=== PATIENT | female | born 1945 | race Caucasian/White ===

== ENCOUNTER 2020-03-15 11:10 | Day surgery (SDC) | payer MEDICARE, SELFPAY ==
--- NOTE | 2020-03-15 | US_ITS ---
EXAMINATION: ULTRASOUND-GUIDED PARACENTESIS CLINICAL INFORMATION: Ascites COMPARISON: Previous exam most recent 02/24/2020 TECHNIQUE: Procedure and risks and benefits including bleeding, infection and low blood pressure were discussed with the patient through an asl interpreter and informed consent was obtained. The right upper quadrant was prepped and draped in the usual sterile fashion. The skin and soft tissues were anesthetized percent lidocaine plain. Using ultrasound guidance and a 5 Congolese rapid 2 cysts catheter, access to the ascitic fluid was obtained. Approximately 4 L of clear yellow fluid was removed. The catheter fell out. Ultrasound demonstrated persistent ascites. The left lower quadrant was prepped and draped in the usual sterile fashion. The skin and soft tissues were anesthetized with 1% lidocaine plain. Using ultrasound guidance and a 5 Congolese rapid centesis catheter, access to the ascitic fluid was obtained. An additional 2.6 L of fluid was removed for a total of 6.6 L. Diagnostic specimen was sent. The patient received albumin 25 g of intravenous albumin during the procedure. FINDINGS: There is a large amount of ascites. IMPRESSION: Ultrasound-guided paracentesis.
[2020-03-15 12:52] VITALS: BP 134/81; PULSE 70; RESP 18; TEMP 36.5; O2SAT 98; BMI 23.8
[2020-03-15 13:17] LABS: Glucose, Whole Blood 65 mg/dL (60-115)
[2020-03-15 13:23] LABS: MANUAL DIFF FLAG NO
[2020-03-15] MEDS: Lidocaine HCl 1 % 20 ML VIAL 5 ML SUBCUT ×2 (13:29→14:53)
[2020-03-15 13:30] LABS: Basophils Percent Auto 0.4 % (0-2); Eosinophils Absolute Auto 0.3 X10*3/uL (0.0-0.4); Eosinophils Percent Auto 2.5 % (0-4); Hematocrit 35.3 % (37-47); Hemoglobin 12.1 g/dl (12.0-16.0); Imm Gran Abs Auto 0.03 X10*3/uL (0.00-0.03); Imm Gran Pct Auto 0.3 % (0.0-0.4); Lymphocytes Absolute Auto 0.8 X10*3/uL (1.2-4.9); Lymphocytes Percent Auto 7.9 % (20-40); Mean Corpuscular HGB Conc 34.3 g/dl (31.0-35.0); Mean Corpuscular Hemoglobin 29.7 pg (27.0-33.0); Mean Corpuscular Volume 86.7 fL (80-98); Mean Platelet Volume 9.5 fL (9.4-12.3); Monocytes Absolute Auto 0.5 X10*3/uL (0.1-1.2); Monocytes Percent Auto 4.5 % (2-11); Neutrophils Percent Auto 84.4 % (45-73); Platelet Count 287 X10*3/uL (160-400); Red Blood Count 4.07 X10*6/uL (4.20-5.50); Red Cell Distribution Width 13.9 % (11.0-16.0); White Blood Count 10.6 X10*3/uL (4.8-10.8)
[2020-03-15 13:34] LABS: INTERNATIONAL NORM RATIO 1.4 (0.9-1.1); Prothrombin Time 16.3 SEC (10.8-13.0)
[2020-03-15 13:36] LABS: Partial Thromboplastin Time 38.7 SEC (24.1-38.0)
[2020-03-15 13:54] LABS: Albumin Level 2.5 g/dL (3.5-5.0); Anion Gap 12 (12-20); Carbon Dioxide 23 mmol/L (22-29); Chloride 106 mmol/L (96-108); Potassium 3.8 mmol/l (3.3-5.1); Sodium 137 mmol/L (135-145)
[2020-03-15 15:20] VITALS: BP 138/74; PULSE 86; RESP 13; TEMP 37.4; O2SAT 100
[2020-03-15 16:27] VITALS: BP 133/76; PULSE 84; RESP 15; O2SAT 100
[2020-03-16 08:09] LABS: Total Protein Peritoneal Fluid 1.3
[2020-03-16 08:11] LABS: Albumin Peritoneal Fluid 0.5
== END 2020-03-15 23:59 ==
PROVIDERS: Internal Medicine Medical Oncology; Visit Provider Radiology Diagnostic Radiology
DX: R18.8 Other ascites (principal); C23 Malignant neoplasm of gallbladder; C55 Malignant neoplasm of uterus, part unspecified
CPT/HCPCS: 36415; 49083; 80051; 82040; 82042; 82947; 84157; 85025; 85610; 85730; 88112; 88305; P9047

== ENCOUNTER 2020-04-01 11:11 | Day surgery (SDC) | payer MEDICARE, SELFPAY ==
[2020-04-01] VITALS (7 sets, daily range): BP systolic 106–124; BP diastolic 56–72; PULSE 70–85; RESP 15–18; TEMP 36.1–37; O2SAT 96–100; BMI 25.2
--- NOTE | 2020-04-01 | US_ITS ---
EXAMINATION: ULTRASOUND-GUIDED PARACENTESIS. CLINICAL INFORMATION: Ovarian, uterine cancer. Ascites. COMPARISON: Abdomen ultrasound 06/21/2018 TECHNIQUE: All explaining ultrasound-guided thoracentesis procedure, benefits and risk, a written consent was obtained. Patient was placed supine on ultrasound table and preliminary ultrasound imaging was obtained through the abdomen. An optimal site was selected, marked, cleaned and draped in usual sterile manner. 1% lidocaine was injected at puncture site. Through a small skin incision the right lower quadrant a 5 American Yueh catheter was inserted into the peritoneal space. After observing fluid return, the stylet was withdrawn and catheter connected to vacuum bottle via connecting cannula. After obtaining all fluid and observing no more fluid remaining, complete hemostasis achieved at puncture site. Sterile band aid dressing was placed over the puncture site. Patient tolerated procedure extremely well. FINDINGS: Preliminary ultrasound imaging revealed large amount of ascites. There is echogenic debris within the ascites. Approximately 7.3 L of yellowish cloudy fluid was drained without immediate complications. US/US paracentesis abd w/image IMPRESSION: Successful ultrasound-guided paracentesis performed with approximately 7.3 L of cloudy yellowish color fluid drained.
[2020-04-01] MEDS: Lidocaine HCl 1 % 20 ML VIAL 5 ML SUBCUT (14:41)
--- NOTE | 2020-04-01 15:28 | HO.RADPN ---
RADIOLOGY Narrative Narrative: US guided therapeutic paracentesis performed with approx 7.3 liters of fluid drained.
== END 2020-04-01 15:00 | disposition home or self-care (01) ==
PROVIDERS: Radiology Diagnostic Radiology; PCP Internal Medicine; Visit Provider Internal Medicine Medical Oncology
DX: R18.8 Other ascites (principal); C23 Malignant neoplasm of gallbladder; C56.9 Malignant neoplasm of unspecified ovary; I10 Essential (primary) hypertension; Z90.49 Acquired absence of other specified parts of digestive tract; Z79.899 Other long term (current) drug therapy
CPT/HCPCS: 49083; C1729

== ENCOUNTER 2020-04-02 18:43 | Inpatient (IN) | payer MEDICARE, SELFPAY ==
[2020-04-02 20:22] VITALS: BP 80/40; PULSE 55; RESP 14; TEMP 36.5; O2SAT 96; BMI 23.8
--- NOTE | 2020-04-02 20:41 | ECG_ITS ---
Test Reason : ABD PAIN Blood Pressure : / mmHG Vent. Rate : 066 BPM Atrial Rate : 066 BPM P-R Int : 124 ms QRS Dur : 080 ms QT Int : 376 ms P-R-T Axes : 047 004 -05 degrees QTc Int : 394 ms Normal sinus rhythm Nonspecific T wave abnormality Low voltage QRS Abnormal ECG When compared with ECG of 21-JUN-2018 16:13, Nonspecific T wave abnormality has replaced inverted T waves in Anterior leads Referred By: Lillie Slade Electronically Signed By:DIONNA MCKEON MD
[2020-04-02 21:04] LABS: Basophils Percent Auto 0.2 % (0-2); Eosinophils Absolute Auto 0.1 X10*3/uL (0.0-0.4); Eosinophils Percent Auto 0.4 % (0-4); Hemoglobin 11.4 g/dl (12.0-16.0); Imm Gran Abs Auto 0.05 X10*3/uL (0.00-0.03); Imm Gran Pct Auto 0.4 % (0.0-0.4); Lymphocytes Absolute Auto 0.5 X10*3/uL (1.2-4.9); Lymphocytes Percent Auto 4.3 % (20-40); MANUAL DIFF FLAG SCAN; Mean Corpuscular HGB Conc 35.6 g/dl (31.0-35.0); Mean Corpuscular Hemoglobin 30.2 pg (27.0-33.0); Mean Corpuscular Volume 84.7 fL (80-98); Mean Platelet Volume 10.3 fL (9.4-12.3); Monocytes Absolute Auto 0.2 X10*3/uL (0.1-1.2); Monocytes Percent Auto 1.5 % (2-11); Neutrophils Absolute Auto 10.9 X10*3/uL (2.0-8.3); Neutrophils Percent Auto 93.2 % (45-73); Platelet Count 333 X10*3/uL (160-400); Red Blood Count 3.78 X10*6/uL (4.20-5.50); Red Cell Distribution Width 19.3 % (11.0-16.0); SCAN SMEAR FLAG 1; White Blood Count 11.7 X10*3/uL (4.8-10.8)
[2020-04-02 21:11] LABS: INTERNATIONAL NORM RATIO 1.8 (0.9-1.1); Prothrombin Time 21.7 SEC (10.8-13.0)
[2020-04-02 21:13] LABS: Partial Thromboplastin Time 37.1 SEC (24.1-38.0)
[2020-04-02 21:27] LABS: SLIDE REVIEW VERIFIED
[2020-04-02 21:31] LABS: Ammonia 58 umol/L (13-55)
--- NOTE | 2020-04-02 21:33 | ED_ITS ---
HPI - Abdominal Pain General Chief Complaint: Abdominal Pain Stated Complaint: pain Time Seen by Provider: 04/02/20 20:41 Source: patient Mode of arrival: wheelchair Limitations: language barrier History of Present Illness HPI narrative: 74-year-old English-speaking female presents with 1 day of jaundice after a paracentesis. 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 She presents with pain, jaundice, fatigue and weakness. Cholangiocarcinoma was diagnosed 2 years ago, she has had follow-up with Dr. Marcos and was scheduled for hysterectomy that had to be canceled 3 times secondary to COVID-19 complications. She is followed by Dr. Powell and by Dr.Ghaoui Ramon [facility]e gastroenterology to [facility]. she does have cirrhosis, esophageal varices, ascites with paracentesis once every 2 weeks. She has never had complications from her paracentesis prior to this. Grandharsha is at bedside and is a great historian. He takes care of her on daily basis. MD elicited complaint: abdominal pain Pertinent past history: other Onset (ago): day(s) (1) Pain Consistency: constant Location: diffuse Severity: severe Quality: cramping, aching and fullness Exacerbating factors: eating and movement Relieving factors: nothing Context: recent surgery/procedure Associated symptoms: nausea, chills and anorexia Related Data Home Medications Medication Instructions Recorded Confirmed amlodipine 5 mg PO DAILY 03/15/20 04/03/20 omeprazole 40 cap PO DAILY 03/15/20 04/03/20 acetaminophen [Tylenol] 650 mg PO Q6H PRN 04/03/20 04/03/20 hydroxyzine HCl 25 mg PO Q6H PRN 04/03/20 04/03/20 Allergies Allergy/AdvReac Type Severity Reaction Status Date / Time lisinopril [LISINOPRIL] Allergy Severe SWELLING/NAUSEA/ITCHING, Verified 04/02/20 22:17 cough, swellimg, redness sunflower seed Allergy Severe ANAPHYLAXIS Verified 04/02/20 22:17 [SUNFLOWER SEED] wheat [WHEAT] Allergy Severe ANAPHYLAXIS Verified 04/02/20 22:17 Review of Systems Review of Systems Constitutional: Positive fatigue, No Weight loss, No Fever, No Chills, No Night Sweats ENT/Mouth: No Hoarseness, No sore throat, No Swallowing Difficulty Eyes: No Eye Pain, No Swelling, No Redness, No Discharge, No Vision Changes Cardiovascular positive dyspnea on exertion, No Chest Pain, No SOB, No Orthopnea, No Edema, No Palpitations Respiratory: No Cough, No Sputum, No Wheezing, No Smoke Exposure, No Dyspnea Gastrointestinal: Positive Nausea, Positive Vomiting, positive Diarrhea, positive abdominal Pain, No Hematochezia, No Melena Genitourinary: no irregular bleeding, No Dysuria, No Urinary Frequency, No Hematuria, No Urinary Incontinence, No Urgency, No Flank Pain, No Urinary Flow Changes, No Hesitancy Musculoskeletal: positive myalgia and joint pain Skin: No Skin Lesions, No rash Neuro: positive Weakness, No Numbness, No Paresthesias, No Loss of Consciousness, No Dizziness, No Headache Psych: No Anxiety/Panic, No Depression, No SI/HI/AH/VH, No Social Issues Heme/Lymph: No Bruising, No Bleeding,No Lymphadenopathy Endocrine: No Polyuria, No Polydipsia, No Temperature Intolerance Physical Exam Vital Signs: Vital Signs: Vital Signs Temp Pulse Resp BP Pulse Ox 04/02/20 23:33 77 16 99/64 98 04/02/20 22:20 80 15 116/65 98 04/02/20 22:00 70 15 89/54 L 99 04/02/20 20:22 97.7 F 55 14 80/40 L 96 Body Mass Index 23.8 Appearance: Alert. Oriented X3. moderate distress. Head: Normal external exam. Normocephalic. Atraumatic. No Nunez signs noted. No raccoon eyes noted Eyes: scleral icterus, PERRLA. EOMI. Eyelids normal. ENT: TM's Normal. Pharynx normal. Uvula midline. dry mucous membranes, No trismus noted. No drooling noted. No muffled voice noted. Neck: Normal inspection. Neck supple. No adenopathy. No meningeal signs. CVS: Normal heart rate and rhythm. Heart sound normal. No murmurs noted. Pulses equal to all extremities. Respiratory: No respiratory distress. Painless inspiration. Breath sounds normal. No wheezes/rales/rhonchi noted. Chest nontender. No accessory muscle usage noted or decreased air movement noted. Abdomen: distended, soft, diffusely tender to palpation throughout all quadrants, Bowel sounds normal in all 4 quadrants. No visible injury noted. Back: positive CVA tenderness Full range of motion noted. Skin: Skin warm and dry. moderately jaundice. Extremities: No lower extremity edema. Extremities exhibit normal range of motion. Extremities nontender. Neuro: cranial nerves 2-12 intact, no focal neural deficits, No motor deficit. No sensory deficit. Course Course Course Narrative: plan is to rule out sepsis, acute liver failure, pancreatitis, GI bleed, acs. fluid boluses initiated, cultures and lactic pending, lactic 3.4, 2nd bolus infusing. Pressures remain soft but stable. labs received at time 11:32 p.m., white count 11.7, with a left shift of 93.2%, PT INR 21.7/1.8, appears to be in acute liver failure bilirubin is 11.4, alk-phos 389. creatinine clearance 39, CT scan without contrast ordered. CT scan shows biliary dilation, increased ascites, and Increased size of known adnexal mass Highly suspicious for metastatic neoplasm. Discussion with hospitalist regarding plan of care, will be admitted to intermediate care. Consultations Consultation #1: Deep Hicks Time: 01:39 MDM - Abdominal Pain Differential Diagnosis Differential diagnosis: Likely abdominal pain, acute appendicitis, pancreatitis and renal colic Differential diagnosis narrative:: Cirrhosis , liver cancer, metastatic cancer Medical Records Attestation: I reviewed the patient's medical records. Lab Data Attestation: I reviewed the patient's lab results. Result diagrams: 04/02/20 20:53 04/02/20 23:32 Labs: Lab Results 04/02/20 04/02/20 04/02/20 Range/Units 20:53 20:53 20:53 WBC 11.7 H (4.8-10.8) X10*3/uL RBC 3.78 L (4.20-5.50) X10*6/uL Hgb 11.4 L (12.0-16.0) g/dl Hct 32.0 L (37-47) % MCV 84.7 (80-98) fL MCH 30.2 (27.0-33.0) pg MCHC 35.6 H (31.0-35.0) g/dl RDW 19.3 H (11.0-16.0) % Plt Count 333 (160-400) X10*3/uL MPV 10.3 (9.4-12.3) fL Immature Gran % (Auto) 0.4 (0.0-0.4) % Neut % (Auto) 93.2 H (45-73) % Lymph % (Auto) 4.3 L (20-40) % [place] % (Auto) 1.5 L (2-11) % Eos % (Auto) 0.4 (0-4) % Baso % (Auto) 0.2 (0-2) % Lymph # (Auto) 0.5 L (1.2-4.9) X10*3/uL [place] # (Auto) 0.2 (0.1-1.2) X10*3/uL Eos # (Auto) 0.1 (0.0-0.4) X10*3/uL Baso # (Auto) 0.0 (0.0-0.2) X10*3/uL Abs Immat Gran (auto) 0.05 H (0.00-0.03) X10*3/uL Absolute Neuts (auto) 10.9 H (2.0-8.3) X10*3/uL Absolute Nucleated RBC 0.000 (0.0-0.012) X10*3/uL Nucleated RBC % (auto) 0.0 (0.0-0.2) /100WBC Smear Tech's Comments VERIFIED PT (10.8-13.0) SEC INR (0.9-1.1) APTT (24.1-38.0) SEC Sodium (135-145) mmol/L Potassium (3.3-5.1) mmol/l Chloride (96-108) mmol/L Carbon Dioxide (22-29) mmol/L Anion Gap (12-20) BUN (9-16) mg/dL Creatinine (0.5-1.4) mg/dL Estim Creat Clear Calc Estimated GFR Random Glucose (60-115) mg/dL Lactic Acid (0.5-2.0) mmol/L Lactic Acid Fup @ 2Hr (0.5-2.0) mmol/L Calcium (8.4-10.2) mg/dL Magnesium 2.0 (1.6-2.6) mg/dL Total Bilirubin 13.7 H (0.0-1.0) mg/dL Direct Bilirubin 8.2 H (0.0-0.5) mg/dL AST 170 H (5-31) U/L ALT 48 H (0-31) U/L Alkaline Phosphatase 479 H (39-117) U/L Ammonia (13-55) umol/L Troponin I High Sens (<3.5-17.0) ng/L Total Protein 7.5 (6.5-8.0) g/dL Albumin 2.3 L (3.5-5.0) g/dL Lipase Cancelled 19 Coronavirus (PCR) (Negative) 04/02/20 04/02/20 04/02/20 Range/Units 20:53 20:53 20:56 WBC (4.8-10.8) X10*3/uL RBC (4.20-5.50) X10*6/uL Hgb (12.0-16.0) g/dl Hct (37-47) % MCV (80-98) fL MCH (27.0-33.0) pg MCHC (31.0-35.0) g/dl RDW (11.0-16.0) % Plt Count (160-400) X10*3/uL MPV (9.4-12.3) fL Immature Gran % (Auto) (0.0-0.4) % Neut % (Auto) (45-73) % Lymph % (Auto) (20-40) % [place] % (Auto) (2-11) % Eos % (Auto) (0-4) % Baso % (Auto) (0-2) % Lymph # (Auto) (1.2-4.9) X10*3/uL [place] # (Auto) (0.1-1.2) X10*3/uL Eos # (Auto) (0.0-0.4) X10*3/uL Baso # (Auto) (0.0-0.2) X10*3/uL Abs Immat Gran (auto) (0.00-0.03) X10*3/uL Absolute Neuts (auto) (2.0-8.3) X10*3/uL Absolute Nucleated RBC (0.0-0.012) X10*3/uL Nucleated RBC % (auto) (0.0-0.2) /100WBC Smear Tech's Comments PT 21.7 H D (10.8-13.0) SEC INR 1.8 H (0.9-1.1) APTT 37.1 (24.1-38.0) SEC Sodium (135-145) mmol/L Potassium (3.3-5.1) mmol/l Chloride (96-108) mmol/L Carbon Dioxide (22-29) mmol/L Anion Gap (12-20) BUN (9-16) mg/dL Creatinine (0.5-1.4) mg/dL Estim Creat Clear Calc Estimated GFR Random Glucose (60-115) mg/dL Lactic Acid 3.4 H* (0.5-2.0) mmol/L Lactic Acid Fup @ 2Hr (0.5-2.0) mmol/L Calcium (8.4-10.2) mg/dL Magnesium (1.6-2.6) mg/dL Total Bilirubin (0.0-1.0) mg/dL Direct Bilirubin (0.0-0.5) mg/dL AST (5-31) U/L ALT (0-31) U/L Alkaline Phosphatase (39-117) U/L Ammonia (13-55) umol/L Troponin I High Sens 4.7 (<3.5-17.0) ng/L Total Protein (6.5-8.0) g/dL Albumin (3.5-5.0) g/dL Lipase Coronavirus (PCR) (Negative) 04/02/20 04/02/20 04/02/20 Range/Units 21:03 23:32 23:32 WBC (4.8-10.8) X10*3/uL RBC (4.20-5.50) X10*6/uL Hgb (12.0-16.0) g/dl Hct (37-47) % MCV (80-98) fL MCH (27.0-33.0) pg MCHC (31.0-35.0) g/dl RDW (11.0-16.0) % Plt Count (160-400) X10*3/uL MPV (9.4-12.3) fL Immature Gran % (Auto) (0.0-0.4) % Neut % (Auto) (45-73) % Lymph % (Auto) (20-40) % [place] % (Auto) (2-11) % Eos % (Auto) (0-4) % Baso % (Auto) (0-2) % Lymph # (Auto) (1.2-4.9) X10*3/uL [place] # (Auto) (0.1-1.2) X10*3/uL Eos # (Auto) (0.0-0.4) X10*3/uL Baso # (Auto) (0.0-0.2) X10*3/uL Abs Immat Gran (auto) (0.00-0.03) X10*3/uL Absolute Neuts (auto) (2.0-8.3) X10*3/uL Absolute Nucleated RBC (0.0-0.012) X10*3/uL Nucleated RBC % (auto) (0.0-0.2) /100WBC Smear Tech's Comments PT (10.8-13.0) SEC INR (0.9-1.1) APTT (24.1-38.0) SEC Sodium 135 (135-145) mmol/L Potassium 3.6 (3.3-5.1) mmol/l Chloride 111 H (96-108) mmol/L Carbon Dioxide 14 L (22-29) mmol/L Anion Gap 14 (12-20) BUN 22 H (9-16) mg/dL Creatinine 1.07 (0.5-1.4) mg/dL Estim Creat Clear Calc 39.8 Estimated GFR 50 Random Glucose 83 (60-115) mg/dL Lactic Acid (0.5-2.0) mmol/L Lactic Acid Fup @ 2Hr 1.6 (0.5-2.0) mmol/L Calcium 6.7 L (8.4-10.2) mg/dL Magnesium (1.6-2.6) mg/dL Total Bilirubin 11.4 H (0.0-1.0) mg/dL Direct Bilirubin (0.0-0.5) mg/dL AST 95 H (5-31) U/L ALT 36 H (0-31) U/L Alkaline Phosphatase 389 H (39-117) U/L Ammonia 58 H (13-55) umol/L Troponin I High Sens (<3.5-17.0) ng/L Total Protein 5.2 L D (6.5-8.0) g/dL Albumin 1.9 L (3.5-5.0) g/dL Lipase Coronavirus (PCR) (Negative) 04/02/20 Range/Units 23:46 WBC (4.8-10.8) X10*3/uL RBC (4.20-5.50) X10*6/uL Hgb (12.0-16.0) g/dl Hct (37-47) % MCV (80-98) fL MCH (27.0-33.0) pg MCHC (31.0-35.0) g/dl RDW (11.0-16.0) % Plt Count (160-400) X10*3/uL MPV (9.4-12.3) fL Immature Gran % (Auto) (0.0-0.4) % Neut % (Auto) (45-73) % Lymph % (Auto) (20-40) % [place] % (Auto) (2-11) % Eos % (Auto) (0-4) % Baso % (Auto) (0-2) % Lymph # (Auto) (1.2-4.9) X10*3/uL [place] # (Auto) (0.1-1.2) X10*3/uL Eos # (Auto) (0.0-0.4) X10*3/uL Baso # (Auto) (0.0-0.2) X10*3/uL Abs Immat Gran (auto) (0.00-0.03) X10*3/uL Absolute Neuts (auto) (2.0-8.3) X10*3/uL Absolute Nucleated RBC (0.0-0.012) X10*3/uL Nucleated RBC % (auto) (0.0-0.2) /100WBC Smear Tech's Comments PT (10.8-13.0) SEC INR (0.9-1.1) APTT (24.1-38.0) SEC Sodium (135-145) mmol/L Potassium (3.3-5.1) mmol/l Chloride (96-108) mmol/L Carbon Dioxide (22-29) mmol/L Anion Gap (12-20) BUN (9-16) mg/dL Creatinine (0.5-1.4) mg/dL Estim Creat Clear Calc Estimated GFR Random Glucose (60-115) mg/dL Lactic Acid (0.5-2.0) mmol/L Lactic Acid Fup @ 2Hr (0.5-2.0) mmol/L Calcium (8.4-10.2) mg/dL Magnesium (1.6-2.6) mg/dL Total Bilirubin (0.0-1.0) mg/dL Direct Bilirubin (0.0-0.5) mg/dL AST (5-31) U/L ALT (0-31) U/L Alkaline Phosphatase (39-117) U/L Ammonia (13-55) umol/L Troponin I High Sens (<3.5-17.0) ng/L Total Protein (6.5-8.0) g/dL Albumin (3.5-5.0) g/dL Lipase Coronavirus (PCR) NEGATIVE (Negative) Imaging Data CT scan - chest: Attestation: I personally reviewed and interpreted this imaging study as follows: Radiologist's impression: FINDINGS: Chest: Mild bibasilar atelectasis. Trace right pleural effusion. No pneumothorax. The visualized thyroid gland is unremarkable. No discrete mediastinal lymphadenopathy is seen, though assessment is suboptimal without intravenous contrast. Cardiac size is within normal limits; no pericardial effusion. Scattered calcification along the aorta, including at the aortic arch. No axillary lymphadenopathy is present. Abdomen/Pelvis: Limited assessment without intravenous contrast. Intrahepatic biliary ductal dilatation appears increased from prior. Patient is status post cholecystectomy. The unenhanced spleen, pancreas, and adrenal glands appear grossly unremarkable. The unenhanced kidneys are unremarkable without hydronephrosis. No renal or ureteral calculi are present. The urinary bladder is unremarkable. Redemonstrated right adnexal mass measuring 9.6 x 7.1 cm, previously 7.7 x 5.4 cm on 11/28/2019. The stomach has a thick-walled appearance. No evidence of bowel obstruction. There is also a thick-walled appearance of the ascending colon. Moderate volume of ascites is present, increased from 11/28/2019. No free air is seen. Atherosclerotic calcifications are present. Left-sided IVC is noted. No lymphadenopathy is seen, though assessment is limited in the absence of intravenous contrast. Periumbilical hernia contains a short segment of small bowel and trace fluid. Degenerative changes are noted in the spine. CT/CT abdomen pelvis wo con IMPRESSION: 1. Suboptimal assessment without intravenous contrast. Intrahepatic biliary ductal dilatation appears increased from 11/28/2019. 2. Interval increase in size of right adnexal mass since 11/28/2019. Subsequent MRI from 12/16/2019 reported findings highly suspicious for neoplasm. 3. Moderate volume ascites, increased from prior. Thick-walled appearance of the stomach and ascending colon could be reactive in this setting, or secondary to inflammation. 4. Trace right pleural effusion. CT scan - abdomen: Attestation: I personally reviewed and interpreted this imaging study as follows: Radiologist's impression: FINDINGS: Chest: Mild bibasilar atelectasis. Trace right pleural effusion. No pneumothorax. The visualized thyroid gland is unremarkable. No discrete mediastinal lymphadenopathy is seen, though assessment is suboptimal without intravenous contrast. Cardiac size is within normal limits; no pericardial effusion. Scattered calcification along the aorta, including at the aortic arch. No axillary lymphadenopathy is present. Abdomen/Pelvis: Limited assessment without intravenous contrast. Intrahepatic biliary ductal dilatation appears increased from prior. Patient is status post cholecystectomy. The unenhanced spleen, pancreas, and adrenal glands appear grossly unremarkable. The unenhanced kidneys are unremarkable without hydronephrosis. No renal or ureteral calculi are present. The urinary bladder is unremarkable. Redemonstrated right adnexal mass measuring 9.6 x 7.1 cm, previously 7.7 x 5.4 cm on 11/28/2019. The stomach has a thick-walled appearance. No evidence of bowel obstruction. There is also a thick-walled appearance of the ascending colon. Moderate volume of ascites is present, increased from 11/28/2019. No free air is seen. Atherosclerotic calcifications are present. Left-sided IVC is noted. No lymphadenopathy is seen, though assessment is limited in the absence of intravenous contrast. Periumbilical hernia contains a short segment of small bowel and trace fluid. Degenerative changes are noted in the spine. CT/CT abdomen pelvis wo con IMPRESSION: 1. Suboptimal assessment without intravenous contrast. Intrahepatic biliary ductal dilatation appears increased from 11/28/2019. 2. Interval increase in size of right adnexal mass since 11/28/2019. Subsequent MRI from 12/16/2019 reported findings highly suspicious for neoplasm. 3. Moderate volume ascites, increased from prior. Thick-walled appearance of the stomach and ascending colon could be reactive in this setting, or secondary to inflammation. 4. Trace right pleural effusion. ECG Data Attestation: I personally reviewed and interpreted this ECG as follows: ECG interpretation date: 04/02/20 ECG interpretation time: 20:56 Prior ECG tracings: available for review Interpretation: Vent. Rate : 066 BPM Atrial Rate : 066 BPM P-R Int : 124 ms QRS Dur : 080 ms QT Int : 376 ms P-R-T Axes : 047 004 -05 degrees QTc Int : 394 ms Normal sinus rhythm Cannot rule out Anterior infarct , age undetermined Abnormal ECG When compared with ECG of 21-JUN-2018 16:13, Nonspecific T wave abnormality has replaced inverted T waves in Anterior leads Critical Care Time Critical Care Time Critical Care Time: Yes Total Critical Care Time: 60 Attestation: I have personally provided critical care time exclusive of time spent on separately billable procedures. Time includes review of laboratory data, radiology results, discussion with consultants, and monitoring for potential decompensation. Interventions were performed as documented. Discharge Plan Discharge Clinical Impression: Acute liver failure Qualifiers: Hepatic coma status: without hepatic coma Qualified Code(s): K72.00 - Acute and subacute hepatic failure without coma Patient Disposition: Admitted As Inpatient [facility] Past Medical History Attestation statement: The following information was validated with the patient. Medical History Gallbladder cancer HTN (hypertension) Hyperlipidemia Osteoarthritis Ovarian cancer Surgical History History of laparoscopic cholecystectomy Social History Social History Smoking Status: Never smoker Second Hand Smoke Exposure: No Advance Directives: No Advance Directives Information Provided: Yes
[2020-04-02 21:35] LABS: Lactic Acid 3.4 mmol/L (0.5-2.0)
[2020-04-02 21:37] LABS: Alanine Aminotransferase 48 U/L (0-31); Albumin Level 2.3 g/dL (3.5-5.0); Alkaline Phosphatase 479 U/L (39-117); Aspartate Amino Transferase 170 U/L (5-31); Bilirubin Direct 8.2 mg/dL (0.0-0.5); Bilirubin Total 13.7 mg/dL (0.0-1.0); Total Protein 7.5 g/dL (6.5-8.0)
[2020-04-02 21:43] LABS: Troponin-I High Sensitivity 4.7 ng/L (<3.5-17.0)
[2020-04-02 22:00] VITALS: BP 89/54; PULSE 70; RESP 15; O2SAT 99
[2020-04-02] MEDS: 0.9 % Sodium Chloride 1,000 ML 999 ML IVCONT ×2 (22:00→22:22)
[2020-04-02] MEDS: ondansetron HCL 4 MG/2 ML VIAL IVPUSH (22:06)
[2020-04-02 22:20] VITALS: BP 116/65; PULSE 80; RESP 15; O2SAT 98
[2020-04-02] MEDS: fentaNYL citrate/PF 100 MCG/2 ML VIAL 25 MCG IVPUSH (22:22)
[2020-04-02 22:29] LABS: Lipase 19 U/L (8-78)
[2020-04-02] MEDS: cefEPime HCl 1 GM in 0.9 % Sodium Chloride 50 ML IV (22:46)
[2020-04-02 23:01] LABS: Reflex Lactate? Lactic Acid Added
[2020-04-02 23:33] VITALS: BP 99/64; PULSE 77; RESP 16; O2SAT 98
[2020-04-03] VITALS (8 sets, daily range): BP systolic 93–110; BP diastolic 50–67; PULSE 65–82; RESP 16–19; TEMP 36–36.4; O2SAT 66–99
--- NOTE | 2020-04-03 | CT_ITS ---
EXAMINATION: CT ABDOMEN AND PELVIS WITH OUT and WITH CONTRAST CLINICAL INFORMATION: Jaundice. Gallbladder/cholangiocarcinoma. COMPARISON: Portions of a CT performed earlier same day TECHNIQUE: Multidetector volumetric images were obtained from the superior aspect of the liver through the pubic symphysis before and following administration 85 mL of Omnipaque 350 intravenous contrast. Sagittal and coronal reformatted images were obtained on the technologist's workstation. Multiphase exam including precontrast, arterial and portal venous phases Oral contrast: Enteric contrast is present This CT examination was performed using dose optimization techniques as appropriate, variously including the following: *Automated exposure control *Adjustment of mA and/or kV according to patient size (this includes techniques or standardized protocols for targeted exams where dose is matched to indication/reason for exam; i.e. extremities or head) *Use of iterative reconstruction technique DLP: 1314 mGy-cm FINDINGS: LUNG BASES: The chest was recently examined. No dense area of consolidation. Minor nonspecific opacities posteromedial right medial base. Fluid extends through the esophageal hiatus. LIVER, GALLBLADDER, AND BILIARY TREE: The right lobe of the liver measures 15.8 cm which is close to the mean expected. There is moderate intrahepatic biliary dilation. There is an intermediate attenuating abnormality near the confluence of the right and left hepatic ducts. This appears to be a site of biliary obstruction. The distal common duct does not appear dilated Whether this represents primary cholangiocarcinoma or portal/hilar adenopathy is uncertain. The gallbladder is surgically absent. Bowel approximates the expected region of the gallbladder. Correlate with any history of hepaticojejunostomy. PANCREAS: No definite pancreatic mass. No pancreatic ductal dilation. SPLEEN: The spleen is not enlarged. No focal abnormality ADRENAL GLANDS: No mass demonstrated KIDNEYS AND URETERS: No dilation of the urinary collecting system. The nephrograms are symmetric. Probable cyst involving the lower pole right kidney laterally. BLADDER: The bladder is empty. GASTROINTESTINAL TRACT: The proximal colon is not well evaluated and is relatively collapsed. Wall thickening could be present. There is metallic suture in the right midabdomen. The ileocecal valve appears to be in the right upper quadrant. This area is not well evaluated. ABDOMINAL WALL: Fluid protrudes into the epigastric upper abdominal wall and there is postoperative change with nodularity. There is a midline ventral hernia which contains contrast containing bowel loops. LYMPH NODES: As described there could be some periportal lymph nodes. Large amount of intraperitoneal fluid. Calcified structure in the deep posterior cul-de-sac. VASCULAR: There is extensive atherosclerosis. There is no abdominal aortic aneurysm. There is opacification of the portal vein. There is a duplication of the IVC which is a normal variant. PELVIC VISCERA: There is a complex right pelvic mass which measures at least 10.2 cm. This has suspicious features. Whether this represents metastatic disease or primary ovarian mass is uncertain. There are some low attenuating areas along the cervical canal. These could represent nabothian cysts but are nonspecific. Mild fullness of the left ovary. Dilated canal vein on the right. OSSEOUS STRUCTURES: There is degenerative change in the spine CT/CT abdomen pelvis w con IMPRESSION: Marked intraperitoneal fluid. Concerning large complex right adnexal mass highly suspicious for malignancy. Intrahepatic biliary dilation to the level of the ron hepatis. There is some poorly defined soft tissue in this area. Correlate with exact surgical anatomy. The intrahepatic biliary dilation appears mildly increased when compared to 11/28/19. The amount of intraperitoneal fluid has increased.
[2020-04-03 00:10] LABS: ~Lactic Acid-LAB USE ONLY 1.6 mmol/L (0.5-2.0)
[2020-04-03 00:22] LABS: Alanine Aminotransferase 36 U/L (0-31); Albumin Level 1.9 g/dL (3.5-5.0); Alkaline Phosphatase 389 U/L (39-117); Anion Gap 14 (12-20); Aspartate Amino Transferase 95 U/L (5-31); Bilirubin Total 11.4 mg/dL (0.0-1.0); Blood Urea Nitrogen 22 mg/dL (9-16); Calcium 6.7 mg/dL (8.4-10.2); Carbon Dioxide 14 mmol/L (22-29); Chloride 111 mmol/L (96-108); Creatinine Clr Calc Pharmacy 39.8; Estimated Glomerular Filt Rate 50; Glucose Random 83 mg/dL (60-115); Potassium 3.6 mmol/l (3.3-5.1); Sodium 135 mmol/L (135-145); Total Protein 5.2 g/dL (6.5-8.0)
--- NOTE | 2020-04-03 00:30 | CT_ITS ---
EXAM: NONCONTRAST CT OF THE CHEST; NONCONTRAST CT OF THE ABDOMEN AND PELVIS INDICATION: Jaundice, history of cholangiocarcinoma COMPARISON: 11/28/2019 TECHNIQUE: No IV contrast was utilized. Multidetector helical imaging was performed through the chest, abdomen, and pelvis. Coronal and sagittal reformatted images were created at the technologist workstation. DOSE LOWERING TECHNIQUES: This CT examination was performed using dose optimization techniques as appropriate, variously including the following: - Automated exposure control - Adjustment of mA and/or kV according to patient size (this includes techniques or standardized protocols for targeted exams were dose is matched to indication/reason for exam; i.e. extremities or head) - Use of iterative reconstruction technique DLP: 754 mGy-cm FINDINGS: Chest: Mild bibasilar atelectasis. Trace right pleural effusion. No pneumothorax. The visualized thyroid gland is unremarkable. No discrete mediastinal lymphadenopathy is seen, though assessment is suboptimal without intravenous contrast. Cardiac size is within normal limits; no pericardial effusion. Scattered calcification along the aorta, including at the aortic arch. No axillary lymphadenopathy is present. Abdomen/Pelvis: Limited assessment without intravenous contrast. Intrahepatic biliary ductal dilatation appears increased from prior. Patient is status post cholecystectomy. The unenhanced spleen, pancreas, and adrenal glands appear grossly unremarkable. The unenhanced kidneys are unremarkable without hydronephrosis. No renal or ureteral calculi are present. The urinary bladder is unremarkable. Redemonstrated right adnexal mass measuring 9.6 x 7.1 cm, previously 7.7 x 5.4 cm on 11/28/2019. The stomach has a thick-walled appearance. No evidence of bowel obstruction. There is also a thick-walled appearance of the ascending colon. Moderate volume of ascites is present, increased from 11/28/2019. No free air is seen. Atherosclerotic calcifications are present. Left-sided IVC is noted. No lymphadenopathy is seen, though assessment is limited in the absence of intravenous contrast. Periumbilical hernia contains a short segment of small bowel and trace fluid. Degenerative changes are noted in the spine. CT/CT abdomen pelvis wo con IMPRESSION: 1. Suboptimal assessment without intravenous contrast. Intrahepatic biliary ductal dilatation appears increased from 11/28/2019. 2. Interval increase in size of right adnexal mass since 11/28/2019. Subsequent MRI from 12/16/2019 reported findings highly suspicious for neoplasm. 3. Moderate volume ascites, increased from prior. Thick-walled appearance of the stomach and ascending colon could be reactive in this setting, or secondary to inflammation. 4. Trace right pleural effusion.
[2020-04-03 01:07] LABS: SARS COV2 PCR INHOUSE NEGATIVE (Negative)
--- NOTE | 2020-04-03 01:56 | PC.NURSE ---
PT SLEEPING, GRANDSON AT BEDSIDE.
--- NOTE | 2020-04-03 02:23 | PC.NURSE ---
pt awake and alert, watching tv. when asked how she feels, she relies nauseous.
--- NOTE | 2020-04-03 03:42 | PM.IMHP ---
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 Hx provided by patient and son at the bedside. Son reports that patient started experiencing first loss of appetite which has been followed by jaundice and severe abdominal discomfort which is diffuse in nature. Patient has been following with Dr Marcos GI, Dr Knight Hematology and Dr Scott in [facility]. Has been having lately Paracentesis almost every 2 weeks. Last paracentesis is reported 2 days ago. On presentation to the ED patient is noted to be borderline hypotensive, WBC of 11.7, INR of 1.8, CO2 of 14, Lactate of 3.4, calcium of 6.7, total bili of 11.4 with direct of 8.2, elevated LFT's / alk phosp, ammonia 58 and albumin of 1.9. Patient was given per ED one dose of cefepime and fentanyl for pain. CT positive for worsening biliary dilation compared to 11/27, increase in size of right adnexal mass. Mod volume ascites which is increased from prior. Decision for admission given. Patient seen and examined at the bedside, laying down in bed in no acute distress after pain med was given. evidence of jaundice is seen. Mild abd discomfort on evaluation/palpation of the abdomen but no significant tenderness. Bx and Ucx was obtained per ED. Off note patient had EGD on 11/28 which showed efophageal varices extending from EG junction with no stigmate of recent bleeding. PMHX: HTN, HLP, OA, cholangiocarcinoma s/p partial hepatectomy, esophageal varices, erosive duodeniti PSX: partial hepatectomy, cholecystectomy, EGD Toxic habits: NO hx of alcohol abuse, smoking or IVDA Review of Systems Constitutional: Constitutional: Reports other (jaundice) Gastrointestinal: Gastrointestinal: Reports other (abdominal distention / pain) [facility] Medical History Gallbladder cancer HTN (hypertension) Hyperlipidemia Osteoarthritis Ovarian cancer Functional capacity: independent ambulation Family history: reviewed and not pertinent Surgical History History of laparoscopic cholecystectomy Social History Smoking Status: Never smoker Second Hand Smoke Exposure: No Advance Directives: No Advance Directives Information Provided: Yes Meds Allergies Allergy/AdvReac Type Severity Reaction Status Date / Time lisinopril [LISINOPRIL] Allergy Severe SWELLING/NAUSEA/ITCHING, Verified 04/02/20 22:17 cough, swellimg, redness sunflower seed Allergy Severe ANAPHYLAXIS Verified 04/02/20 22:17 [SUNFLOWER SEED] wheat [WHEAT] Allergy Severe ANAPHYLAXIS Verified 04/02/20 22:17 Home Medications Medication Instructions Recorded Confirmed Type amlodipine 5 mg PO DAILY 03/15/20 04/03/20 History omeprazole 40 cap PO DAILY 03/15/20 04/03/20 History acetaminophen [Tylenol] 650 mg PO Q6H PRN 04/03/20 04/03/20 History hydroxyzine HCl 25 mg PO Q6H PRN 04/03/20 04/03/20 History Physical Exam Vital Signs and Narrative: Vital Signs: Last Vital Signs Temp 97.7 F 04/02/20 20:22 Pulse 70 04/03/20 02:24 Resp 16 04/02/20 23:33 BP 93/50 L 04/03/20 02:24 Pulse Ox 97 04/03/20 02:24 Body Mass Index 23.8 Const: General: cooperative, comfortable and no acute distress Orientation/consciousness: oriented to person, oriented to place and oriented to time Limitations: other limitations (jaundice) HENMT: Head: Yes other (icteric eyes / skin) Eyes: Sclerae: scleral abnormal (icteric) Neck: Yes normal visual inspection Chest: Chest palpation & inspection: normal inspection of the chest Resp: Effort & Inspection: normal respiratory effort Cardio: Jugular venous distension: no JVD Rhythm: regular rhythm Heart sounds: S1 normal heart sound present and S2 normal heart sound present GI: Inspection: Yes other (abdominal distention, mild discomfort with no significant tenderness ) Skin: General skin exam: jaundice Neuro: General: oriented to person, oriented to place and oriented to time Extrem: General: Yes normal to inspection Psych: Appearance: grossly normal Results Labs Labs: Laboratory Tests 04/02/20 04/02/20 04/02/20 20:53 20:53 20:53 WBC 11.7 H RBC 3.78 L Hgb 11.4 L Hct 32.0 L MCV 84.7 MCH 30.2 MCHC 35.6 H RDW 19.3 H Plt Count 333 MPV 10.3 Immature Gran % (Auto) 0.4 Neut % (Auto) 93.2 H Lymph % (Auto) 4.3 L Nicholas % (Auto) 1.5 L Eos % (Auto) 0.4 Baso % (Auto) 0.2 Lymph # (Auto) 0.5 L Nicholas # (Auto) 0.2 Eos # (Auto) 0.1 Baso # (Auto) 0.0 Abs Immat Gran (auto) 0.05 H Absolute Neuts (auto) 10.9 H Absolute Nucleated RBC 0.000 Nucleated RBC % (auto) 0.0 Smear Tech's Comments VERIFIED PT INR APTT Sodium Potassium Chloride Carbon Dioxide Anion Gap BUN Creatinine Estim Creat Clear Calc Estimated GFR Random Glucose Lactic Acid Lactic Acid Fup @ 2Hr Calcium Magnesium 2.0 Total Bilirubin 13.7 H Direct Bilirubin 8.2 H AST 170 H ALT 48 H Alkaline Phosphatase 479 H Ammonia Troponin I High Sens Total Protein 7.5 Albumin 2.3 L Lipase Cancelled 19 Coronavirus (PCR) 04/02/20 04/02/20 04/02/20 20:53 20:53 20:56 WBC RBC Hgb Hct MCV MCH MCHC RDW Plt Count MPV Immature Gran % (Auto) Neut % (Auto) Lymph % (Auto) Nicholas % (Auto) Eos % (Auto) Baso % (Auto) Lymph # (Auto) Nicholas # (Auto) Eos # (Auto) Baso # (Auto) Abs Immat Gran (auto) Absolute Neuts (auto) Absolute Nucleated RBC Nucleated RBC % (auto) Smear Tech's Comments PT 21.7 H D INR 1.8 H APTT 37.1 Sodium Potassium Chloride Carbon Dioxide Anion Gap BUN Creatinine Estim Creat Clear Calc Estimated GFR Random Glucose Lactic Acid 3.4 H* Lactic Acid Fup @ 2Hr Calcium Magnesium Total Bilirubin Direct Bilirubin AST ALT Alkaline Phosphatase Ammonia Troponin I High Sens 4.7 Total Protein Albumin Lipase Coronavirus (PCR) 04/02/20 04/02/20 04/02/20 21:03 23:32 23:32 WBC RBC Hgb Hct MCV MCH MCHC RDW Plt Count MPV Immature Gran % (Auto) Neut % (Auto) Lymph % (Auto) Nicholas % (Auto) Eos % (Auto) Baso % (Auto) Lymph # (Auto) Nicholas # (Auto) Eos # (Auto) Baso # (Auto) Abs Immat Gran (auto) Absolute Neuts (auto) Absolute Nucleated RBC Nucleated RBC % (auto) Smear Tech's Comments PT INR APTT Sodium 135 Potassium 3.6 Chloride 111 H Carbon Dioxide 14 L Anion Gap 14 BUN 22 H Creatinine 1.07 Estim Creat Clear Calc 39.8 Estimated GFR 50 Random Glucose 83 Lactic Acid Lactic Acid Fup @ 2Hr 1.6 Calcium 6.7 L Magnesium Total Bilirubin 11.4 H Direct Bilirubin AST 95 H ALT 36 H Alkaline Phosphatase 389 H Ammonia 58 H Troponin I High Sens Total Protein 5.2 L D Albumin 1.9 L Lipase Coronavirus (PCR) 04/02/20 23:46 WBC RBC Hgb Hct MCV MCH MCHC RDW Plt Count MPV Immature Gran % (Auto) Neut % (Auto) Lymph % (Auto) Nicholas % (Auto) Eos % (Auto) Baso % (Auto) Lymph # (Auto) Nicholas # (Auto) Eos # (Auto) Baso # (Auto) Abs Immat Gran (auto) Absolute Neuts (auto) Absolute Nucleated RBC Nucleated RBC % (auto) Smear Tech's Comments PT INR APTT Sodium Potassium Chloride Carbon Dioxide Anion Gap BUN Creatinine Estim Creat Clear Calc Estimated GFR Random Glucose Lactic Acid Lactic Acid Fup @ 2Hr Calcium Magnesium Total Bilirubin Direct Bilirubin AST ALT Alkaline Phosphatase Ammonia Troponin I High Sens Total Protein Albumin Lipase Coronavirus (PCR) NEGATIVE Assessment and Plan (1) Cholangiocarcinoma: Status: Acute On imaging it is evidence of worsening biliary dilation compared to studies from 11/28 with labs correlates with possible billiary obstruction due to underlying malignancy Total bilirubin of 11.4 with direct of 8.2, elevated LFT's / alk phosp and INR of 1.87 Will get in touch with GI for possible need of ERCP at this point Hematology/Oncology Dr Knight for follow up Pain control Will give albumin as there is evidence of worsening ascitis with elevated lactate likely due to third spacing Paracentesis done recently showed no evidence of SBP, given finding willl not continue with IV antbx as of now Will obtain records from [facility] regarding recent visits and other studies done (2) Abdominal pain: Status: Acute Pain control for now. Oxycodone as ordered (3) GERD (gastroesophageal reflux disease): Status: Acute continue with PPI home dose (4) HTN (hypertension): Status: Acute continue with amlodipine home dose
--- NOTE | 2020-04-03 04:35 | PC.NURSE ---
pt able to ambulate with steady gait, only able to void once while in ER. urine dark, 200 ml in hat measured before sample.
[2020-04-03 04:53] LABS: Glucose Urine UA NEG (NEG); Leukocyte Esterase Urine NEG (NEG); Nitrite Urine NEG (NEG); PH 6.5 (5.0-8.0); Specific Gravity - Urine 1.015 (1.005-1.025); Urine Blood 1+ (NEG); Urine Ketones NEG (NEG); Urine Protein TRACE MG/DL (NEG-TRACE)
[2020-04-03] MEDS: Albumin Human 25 % 50 ML 100 ML IV (05:20)
[2020-04-03 05:52] LABS: Appearance Urine HAZY; Color Urine AMBER
[2020-04-03 05:53] LABS: Bacteria Urine 2+ /LPF; Squamous Epithelial Cell Urine 2+ /LPF
[2020-04-03] MEDS: Heparin Sodium,Porcine 5,000 UNIT/ML VIAL 5000 UNIT SUBCUT ×3 (06:26→21:26)
[2020-04-03] MEDS: 0.9 % Sodium Chloride Flush 3 ML SYRINGE IVFLUSH ×3 (07:53→23:55)
[2020-04-03] MEDS: Omeprazole 20 MG CAPSULE.DR PO (07:53)
--- NOTE | 2020-04-03 11:08 | MHC.CM.PN ---
NURSE INDUSTRIAL SPRAYPAINTER NOTES ELECTRONIC MEDICAL RECORD REVIEWED ALONG WITH CASE DISCUSSED WITH THE HOSPITLAISTBEE WITH PATIENT SHE IS HUNGARIAN SPEAKING AND DOES UNDERSTAND SOME ENGISH I OFFERED HER A [facility] [place] INTERPERTER AND SHE DECLINED HER GRANDSON /HCP AND A [facility] [place]URSE WAS P[place]RESENT , SHE EANTED HIM TO INTERPERT IF SHE DID NOT UNDERSTAND. I EXPLAINED MY ROLE EDUCATED ABOUT THE IMPORTANCE OF HAVING A HEALTH CARE PROXY , HER HER GRANDSON WILL BRING IN A COPY TO HAVE ON FILE. PER DOCUMENENTATION DIAGNOSIS OF CJHOLANGIOCARCINOMA,S/P HX PARTIAL HEPATECTMY AND CHOLECYSTECTOMY, ADMITTED FR ABDOMINAL PAIN AND JAUNDICE SHE HAD A recent paracentesis just 2 days prioooooot admission . she is folowed by dr juares and dr zapata. per patient /grandson she has no vna n dme services in the home and is aleays with famiy SHE IS INDEPENDNT INADLS AND MOBILITY N HER GOOD DAYS WHEN SHE IS FEELING WEAK JUST PRIOR TO ANOTHER PARENTESIS SHE IS A LITTLE SLOWER IN COMPLLLLETING TASKS , SHE COKS THE SHARI FOR THE FAMILY, PATIENT DOES NOT WANT ANY VNA INT HE HOME SHE HAS MANY FAMILY MEBERS WITH HER TRANSPORTATION FAMILY HCP -FAMILY TO BRING INN COPY PCP DR CRAFT PO CONTINUED F/U WITH DR PISANO AND DR ZAPATA MEDICARE IMM EXPLAINED AND GIVEN TO PATIENT
--- NOTE | 2020-04-03 13:21 | CONS_ITS ---
DATE OF SERVICE: 04/03/2020 REFERRING PHYSICIAN: Damon Case MD REASON FOR CONSULTATION: Elevated liver function tests. HISTORY OF PRESENT ILLNESS: The patient is a pleasant, 74-year-old woman, known to me from prior evaluation. She was admitted to the hospital after presenting to the emergency room with complaints of jaundice. She has a history of hepatic cirrhosis with previous hepaticojejunostomy for gallbladder cancer/cholangiocarcinoma in 2019, at [facility]. She has recently been evaluated for a right ovarian mass and surgery was considered, but she was felt high risk because of her underlying liver disease. She has a history of ascites and has been getting paracentesis approximately every 2 weeks for recurrent ascites. Previous analysis has shown no evidence of malignancy in the ascites fluid and the serum albumin gradient has been greater than 1.1 consistent with portal hypertension. She is not currently on diuretics. She reports about 1 week of jaundice with dark urine and yellow eyes as well as fatigue and weakness. There has been no fever or chills. PAST MEDICAL HISTORY: 1. Gallbladder cancer/cholangiocarcinoma as above with hepaticojejunostomy. 2. Hypertension. 3. Osteoarthritis. 4. Ovarian mass. 5. Gastroesophageal reflux disease. 6. Hyperlipidemia. 7. Endometrial carcinoma. CURRENT MEDICATIONS: Her current medication list is reviewed in the chart. ALLERGIES: HER MEDICATION ALLERGY LIST IS REVIEWED. FAMILY HISTORY: This is reviewed with the patient and is noncontributory. SOCIAL HISTORY: There is no current tobacco, alcohol or substance abuse. REVIEW OF SYSTEMS: SKIN: No pruritus. HEENT: Negative. CARDIOPULMONARY: No shortness of breath or chest pain. GASTROINTESTINAL: As above. GENITOURINARY: Negative. NEUROPSYCHIATRIC: Negative. PHYSICAL EXAMINATION: GENERAL: Shows a pleasant female. SKIN: Icteric. HEENT: Scleral icterus. NECK: Without lymphadenopathy or thyromegaly. LUNGS: Clear. HEART: Regular rate and rhythm. S1, S2. No murmur. ABDOMEN: Soft without focal masses or tenderness. Bowel sounds are present. There does appear to be ascites fluid. EXTREMITIES: Without edema. LABORATORY DATA: Reviewed as is her CT scan. IMPRESSION: Jaundice with history of gallbladder cancer and ovarian mass. My impression is that she needs further evaluation of her liver. I would recommend MRI with contrast and without to further evaluate the liver and rule out underlying metastatic disease or recurrent gallbladder/cholangiocarcinoma. I would recommend starting diuretic therapy for her recurrent ascites and monitoring her hematocrit. ERCP is not an option in this patient based on her previous surgery. MD GALE Benson/IMANI / [id number]
[2020-04-03] MEDS: Spironolactone 25 MG TABLET 50 MG PO (14:30)
[2020-04-03] MEDS: Diatrizoate Meglumine, Sodium 30 ML SOLUTION PO (17:43)
[2020-04-03] MEDS: iohexoL 350 MG/ML 100 ML INFUS..BTL IV (17:44)
[2020-04-03] MEDS: Furosemide 40 MG/4 ML SOLUTION PO (18:52)
[2020-04-04 04:00] VITALS: BP 95/67; PULSE 82; RESP 18; TEMP 36.8; O2SAT 97
[2020-04-04] MEDS: Heparin Sodium,Porcine 5,000 UNIT/ML VIAL 5000 UNIT SUBCUT ×2 (05:43→21:19)
[2020-04-04 07:34] LABS: MANUAL DIFF FLAG NO
[2020-04-04 07:46] VITALS: BP 95/55; PULSE 71; RESP 17; TEMP 36.6; O2SAT 97
[2020-04-04 07:58] LABS: Basophils Percent Auto 0.3 % (0-2); Eosinophils Absolute Auto 0.4 X10*3/uL (0.0-0.4); Eosinophils Percent Auto 4.6 % (0-4); Hematocrit 27.1 % (37-47); Hemoglobin 9.8 g/dl (12.0-16.0); Imm Gran Abs Auto 0.03 X10*3/uL (0.00-0.03); Imm Gran Pct Auto 0.4 % (0.0-0.4); Lymphocytes Absolute Auto 1.1 X10*3/uL (1.2-4.9); Lymphocytes Percent Auto 14.8 % (20-40); Mean Corpuscular HGB Conc 36.2 g/dl (31.0-35.0); Mean Corpuscular Volume 82.9 fL (80-98); Mean Platelet Volume 10.5 fL (9.4-12.3); Monocytes Absolute Auto 0.6 X10*3/uL (0.1-1.2); Monocytes Percent Auto 8.3 % (2-11); Neutrophils Absolute Auto 5.5 X10*3/uL (2.0-8.3); Neutrophils Percent Auto 71.6 % (45-73); Platelet Count 305 X10*3/uL (160-400); Red Blood Count 3.27 X10*6/uL (4.20-5.50); Red Cell Distribution Width 19.1 % (11.0-16.0); White Blood Count 7.6 X10*3/uL (4.8-10.8)
[2020-04-04 08:19] LABS: Alanine Aminotransferase 40 U/L (0-31); Alkaline Phosphatase 344 U/L (39-117); Anion Gap 12 (12-20); Aspartate Amino Transferase 102 U/L (5-31); Bilirubin Direct 7.3 mg/dL (0.0-0.5); Bilirubin Total 9.5 mg/dL (0.0-1.0); Blood Urea Nitrogen 21 mg/dL (9-16); Calcium 7.1 mg/dL (8.4-10.2); Carbon Dioxide 16 mmol/L (22-29); Chloride 108 mmol/L (96-108); Creatinine Clr Calc Pharmacy 50.7; Estimated Glomerular Filt Rate > 60; Glucose Random 75 mg/dL (60-115); Potassium 4.1 mmol/l (3.3-5.1); Sodium 132 mmol/L (135-145); Total Protein 5.1 g/dL (6.5-8.0)
[2020-04-04] MEDS: 0.9 % Sodium Chloride Flush 3 ML SYRINGE IVFLUSH ×3 (09:58→23:44)
[2020-04-04] MEDS: Furosemide 40 MG/4 ML SOLUTION PO (09:59)
[2020-04-04] MEDS: Spironolactone 25 MG TABLET 50 MG PO (09:59)
[2020-04-04] MEDS: Omeprazole 20 MG CAPSULE.DR PO (09:59)
--- NOTE | 2020-04-04 10:42 | PM.HEMONCCN ---
Subjective - Subjective Chief complaint: Jaundice and abdominal pain Consult date: 04/04/20 Primary Care Provider: Heather Diez MD HPI - Consult Narrative Reason for consult: History of cholangiocarcinoma and probable metastatic ovarian carcinoma. Narrative: Solange Perez is a 74 year old female who has been admitted to [facility] with complaints of jaundice and abdominal pain. 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 She has developed ascites from January of 2020 and has been receiving therapeutic paracentesis every 2 weeks. She has had a few biopsies but they have not been definitive and workup at [facility] and [facility] are still ongoing. Patient was brought to the hospital on Sunday because of complaints of abdominal pain, nausea and yellowing of the skin. No complaints of fever or chills. No diarrhea but has had mild constipation. She has been eating very poorly. No complaints of chest pain or cough. On presentation to the ED patient was noted to be borderline hypotensive, WBC of 11.7, INR of 1.8, CO2 of 14, Lactate of 3.4, calcium of 6.7, total bili of 11.4 with direct of 8.2, elevated LFT's / alk phosp, ammonia 58 and albumin of 1.9. Patient was given per ED one dose of cefepime and fentanyl for pain. CT positive for worsening biliary dilation compared to 11/27, increase in size of right adnexal mass. Patient has been admitted for further investigations and possible treatment. Review of Systems - Constitutional Reports anorexia - Cardiovascular Denies chest pain at rest - Respiratory Denies chest congestion, Denies cough - Gastrointestinal Reports abdominal pain, Reports bloating, Reports constipation, Reports nausea, Denies bright, red blood in stools, Denies vomiting PMFSH Medical History: Medical History (Last Updated 04/03/20 @ 03:57 by Sheba Hicks MD) Gallbladder cancer HTN (hypertension) Hyperlipidemia Osteoarthritis Ovarian cancer Functional capacity: independent ambulation Family history: reviewed and not pertinent Surgical History: Surgical History (Last Reviewed 04/03/20 @ 03:55 by Sheba Hicks MD) History of laparoscopic cholecystectomy Smoking status: Never smoker Home Medications and Allergies Current Medications: Current Medications Generic Name Dose Route Start Last Admin Trade Name Freq PRN Reason Stop Dose Admin Amlodipine Besylate 5 mg 04/03/20 09:00 04/04/20 09:58 Amlodipine Besylate 5 Mg Tablet PO Not Given DAILY [facility] Protocol Furosemide 40 mg 04/03/20 13:00 04/04/20 09:59 Furosemide 40 Mg/4 Ml Solution PO 40 mg DAILY [facility] Administration Protocol Heparin Sodium (Porcine) 5,000 unit 04/03/20 05:42 04/04/20 05:43 Heparin Sodium,Porcine 5,000 Unit/Ml Vial SUBCUT 5,000 unit Q8H [facility] Administration Omeprazole 20 mg 04/03/20 09:00 04/04/20 09:59 Omeprazole 20 Mg Capsule.Dr PO 20 mg DAILY [facility] Administration Oxycodone HCl 5 mg 04/03/20 05:42 Oxycodone Hcl Immed Release 5 Mg Tablet PO Q6H PRN Pain, Severe (Pain Scale 7-10) Pharmacy Consult 1 each 04/02/20 22:23 Consult Rx Perform Med Rec MISCELLANE ONCE PRN Consult order Sodium Chloride 3 ml 04/03/20 08:00 04/04/20 09:58 0.9 % Sodium Chloride Flush 3 Ml Syringe IVFLUSH 3 ml QSHIFT [facility] Administration Spironolactone 50 mg 04/03/20 13:00 04/04/20 09:59 Spironolactone 25 Mg Tablet PO 50 mg DAILY [facility] Administration Protocol Home Medications Medication Instructions Recorded Confirmed Type amlodipine 5 mg PO DAILY 03/15/20 04/03/20 History omeprazole 40 cap PO DAILY 03/15/20 04/03/20 History acetaminophen [Tylenol] 650 mg PO Q6H PRN 04/03/20 04/03/20 History hydroxyzine HCl 25 mg PO Q6H PRN 04/03/20 04/03/20 History Allergies Allergy/AdvReac Type Severity Reaction Status Date / Time lisinopril [LISINOPRIL] Allergy Severe SWELLING/NAUSEA/ITCHING, Verified 04/02/20 22:17 cough, swellimg, redness sunflower seed Allergy Severe ANAPHYLAXIS Verified 04/02/20 22:17 [SUNFLOWER SEED] wheat [WHEAT] Allergy Severe ANAPHYLAXIS Verified 04/02/20 22:17 Physical Exam Vital signs: Vital Signs Temp 97.8 F 04/04/20 07:46 Pulse 71 04/04/20 07:46 Resp 17 04/04/20 07:46 BP 95/55 L 04/04/20 07:46 Pulse Ox 97 04/04/20 07:46 Intake & Output 04/03/20 04/04/20 04/04/20 18:59 06:59 18:59 Intake Total 120 / 600 480 / 600 Balance 120 / 600 480 / 600 Intake: Intake, Oral Amount 120 / 600 480 / 600 Other: Meal Refused No NPO No Breakfast % Eaten 25% Lunch % Eaten 100% Dinner % Eaten 100% Number of Unmeasured Voids 1 2 Weight 63.049 kg - Constitutional Present: no acute distress - Routine HEENT Exam Head: Present: normal inspection Eye: Present: scleral icterus - Routine Neck Exam Present: supple - Routine Respiratory Exam Absent: rhonchi, wheezes - Routine Cardiovascular Exam Cardiovascular: Present: S1, S2 - Routine Abdominal Exam Present: distended, soft - Routine Skin Exam Present: intact, jaundice - Routine Neurological Exam Present: alert, oriented X3 Hem/Onc Consult Result - Labs CBC & Chem 7: 04/04/20 07:00 04/04/20 07:00 Labs: Short CBC 04/04/20 Range/Units 07:00 WBC 7.6 (4.8-10.8) X10*3/uL Hgb 9.8 L (12.0-16.0) g/dl Hct 27.1 L (37-47) % Plt Count 305 (160-400) X10*3/uL BMP 04/04/20 07:00 Sodium 132 L Potassium 4.1 Chloride 108 Carbon Dioxide 16 L BUN 21 H Creatinine 0.84 Calcium 7.1 L Liver Function 04/04/20 Range/Units 07:00 Total Bilirubin 9.5 H (0.0-1.0) mg/dL Direct Bilirubin 7.3 H (0.0-0.5) mg/dL AST 102 H (5-31) U/L ALT 40 H (0-31) U/L Alkaline Phosphatase 344 H (39-117) U/L Albumin 2.0 L (3.5-5.0) g/dL Assessment and Plan (1) Cholangiocarcinoma Status: Acute This is a 74-year-old woman with adenocarcinoma of the gallbladder which was noted incidentally on cholecystectomy 2 years ago, she underwent partial hepatectomy and extrahepatic biliary reconstruction. Pathology revealed adenocarcinoma, moderately differentiated, pT1b. She did not receive adjuvant therapy as she was lost to follow-up for some time. She reestablished with [facility] Oncology in 2019, imaging had revealed soft tissue density in right gallbladder fossa, recurrent disease could not be excluded. She has also been diagnosed with endometrial carcinoma. Staging PET-CT revealed extensive peritoneal metastasis. This was felt to be related to gallbladder cancer rather than metastatic endometrial cancer. Biopsy of one of the liver lesions, was done on 01/25. Pathology revealed: Liver, core needle biopsy: - Benign liver tissue with portal acute and chronic inflammation, fibrosis and marked bile duct proliferation. No metastatic carcinoma or neoplastic process identified. She has been receiving palliative paracentesis for recurrent ascites since January 2020. Biopsy of the right pelvic mass was done on February 05. Pathology revealed: Pelvic ovarian mass, right, biopsies: Fragments of necrotic tumor. Patient is now presenting with obstructive jaundice. She has been recommended MRI abdomen to further evaluate the liver by Dr. Marcos. Her bilirubin has decreased somewhat since admission and she is symptomatically doing better. I spoke to her grandson and patient at length today, they are interested in pursuing this course of action. 2. Normocytic anemia probably related to malignancy and 2 nutrition. Check iron studies, vitamin B12 and folic acid levels. Further recommendations to be made based on imaging study. Dr. Powell will be able to talk to the family tomorrow. I thank you very much for this consultation.
--- NOTE | 2020-04-04 10:47 | MHC.CM.PN ---
NURSE CYBER THREAT ANALYST NOTE ELECTRONIC MEDICAL RECORD REVIEWED ALONG WITH CASE DISCUSSED WITH STAFF NURSE ,PER DOCUMENTATION PATIENT WAS EVALUATED BY DR PISANO (HISTORY OF LIVER CIRRHOSIS WITH PREVIOUS HEPAICOJEJUNOSTOMY FOR GALLBADDER CANCER/CHOLANGIOCARCINOMA 2019 AT [facility] AND HAS BEEN EVALUATED FR RIGHT OVARIAN MASS ,NO SURGERY AT THIS TIMNE, LAST PARACENTESIS 2 WEEKS AGO FOR ASCITES HAS HAD I WWEEK OF INCREAsing jaundice and abdomina pain easily fatigued and weak) PLAN OF CARE MRI OF THE LIVER, STARTING AND MONITORING ALL LABS, DIUETIC MET WITH PATIENT SHE WAS AWAKE AND ALERT, TOLERATING LOW SODIUM DIET , LISA MONITOR FOR BLOOD CULTURE REPORTS PO OXYCODONE PRN FOR PAIN MANAGEMENT DISCHARGE PLAN CONTINUE TO MONITOR FOR ANY CHANGES IN DISCHARGE NEEDS, (OFFERED PATIENT AND GRANDSON PRESENT VNA POST DISCHARGE AND DECLINED THERE ARE FAMILY SUPPORT IN THE HOME ) PRIMARY CARE PHYSICIAN, DR MORGAN AND DR CUMMINS FOLOW UP INSICATED PPPER DISCHARGE INSTRUCTIOSN TRANSPORTATION FAMILY
--- NOTE | 2020-04-04 11:28 | HO.PM.IMPN ---
Subjective Subjective Date of Service: 04/04/20 Interval History: Patient seen and examined at bedside patient reported abdominal pain improving Constitutional Constitutional: Reports weakness Cardiovascular Cardiovascular: Denies chest pain and Denies dyspnea Respiratory Respiratory: Denies dyspnea Gastrointestinal Gastrointestinal: Reports nausea Neurologic Neurologic: Reports weakness Physical Exam Vital Signs: Vital Signs: Vital Signs Temp Pulse Resp BP Pulse Ox 04/04/20 07:46 97.8 F 71 17 95/55 L 97 04/04/20 04:00 98.3 F 82 18 95/67 97 04/03/20 23:30 97.2 F 82 98/58 L 96 04/03/20 19:42 97.2 F 76 105/64 97 04/03/20 15:42 97.4 F 70 18 101/62 98 04/03/20 11:42 97 F 80 19 110/52 L 66 L Body Mass Index 23.8 Const: Orientation/consciousness: oriented to person, oriented to place and oriented to time Limitations: other limitations (jaundice) HENMT: Head: Yes other (icteric eyes / skin) Eyes: Sclerae: scleral abnormal (icteric) Neck: Neck: Yes normal visual inspection Chest: Chest palpation & inspection: normal inspection of the chest Resp: Effort & Inspection: normal respiratory effort Cardio: Jugular venous distension: no JVD Rhythm: regular rhythm Heart sounds: S1 normal heart sound present and S2 normal heart sound present GI: Inspection: Yes other (abdominal distention, mild discomfort with no significant tenderness ) Skin: General skin exam: jaundice Neuro: General: oriented to person, oriented to place and oriented to time Extrem: General: Yes normal to inspection Psych: Appearance: grossly normal Objective Data Current Medications Generic Name Dose Route Start Last Admin Trade Name Torq PRN Reason Stop Dose Admin Amlodipine Besylate 5 mg 04/03/20 09:00 04/04/20 09:58 Amlodipine Besylate 5 Mg Tablet PO Not Given DAILY [facility] Protocol Furosemide 40 mg 04/03/20 13:00 04/04/20 09:59 Furosemide 40 Mg/4 Ml Solution PO 40 mg DAILY [facility] Administration Protocol Heparin Sodium (Porcine) 5,000 unit 04/03/20 05:42 04/04/20 05:43 Heparin Sodium,Porcine 5,000 Unit/Ml Vial SUBCUT 5,000 unit Q8H [facility] Administration Omeprazole 20 mg 04/03/20 09:00 04/04/20 09:59 Omeprazole 20 Mg Capsule. PO 20 mg DAILY [facility] Administration Oxycodone HCl 5 mg 04/03/20 05:42 Oxycodone Hcl Immed Release 5 Mg Tablet PO Q6H PRN Pain, Severe (Pain Scale 7-10) Pharmacy Consult 1 each 04/02/20 22:23 Consult Rx Perform Med Rec MISCELLANE ONCE PRN Consult order Sodium Chloride 3 ml 04/03/20 08:00 04/04/20 09:58 0.9 % Sodium Chloride Flush 3 Ml Syringe IVFLUSH 3 ml QSHIFT [facility] Administration Spironolactone 50 mg 04/03/20 13:00 04/04/20 09:59 Spironolactone 25 Mg Tablet PO 50 mg DAILY [facility] Administration Protocol Labs CBC & Chem 7: 04/04/20 07:00 04/04/20 07:00 Microbiology Microbiology Results: Microbiology 04/02/20 21:03 Blood - Venous Blood Culture - Preliminary No growth after 24 hours. 04/02/20 20:56 Blood - Venous Blood Culture - Preliminary No growth after 24 hours. Assessment and Plan (1) Cholangiocarcinoma: Status: Acute (2) Abdominal pain: Status: Acute (3) GERD (gastroesophageal reflux disease): Status: Acute (4) HTN (hypertension): Status: Acute Assessment and Plan: 74-year-old female with history of cholangiocarcinoma cirrhosis ascites requiring weekly tap presented with worsening LFTs , CT abdomen on admission shows worsening biliary duct dilatation worsening LFTs likely secondary to underlying cholangiocarcinoma with cirrhosis and ascites with adenexal mass LFT slightly trending down seen by gastroenterology recommended MRI with contrast monitor LFTs right adnexal mass increasing, likely metastatic from cholangiocarcinoma discussed with patient's grandson patient was supposed to get hysterectomy, but was canceled as per surgeon patient is not candidate for surgery due to underlying cirrhosis cirrhosis with ascites status post paracentesis 2 days before admission started on Lasix and Aldactone GERD continue omeprazole hypertension continue amlodipine DVT prophylaxis heparin subcu
[2020-04-04 11:52] VITALS: BP 101/60; PULSE 64; RESP 16; TEMP 36.1; O2SAT 97
--- NOTE | 2020-04-04 12:42 | P.PNGI_ITS ---
Subjective Subjective Date of Service: 04/04/20 Interval History: no n/v, pain improved Physical Exam Vital Signs: Vital Signs: Vital Signs Temp Pulse Resp BP Pulse Ox 04/04/20 11:52 97.0 F 64 16 101/60 97 04/04/20 07:46 97.8 F 71 17 95/55 L 97 04/04/20 04:00 98.3 F 82 18 95/67 97 04/03/20 23:30 97.2 F 82 98/58 L 96 04/03/20 19:42 97.2 F 76 105/64 97 04/03/20 15:42 97.4 F 70 18 101/62 98 Body Mass Index 23.8 Const: General: cooperative and comfortable Eyes: Sclerae: scleral abnormal (icteric) GI: Inspection: Yes normal to inspection, Yes abdominal wall ecchymosis and Yes other (ascites present) Objective Data Labs CBC & Chem 7: 04/04/20 07:00 04/04/20 07:00 Labs: Laboratory Results - last 24 hr 04/04/20 04/04/20 07:00 07:00 WBC 7.6 RBC 3.27 L Hgb 9.8 L Hct 27.1 L MCV 82.9 MCH 30.0 MCHC 36.2 H RDW 19.1 H Plt Count 305 MPV 10.5 Immature Gran % (Auto) 0.4 Neut % (Auto) 71.6 Lymph % (Auto) 14.8 L Winkler % (Auto) 8.3 Eos % (Auto) 4.6 H Baso % (Auto) 0.3 Lymph # (Auto) 1.1 L Winkler # (Auto) 0.6 Eos # (Auto) 0.4 Baso # (Auto) 0.0 Abs Immat Gran (auto) 0.03 Absolute Neuts (auto) 5.5 Absolute Nucleated RBC 0.000 Nucleated RBC % (auto) 0.0 Sodium 132 L Potassium 4.1 Chloride 108 Carbon Dioxide 16 L Anion Gap 12 BUN 21 H Creatinine 0.84 Estim Creat Clear Calc 50.7 Estimated GFR > 60 Random Glucose 75 Calcium 7.1 L Total Bilirubin 9.5 H Direct Bilirubin 7.3 H AST 102 H ALT 40 H Alkaline Phosphatase 344 H Total Protein 5.1 L Albumin 2.0 L Microbiology Microbiology Results: Microbiology 04/02/20 21:03 Blood - Venous Blood Culture - Preliminary No growth after 24 hours. 04/02/20 20:56 Blood - Venous Blood Culture - Preliminary No growth after 24 hours. Progress Note: A&P Assessment and plan (1) Biliary obstruction: Status: Acute Assessment and Plan: CT with contrast reviewed with Dr Farrell There appears to be a mass at the hepaticojejunostomy anastamosis. No hepatic parenchymal metastases. MR pending for further characterization, but recurrent cholangiocarcinoma is a concern. This is not amenable to ERCP due to surgical changes, but may be able to be externally drained by [facility]. Lasix/spironolactone started for better control of ascites. Can have repeat paracentesis prn for comfort. Discussed with patient and grandson Tenzin VAUGHN Fall Risk Details Current Medications: Current Medications Generic Name Dose Route Start Last Admin Trade Name Freq PRN Reason Stop Dose Admin Amlodipine Besylate 5 mg 04/03/20 09:00 04/04/20 09:58 Amlodipine Besylate 5 Mg Tablet PO Not Given DAILY [facility] Protocol Furosemide 40 mg 04/05/20 09:00 Furosemide 40 Mg Tablet PO DAILY [facility] Protocol Heparin Sodium (Porcine) 5,000 unit 04/03/20 05:42 04/04/20 05:43 Heparin Sodium,Porcine 5,000 Unit/Ml Vial SUBCUT 5,000 unit Q8H [facility] Administration Omeprazole 20 mg 04/03/20 09:00 04/04/20 09:59 Omeprazole 20 Mg Capsule. PO 20 mg DAILY [facility] Administration Oxycodone HCl 5 mg 04/03/20 05:42 Oxycodone Hcl Immed Release 5 Mg Tablet PO Q6H PRN Pain, Severe (Pain Scale 7-10) Pharmacy Consult 1 each 04/02/20 22:23 Consult Rx Perform Med Rec MISCELLANE ONCE PRN Consult order Sodium Chloride 3 ml 04/03/20 08:00 04/04/20 09:58 0.9 % Sodium Chloride Flush 3 Ml Syringe IVFLUSH 3 ml QSHIFT [facility] Administration Spironolactone 50 mg 04/03/20 13:00 04/04/20 09:59 Spironolactone 25 Mg Tablet PO 50 mg DAILY [facility] Administration Protocol Time Spent With Patient Time: Total time spent is greater than 50% in coordination of care (as documented) at patient's floor/unit and/or counseling patient: 30 min Time with patient: 25 - 35 minutes
[2020-04-04 15:44] VITALS: BP 100/62; PULSE 64; RESP 18; TEMP 36.5; O2SAT 98
[2020-04-04 19:15] VITALS: BP 102/60; PULSE 71; RESP 19; TEMP 36.3; O2SAT 99
[2020-04-04 23:51] VITALS: BP 106/68; PULSE 72; RESP 18; TEMP 36.4; O2SAT 94
[2020-04-05] VITALS (7 sets, daily range): BP systolic 98–142; BP diastolic 53–81; PULSE 59–74; RESP 18–20; TEMP 36.2–36.4; O2SAT 98–99
--- NOTE | 2020-04-05 | US_ITS ---
EXAMINATION: ULTRASOUND-GUIDED PARACENTESIS. CLINICAL INFORMATION: Ascites. COMPARISON: None TECHNIQUE: Following explaining ultrasound-guided paracentesis procedure, benefits and risk, a written consent was obtained. Patient was placed supine on ultrasound stretcher and preliminary ultrasound imaging was obtained through the abdomen. An optimal site was selected along the right lower quadrant and marked. The marked site was cleaned and draped in usual sterile manner. 1% local Xylocaine was injected at puncture site. Through a small skin incision a 5 [place] Yueh catheter was inserted into the peritoneal space. After observing fluid return, stylet was withdrawn and catheter connected to vacuum bottle via connecting cannula. After obtaining all fluid and observing no more fluid return, catheter was withdrawn and complete hemostasis achieved at puncture site. Simple band aid applied postprocedure. Patient tolerated procedure extremely well. FINDINGS: On plain the ultrasound imaging there is moderate free fluid scattered throughout the abdomen. Successful ultrasound-guided paracentesis with approximately 4.6 L of clear yellowish fluid drained. Part of this fluid was sent to lab as per physician request. US/US paracentesis abd w/image IMPRESSION: Successful ultrasound-guided paracentesis performed with approximately 4.6 L of clear yellowish fluid drained.
[2020-04-05] MEDS: Heparin Sodium,Porcine 5,000 UNIT/ML VIAL 5000 UNIT SUBCUT ×3 (06:08→21:02)
[2020-04-05] MEDS: Spironolactone 25 MG TABLET 50 MG PO (08:54)
[2020-04-05] MEDS: Omeprazole 20 MG CAPSULE.DR PO (08:54)
[2020-04-05] MEDS: 0.9 % Sodium Chloride Flush 3 ML SYRINGE IVFLUSH ×3 (08:55→21:06)
[2020-04-05 10:07] LABS: Anion Gap 13 (12-20); Blood Urea Nitrogen 19 mg/dL (9-16); Calcium 7.4 mg/dL (8.4-10.2); Carbon Dioxide 18 mmol/L (22-29); Chloride 107 mmol/L (96-108); Creatinine Clr Calc Pharmacy 49.6; Estimated Glomerular Filt Rate > 60; Glucose Random 108 mg/dL (60-115); Potassium 3.6 mmol/l (3.3-5.1); Sodium 134 mmol/L (135-145)
[2020-04-05 10:58] LABS: Alanine Aminotransferase 41 U/L (0-31); Albumin Level 2.2 g/dL (3.5-5.0); Alkaline Phosphatase 380 U/L (39-117); Aspartate Amino Transferase 93 U/L (5-31); Bilirubin Direct 5.7 mg/dL (0.0-0.5); Bilirubin Total 7.2 mg/dL (0.0-1.0); Lactate Dehydrogenase 164 U/L (122-220); Total Protein 5.8 g/dL (6.5-8.0)
[2020-04-05 11:06] LABS: INTERNATIONAL NORM RATIO 1.6 (0.9-1.1); Prothrombin Time 19.1 SEC (10.8-13.0)
[2020-04-05] MEDS: cefTRIAXone sodium 1 GM in 0.9 % Sodium Chloride 50 ML IV (11:38)
--- NOTE | 2020-04-05 12:18 | MHC.CM.PN ---
PER PHYSICIAN ROUNDS, PATIENT SCHEDULED FOR MRI AND NEEDS CULTURES FOR GRAM NEG RODS. NO PLAN FOR DISCHARGE TODAY. CASE MANAGEMENT CONTINUING TO FOLLOW.
--- NOTE | 2020-04-05 12:48 | HO.PM.IMPN ---
Subjective Subjective Date of Service: 04/05/20 Interval History: Patient seen and examined at bedside patient reported abdominal pain Constitutional Constitutional: Reports weakness Cardiovascular Cardiovascular: Denies dyspnea Respiratory Respiratory: Denies dyspnea Gastrointestinal Gastrointestinal: Denies nausea and Denies vomiting Neurologic Neurologic: Reports weakness Physical Exam Vital Signs: Vital Signs: Vital Signs Temp Pulse Resp BP Pulse Ox 04/05/20 10:01 18 04/05/20 07:34 97.6 F 59 18 98/61 99 04/05/20 03:37 97.2 F 74 19 102/53 L 98 04/04/20 23:51 97.6 F 72 18 106/68 94 04/04/20 19:15 97.4 F 71 19 102/60 99 04/04/20 15:44 97.7 F 64 18 100/62 98 Body Mass Index 23.8 Const: General: cooperative, comfortable and no acute distress Orientation/consciousness: oriented to person, oriented to place and oriented to time Limitations: other limitations (jaundice) HENMT: Head: Yes other (icteric eyes / skin) Eyes: Sclerae: scleral abnormal (icteric) Neck: Neck: Yes normal visual inspection Chest: Chest palpation & inspection: normal inspection of the chest Resp: Effort & Inspection: normal respiratory effort Cardio: Jugular venous distension: no JVD Rhythm: regular rhythm Heart sounds: S1 normal heart sound present and S2 normal heart sound present GI: Inspection: Yes normal to inspection, Yes abdominal wall ecchymosis and Yes other (ascites present) Skin: General skin exam: jaundice Neuro: General: oriented to person, oriented to place and oriented to time Extrem: General: Yes normal to inspection Psych: Appearance: grossly normal Objective Data Current Medications Generic Name Dose Route Start Last Admin Trade Name Freq PRN Reason Stop Dose Admin Amlodipine Besylate 5 mg 04/03/20 09:00 04/05/20 08:55 Amlodipine Besylate 5 Mg Tablet PO Not Given DAILY [facility] Protocol Furosemide 40 mg 04/05/20 09:00 Furosemide 40 Mg Tablet PO DAILY [facility] Protocol Heparin Sodium (Porcine) 5,000 unit 04/03/20 05:42 04/05/20 06:08 Heparin Sodium,Porcine 5,000 Unit/Ml Vial SUBCUT 5,000 unit Q8H [facility] Administration Ceftriaxone Sodium 1 gm/ 50 mls @ 100 mls/hr 04/05/20 10:15 04/05/20 12:47 Sodium Chloride IV Infused Q24H [facility] Infusion Omeprazole 20 mg 04/03/20 09:00 04/05/20 08:54 Omeprazole 20 Mg Capsule.Dr PO 20 mg DAILY [facility] Administration Oxycodone HCl 5 mg 04/03/20 05:42 Oxycodone Hcl Immed Release 5 Mg Tablet PO Q6H PRN Pain, Severe (Pain Scale 7-10) Pharmacy Consult 1 each 04/02/20 22:23 Consult Rx Perform Med Rec MISCELLANE ONCE PRN Consult order Sodium Chloride 3 ml 04/03/20 08:00 04/05/20 08:55 0.9 % Sodium Chloride Flush 3 Ml Syringe IVFLUSH 3 ml QSHIFT [facility] Administration Spironolactone 50 mg 04/03/20 13:00 04/05/20 08:54 Spironolactone 25 Mg Tablet PO 50 mg DAILY [facility] Administration Protocol Labs CBC & Chem 7: 04/04/20 07:00 04/05/20 09:14 Microbiology Microbiology Results: Microbiology 04/02/20 20:56 Blood - Venous Blood Culture - Preliminary 04/02/20 21:03 Blood - Venous Blood Culture - Preliminary No growth after 48 hours. Assessment and Plan (1) Biliary obstruction: Status: Acute Assessment and Plan: 74-year-old female with history of cholangiocarcinoma cirrhosis ascites requiring weekly tap presented with worsening LFTs , CT abdomen on admission shows worsening biliary duct dilatation Worsening LFTs likely secondary to underlying cholangiocarcinoma with cirrhosis and ascites with adenexal mass LFT slightly trending down seen by gastroenterology recommended MRI with contrast plan for MRI today monitor LFTs Gram-negative bacteremia 1 set of blood culture growing gram-negative rods contamination versus possible abdominal source will get paracentesis and and will send peritoneal cultures to rule out SBP will start on Rocephin follow-up blood culture Right adnexal mass increasing, likely metastatic from cholangiocarcinoma discussed with patient's grandson patient was supposed to get hysterectomy, but was canceled as per surgeon patient is not candidate for surgery due to underlying cirrhosis oncology consult dr zapata Cirrhosis with ascites status post paracentesis 2 days before admission started on Lasix and Aldactone GERD continue omeprazole hypertension continue amlodipine DVT prophylaxis heparin subcu
--- NOTE | 2020-04-05 12:59 | PM.GIPN ---
Subjective Subjective Date of Service: 04/05/20 Interval History: c/o bloating Physical Exam Vital Signs: Vital Signs: Vital Signs Temp Pulse Resp BP Pulse Ox 04/05/20 10:01 18 04/05/20 07:34 97.6 F 59 18 98/61 99 04/05/20 03:37 97.2 F 74 19 102/53 L 98 04/04/20 23:51 97.6 F 72 18 106/68 94 04/04/20 19:15 97.4 F 71 19 102/60 99 04/04/20 15:44 97.7 F 64 18 100/62 98 Body Mass Index 23.8 Const: General: cooperative HENMT: Other: sclera mildly icteric GI: Other: protuberant with ascites Objective Data Labs CBC & Chem 7: 04/04/20 07:00 04/05/20 09:14 Labs: Laboratory Results - last 24 hr 04/05/20 04/05/20 09:14 10:44 PT 19.1 H INR 1.6 H Sodium 134 L Potassium 3.6 Chloride 107 Carbon Dioxide 18 L Anion Gap 13 BUN 19 H Creatinine 0.86 Estim Creat Clear Calc 49.6 Estimated GFR > 60 Random Glucose 108 D Calcium 7.4 L Total Bilirubin 7.2 H Direct Bilirubin 5.7 H AST 93 H ALT 41 H Alkaline Phosphatase 380 H Lactate Dehydrogenase 164 Total Protein 5.8 L Albumin 2.2 L Microbiology Microbiology Results: Microbiology 04/02/20 20:56 Blood - Venous Blood Culture - Preliminary 04/02/20 21:03 Blood - Venous Blood Culture - Preliminary No growth after 48 hours. Progress Note: A&P Assessment and plan (1) Biliary obstruction: Problem details: MRI today repeat paracentesis planned LFT's improving Status: Acute Fall Risk Details Current Medications: Current Medications Generic Name Dose Route Start Last Admin Trade Name Freq PRN Reason Stop Dose Admin Amlodipine Besylate 5 mg 04/03/20 09:00 04/05/20 08:55 Amlodipine Besylate 5 Mg Tablet PO Not Given DAILY TALAT Protocol Furosemide 40 mg 04/05/20 09:00 Furosemide 40 Mg Tablet PO DAILY TALAT Protocol Heparin Sodium (Porcine) 5,000 unit 04/03/20 05:42 04/05/20 06:08 Heparin Sodium,Porcine 5,000 Unit/Ml Vial SUBCUT 5,000 unit Q8H TALAT Administration Ceftriaxone Sodium 1 gm/ 50 mls @ 100 mls/hr 04/05/20 10:15 04/05/20 12:47 Sodium Chloride IV Infused Q24H TALAT Infusion Omeprazole 20 mg 04/03/20 09:00 04/05/20 08:54 Omeprazole 20 Mg Capsule.Dr PO 20 mg DAILY TALAT Administration Oxycodone HCl 5 mg 04/03/20 05:42 Oxycodone Hcl Immed Release 5 Mg Tablet PO Q6H PRN Pain, Severe (Pain Scale 7-10) Pharmacy Consult 1 each 04/02/20 22:23 Consult Rx Perform Med Rec MISCELLANE ONCE PRN Consult order Sodium Chloride 3 ml 04/03/20 08:00 04/05/20 08:55 0.9 % Sodium Chloride Flush 3 Ml Syringe IVFLUSH 3 ml QSHIFT TALAT Administration Spironolactone 50 mg 04/03/20 13:00 04/05/20 08:54 Spironolactone 25 Mg Tablet PO 50 mg DAILY TALAT Administration Protocol Time Spent With Patient Time: Total time spent is greater than 50% in coordination of care (as documented) at patient's floor/unit and/or counseling patient: Time with patient: less than 15 minutes
--- NOTE | 2020-04-05 13:06 | P.PNIM_ITS ---
Subjective Subjective Interval History: c/o bloating Physical Exam Vital Signs: Vital Signs: Vital Signs Temp Pulse Resp BP Pulse Ox 04/05/20 10:01 18 04/05/20 07:34 97.6 F 59 18 98/61 99 04/05/20 03:37 97.2 F 74 19 102/53 L 98 04/04/20 23:51 97.6 F 72 18 106/68 94 04/04/20 19:15 97.4 F 71 19 102/60 99 04/04/20 15:44 97.7 F 64 18 100/62 98 Body Mass Index 23.8 Const: Orientation/consciousness: oriented to person, oriented to place and oriented to time Limitations: other limitations (jaundice) HENMT: Head: Yes other (icteric eyes / skin) Eyes: Sclerae: scleral abnormal (icteric) Neck: Neck: Yes normal visual inspection Chest: Chest palpation & inspection: normal inspection of the chest Resp: Effort & Inspection: normal respiratory effort Cardio: Jugular venous distension: no JVD Rhythm: regular rhythm Heart sounds: S1 normal heart sound present and S2 normal heart sound present GI: Inspection: Yes other (abdominal distention, mild discomfort with no significant tenderness ) Skin: General skin exam: jaundice Neuro: General: oriented to person, oriented to place and oriented to time Extrem: General: Yes normal to inspection Psych: Appearance: grossly normal Objective Data Current Medications Generic Name Dose Route Start Last Admin Trade Name Freq PRN Reason Stop Dose Admin Amlodipine Besylate 5 mg 04/03/20 09:00 04/05/20 08:55 Amlodipine Besylate 5 Mg Tablet PO Not Given DAILY TALAT Protocol Furosemide 40 mg 04/05/20 09:00 Furosemide 40 Mg Tablet PO DAILY TALAT Protocol Heparin Sodium (Porcine) 5,000 unit 04/03/20 05:42 04/05/20 06:08 Heparin Sodium,Porcine 5,000 Unit/Ml Vial SUBCUT 5,000 unit Q8H TALAT Administration Ceftriaxone Sodium 1 gm/ 50 mls @ 100 mls/hr 04/05/20 10:15 04/05/20 12:47 Sodium Chloride IV Infused Q24H TALAT Infusion Omeprazole 20 mg 04/03/20 09:00 04/05/20 08:54 Omeprazole 20 Mg Capsule.Dr PO 20 mg DAILY TALAT Administration Oxycodone HCl 5 mg 04/03/20 05:42 Oxycodone Hcl Immed Release 5 Mg Tablet PO Q6H PRN Pain, Severe (Pain Scale 7-10) Pharmacy Consult 1 each 04/02/20 22:23 Consult Rx Perform Med Rec MISCELLANE ONCE PRN Consult order Sodium Chloride 3 ml 04/03/20 08:00 04/05/20 08:55 0.9 % Sodium Chloride Flush 3 Ml Syringe IVFLUSH 3 ml QSHIFT TALAT Administration Spironolactone 50 mg 04/03/20 13:00 04/05/20 08:54 Spironolactone 25 Mg Tablet PO 50 mg DAILY TALAT Administration Protocol Labs CBC & Chem 7: 04/04/20 07:00 04/05/20 09:14 Microbiology Microbiology Results: Microbiology 04/02/20 20:56 Blood - Venous Blood Culture - Preliminary 04/02/20 21:03 Blood - Venous Blood Culture - Preliminary No growth after 48 hours. Assessment and Plan (1) Biliary obstruction: Status: Acute Assessment and Plan: CT with contrast reviewed with Dr Farrell There appears to be a mass at the hepaticojejunostomy anastamosis. No hepatic parenchymal metastases. MR pending for further characterization, but recurrent cholangiocarcinoma is a concern. This is not amenable to ERCP due to surgical changes, but may be able to be e xternally drained by [facility]. Lasix/spironolactone started for better control of ascites. Can have repeat paracentesis prn for comfort. Discussed with patient and grandson Tenzin VAUGHN
--- NOTE | 2020-04-05 13:30 | MR_ITS ---
EXAMINATION: MR ABDOMEN WITHOUT AND WITH CONTRAST CLINICAL INFORMATION: Mass at hepaticojejunostomy. 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 COMPARISON: CT abdomen without and with contrast 04/03/2020, ultrasound-guided paracentesis 04/01/2020, MR abdomen 02/28/2019, MR pelvis 01/17/2019. TECHNIQUE: MR abdomen was performed without and with use of 6 mL intravenous Gadavist gadolinium contrast. Postcontrast images are performed in multiphase dynamic sequences. Imaging was performed in 3 planes. Additional MRCP sequence obtained along with maximum intensity projections generated on the MR workstation and uploaded to PACS. FINDINGS: LUNG BASES: The visualized lung bases are unremarkable. LIVER, GALLBLADDER, AND BILIARY TREE: Evaluation of the liver and hepatobiliary ducts is limited by respiratory motion artifact. The liver is normal in size and smooth in contour and uniform in signal. There is mild decreased signal on out of phase imaging consistent with hepatic steatosis. There is no enhancing parenchymal lesion demonstrated. There has been prior cholecystectomy. There is moderate intrahepatic ductal dilatation similar to CT abdomen 04/03/2020. There is no visible ductal mass or mass ron hepatis. No abnormal enhancement. Resolution is limited by the respiratory motion artifact. There is a probable 1.1 cm node at the ron hepatis (axial sequence 5 image 19, coronal series 4, image 15). PANCREAS: Unremarkable. SPLEEN: Normal. ADRENAL GLANDS: Unremarkable. KIDNEYS AND URETERS: The kidneys are normal in size, shape, and enhance symmetrically. No hydronephrosis. No perinephric stranding. GASTROINTESTINAL TRACT: No bowel obstruction or inflammatory changes seen in the bowel. Ascites is decreased. ABDOMINAL WALL: Mild diastases rectus. LYMPH NODES: No retroperitoneal adenopathy. VASCULAR: Unremarkable. OSSEOUS STRUCTURES: Degenerative changes lower thoracic spine. Normal marrow signal. ADDITIONAL: Large [id number] images show anterior pelvic mass just right of midline measuring approximately 7.5 cm, consistent with recent CT, possibly right adnexal. MR/MR abdomen wo/w con IMPRESSION: 1. Prior cholecystectomy. Moderate intrahepatic ductal dilatation similar to recent CT 04/03/2020. 2. Small node ron hepatis 1.1 cm. No visible ron hepatis mass or biliary mass. Evaluation limited by respiratory motion artifact. 3. Right anterior pelvic mass consistent with recent CT.
[2020-04-05] MEDS: Lidocaine HCl 1 % 20 ML VIAL 5 ML SUBCUT (13:56)
[2020-04-05 14:35] LABS: WBC Peritoneal Fluid 0.359 X10*3/uL
[2020-04-05] MEDS: Furosemide 40 MG TABLET PO (14:42)
[2020-04-05 14:43] LABS: RBC Peritoneal Fluid < 0.002 X10*6/uL
[2020-04-05 15:46] LABS: Lymphocyte Peritoneal Fl 12 %; Monocytes Peritoneal Fl 27 %; Neutrophils Peritoneal Fluid 57 %
[2020-04-05 15:47] LABS: BF Shift QC OK YES; Basophils Peritoneal Fl 0 %; Eosinophils Peritoneal Fl 0 %; Man Diluent Bkgrd OK YES; Other Peritioneal Fl 4 %
--- NOTE | 2020-04-05 17:24 | P.PNHO_ITS ---
Medical Summary - Medical Summary Chief complaint: F/U for H/O gall baldder cancer. Recent Endometrial cancer. Medical Summary: DIAGNOSIS; 1. GALL BLADDER CANCER. 2. ENDOMETRIAL CANCER. 3. Ascites. 4. ES Liver disease. Interval History Interval history: This is an unfortunate 74-year-old lady admitted with abdominal pain and worsening ascites. She feels about the same. MRI OF THE ABDOMEN, TO LOOK AT THE LIVER REVEALED: 1. Prior cholecystectomy. Moderate intrahepatic ductal dilatation similar to recent CT 04/03/2020. 2. Small node ron hepatis 1.1 cm. No visible ron hepatis mass or biliary mass. Evaluation limited by respiratory motion artifact. 3. Right anterior pelvic mass consistent with recent CT. she did undergo a therapeutic paracentesis on presentation. Review of Systems - Neurologic Reports [facility] Medical History: Medical History (Last Updated 04/06/20 @ 13:06 by Radha Bai MD) Bacteremia Biliary obstruction Gallbladder cancer HTN (hypertension) Hyperlipidemia Osteoarthritis Ovarian cancer Functional capacity: independent ambulation Family history: reviewed and not pertinent Surgical History: Surgical History (Last Reviewed 04/06/20 @ 13:04 by Radha Bai MD) History of laparoscopic cholecystectomy Smoking status: Never smoker Home Medications and Allergies Current Medications: Current Medications Generic Name Dose Route Start Last Admin Trade Name Freq PRN Reason Stop Dose Admin Amlodipine Besylate 5 mg 04/03/20 09:00 04/05/20 08:55 Amlodipine Besylate 5 Mg Tablet PO Not Given DAILY TALAT Protocol Furosemide 40 mg 04/05/20 09:00 04/05/20 14:42 Furosemide 40 Mg Tablet PO 40 mg DAILY TALAT Administration Protocol Heparin Sodium (Porcine) 5,000 unit 04/03/20 05:42 04/05/20 14:42 Heparin Sodium,Porcine 5,000 Unit/Ml Vial SUBCUT 5,000 unit Q8H TALAT Administration Ceftriaxone Sodium 1 gm/ 50 mls @ 100 mls/hr 04/05/20 10:15 04/05/20 12:47 Sodium Chloride IV Infused Q24H TALAT Infusion Omeprazole 20 mg 04/03/20 09:00 04/05/20 08:54 Omeprazole 20 Mg Capsule.Dr PO 20 mg DAILY TALAT Administration Oxycodone HCl 5 mg 04/03/20 05:42 Oxycodone Hcl Immed Release 5 Mg Tablet PO Q6H PRN Pain, Severe (Pain Scale 7-10) Pharmacy Consult 1 each 04/02/20 22:23 Consult Rx Perform Med Rec MISCELLANE ONCE PRN Consult order Sodium Chloride 3 ml 04/03/20 08:00 04/05/20 16:45 0.9 % Sodium Chloride Flush 3 Ml Syringe IVFLUSH 3 ml QSHIFT TALAT Administration Spironolactone 50 mg 04/03/20 13:00 04/05/20 08:54 Spironolactone 25 Mg Tablet PO 50 mg DAILY TALAT Administration Protocol Home Medications Medication Instructions Recorded Confirmed Type omeprazole 40 cap PO DAILY 03/15/20 04/03/20 History Allergies Allergy/AdvReac Type Severity Reaction Status Date / Time lisinopril [LISINOPRIL] Allergy Severe SWELLING/NAUSEA/ITCHING, Verified 04/02/20 22:17 cough, swellimg, redness sunflower seed Allergy Severe ANAPHYLAXIS Verified 04/02/20 22:17 [SUNFLOWER SEED] wheat [WHEAT] Allergy Severe ANAPHYLAXIS Verified 04/02/20 22:17 Exam Vital signs: Vital Signs Temp 97.3 F 04/05/20 16:20 Pulse 63 04/05/20 16:20 Resp 19 04/05/20 16:20 BP 119/81 04/05/20 16:20 Pulse Ox 99 04/05/20 16:20 Intake & Output 04/04/20 04/05/20 04/05/20 18:59 06:59 18:59 Intake Total 480 / 660 180 / 660 290 / 290 Output Total 0 / 0 3 / 3 Balance 480 / 660 180 / 660 287 / 287 Urine Output (Average ml/kg/hr) 0.00 0.00 Intake: Intake, Oral Amount 480 / 660 180 / 660 240 / 240 Intake, IV Amount 50 / 50 cefTRIAXone sodium 1 gm In 0.9 50 / 50 % Sodium Chloride 50 ml @ 100 mls/hr IV Q24H [facility] Rx#: [id number] Output: Output, Urine Amount 0 / 0 3 / 3 Other: Meal Refused No NPO No Breakfast % Eaten 75% Lunch % Eaten 50% 50% Number of Unmeasured Voids 4 1 Urine Bathroom Bathroom Urine Color Yellow Yellow Weight 63.049 kg Body Mass Index 23.8 Data - Labs CBC & Chem 7: 04/04/20 07:00 04/05/20 09:14 Labs: Laboratory Results - last 24 hr 04/05/20 04/05/20 04/05/20 09:14 10:44 13:05 PT 19.1 H INR 1.6 H Sodium 134 L Potassium 3.6 Chloride 107 Carbon Dioxide 18 L Anion Gap 13 BUN 19 H Creatinine 0.86 Estim Creat Clear Calc 49.6 Estimated GFR > 60 Random Glucose 108 D Calcium 7.4 L Total Bilirubin 7.2 H Direct Bilirubin 5.7 H AST 93 H ALT 41 H Alkaline Phosphatase 380 H Lactate Dehydrogenase 164 Total Protein 5.8 L Albumin 2.2 L Peritoneal WBC 0.359 Peritoneal RBC < 0.002 Periton Neutrophils 57 Periton Lymphocytes 12 Peritoneal Monocytes 27 Peritoneal Eosinophils 0 Peritoneal Basophils 0 Peritoneal Other Cells 4 Progress Note: A/P (1) Cholangiocarcinoma Status: Acute Assessment and plan: 74-year-old unfortunate lady with gallbladder cancer and recent diagnosis of endometrial carcinoma. Unfortunately she was deemed not a candidate for the endometrial cancer, on account of end-stage liver disease. She has been seen at [facility] by Dr. Marquez. She was also evaluated by GI at [facility]. She was then referred to Dr. Marcos for further evaluation. He proceeded with MRI of the liver that was done today as detailed above. PLAN: For now is to focus on symptomatic measures optimize her condition. She has been started on diuretics. Will assess need for further paracenteses based upon her symptoms. I had a detailed discussion her grandson about goals of care and limited treatment options. All his questions were answered. thank you, (2) Gallbladder cancer Status: Acute - Time Spent With Patient Total time spent is greater than 50% in coordination of care (as documented) at patient's floor/unit and/or counseling patient: 15 - 24 minutes
[2020-04-06] VITALS (7 sets, daily range): BP systolic 96–138; BP diastolic 60–69; PULSE 52–78; RESP 16–19; TEMP 36.1–36.7; O2SAT 96–99
[2020-04-06] MEDS: Heparin Sodium,Porcine 5,000 UNIT/ML VIAL 5000 UNIT SUBCUT ×3 (05:44→22:02)
[2020-04-06 07:48] LABS: Albumin Peritoneal Fluid 0.5
[2020-04-06 07:49] LABS: LDH Peritoneal Fluid < 10; Total Protein Peritoneal Fluid 1.1
[2020-04-06] MEDS: 0.9 % Sodium Chloride Flush 3 ML SYRINGE IVFLUSH ×2 (09:20→17:00)
[2020-04-06] MEDS: cefTRIAXone sodium 1 GM in 0.9 % Sodium Chloride 50 ML IV (09:20)
[2020-04-06] MEDS: Furosemide 40 MG TABLET PO (09:22)
[2020-04-06] MEDS: Omeprazole 20 MG CAPSULE.DR PO (09:22)
[2020-04-06] MEDS: Spironolactone 25 MG TABLET 50 MG PO (09:22)
[2020-04-06] MEDS: amLODIPine Besylate 5 MG TABLET PO (09:22)
--- NOTE | 2020-04-06 13:00 | W.PM.IDCN ---
History of Present Illness Data of Consult Service Date: 04/06/20 Requesting physician: Nic Desir Primary Care Provider: MD JOSE ROBERTO Weller Reason for consult: abdominal pain She has had one day of abdominal discomfort 11/18 lower She has no fever or chills at this time No one else is ill at this time Review of Systems Constitutional: Constitutional: Reports weakness Neurologic: Reports weakness PMFSH Past Medical History Medical History (Updated 04/11/20 @ 14:36 by Radha Powell MD) Bacteremia Biliary obstruction Gallbladder cancer HTN (hypertension) Hyperlipidemia Osteoarthritis Ovarian cancer Functional capacity: independent ambulation Family History Family history: reviewed and not pertinent Surgical History Surgical History History of laparoscopic cholecystectomy Social History Social History Household Members: Family Housing: Apartment Smoking Status: Never smoker Second Hand Smoke Exposure: No service: No Current occupational status: unemployed Meds Allergies Allergy/AdvReac Type Severity Reaction Status Date / Time lisinopril [LISINOPRIL] Allergy Severe SWELLING/NAUSEA/ITCHING, Verified 04/02/20 22:17 cough, swellimg, redness sunflower seed Allergy Severe ANAPHYLAXIS Verified 04/02/20 22:17 [SUNFLOWER SEED] wheat [WHEAT] Allergy Severe ANAPHYLAXIS Verified 04/02/20 22:17 Home Medications Medication Instructions Recorded Confirmed Type omeprazole 40 cap PO DAILY 03/15/20 04/03/20 History Physical Exam Vital Signs: Vital Signs: Vital Signs Temp Pulse Resp BP Pulse Ox 04/06/20 11:18 96.9 F 64 17 106/67 99 04/06/20 09:22 67 105/67 04/06/20 07:34 97.7 F 52 19 97/63 99 04/06/20 03:57 98.1 F 78 19 138/68 96 04/05/20 23:38 97.2 F 67 18 107/73 98 04/05/20 19:34 97.6 F 71 20 142/79 H 99 04/05/20 16:20 97.3 F 63 19 119/81 99 04/05/20 14:37 97.1 F 64 18 115/67 98 Body Mass Index 23.8 Const: General: cooperative Orientation/consciousness: oriented to person, oriented to place and oriented to time HENMT: Head: Yes normal to inspection Eyes: General: appearance normal, both eyes and all related structures Resp: Effort & Inspection: normal respiratory effort Cardio: Rate: regular rate Rhythm: regular rhythm GI: Inspection: Yes normal to inspection Palpation (GI): Soft to palpation : General: Yes no CVA tenderness Back/Spine/Pelvis: Back: no CVA tenderness Skin: General skin exam: no rashes or lesions noted Neuro: General: oriented to person, oriented to place and oriented to time Assessment and Plan (1) Abdominal pain: Status: Acute (2) Cholangiocarcinoma: Status: Acute (3) Biliary obstruction: (4) Bacteremia: Problem details: This is probably related to obstruction from malignancy this can be microobstruction She has no complaints of UTI at this time Status: Acute Would continue antibiotics at this time pending sensitivities May use Zosyn,duration and time depends on type and sensitivities (5) Acute liver failure: Qualifiers: Hepatic coma status: without hepatic coma Qualified Code(s): K72.00 - Acute and subacute hepatic failure without coma Status: Acute Results Labs CBC & Chem 7: 04/04/20 07:00 04/05/20 09:14 Microbiology Microbiology Results: Microbiology 04/02/20 20:56 Blood - Venous Blood Culture - Preliminary Gram negative peter 04/05/20 13:55 Peritoneal Fluid Gram Stain - Final 04/05/20 13:55 Peritoneal Fluid Routine Culture - Preliminary No growth to date. 04/02/20 21:03 Blood - Venous Blood Culture - Preliminary No growth after 48 hours.
[2020-04-06] MEDS: Piperacillin Sodium/Tazobactam 3.375 GM in 0.9 % Sodium Chloride 50 ML IV ×2 (14:05→22:02)
--- NOTE | 2020-04-06 14:49 | PM.GIPN ---
Subjective Subjective Date of Service: 04/06/20 Interval History: feels well, tolerating diet Physical Exam Vital Signs: Vital Signs: Vital Signs Temp Pulse Resp BP Pulse Ox 04/06/20 11:18 96.9 F 64 17 106/67 99 04/06/20 09:22 67 105/67 04/06/20 07:34 97.7 F 52 19 97/63 99 04/06/20 03:57 98.1 F 78 19 138/68 96 04/05/20 23:38 97.2 F 67 18 107/73 98 04/05/20 19:34 97.6 F 71 20 142/79 H 99 04/05/20 16:20 97.3 F 63 19 119/81 99 Body Mass Index 23.8 Const: General: cooperative and comfortable GI: Other: abdomen is soft and nontender without masses Extrem: Other: no edema Objective Data Labs CBC & Chem 7: 04/04/20 07:00 04/05/20 09:14 Labs: Laboratory Results - last 24 hr 04/05/20 04/05/20 13:05 13:05 Peritoneal WBC 0.359 Peritoneal RBC < 0.002 Periton Neutrophils 57 Periton Lymphocytes 12 Peritoneal Monocytes 27 Peritoneal Eosinophils 0 Peritoneal Basophils 0 Peritoneal Other Cells 4 Peritoneal Tot Protein 1.1 Peritoneal Albumin 0.5 Peritoneal LDH < 10 Microbiology Microbiology Results: Microbiology 04/02/20 20:56 Blood - Venous Blood Culture - Preliminary Gram negative peter 04/05/20 13:55 Peritoneal Fluid Gram Stain - Final 04/05/20 13:55 Peritoneal Fluid Routine Culture - Preliminary No growth to date. 04/02/20 21:03 Blood - Venous Blood Culture - Preliminary No growth after 48 hours. Progress Note: A&P Assessment and plan (1) Biliary obstruction: Status: Acute Assessment and Plan: MRI reviewed, no definite obstruction identified, but the study is limited by motion artifact. Since liver tests are improving, recommendation monitoring for now, as biliary drainage would be difficult given her anatomy and ascites. Continue diuretics for ascites. She can f/u as outpatient with my office. No further inpatient recommendations from GI standpoint. Fall Risk Details Current Medications: Current Medications Generic Name Dose Route Start Last Admin Trade Name Freq PRN Reason Stop Dose Admin Furosemide 40 mg 04/05/20 09:00 04/06/20 09:22 Furosemide 40 Mg Tablet PO 40 mg DAILY TALAT Administration Protocol Heparin Sodium (Porcine) 5,000 unit 04/03/20 05:42 04/06/20 14:06 Heparin Sodium,Porcine 5,000 Unit/Ml Vial SUBCUT 5,000 unit Q8H TALAT Administration Piperacillin Sod/Tazobactam 50 mls @ 100 mls/hr 04/06/20 14:00 04/06/20 14:05 Sod 3.375 gm/ Sodium Chloride IV 100 mls/hr Q8H TALAT Administration Omeprazole 20 mg 04/03/20 09:00 04/06/20 09:22 Omeprazole 20 Mg Capsule.Dr PO 20 mg DAILY TALAT Administration Oxycodone HCl 5 mg 04/03/20 05:42 Oxycodone Hcl Immed Release 5 Mg Tablet PO Q6H PRN Pain, Severe (Pain Scale 7-10) Pharmacy Consult 1 each 04/02/20 22:23 Consult Rx Perform Med Rec MISCELLANE ONCE PRN Consult order Sodium Chloride 3 ml 04/03/20 08:00 04/06/20 09:20 0.9 % Sodium Chloride Flush 3 Ml Syringe IVFLUSH 3 ml QSHIFT TALAT Administration Spironolactone 50 mg 04/03/20 13:00 04/06/20 09:22 Spironolactone 25 Mg Tablet PO 50 mg DAILY TALAT Administration Protocol Time Spent With Patient Time: Total time spent is greater than 50% in coordination of care (as documented) at patient's floor/unit and/or counseling patient: Time with patient: 15 - 24 minutes (20 minutes)
--- NOTE | 2020-04-06 15:20 | HO.PM.IMPN ---
Subjective Subjective Date of Service: 04/06/20 Interval History: liver dis Physical Exam Vital Signs: Vital Signs: Vital Signs Temp Pulse Resp BP Pulse Ox 04/06/20 11:18 96.9 F 64 17 106/67 99 04/06/20 09:22 67 105/67 04/06/20 07:34 97.7 F 52 19 97/63 99 04/06/20 03:57 98.1 F 78 19 138/68 96 04/05/20 23:38 97.2 F 67 18 107/73 98 04/05/20 19:34 97.6 F 71 20 142/79 H 99 04/05/20 16:20 97.3 F 63 19 119/81 99 Body Mass Index 23.8 Physical exam: Heent: icteric Cvs: rrr, [id number] , no murmur res: clear to auscultation ,no rhonchii or wheezing abd: no rebound or guarding ,nt, bs present. ext pulses present , no cyanosis neuro: axo3 , nonfocal. Objective Data Current Medications Generic Name Dose Route Start Last Admin Trade Name Freq PRN Reason Stop Dose Admin Furosemide 40 mg 04/05/20 09:00 04/06/20 09:22 Furosemide 40 Mg Tablet PO 40 mg DAILY TALAT Administration Protocol Heparin Sodium (Porcine) 5,000 unit 04/03/20 05:42 04/06/20 14:06 Heparin Sodium,Porcine 5,000 Unit/Ml Vial SUBCUT 5,000 unit Q8H TALAT Administration Piperacillin Sod/Tazobactam 50 mls @ 100 mls/hr 04/06/20 14:00 04/06/20 14:05 Sod 3.375 gm/ Sodium Chloride IV 100 mls/hr Q8H TALAT Administration Omeprazole 20 mg 04/03/20 09:00 04/06/20 09:22 Omeprazole 20 Mg Capsule.Dr PO 20 mg DAILY TALAT Administration Oxycodone HCl 5 mg 04/03/20 05:42 Oxycodone Hcl Immed Release 5 Mg Tablet PO Q6H PRN Pain, Severe (Pain Scale 7-10) Pharmacy Consult 1 each 04/02/20 22:23 Consult Rx Perform Med Rec MISCELLANE ONCE PRN Consult order Sodium Chloride 3 ml 04/03/20 08:00 04/06/20 09:20 0.9 % Sodium Chloride Flush 3 Ml Syringe IVFLUSH 3 ml QSHIFT TALAT Administration Spironolactone 50 mg 04/03/20 13:00 04/06/20 09:22 Spironolactone 25 Mg Tablet PO 50 mg DAILY TALAT Administration Protocol Labs CBC & Chem 7: 04/04/20 07:00 04/05/20 09:14 Microbiology Microbiology Results: Microbiology 04/02/20 20:56 Blood - Venous Blood Culture - Preliminary Gram negative peter 04/05/20 13:55 Peritoneal Fluid Gram Stain - Final 04/05/20 13:55 Peritoneal Fluid Routine Culture - Preliminary No growth to date. 04/02/20 21:03 Blood - Venous Blood Culture - Preliminary No growth after 48 hours. Assessment and Plan (1) Biliary obstruction: Status: Acute Assessment and Plan: 74-year-old female with history of cholangiocarcinoma cirrhosis ascites requiring weekly tap presented with worsening LFTs , CT abdomen on admission shows worsening biliary duct dilatation 1. Worsening LFTs likely secondary to underlying cholangiocarcinoma with cirrhosis and ascites with adenexal mass LFT slightly trending slowly improvin monitor LFTs MRI grossly did not show much obstruction, GI follow-up appreciated. 2. question of Gram-negative bacteremia 1 set of blood culture growing gram-negative rods contamination versus possible abdominal source will get paracentesis and and will send peritoneal cultures to rule out SBP will start on Rocephin follow-up blood culture id eval pending -antibiotics changed to Zosyn. 3. Right adnexal mass increasing, likely metastatic from cholangiocarcinoma discussed with patient's grandson patient was supposed to get hysterectomy, but was canceled as per surgeon patient is not candidate for surgery due to underlying cirrhosis dr zapata 4. Cirrhosis with ascites status post paracentesis 2 days before admission started on Lasix and Aldactone 5.GERD: continue omeprazole hypertension continue amlodipine DVT prophylaxis heparin subcu
--- NOTE | 2020-04-06 16:56 | PC.NURSE ---
PT DAUGHTER HERE VISITING. REPORTS PT CONTINUES HAVING BLOOD IN UNDERPANTS, APPROXIMATELY 4 MONTHS NOW. STATES IT IS USUALLY STAINING. NO COMPLAINTS OF PAIN FROM PATIENT.
[2020-04-06] MEDS: hydrOXYzine HCL 25 MG TABLET PO (22:02)
[2020-04-07 04:00] VITALS: BP 90/52; PULSE 57; RESP 16; TEMP 36.1; O2SAT 92
[2020-04-07] MEDS: Heparin Sodium,Porcine 5,000 UNIT/ML VIAL 5000 UNIT SUBCUT ×3 (05:20→20:50)
[2020-04-07] MEDS: 0.9 % Sodium Chloride Flush 3 ML SYRINGE IVFLUSH ×4 (05:20→23:52)
[2020-04-07] MEDS: Piperacillin Sodium/Tazobactam 3.375 GM in 0.9 % Sodium Chloride 50 ML IV (05:21)
[2020-04-07 07:27] VITALS: BP 95/65; PULSE 65; RESP 16; TEMP 36.2; O2SAT 99
[2020-04-07 08:39] VITALS: BP 95/65; PULSE 65
[2020-04-07] MEDS: Spironolactone 25 MG TABLET 50 MG PO (08:39)
[2020-04-07] MEDS: Omeprazole 20 MG CAPSULE.DR PO (08:39)
[2020-04-07] MEDS: hydrOXYzine HCL 25 MG TABLET PO ×2 (08:39→20:51)
[2020-04-07] MEDS: Furosemide 40 MG TABLET PO (08:40)
[2020-04-07 12:07] VITALS: BP 103/62; PULSE 69; RESP 19; TEMP 36.1; O2SAT 98
--- NOTE | 2020-04-07 12:43 | MHC.CM.PN ---
PER PHYSICIAN ROUNDS, CURRENTLY AWAITING CULTURES. PATIENT STILL BACTEREMIC POSSIBLE PALLIATIVE CARE TALK FOLLOWING ONCOLOGY CONSULT. CASE MANAGEMENT FOLLOWING FOR GUIDANCE FROM HOSPITALIST.
--- NOTE | 2020-04-07 14:51 | MHC.CM.PN ---
THIS DIRECTOR OF AUDIOLOGY SPOKE TO LUX, JENNIE @ [phone]. JENNIE GIVES PERMISSION FOR A REFERRAL TO BE PLACED TO [facility] FOR PALLIATIVE CARE SERVICES. JENNIE HAS QUESTIONS THAT HE WILL ADDRESS WITH THE A AGENCY. HE ALSO WANTS TIME TO SPEAK WITH HIS FAMILY. CASE MANAGEMENT MADE HOSPITALIST AWARE.
[2020-04-07] MEDS: levoFLOXacin 500 MG TABLET PO (14:58)
--- NOTE | 2020-04-07 15:27 | P.PNIM_ITS ---
Subjective Subjective Date of Service: 04/07/20 Interval History: liver dis, malignancy , bacteremia Review of Systems Patient denies any abdominal pain or shortness of breath or chest pain. Physical Exam Vital Signs: Vital Signs: Vital Signs Temp Pulse Resp BP Pulse Ox 04/07/20 12:07 97.0 F 69 19 103/62 98 04/07/20 08:39 65 95/65 04/07/20 07:27 97.2 F 65 16 95/65 99 04/07/20 04:00 96.9 F 57 16 90/52 L 92 04/06/20 23:42 97.6 F 65 16 96/60 97 04/06/20 19:01 97.6 F 71 19 107/69 99 04/06/20 15:56 97.1 F 74 19 98/61 98 Body Mass Index 23.8 Physical exam: heent : has icterus Cvs: rrr, [id number] , no murmur res: clear to auscultation ,no rhonchii or wheezing abd: no rebound or guarding ,nt, bs present, . ext pulses present , no cyanosis neuro: axo3 , nonfocal. Objective Data Current Medications Generic Name Dose Route Start Last Admin Trade Name Freq PRN Reason Stop Dose Admin Furosemide 40 mg 04/05/20 09:00 04/07/20 08:40 Furosemide 40 Mg Tablet PO 40 mg DAILY TALAT Administration Protocol Heparin Sodium (Porcine) 5,000 unit 04/03/20 05:42 04/07/20 14:58 Heparin Sodium,Porcine 5,000 Unit/Ml Vial SUBCUT 5,000 unit Q8H TALAT Administration Hydroxyzine HCl 25 mg 04/06/20 21:00 04/07/20 08:39 Hydroxyzine Hcl 25 Mg Tablet PO 25 mg BID TALAT Administration Levofloxacin 500 mg 04/07/20 15:00 04/07/20 14:58 Levofloxacin 500 Mg Tablet PO 500 mg Q24H TALAT Administration Omeprazole 20 mg 04/03/20 09:00 04/07/20 08:39 Omeprazole 20 Mg Capsule.Dr PO 20 mg DAILY TALAT Administration Oxycodone HCl 5 mg 04/03/20 05:42 Oxycodone Hcl Immed Release 5 Mg Tablet PO Q6H PRN Pain, Severe (Pain Scale 7-10) Pharmacy Consult 1 each 04/02/20 22:23 Consult Rx Perform Med Rec MISCELLANE ONCE PRN Consult order Sodium Chloride 3 ml 04/03/20 08:00 04/07/20 07:16 0.9 % Sodium Chloride Flush 3 Ml Syringe IVFLUSH 3 ml QSHIFT TALAT Administration Spironolactone 50 mg 04/03/20 13:00 04/07/20 08:39 Spironolactone 25 Mg Tablet PO 50 mg DAILY TALAT Administration Protocol Labs CBC & Chem 7: 04/04/20 07:00 04/05/20 09:14 Microbiology Microbiology Results: Microbiology 04/05/20 13:55 Peritoneal Fluid Gram Stain - Final 04/05/20 13:55 Peritoneal Fluid Routine Culture - Final No growth after 2 days 04/02/20 20:56 Blood - Venous Blood Culture - Preliminary Raoultella planticola 04/02/20 21:03 Blood - Venous Blood Culture - Preliminary No growth after 48 hours. Assessment and Plan (1) Biliary obstruction: Status: Acute Assessment and Plan: 74-year-old female with history of cholangiocarcinoma cirrhosis ascites r equiring weekly tap presented with worsening LFTs , CT abdomen on admission shows worsening biliary duct dilatation 1. Worsening LFTs likely secondary to underlying cholangiocarcinoma with cirrhosis and ascites with adenexal mass LFT slightly trending slowly improvin monitor LFTs MRI grossly did not show much obstruction, GI follow-up appreciated. 2. question of Gram-negative bacteremia 1 set of blood culture growing gram-negative rods contamination versus possible abdominal source will get paracentesis and and will send peritoneal cultures to rule out SBP will start on Rocephin follow-up blood culture-Raoultella planticola switched to levaquin. 3. Right adnexal mass increasing, likely metastatic from cholangiocarcinoma discussed with patient's grandson patient was supposed to get hysterectomy, but was canceled as per surgeon patient is not candidate for surgery due to underlying cirrhosis dr zapata 4. Cirrhosis with ascites status post paracentesis 2 days before admission started on Lasix and Aldactone 5.GERD: continue omeprazole 6.Hypertension continue amlodipine DVT prophylaxis heparin subcu
[2020-04-07 16:00] VITALS: BP 102/65; PULSE 74; RESP 19; TEMP 36.3; O2SAT 98
[2020-04-07 23:39] VITALS: BP 101/68; PULSE 72; RESP 19; TEMP 36.4; O2SAT 98
[2020-04-08] MEDS: Heparin Sodium,Porcine 5,000 UNIT/ML VIAL 5000 UNIT SUBCUT ×2 (05:32→14:42)
[2020-04-08 08:00] VITALS: BP 119/72; PULSE 72; RESP 20; TEMP 36.4; O2SAT 98
[2020-04-08] MEDS: 0.9 % Sodium Chloride Flush 3 ML SYRINGE IVFLUSH ×2 (08:48→15:32)
[2020-04-08 08:49] VITALS: BP 119/72; PULSE 72
[2020-04-08] MEDS: Spironolactone 25 MG TABLET 50 MG PO (08:49)
[2020-04-08] MEDS: hydrOXYzine HCL 25 MG TABLET PO (08:49)
[2020-04-08] MEDS: Furosemide 40 MG TABLET PO (08:49)
[2020-04-08] MEDS: Omeprazole 20 MG CAPSULE.DR PO (08:49)
[2020-04-08 11:49] VITALS: BP 131/70; PULSE 77; RESP 20; TEMP 36.4; O2SAT 98
--- NOTE | 2020-04-08 13:35 | MHC.CM.PN ---
LUPIS met with pt and her grandson, Tenzin. Tenzin reports after speaking to the [facility] liaison, family, and patient, they have decided they do not want to sign on palliative at this time. He reports they will resume family care. Tenzin plans to go make a follow-up appointment with the pts PCP. He reports they will sign on with [facility] if the pt condition worsens. LUPIS provided phone number for [facility] liaison. 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 Tenzin reports he has no concerns regarding pt returning home. He states the pt told him she is not in any pain, she is eating now and he saw her ambulate and feels she did well. Current DC plan is home with resumption of family support family will provide transportation
--- NOTE | 2020-04-08 14:04 | MHC.CM.PN ---
CM SPOKE TO PTS DAUGHTER/HCP. YANNI LIND ([phone]) WHO REPORTS THE PT LIVES WITH HER AND HER AND THEY ARE PTS CARETAKERS. SHE REPORTS AT HOME THE PT REMAINS IN BED PRIMARILY. SHE CONFIRMS PTS LISTED PCP AND PT HAS A HCP ON FILE. YANNI DENIED HAVING ANY CONCERNS RELATED TO PT DISCHARGE. AT THIS TIE, PTS DISCHARGE PLAN IS HOME WITH RESUMPTION OF [facility] [employer] [facility] PROVIDED BY HER DAUGHTER. YANNI REPORTS THE PT WILL NEED BLS TRANSPORT AT DISCHARGE. IMM DELIVERED AND LEFT AT BEDSIDE PER DAUGHTER REQUEST
[2020-04-08] MEDS: levoFLOXacin 500 MG TABLET PO (14:42)
[2020-04-08 15:24] VITALS: BP 113/70; PULSE 67; RESP 17; TEMP 36.5; O2SAT 97
--- NOTE | 2020-04-08 15:33 | P.DS_ITS ---
DS: Providers Provider Date of admission: 04/03/20 03:41 Primary care physician: Heather Diez MD Consults: 04/03/20 05:42 Consult to Hematology / Oncology Routine Consulting Provider: [facility] [place] Oncology/Hematology Reason for consultation: cholangiocarcinoma Has provider been notified: No Consult to Physician Routine Consulting Provider: [facility] [place] Gastroenterology Services Reason for consultation: cholangiocarcinoma / possible obstructive biliary disease Has provider been notified: No 04/06/20 08:23 Consult to Infectious Diseases Routine Consulting Provider: Radha Bai Reason for consultation: GRAM-NEGATIVE BACTEREMIA Has provider been notified: No DS: Diagnosis Discharge Diagnosis (1) Biliary obstruction: Status: Acute DS: Summary Hospital Course Hospital Course: 74 y/o female with a PMHX of HTN, HLP, OA, cholangiocarcinoma s/p partial hepatectomy and cholecystectomy who presented from home due to abdominal pain and jaundice per 1 day. Hx provided by patient and son at the bedside. Son reports that patient started experiencing first loss of appetite which has been followed by jaundice and severe abdominal discomfort which is diffuse in nature. Patient has been following with Dr Marcos GI, Dr Knight Hematology and Dr Scott in [facility]. Has been having lately Paracentesis almost every 2 weeks. Last paracentesis is reported 2 days ago. On presentation to the ED patient is noted to be borderline hypotensive, WBC of 11.7, INR of 1.8, CO2 of 14, Lactate of 3.4, calcium of 6.7, total bili of 11.4 with direct of 8.2, elevated LFT's / alk phosp, ammonia 58 and albumin of 1.9. Patient was given per ED one dose of cefepime and fentanyl for pain. CT positive for worsening biliary dilation compared to 11/27, increase in size of right adnexal mass. Mod volume ascites which is increased from prior. Decision for admission given. Patient seen and examined at the bedside, laying down in bed in no acute distress after pain med was given. evidence of jaundice is seen. Mild abd discomfort on evaluation/palpation of the abdomen but no significant tenderness. Bx and Ucx was obtained per ED. Off note patient had EGD on 11/28 which showed esophageal varices extending from EG junction with no stigmate of recent bleeding. PMHX: HTN, HLP, OA, cholangiocarcinoma s/p partial hepatectomy, esophageal varices, erosive duodenitis PSX: partial hepatectomy, cholecystectomy, EGD. Hospital Course problem silverman section 74-year-old female with history of cholangiocarcinoma cirrhosis ascites requiring weekly tap presented with worsening LFTs , CT abdomen on admission shows worsening biliary duct dilatation 1. Worsening LFTs likely secondary to underlying cholangiocarcinoma with cirrhosis and ascites with adenexal mass LFT slightly trending slowly improvin MRI grossly did not show much obstruction Discussed with GI-due to advanced liver disease as well as malignancy issue: Patient condition was discussed with patient's son in detail by GI and Oncology and recommended palliative management: Son is leaning towards it but still not decided so they are planning to do it out patiently. Her LFTs are slightly better, continue to monitor with PCP and consider outpatient GI follow-up. 2. question of Gram-negative bacteremia 1 set of blood culture growing gram-negative rods -follow-up blood culture- Raoultella planticola Initially patient was on Zosyn on discharge patient was recommended to start on Levaquin as per Infectious Disease. Further management outpatient as per PCP. 3. Right adnexal mass increasing, likely metastatic from cholangiocarcinoma discussed with patient's grandson patient was supposed to get hysterectomy, but was canceled as per surgeon patient is not candidate for surgery due to underlying cirrhosis - dr zapata: As above discussion with the GI and and Hematology: Recommended palliative care out patiently patient's son is leaning toward it but not yet decided. 4. Cirrhosis with ascites status post paracentesis 2 days before admission started on Lasix and Aldactone 5.GERD: continue omeprazole Above management discussed with the patient in detail length she understand and in agreement with the above plan, time spent 50 minutes and 50% time spent on counseling. Significant findings: As above. Procedures performed: None. Treatment and response: As above. Complications: None. Time Spent with Patient Time attestation: Total time spent providing and/or coordinating discharge services: Physical Exam Vital Signs: Vital Signs: Vital Signs Temp Pulse Resp BP Pulse Ox 04/08/20 15:24 97.7 F 67 17 113/70 97 04/08/20 11:49 97.5 F 77 20 131/70 98 04/08/20 08:49 72 119/72 04/08/20 08:00 97.5 F 72 20 119/72 98 04/07/20 23:39 97.6 F 72 19 101/68 98 10/28/20 16:00 97.3 F 74 19 102/65 98 Body Mass Index 23.8 heent : has icterus Cvs: rrr, [id number] , no murmur res: clear to auscultation ,no rhonchii or wheezing abd: no rebound or guarding ,nt, bs present, . ext pulses present , no cyanosis neuro: axo3 , nonfocal. Discharge Plan Discharge Patient Disposition: Home, Self-Care Referrals: Po,Heather Luke MD [Primary Care Provider] - Discharge Medications: New spironolactone 25 mg Tablet 50 mg PO DAILY Qty: 30 RF: 0 furosemide 40 mg Tablet 40 mg PO DAILY Qty: 30 RF: 0 hydroxyzine HCl 25 mg Tablet 25 mg PO BID Qty: 60 RF: 0 levofloxacin 500 mg Tablet 500 mg PO Q24H Qty: 13 RF: 0 Continued omeprazole 20 mg capsule,delayed release(DR/EC) 40 cap PO DAILY RF: 0 Discontinued amlodipine 5 mg tablet 5 mg PO DAILY RF: 0 acetaminophen [Tylenol] 325 mg Tablet 650 mg PO Q6H PRN (Reason: Pain) RF: 0 hydroxyzine HCl 25 mg tablet 25 mg PO Q6H PRN (Reason: itch) RF: 0 Diet: advance to your usual diet Activity on Discharge: As tolerated Visit Report Forms: Patient Portal Discharge page Care Plan Goals: Patient's LFTs are slightly improving, still jaundiced: Has malignancy and advance liver disease: Patient managed management discussed with patient's son Mr. manriquez in detail. He wants to take the patient home and discuss palliative out patiently on until then will continue Lasix and spironolactone as well as Levaquin as recommended by ID. Patient is to follow up outpatient with PCP, Hematology Oncology, and GI out patiently. Health Concerns: As above. Plan of Treatment: As above.
[2020-04-08 19:14] VITALS: BP 114/77; PULSE 84; RESP 19; TEMP 36; O2SAT 99
== END 2020-04-08 19:30 | disposition home or self-care (01) | DRG 433 ==
LOC: HO.ED 04-03 01:45 → HO.S3 04-03 03:52
PROVIDERS: Internal Medicine; Nurse Practitioner Family; Admitting Provider Internal Medicine; Emergency Provider Emergency Medicine; PCP Internal Medicine; Visit Provider Internal Medicine
DX: K74.60 Unspecified cirrhosis of liver (principal); C22.1 Intrahepatic bile duct carcinoma; C79.61 Secondary malignant neoplasm of right ovary; R18.8 Other ascites; R78.81 Bacteremia; E78.5 Hyperlipidemia, unspecified; C54.1 Malignant neoplasm of endometrium; I10 Essential (primary) hypertension; K21.9 Gastro-esophageal reflux disease without esophagitis; D63.0 Anemia in neoplastic disease; Z20.828 Contact with and (suspected) exposure to other viral communicable diseases
CPT/HCPCS: 36415; 49083; 71250; 74176; 74177; 74183; 80048; 80053; 80076; 81001; 81003; 82042; 82140; 83605; 83615; 83690; 83735; 84157; 84484; 85025; 85610; 85730; 87040; 87071; 87077; 87186; 87205; 87635; 89051; 93005; 96361; 96374; 96375; 99231; 99232; 99285; 99291; C1729; J2405; J2543; J3010; P9047

== ENCOUNTER 2020-04-10 08:48 | Outpatient (REF) | payer MEDICARE, SELFPAY ==
[2020-04-10 09:40] LABS: Alanine Aminotransferase 50 U/L (0-31); Albumin Level 2.7 g/dL (3.5-5.0); Alkaline Phosphatase 434 U/L (39-117); Anion Gap 15 (12-20); Aspartate Amino Transferase 110 U/L (5-31); Bilirubin Direct 3.2 mg/dL (0.0-0.5); Bilirubin Total 4.2 mg/dL (0.0-1.0); Blood Urea Nitrogen 24 mg/dL (9-16); Calcium 7.9 mg/dL (8.4-10.2); Carbon Dioxide 22 mmol/L (22-29); Chloride 102 mmol/L (96-108); Estimated Glomerular Filt Rate 40; Glucose Fasting 91 mg/dL (60-99); Potassium 4.6 mmol/l (3.3-5.1); Sodium 134 mmol/L (135-145); Total Protein 6.9 g/dL (6.5-8.0)
== END 2020-04-10 08:49 | disposition home or self-care (01) ==
LOC: HO.LAB 08:48
PROVIDERS: PCP Internal Medicine; Visit Provider Internal Medicine
DX: C22.1 Intrahepatic bile duct carcinoma (principal); K72.00 Acute and subacute hepatic failure without coma
CPT/HCPCS: 80048; 80076

== ENCOUNTER 2020-04-22 11:03 | Outpatient (REF) | payer MEDICARE, SELFPAY ==
--- NOTE | 2020-04-22 | US_ITS ---
EXAMINATION: US-GUIDED PARACENTESIS CLINICAL INFORMATION: Ascites. COMPARISON: 04/05/2020 TECHNIQUE: Ultrasound-guided paracentesis. FINDINGS: Informed consent was obtained from the patient prior to the procedure. During this process, the procedure and potential alternatives were explained, along with the intended outcome and benefits. The risks of the procedure, as well as the risk of not doing the procedure, were discussed. The patient was given the opportunity to ask questions regarding the procedure and appeared competent to make medical decisions. A signed consent form which documents this discussion was placed in the medical record. Ultrasound was used to find a good point of access to ascites collection in the right lateral abdomen. Doppler study was performed to ensure that the epigastric vessels were not in the location of the procedure. Using sterile technique a 5 Macedonian Yueh catheter was directed into the abdominal cavity. A total of 1.7 L of cloudy yellow fluid was removed with no significant fluid remaining. Patient tolerated procedure without difficulty. US/US paracentesis abd w/image IMPRESSION: Paracentesis with removal of 1.7 L of cloudy yellow fluid.
[2020-04-22 11:35] VITALS: BP 110/62; PULSE 65; RESP 18; TEMP 36.1; O2SAT 110
[2020-04-22 14:11] VITALS: BP 110/65; PULSE 59; RESP 15; TEMP 36.5; O2SAT 98
[2020-04-22 14:41] VITALS: BP 106/69; PULSE 61; RESP 16; O2SAT 98
[2020-04-22 15:11] VITALS: BP 100/60; PULSE 62; RESP 16; TEMP 36.7; O2SAT 99
== END 2020-04-22 11:04 | disposition home or self-care (01) ==
LOC: HO.SSS 11:03
PROVIDERS: Radiology Diagnostic Radiology; PCP Internal Medicine; Visit Provider Internal Medicine Medical Oncology
DX: R18.8 Other ascites (principal); C23 Malignant neoplasm of gallbladder; R10.9 Unspecified abdominal pain; R17 Unspecified jaundice; K83.8 Other specified diseases of biliary tract; Z90.89 Acquired absence of other organs; I85.00 Esophageal varices without bleeding; K29.80 Duodenitis without bleeding; I10 Essential (primary) hypertension; E78.5 Hyperlipidemia, unspecified; K21.9 Gastro-esophageal reflux disease without esophagitis; M62.08 Separation of muscle (nontraumatic), other site; Z79.899 Other long term (current) drug therapy; Z85.43 Personal history of malignant neoplasm of ovary; Z90.49 Acquired absence of other specified parts of digestive tract; Z88.0 Allergy status to penicillin
CPT/HCPCS: 49083

== ENCOUNTER 2020-05-20 18:21 | Emergency (ER) | payer MEDICARE, SELFPAY ==
[2020-05-20 18:27] VITALS: BP 131/84; PULSE 71; RESP 16; TEMP 36.2; O2SAT 100; BMI 24.0
--- NOTE | 2020-05-20 19:20 | CT_ITS ---
EXAMINATION: CT ABDOMEN AND PELVIS WITHOUT CONTRAST CLINICAL INFORMATION: Right flank pain question stone COMPARISON: 04/03/2020 TECHNIQUE: Multidetector volumetric imaging was performed from the superior aspect of the liver through the pubic symphysis. Sagittal and coronal reformatted images were obtained on the technologist's workstation. This CT examination was performed using dose optimization techniques as appropriate, variously including the following: *Automated exposure control *Adjustment of mA and/or kV according to patient size (this includes techniques or standardized protocols for targeted exams where dose is matched to indication/reason for exam; i.e. extremities or head) *Use of iterative reconstruction technique DLP: 394 mGy-cm FINDINGS: LUNG BASES: Minimal dependent atelectasis. Small sliding-type hiatal hernia. LIVER, GALLBLADDER, AND BILIARY TREE: The liver has some lobularity to its contour with hypertrophy of the left lobe, potentially due to mild findings of underlying cirrhosis. A few foci of pneumobilia are identified. Multiple surgical clips are present within the right hepatic lobe near the ron hepatis at the confluence of the right and left hepatic ducts. There is mild biliary ductal dilatation. No acute abnormalities are identified in this region. Gallbladder is surgically absent. PANCREAS: Unremarkable. SPLEEN: Unremarkable. ADRENAL GLANDS: Unremarkable. KIDNEYS AND URETERS: The kidneys are normal in size, shape, and attenuation. No hydronephrosis, hydroureter, or calculi seen. No perinephric stranding. BLADDER: The bladder is decompressed with mass effect produced by the adjacent adnexal abnormality. GASTROINTESTINAL TRACT: Small sliding-type hiatal hernia. Stomach, small bowel, and colon are normal in caliber. There is mild to moderate amount of stool in the colon. Appendix is normal. No appreciable bowel wall thickening. There is a small volume of intraperitoneal ascites, most notable within the pelvis, right paracolic gutter, and perisplenic locations. ABDOMINAL WALL: Multiple ventral abdominal hernias are again noted. There is a small umbilical hernia containing a short segment of small bowel without evidence of obstruction or strangulation. Multiple fat-containing umbilical hernias are present in the upper gastric region along the midline, likely incisional. LYMPH NODES: No adenopathy. VASCULAR: Calcific atherosclerosis is present in the abdominal aorta and iliac arteries. No aneurysm or dilation. PELVIC VISCERA: Again seen is a large complex mass in the right hemipelvis measuring at least 8.6 x 8.2 x 8.8 cm and contains heterogeneously dense material in its right lateral aspect and is not significantly changed in size from prior. Uterus is heterogeneous. There is a prominent left ovary measuring 3.5 cm in diameter, similar to prior. OSSEOUS STRUCTURES: Multilevel degenerative spondylosis is noted in the thoracic and lower lumbar spine. No acute osseous abnormalities. There is osteoarthritis in the hips. CT/CT abdomen pelvis wo con IMPRESSION: No evidence of nephrolithiasis or obstructive uropathy. Small volume of peritoneal ascites, markedly improved as compared to prior. Subtle nodular contour to the liver suggests an element of cirrhosis. Large 8.8 cm complex mass in the right hemipelvis, highly suspicious for malignancy. Fullness of the left ovary is more pronounced as compared to prior and warrants continued attention on follow-up for possible metastatic disease. Small sliding-type hiatal hernia. Multiple ventral abdominal hernias, one of which is of bowel containing (umbilical). No evidence of obstruction.
--- NOTE | 2020-05-20 19:20 | ED_ITS ---
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 Patient denies any contact with COVID-19 no shortness of breath no cough no fever or chills Related Data Home Medications Medication Instructions Recorded Confirmed omeprazole 1 cap PO QAM 04/22/20 05/17/20 Previous Rx's Medication Instructions Recorded furosemide 40 mg tablet 40 mg PO DAILY #30 tab 04/19/20 hydroxyzine HCl 25 mg tablet 25 mg PO BID #60 tab 04/19/20 spironolactone 25 mg tablet 50 mg PO DAILY #30 tab 05/12/20 ondansetron HCl [Zofran] 4 mg PO Q6H PRN #50 tab 05/17/20 Allergies Allergy/AdvReac Type Severity Reaction Status Date / Time lisinopril [LISINOPRIL] Allergy Severe SWELLING/NAUSEA/ITCHING, Verified 05/17/20 13:44 cough, swellimg, redness sunflower seed Allergy Severe ANAPHYLAXIS Verified 05/17/20 13:44 [SUNFLOWER SEED] wheat [WHEAT] Allergy Severe ANAPHYLAXIS Verified 05/17/20 13:44 Review of Systems Review of Systems REVIEW OF SYSTEMS: Pertinent positives and negatives are stated above in the history. GEN: no fevers, chills, fatigue HEENT: no nasal congestion, sore throat, ear pain NEURO: no headache, dizziness, focal weakness PULM: no cough, shortness of breath CV: no chest pain, palpitations, LE edema ABD: no vomiting, diarrhea : no dysuria, urgency, frequency SKIN: no rash ROS otherwise negative x 10 Physical Exam Vital Signs: Vital Signs: Last Vital Signs Temp 97.1 F 05/20/20 18:27 Pulse 69 05/20/20 21:23 Resp 16 05/20/20 21:23 BP 125/63 05/20/20 21:23 Pulse Ox 98 05/20/20 21:23 Body Mass Index 24.0 VITAL SIGNS: Reviewed. GENERAL: Well developed, well nourished, in no acute distress. HEAD: Normocephalic/atraumatic, EYES: PERRLA No pallor/icterus noted OROPHARYNX: Oral mucosa moist no oral lesions NECK: Supple, no adenopathy LUNGS: Normal breath sounds. No adventitious sounds or accessory muscle use CARDIOVASCULAR: Regular rate and rhythm without noted murmurs, no JVD or lower extremity edema. ABDOMEN: Soft, non-tender, non-distended with normal bowel sounds. No rigidity. No guarding. No palpable masses or hernias noted right CVA tenderness+ MUSCULOSKELETAL: No tenderness, deformities, EXTREMITIES: No cyanosis or edema. SKIN: no rashes, ulcerations, jaundice, pallor, or petechiae NEUROLOGIC: Alert and oriented x 3. Strength and sensation to light touch were grossly intact normal speech Course Course Course Narrative: Patient with ovarian tumor with right-sided flank pain. Been here in March for same workup is showed pelvic mass on the right side without any hydronephrosis no kidney stone CT scan done today also showed the same thing urine is showing leuko esterase positive with WBC 15-29 otherwise no signs of sepsis patient received Rocephin in the ER will discharge her home on Ceftin at this time patient is pain free and feeling much better MDM - Abdominal Pain Differential Diagnosis Differential diagnosis: Likely calculus of kidney, diverticulitis and renal colic Medical Records Attestation: I reviewed the patient's medical records. Lab Data Attestation: I reviewed the patient's lab results. Result diagrams: 05/20/20 19:24 05/20/20 19:24 Labs: Lab Results 05/20/20 05/20/20 05/20/20 Range/Units 19:24 19:24 19:24 WBC 8.0 (4.8-10.8) X10*3/uL RBC 4.28 (4.20-5.50) X10*6/uL Hgb 12.8 (12.0-16.0) g/dl Hct 37.5 (37-47) % MCV 87.6 (80-98) fL MCH 29.9 (27.0-33.0) pg MCHC 34.1 (31.0-35.0) g/dl RDW 14.6 (11.0-16.0) % Plt Count 251 (160-400) X10*3/uL MPV 10.1 (9.4-12.3) fL Immature Gran % (Auto) 0.3 (0.0-0.4) % Neut % (Auto) 59.1 (45-73) % Lymph % (Auto) 26.6 (20-40) % [place] % (Auto) 7.4 (2-11) % Eos % (Auto) 6.0 H (0-4) % Baso % (Auto) 0.6 (0-2) % Lymph # (Auto) 2.1 (1.2-4.9) X10*3/uL [place] # (Auto) 0.6 (0.1-1.2) X10*3/uL Eos # (Auto) 0.5 H (0.0-0.4) X10*3/uL Baso # (Auto) 0.1 (0.0-0.2) X10*3/uL Abs Immat Gran (auto) 0.02 (0.00-0.03) X10*3/uL Absolute Neuts (auto) 4.7 (2.0-8.3) X10*3/uL Absolute Nucleated RBC 0.000 (0.0-0.012) X10*3/uL Nucleated RBC % (auto) 0.0 (0.0-0.2) /100WBC Sodium 137 (135-145) mmol/L Potassium 4.0 (3.3-5.1) mmol/l Chloride 103 (96-108) mmol/L Carbon Dioxide 21 L (22-29) mmol/L Anion Gap 17 (12-20) BUN 27 H (9-16) mg/dL Creatinine 1.59 H (0.5-1.4) mg/dL Estim Creat Clear Calc 25.3 Estimated GFR 32 Random Glucose 109 (60-115) mg/dL Calcium 9.0 (8.4-10.2) mg/dL Total Bilirubin 1.2 H (0.0-1.0) mg/dL Direct Bilirubin 0.8 H (0.0-0.5) mg/dL AST 44 H D (5-31) U/L ALT 31 (0-31) U/L Alkaline Phosphatase 210 H (39-117) U/L Total Protein 8.1 H (6.5-8.0) g/dL Albumin 3.6 (3.5-5.0) g/dL Lipase 90 H (8-78) U/L Urine Color Urine Appearance Urine pH (5.0-8.0) Ur Specific [place] (1.005-1.025) Urine Protein (NEG-TRACE) MG/DL Urine Glucose (UA) (NEG) MG/DL Urine Ketones (NEG) MG/DL Urine Blood (NEG) Urine Nitrite (NEG) Ur Leukocyte Esterase (NEG) Urine RBC (0) /HPF Urine WBC (0-4) /HPF Ur Squamous Epith Cells /LPF Urine Bacteria /LPF Coronavirus (PCR) Cancelled COVID-19 (JARED) (Negative) COVID-19 Clin Com Influenza Type A (PCR) Cancelled Influenza Type B (PCR) Cancelled RSV RNA Qual (PCR) Cancelled 05/20/20 05/20/20 Range/Units 19:24 19:24 WBC (4.8-10.8) X10*3/uL RBC (4.20-5.50) X10*6/uL Hgb (12.0-16.0) g/dl Hct (37-47) % MCV (80-98) fL MCH (27.0-33.0) pg MCHC (31.0-35.0) g/dl RDW (11.0-16.0) % Plt Count (160-400) X10*3/uL MPV (9.4-12.3) fL Immature Gran % (Auto) (0.0-0.4) % Neut % (Auto) (45-73) % Lymph % (Auto) (20-40) % [place] % (Auto) (2-11) % Eos % (Auto) (0-4) % Baso % (Auto) (0-2) % Lymph # (Auto) (1.2-4.9) X10*3/uL [place] # (Auto) (0.1-1.2) X10*3/uL Eos # (Auto) (0.0-0.4) X10*3/uL Baso # (Auto) (0.0-0.2) X10*3/uL Abs Immat Gran (auto) (0.00-0.03) X10*3/uL Absolute Neuts (auto) (2.0-8.3) X10*3/uL Absolute Nucleated RBC (0.0-0.012) X10*3/uL Nucleated RBC % (auto) (0.0-0.2) /100WBC Sodium (135-145) mmol/L Potassium (3.3-5.1) mmol/l Chloride (96-108) mmol/L Carbon Dioxide (22-29) mmol/L Anion Gap (12-20) BUN (9-16) mg/dL Creatinine (0.5-1.4) mg/dL Estim Creat Clear Calc Estimated GFR Random Glucose (60-115) mg/dL Calcium (8.4-10.2) mg/dL Total Bilirubin (0.0-1.0) mg/dL Direct Bilirubin (0.0-0.5) mg/dL AST (5-31) U/L ALT (0-31) U/L Alkaline Phosphatase (39-117) U/L Total Protein (6.5-8.0) g/dL Albumin (3.5-5.0) g/dL Lipase (8-78) U/L Urine Color YELLOW Urine Appearance HAZY Urine pH 5.5 (5.0-8.0) Ur Specific [place] 1.020 (1.005-1.025) Urine Protein NEG (NEG-TRACE) MG/DL Urine Glucose (UA) NEG (NEG) MG/DL Urine Ketones NEG (NEG) MG/DL Urine Blood 3+ H (NEG) Urine Nitrite NEG (NEG) Ur Leukocyte Esterase 3+ H (NEG) Urine RBC 15-29 H (0) /HPF Urine WBC 15-29 H (0-4) /HPF Ur Squamous Epith Cells 1+ /LPF Urine Bacteria 1+ /LPF Coronavirus (PCR) COVID-19 (JARED) Negative (Negative) COVID-19 Clin Com See Note Influenza Type A (PCR) Influenza Type B (PCR) RSV RNA Qual (PCR) Discharge Plan Discharge Prescriptions: No Action spironolactone 25 mg tablet 50 mg PO DAILY Qty: 30 RF: 5 omeprazole 40 mg capsule,delayed release(DR/EC) 1 cap PO QAM RF: 0 ondansetron HCl [Zofran] 4 mg Tablet 4 mg PO Q6H PRN (Reason: Nausea) Qty: 50 RF: 3 furosemide 40 mg tablet 40 mg PO DAILY Qty: 30 RF: 0 hydroxyzine HCl 25 mg tablet 25 mg PO BID Qty: 60 RF: 0 PMFSH Past Medical History Medical History Bacteremia Biliary obstruction Gallbladder cancer HTN (hypertension) Hyperlipidemia Osteoarthritis Ovarian cancer Surgical History History of laparoscopic cholecystectomy History of surgery Family History Family History Father Diabetes Mother Diabetes Cancer Social History Social History Household Members: Family Housing: Apartment Smoking Status: Never smoker Second Hand Smoke Exposure: No Advance Directives: No Advance Directives Information Provided: Yes service: No Current occupational status: unemployed
[2020-05-20 19:33] LABS: Glucose Urine UA NEG (NEG); Leukocyte Esterase Urine 3+ (NEG); MANUAL DIFF FLAG NO; Nitrite Urine NEG (NEG); PH 5.5 (5.0-8.0); Urine Blood 3+ (NEG); Urine Ketones NEG (NEG); Urine Protein NEG (NEG-TRACE)
[2020-05-20 19:34] LABS: Appearance Urine HAZY; Color Urine YELLOW
[2020-05-20 19:37] LABS: Basophils Absolute Auto 0.1 X10*3/uL (0.0-0.2); Basophils Percent Auto 0.6 % (0-2); Eosinophils Absolute Auto 0.5 X10*3/uL (0.0-0.4); Hematocrit 37.5 % (37-47); Hemoglobin 12.8 g/dl (12.0-16.0); Imm Gran Abs Auto 0.02 X10*3/uL (0.00-0.03); Imm Gran Pct Auto 0.3 % (0.0-0.4); Lymphocytes Absolute Auto 2.1 X10*3/uL (1.2-4.9); Lymphocytes Percent Auto 26.6 % (20-40); Mean Corpuscular HGB Conc 34.1 g/dl (31.0-35.0); Mean Corpuscular Hemoglobin 29.9 pg (27.0-33.0); Mean Corpuscular Volume 87.6 fL (80-98); Mean Platelet Volume 10.1 fL (9.4-12.3); Monocytes Absolute Auto 0.6 X10*3/uL (0.1-1.2); Monocytes Percent Auto 7.4 % (2-11); Neutrophils Absolute Auto 4.7 X10*3/uL (2.0-8.3); Neutrophils Percent Auto 59.1 % (45-73); Platelet Count 251 X10*3/uL (160-400); Red Blood Count 4.28 X10*6/uL (4.20-5.50); Red Cell Distribution Width 14.6 % (11.0-16.0)
[2020-05-20 19:41] LABS: Bacteria Urine 1+ /LPF; Squamous Epithelial Cell Urine 1+ /LPF
[2020-05-20 19:56] VITALS: PULSE 55; RESP 16; O2SAT 141
[2020-05-20] MEDS: 0.9 % Sodium Chloride 1,000 ML 999 ML IVCONT (19:59)
[2020-05-20] MEDS: Morphine Sulfate 4 MG/ML CARTRIDGE IVPUSH (19:59)
[2020-05-20] MEDS: ondansetron HCL 4 MG/2 ML VIAL IVPUSH (19:59)
[2020-05-20 20:12] LABS: COVID-19 Test Negative (Negative)
[2020-05-20 20:25] LABS: Alanine Aminotransferase 31 U/L (0-31); Albumin Level 3.6 g/dL (3.5-5.0); Alkaline Phosphatase 210 U/L (39-117); Anion Gap 17 (12-20); Aspartate Amino Transferase 44 U/L (5-31); Bilirubin Direct 0.8 mg/dL (0.0-0.5); Bilirubin Total 1.2 mg/dL (0.0-1.0); Blood Urea Nitrogen 27 mg/dL (9-16); Carbon Dioxide 21 mmol/L (22-29); Chloride 103 mmol/L (96-108); Creatinine Clr Calc Pharmacy 25.3; Estimated Glomerular Filt Rate 32; Glucose Random 109 mg/dL (60-115); Sodium 137 mmol/L (135-145); Total Protein 8.1 g/dL (6.5-8.0)
[2020-05-20 20:30] LABS: Lipase 90 U/L (8-78)
[2020-05-20 20:41] VITALS: BP 133/72; PULSE 69; RESP 16; O2SAT 100
--- NOTE | 2020-05-20 21:22 | PC.NURSE ---
PT REPORTS STILL FEELING NAUSEOUS, AND HER RIGHT SIDED ABDOMINAL PAIN STILL 9/10. GRANDSON WORKS RN ON FLOOR, CAME TO CHECK ON HER. HE WILL BE ABLE TO GIVE HER RIDE HOME AT 11PM.
[2020-05-20 21:23] VITALS: BP 125/63; PULSE 69; RESP 16; O2SAT 98
--- NOTE | 2020-05-20 21:53 | PC.NURSE ---
confirmed with md st that he does not want blood cultures or lactic. urine culture ordered.
[2020-05-20] MEDS: cefTRIAXone sodium 1 GM in 0.9 % Sodium Chloride 50 ML IV (22:00)
[2020-05-21 00:05] VITALS: BP 132/75; PULSE 68; RESP 16; O2SAT 98
== END 2020-05-21 00:42 | disposition home or self-care (01) ==
PROVIDERS: Emergency Provider Internal Medicine; PCP Internal Medicine
DX: N39.0 Urinary tract infection, site not specified (principal); R10.9 Unspecified abdominal pain; Z20.828 Contact with and (suspected) exposure to other viral communicable diseases; I10 Essential (primary) hypertension; Z85.43 Personal history of malignant neoplasm of ovary; Z90.49 Acquired absence of other specified parts of digestive tract
CPT/HCPCS: 0241U; 36415; 74176; 80048; 80076; 81001; 83690; 85025; 87086; 87635; 99284; J0696; J2270; J2405

== ENCOUNTER 2020-05-22 08:47 | Outpatient (REF) | payer MEDICARE, SELFPAY ==
--- NOTE | 2020-05-22 | MM_ITS ---
EXAMINATION: MM SCREENING DIGITAL BREAST TOMOSYNTHESIS, BILATERAL CLINICAL INFORMATION: Screening. Asymptomatic. The lifetime risk of breast cancer based on the Tyrer-Cuzick Model is 2%. COMPARISON: Mammography: 05/17/2019, 03/30/2018, 02/24/2017 TECHNIQUE: Digital breast tomosynthesis is performed in both the craniocaudal and mediolateral oblique views along with computer-aided detection (CAD). Synthesized 2D images are generated from the tomosynthesis. FINDINGS: There are scattered areas of fibroglandular density (ACR BI-RADS breast composition Category b). There are no significant masses, abnormal calcifications, or other abnormalities. There are scattered benign ductal secretory calcifications again noted in each breast. The axilla and skin contours are unremarkable. MM/MM tomosynthesis screening BI IMPRESSION: No mammographic evidence of malignancy. ASSESSMENT: BI-RADS 2: Benign RECOMMENDATION: Routine annual mammography screening. This patient's information was entered into a reminder system with a target due date for their next mammogram.
== END 2020-05-22 08:48 | disposition home or self-care (01) ==
LOC: HO.MAMMO 08:47
PROVIDERS: PCP Internal Medicine; Visit Provider Internal Medicine
DX: Z12.31 Encounter for screening mammogram for malignant neoplasm of breast (principal)
CPT/HCPCS: 77063; 77067

== ENCOUNTER 2020-07-14 | Outpatient (REF) | payer MEDICARE, SELFPAY | END 2020-07-14 00:01 | LOC: HO.VC | PROVIDERS: Visit Provider Internal Medicine | DX: Z23 Encounter for immunization (principal) | CPT/HCPCS: 0011A ==

== ENCOUNTER 2020-07-29 11:58 | Emergency (ER) | payer MEDICARE, SELFPAY ==
[2020-07-29 14:02] VITALS: BP 148/91; PULSE 69; RESP 16; TEMP 36.4; O2SAT 99; BMI 25.4
--- NOTE | 2020-07-29 14:13 | ED_ITS ---
HPI - Skin/Abscess/Foreign Bdy General Chief complaint: General Medical Stated complaint: ITCHNESS Time Seen by Provider: 07/29/20 12:36 Source: patient and family (Grandharsha Dave in Waiting room ) Mode of arrival: ambulatory Limitations: language barrier (Syriac-speaking) History of Present Illness HPI narrative: 74 year old female with a past medical history of endometrial/ovarian cancer and cholangiocarcinoma, liver failure, diabetes, hypertension and GERD presenting with her grandson who is a nurse on [employer] with complaints of pruritus x7 months worse within the past few days. She is currently prescribed Claritin and hydroxyzine and is taking that without any symptomatic relief. Reports she was just seen by her primary care provider here on 07/19/2020 and had lab work although no additional medications given. Patient denies any other symptoms complaints or concerns at this time. Reece is requesting blood work to evaluate the patient's liver function. MD complaint: other (Pruritis ) Onset (ago): month(s) (Seven months worse within the past few days) Tetanus up to date: yes Location: generalized Severity: moderate Quality: pruritic Pain Consistency: constant Relieving factors: none Exacerbating factors: none Context: none Associated symptoms: denies other symptoms Treatments prior to arrival: other (Claritin and hydroxyzine) Related Data Home Medications Medication Instructions Recorded Confirmed omeprazole 1 cap PO QAM 04/22/20 06/23/20 spironolactone 25 mg tablet 25 mg PO DAILY tab 06/23/20 07/19/20 Previous Rx's Medication Instructions Recorded lorazepam 0.5 mg PO BEDTIME PRN #30 tab 06/18/20 ondansetron HCl [Zofran] 8 mg PO Q8H #60 tab 06/18/20 loratadine 10 mg tablet 10 mg PO DAILY #30 tab 06/23/20 hydroxyzine HCl 25 mg tablet 25 mg PO BID #60 tab 07/13/20 furosemide 40 mg PO DAILY #30 tab 07/19/20 diphenhydramine HCl [Benadryl 50 mg PO TID PRN #20 tab 07/29/20 Allergy] famotidine [Pepcid] 20 mg PO BID #20 tab 07/29/20 Allergies Allergy/AdvReac Type Severity Reaction Status Date / Time lisinopril [LISINOPRIL] Allergy Severe SWELLING/NAUSEA/ITCHING, Verified 05/17/20 13:44 cough, swellimg, redness sunflower seed Allergy Severe ANAPHYLAXIS Verified 05/17/20 13:44 [SUNFLOWER SEED] wheat [WHEAT] Allergy Severe ANAPHYLAXIS Verified 05/17/20 13:44 Review of Systems Review of Systems: Constitutional : No Fever, No Chills , no body aches, no recent illness Head/Face: No facial swelling, No facial redness ENT/Mouth : No oral/throat swelling, No Hoarseness, No Swallowing Difficulty Eyes: No Eye Pain, No Swelling, No Redness Cardiovascular : No Chest Pain, No SOB, No palpitations Respiratory : No Cough, No Sputum, No Wheezing, No Smoke Exposure, No Dyspnea Gastrointestinal : No Nausea, No Vomiting, No Diarrhea, No abdominal Pain Genitourinary : No Dysuria, No Urinary Frequency, No Hematuria Musculoskeletal : No joint pain, No Myalgias, No Joint Swelling Skin : + Pruritis, No Skin Lesions, No rash Neuro : No Weakness, No Numbness, No Headache, No dizziness, No tingling Psych : No Anxiety/Panic, No Depression Heme/Lymph: No Bruising, No Lymphadenopathy Endocrine : No Polyuria, No Polydipsia Denies changes in lotions or detergents. Denies new medications or any changes in medications. Denies drainage from rash. Denies any recent sick contacts or recent travel. [facility] Past Medical History Attestation statement: The following information was validated with the patient. Medical History Abdominal pain Biliary obstruction Cholangiocarcinoma HTN (hypertension) Hyperlipidemia Osteoarthritis Ovarian cancer Type 2 diabetes mellitus with hyperglycemia Vitamin D deficiency Surgical History History of laparoscopic cholecystectomy History of surgery Family History Family History Father Diabetes Mother Diabetes Cancer Social History Social History Household Members: Family Housing: Apartment Smoking Status: Never smoker Smoked in Last 30 Days: No Second Hand Smoke Exposure: No Use of substances other than those prescribed or required for medical reasons: No Advance Directives: No Advance Directives Information Provided: Yes service: No Current occupational status: unemployed Physical Exam Vital Signs: Vital Signs: Last Vital Signs Temp 97.5 F 07/29/20 14:02 Pulse 69 07/29/20 14:02 Resp 16 07/29/20 14:02 BP 148/91 H 07/29/20 14:02 Pulse Ox 99 07/29/20 14:02 Body Mass Index 25.4 vital signs have been reviewed as normal and appeared to be correct. Blood pressure hypertensive. Heart rate normal. Respiration rate normal. Temperature normal. Oxygen saturation normal. Appearance: Alert. Oriented X3. No acute distress. Head: Normal external exam. Normocephalic. Atraumatic. Eyes: PERRLA. EOMI. Conjunctiva and sclera normal. Eyelids normal. ENT: Pharynx normal. Uvula midline. Moist mucous membranes. No trismus noted. No drooling noted. No muffled voice noted. Neck: Normal inspection. Neck supple. FROM. No adenopathy. Thyroid Normal. No meningeal signs. No neck mass noted. CVS: Normal heart rate and rhythm. Heart sound normal. No murmurs noted. Pulses normal throughout. Respiratory: No respiratory distress. Painless inspiration. Breath sounds normal. No wheezes/rales/rhonchi noted. Chest nontender. No accessory muscle usage noted or decreased air movement noted. Abdomen: Soft and nontender. Bowel sounds normal in all 4 quadrants. No distention noted. No organomegaly noted. No visible injury noted. Back: Full range of motion noted. Skin: Skin warm and dry. Normal skin color. Normal skin turgor. No rashes/lesions/lacerations noted. Extremities: Extremities exhibit normal range of motion. Extremities nontender. Neuro: Oriented X 3. No motor deficit. No sensory deficit. Reflexes normal. Course Course Course Narrative: 14:10pm - 74 year old female with a past medical history of endometrial/ovarian cancer and cholangiocarcinoma, liver failure, diabetes, hypertension and GERD presenting with her grandson who is a nurse on [employer] with complaints of pruritus x7 months worse within the past few days. She is currently prescribed Claritin and hydroxyzine and is taking that without any symptomatic relief. - on reviewing the patient's labs appears that she had blood work on 07/19/2020 by her primary care provider and she has chronic elevated LFTs her total bilirubin was increased to 4.2 when compared to 05/20/2020 where it was 1.1 she also had a elevation and AST/ALT and alkaline phosphate. She has had high elevations in the past. - On exam patient is alert and oriented x3. Not in any acute distress. Vital signs are stable within normal limits. Nontoxic appearing. No signs of dehydration. No rash noted. - Plan: Labs including LFTs and magnesium, provide 25 mg of Benadryl and 20 mg of Pepcid then re-evaluate. Reevaluation(s) Reevaluation #1: - patient's repeat total bilirubin mildly elevated when compared to 07/19/2020 which was 4.2 today it is 5.6. Otherwise all other LFTs have improved when compared to 07/19/2020. Patient reports mild symptomatic relief with the Benadryl and Pepcid therefore will DC home with Benadryl and Pepcid and instructions to follow up with primary care provider. Patient understands agrees the plan. Time: 15:40 MDM - Skin/Abscess/Foreign Bdy Medical Records Attestation: I reviewed the patient's medical records. Lab Data Attestation: I reviewed the patient's lab results. Result diagrams: 07/29/20 14:19 07/29/20 14:19 Labs: Lab Results 07/29/20 07/29/20 07/29/20 Range/Units 14:19 14:19 14:19 WBC 7.4 (4.8-10.8) X10*3/uL RBC 3.65 L (4.20-5.50) X10*6/uL Hgb 10.8 L (12.0-16.0) g/dl Hct 30.8 L (37-47) % MCV 84.4 (80-98) fL MCH 29.6 (27.0-33.0) pg MCHC 35.1 H (31.0-35.0) g/dl RDW 18.0 H (11.0-16.0) % Plt Count 207 (160-400) X10*3/uL MPV 11.1 (9.4-12.3) fL Immature Gran % (Auto) 0.3 (0.0-0.4) % Neut % (Auto) 68.6 (45-73) % Lymph % (Auto) 16.8 L (20-40) % Talbot % (Auto) 9.6 (2-11) % Eos % (Auto) 3.9 (0-4) % Baso % (Auto) 0.8 (0-2) % Lymph # (Auto) 1.2 (1.2-4.9) X10*3/uL Talbot # (Auto) 0.7 (0.1-1.2) X10*3/uL Eos # (Auto) 0.3 (0.0-0.4) X10*3/uL Baso # (Auto) 0.1 (0.0-0.2) X10*3/uL Abs Immat Gran (auto) 0.02 (0.00-0.03) X10*3/uL Absolute Neuts (auto) 5.0 (2.0-8.3) X10*3/uL Absolute Nucleated RBC 0.000 (0.0-0.012) X10*3/uL Nucleated RBC % (auto) 0.0 (0.0-0.2) /100WBC PT 17.1 H (10.8-13.0) SEC INR 1.4 H (0.9-1.1) Sodium 135 (135-145) mmol/L Potassium 4.2 (3.3-5.1) mmol/L Chloride 107 (96-108) mmol/L Carbon Dioxide 20 L (22-29) mmol/L Anion Gap 12 (12-20) BUN 22 H (9-16) mg/dL Creatinine 1.12 (0.5-1.4) mg/dL Estim Creat Clear Calc 38.4 Estimated GFR 48 Random Glucose 102 (60-115) mg/dL Calcium 8.1 L (8.4-10.2) mg/dL Magnesium 2.1 (1.6-2.6) mg/dL Total Bilirubin 5.6 H (0.0-1.0) mg/dL Direct Bilirubin 4.3 H (0.0-0.5) mg/dL AST 88 H (5-31) U/L ALT 68 H (0-31) U/L Alkaline Phosphatase 438 H D (39-117) U/L Total Protein 6.2 L (6.5-8.0) g/dL Albumin 3.1 L (3.5-5.0) g/dL Discharge Plan Discharge Clinical Impression: Pruritus Patient Disposition: Home, Self-Care Instructions: Itchy Skin (ED) Prescriptions: New diphenhydramine HCl [Benadryl Allergy] 25 mg tablet 50 mg PO TID PRN (Reason: itching) Qty: 20 RF: 0 famotidine [Pepcid] 20 mg tablet 20 mg PO BID Qty: 20 RF: 0 No Action hydroxyzine HCl 25 mg tablet 25 mg PO BID Qty: 60 RF: 3 omeprazole 40 mg capsule,delayed release(DR/EC) 1 cap PO QAM RF: 0 ondansetron HCl [Zofran] 4 mg Tablet 8 mg PO Q8H Qty: 60 RF: 3 lorazepam 0.5 mg Tablet 0.5 mg PO BEDTIME PRN (Reason: Anxiety) Qty: 30 RF: 0 furosemide 40 mg tablet 40 mg PO DAILY Qty: 30 RF: 0 spironolactone 25 mg tablet 25 mg PO DAILY RF: 0 loratadine [Claritin] 10 mg tablet 10 mg PO DAILY Qty: 30 RF: 5 Referrals: Roland Marcos [Physician] - 2 days Po,Heather Luke MD [Primary Care Provider] - 2 days Print Language: Syriac
[2020-07-29 14:25] LABS: MANUAL DIFF FLAG NO
[2020-07-29 14:26] LABS: Basophils Absolute Auto 0.1 X10*3/uL (0.0-0.2); Basophils Percent Auto 0.8 % (0-2); Eosinophils Absolute Auto 0.3 X10*3/uL (0.0-0.4); Eosinophils Percent Auto 3.9 % (0-4); Hematocrit 30.8 % (37-47); Hemoglobin 10.8 g/dl (12.0-16.0); Imm Gran Abs Auto 0.02 X10*3/uL (0.00-0.03); Imm Gran Pct Auto 0.3 % (0.0-0.4); Lymphocytes Absolute Auto 1.2 X10*3/uL (1.2-4.9); Lymphocytes Percent Auto 16.8 % (20-40); Mean Corpuscular HGB Conc 35.1 g/dl (31.0-35.0); Mean Corpuscular Hemoglobin 29.6 pg (27.0-33.0); Mean Corpuscular Volume 84.4 fL (80-98); Mean Platelet Volume 11.1 fL (9.4-12.3); Monocytes Absolute Auto 0.7 X10*3/uL (0.1-1.2); Monocytes Percent Auto 9.6 % (2-11); Neutrophils Percent Auto 68.6 % (45-73); Platelet Count 207 X10*3/uL (160-400); Red Blood Count 3.65 X10*6/uL (4.20-5.50); White Blood Count 7.4 X10*3/uL (4.8-10.8)
[2020-07-29 14:36] LABS: INTERNATIONAL NORM RATIO 1.4 (0.9-1.1); Prothrombin Time 17.1 SEC (10.8-13.0)
[2020-07-29 14:47] LABS: Alanine Aminotransferase 68 U/L (0-31); Albumin Level 3.1 g/dL (3.5-5.0); Alkaline Phosphatase 438 U/L (39-117); Anion Gap 12 (12-20); Aspartate Amino Transferase 88 U/L (5-31); Bilirubin Direct 4.3 mg/dL (0.0-0.5); Bilirubin Total 5.6 mg/dL (0.0-1.0); Blood Urea Nitrogen 22 mg/dL (9-16); Calcium 8.1 mg/dL (8.4-10.2); Carbon Dioxide 20 mmol/L (22-29); Chloride 107 mmol/L (96-108); Creatinine Clr Calc Pharmacy 38.4; Estimated Glomerular Filt Rate 48; Glucose Random 102 mg/dL (60-115); Magnesium 2.1 mg/dL (1.6-2.6); Potassium 4.2 mmol/L (3.3-5.1); Sodium 135 mmol/L (135-145); Total Protein 6.2 g/dL (6.5-8.0)
[2020-07-29] MEDS: Famotidine 20 MG TABLET PO (14:51)
[2020-07-29] MEDS: diphenhydrAMINE HCL 25 MG TABLET PO (14:51)
== END 2020-07-29 16:10 | disposition home or self-care (01) ==
PROVIDERS: Physician Assistant Medical; Emergency Provider Emergency Medicine; PCP Internal Medicine
DX: L29.9 Pruritus, unspecified (principal); Z85.43 Personal history of malignant neoplasm of ovary; C22.1 Intrahepatic bile duct carcinoma; K72.90 Hepatic failure, unspecified without coma; E11.9 Type 2 diabetes mellitus without complications; I10 Essential (primary) hypertension; K21.9 Gastro-esophageal reflux disease without esophagitis
CPT/HCPCS: 36415; 80048; 80076; 83735; 85025; 85610; 99283; Q0163

== ENCOUNTER 2020-08-10 | Outpatient (REF) | payer MEDICARE, SELFPAY | END 2020-08-10 00:01 | disposition home or self-care (01) | LOC: HO.VC | PROVIDERS: Visit Provider Internal Medicine | DX: Z23 Encounter for immunization (principal) | CPT/HCPCS: 0012A ==

== ENCOUNTER 2020-09-27 16:07 | Inpatient (IN) | payer MEDICARE, SELFPAY ==
--- NOTE | ~2020-09-27 | CT_ITS ---
EXAMINATION: CT CHEST, ABDOMEN AND PELVIS WITHOUT CONTRAST CLINICAL INFORMATION: Abdominal distention. History of cholangiocarcinoma. COMPARISON: CT chest, abdomen pelvis 04/03/2020. CT abdomen and pelvis 05/20/2020. MR abdomen 04/05/2020. TECHNIQUE: Multidetector volumetric CT imaging of the chest, abdomen and pelvis was obtained without oral or intravenous contrast. Coronal and sagittal reformatted images are performed at the CT scanner. [This CT examination was performed using dose optimization techniques as appropriate, variously including the following: *Automated exposure control. *Adjustment of mA and/or kV according to patient size (this includes techniques or standardized protocols for targeted exams where dose is matched to indication/reason for exam; i.e. extremities or head). *Use of iterative reconstruction technique]. DLP: 788 mGy-cm FINDINGS: CT CHEST: Lungs: The lungs are clear with no evidence of inflammation or nodules. Mediastinum: No mediastinal mass or significant lymphadenopathy. The heart size is normal. There are vascular wall calcifications of the aortic arch. There is no aneurysm of the aorta. There is a moderate-sized hiatal hernia. Thyroid is unremarkable. Pleura: There is no pleural effusion. No pleural mass or thickening. Axilla: No lymphadenopathy. CT ABDOMEN AND PELVIS: Liver, Gallbladder and Biliary Tree: The liver is normal in size, shape, and attenuation. No focal hepatic lesion or biliary ductal dilatation is present. Status post cholecystectomy. Pancreas: Pancreas is atrophic. Spleen: Spleen normal in size and contour. No focal lesion. Adrenal Glands: Adrenal glands are normal in size. No focal mass. Kidneys and Ureters: The kidneys are normal in size, shape, and attenuation. No hydronephrosis, hydroureter, or calculi seen. No perinephric stranding. Bladder: Bladder is empty. Gastrointestinal Tract: Moderate-sized hiatal hernia. The wall of the stomach appears to be mildly thickened. No distention of the stomach. Small bowel loops are normal. There is an anastomosis of bowel in the right side of the abdomen. Small volume of scattered stool in the colon. Mesentery: There is a large volume of abdominal ascites. This has substantially increased in volume since CAT scan of May 2020. The ascites has a density measurement of 4 Hounsfield units, simple fluid. Pelvis: Uterus is anteverted. There are at least 2 rounded masses which have heterogeneous density in the lower pelvis. One is related to the right adnexa and the other to the left adnexa. 1. One to the right of midline measures 10.5 x 15 x 10 cm. This has density measurements from 3 Hounsfield units through 45 Hounsfield units with the hyperdense fluid layering dependently. This appears to be a cystic lesion possibly with hemorrhagic components layering dependently. On the CAT scan of 05/20/2020, this lesion measured 9 x 10 x 7.5 cm. 2. There is a second lesion in the left lower pelvis lying posterior to the uterus. This also has heterogeneous density. This measures 8.8 x 7 x 6 cm. This lesion appeared to be a left adnexal lesion measuring 3.5 x 2.6 x 3 cm on the prior CAT scan. Abdominal Wall: Multiple ventral wall hernias again redemonstrated. Some now contains abdominal ascites. Largest at the umbilicus measures 6.8 x 3.7 x 7.8 cm. There is another at the upper central abdomen just inferior to the xiphoid measuring 4 cm. Lymph Nodes: Normal. Vascular: Scattered vascular calcifications of the aorta and iliac arteries. There is no aneurysm. Osseous Structures: Multilevel degenerative spondylosis of the spine. CT/CT abdomen pelvis wo con IMPRESSION: CT CHEST: No acute change of chest. No significant lung nodule or chest mass. No evidence of metastatic disease. CT SCAN ABDOMEN AND PELVIS: 1. Interval development of a large volume of abdominal ascites now present since prior CAT scan of 05/20/2020. 2. There are 2 large complex cystic masses in the pelvis which may be related to the adnexa which have both increased in size since prior CAT scan of 05/20/2020. These can be further assessed with pelvic precontrast and postcontrast MRI imaging.
--- NOTE | ~2020-09-27 | US_ITS ---
PROCEDURE: ULTRASOUND-GUIDED PARACENTESIS CLINICAL INFORMATION: Ascites. COMPARISON: Ultrasound abdomen 04/22/2020. TECHNIQUE: Following explaining ultrasound-guided paracentesis procedure, benefits and risk via a bone process operator, a written consent was obtained. Patient was placed supine on ultrasound stretcher and preliminary ultrasound imaging was obtained. An optimal site was selected along the left midabdomen laterally and marked. The marked site was cleaned and draped in usual sterile manner. 1% lidocaine was injected at puncture site. Through a small skin incision a 5 Bulgarian Sokolin catheter was advanced into the peritoneal space. After observing fluid return, stylet was withdrawn and 20 mL of fluid was collected in syringe and sent to lab as per physician request. The catheter was then connected to vacuum bottle via connecting cannula. After obtaining all fluid and obtaining no more fluid return, catheter was withdrawn and complete hemostasis achieved at the puncture site. Sterile dressing was applied postprocedure. Patient tolerated procedure extremely well. FINDINGS: On preliminary ultrasound imaging there is moderate free fluid in the peritoneum. Approximately 4500 mL of dark yellowish fluid was drained from the abdomen. There were no immediate complications. US/US paracentesis abd w/image IMPRESSION: Successful diagnostic and therapeutic paracentesis performed with approximately 4500 mL of yellowish fluid drained.
[2020-09-27 16:13] VITALS: BP 127/76; PULSE 94; RESP 17; TEMP 36.6; O2SAT 99; BMI 26.4
--- NOTE | 2020-09-27 16:13 | ECG_ITS ---
Test Reason : ABDOMINAL PAIN Blood Pressure : / mmHG Vent. Rate : 096 BPM Atrial Rate : 096 BPM P-R Int : 126 ms QRS Dur : 076 ms QT Int : 362 ms P-R-T Axes : 019 016 067 degrees QTc Int : 457 ms Normal sinus rhythm with sinus arrhythmia Low voltage QRS Septal infarct (cited on or before 27-SEP-2020) Abnormal ECG When compared with ECG of 02-APR-2020 20:56, Questionable change in initial forces of Septal leads Nonspecific T wave abnormality no longer evident in Inferior leads Nonspecific T wave abnormality no longer evident in Anterior leads QT has lengthened Referred By: Kylie Kendrick Electronically Signed By:Connor Perdomo
--- NOTE | 2020-09-27 16:17 | ED.ABDPAIN ---
HPI - Abdominal Pain General Chief Complaint: Abdominal Pain Stated Complaint: abdominal pain Time Seen by Provider: 09/27/20 16:13 Related Data Home Medications Medication Instructions Recorded Confirmed omeprazole 1 cap PO QAM 04/22/20 06/23/20 Previous Rx's Medication Instructions Recorded lorazepam 0.5 mg PO BEDTIME PRN #30 tab 06/18/20 ondansetron HCl [Zofran] 8 mg PO Q8H #60 tab 06/18/20 loratadine 10 mg tablet 10 mg PO DAILY #30 tab 06/23/20 hydroxyzine HCl 25 mg tablet 25 mg PO BID #60 tab 07/13/20 diphenhydramine HCl [Benadryl 50 mg PO TID PRN #20 tab 07/29/20 Allergy] famotidine [Pepcid] 20 mg PO BID #20 tab 07/29/20 furosemide 40 mg PO DAILY #30 tab 08/12/20 spironolactone 25 mg tablet 50 mg PO DAILY #180 tab 08/12/20 Allergies Allergy/AdvReac Type Severity Reaction Status Date / Time lisinopril [LISINOPRIL] Allergy Severe SWELLING/NAUSEA/ITCHING, Verified 05/17/20 13:44 cough, swellimg, redness sunflower seed Allergy Severe ANAPHYLAXIS Verified 05/17/20 13:44 [SUNFLOWER SEED] wheat [WHEAT] Allergy Severe ANAPHYLAXIS Verified 05/17/20 13:44 Physical Exam Vital Signs: Vital Signs: Last Vital Signs Temp 98 F 09/27/20 16:13 Pulse 94 09/27/20 16:13 Resp 17 09/27/20 16:13 BP 127/76 09/27/20 16:13 Pulse Ox 99 09/27/20 16:13 Body Mass Index 26.4 Course Course Course Narrative: 75 y/o female with a PMHX of HTN, HLP, OA, cholangiocarcinoma s/p partial hepatectomy and cholecystectomy presenting to ED c/o diffuse abd pain and distention x1 week with N/V. Labs, UA ordered This is a rapid medical assessment in triage. Full H&P will be performed by ED provider Discharge Plan Discharge Prescriptions: No Action hydroxyzine HCl 25 mg tablet 25 mg PO BID Qty: 60 RF: 3 spironolactone 25 mg tablet 50 mg PO DAILY Qty: 180 RF: 1 omeprazole 40 mg capsule,delayed release(DR/EC) 1 cap PO QAM RF: 0 diphenhydramine HCl [Benadryl Allergy] 25 mg tablet 50 mg PO TID PRN (Reason: itching) Qty: 20 RF: 0 famotidine [Pepcid] 20 mg tablet 20 mg PO BID Qty: 20 RF: 0 ondansetron HCl [Zofran] 4 mg Tablet 8 mg PO Q8H Qty: 60 RF: 3 lorazepam 0.5 mg Tablet 0.5 mg PO BEDTIME PRN (Reason: Anxiety) Qty: 30 RF: 0 furosemide 40 mg tablet 40 mg PO DAILY Qty: 30 RF: 4 loratadine [Claritin] 10 mg tablet 10 mg PO DAILY Qty: 30 RF: 5 PMFSH Past Medical History Medical History Abdominal pain Biliary obstruction Cholangiocarcinoma HTN (hypertension) Hyperlipidemia Osteoarthritis Ovarian cancer Type 2 diabetes mellitus with hyperglycemia Vitamin D deficiency Surgical History History of laparoscopic cholecystectomy History of surgery Family History Family History Father Diabetes Mother Diabetes Cancer Social History Social History Household Members: Family Housing: Apartment Smoking Status: Never smoker Second Hand Smoke Exposure: No service: No Current occupational status: unemployed
[2020-09-27 19:39] LABS: Ammonia 25 umol/L (13-55)
[2020-09-27 19:40] LABS: Basophils Percent Auto 0.2 % (0-2); Eosinophils Absolute Auto 0.1 X10*3/uL (0.0-0.4); Eosinophils Percent Auto 0.3 % (0-4); Hemoglobin 12.1 g/dl (12.0-16.0); Imm Gran Abs Auto 0.29 X10*3/uL (0.00-0.03); Imm Gran Pct Auto 1.4 % (0.0-0.4); Lymphocytes Percent Auto 4.7 % (20-40); MANUAL DIFF FLAG SCAN; Mean Corpuscular HGB Conc 35.6 g/dl (31.0-35.0); Mean Corpuscular Hemoglobin 30.9 pg (27.0-33.0); Mean Corpuscular Volume 86.7 fL (80-98); Mean Platelet Volume 9.4 fL (9.4-12.3); Monocytes Absolute Auto 1.5 X10*3/uL (0.1-1.2); Monocytes Percent Auto 7.2 % (2-11); Neutrophils Absolute Auto 18.3 X10*3/uL (2.0-8.3); Neutrophils Percent Auto 86.2 % (45-73); Platelet Count 358 X10*3/uL (160-400); Red Blood Count 3.92 X10*6/uL (4.20-5.50); Red Cell Distribution Width 14.6 % (11.0-16.0); SCAN SMEAR FLAG 1; White Blood Count 21.2 X10*3/uL (4.8-10.8)
[2020-09-27 19:50] LABS: Lipase 80 U/L (8-78)
[2020-09-27 19:55] LABS: Alanine Aminotransferase 17 U/L (0-31); Albumin Level 2.3 g/dL (3.5-5.0); Alkaline Phosphatase 127 U/L (39-117); Anion Gap 15 (12-20); Aspartate Amino Transferase 21 U/L (5-31); Bilirubin Total 1.5 mg/dL (0.0-1.0); Blood Urea Nitrogen 28 mg/dL (9-16); Calcium 7.4 mg/dL (8.4-10.2); Carbon Dioxide 17 mmol/L (22-29); Chloride 104 mmol/L (96-108); Estimated Glomerular Filt Rate 30; Glucose Random 107 mg/dL (60-115); Potassium 4.5 mmol/L (3.3-5.1); Sodium 131 mmol/L (135-145); Total Protein 5.1 g/dL (6.5-8.0)
[2020-09-27 19:56] LABS: Prothrombin Time 23.4 SEC (10.8-13.0)
[2020-09-27 20:18] LABS: Partial Thromboplastin Time 38.9 SEC (24.1-38.0); SLIDE REVIEW VERIFIED
--- NOTE | 2020-09-27 20:27 | PC.NURSE ---
PT TO ROOM WITH C/O ABD PAIN. FAMILY AT BEDSIDE WITH PT. PT CHG INTO GOWN AND AWAITING FOR MD'S EVAL.
--- NOTE | 2020-09-27 20:47 | ED_ITS ---
HPI - Abdominal Pain General Chief Complaint: Abdominal Pain Stated Complaint: abdominal pain Time Seen by Provider: 09/27/20 16:13 Source: patient and family Mode of arrival: wheelchair History of Present Illness HPI narrative: 74 y/o female with a PMHX of HTN, HLP, OA, cholangiocarcinoma s/p partial hepatectomy and cholecystectomy who presented from home due to abdominal pain and distention for about a week. History was provided by patient, daughter and son at the bedside. Patient is an established patient with Dr Hemant DIXON, Dr [facility], and has had multiple paracentesis in the past. She states that her abdomen is more distended, and describes increased shortness of breath because of this abdominal distention. She does have bilateral lower extremity edema, which is something new over the past few months. She does not describe fevers or chills, chest pain or pressure, palpitations, or falls. MD elicited complaint: abdominal pain and flank pain Onset (ago): week(s) Pain Consistency: constant Location: diffuse Severity: moderate Quality: aching and fullness Relieving factors: nothing Associated symptoms: nausea and vomiting Related Data Home Medications Medication Instructions Recorded Confirmed omeprazole 1 cap PO QAM 04/22/20 06/23/20 Previous Rx's Medication Instructions Recorded lorazepam 0.5 mg PO BEDTIME PRN #30 tab 06/18/20 ondansetron HCl [Zofran] 8 mg PO Q8H #60 tab 06/18/20 loratadine 10 mg tablet 10 mg PO DAILY #30 tab 06/23/20 hydroxyzine HCl 25 mg tablet 25 mg PO BID #60 tab 07/13/20 diphenhydramine HCl [Benadryl 50 mg PO TID PRN #20 tab 07/29/20 Allergy] famotidine [Pepcid] 20 mg PO BID #20 tab 07/29/20 furosemide 40 mg PO DAILY #30 tab 08/12/20 spironolactone 25 mg tablet 50 mg PO DAILY #180 tab 08/12/20 Allergies Allergy/AdvReac Type Severity Reaction Status Date / Time lisinopril [LISINOPRIL] Allergy Severe SWELLING/NAUSEA/ITCHING, Verified 05/17/20 13:44 cough, swellimg, redness sunflower seed Allergy Severe ANAPHYLAXIS Verified 05/17/20 13:44 [SUNFLOWER SEED] wheat [WHEAT] Allergy Severe ANAPHYLAXIS Verified 05/17/20 13:44 Review of Systems Review of Systems Constitutional: No Weight loss, No Fever, No Chills, No Night Sweats, No Fatigue, No Malaise ENT/Mouth: No Hearing loss, No Ear Pain, No Nasal Congestion, No Sinus Pain, No Hoarseness, No sore throat, No Rhinorrhea, No Swallowing Difficulty Eyes: No Eye Pain, No Swelling, No Redness, No Foreign Body, No Discharge, No Vision Changes Cardiovascular: No Chest Pain, positive SOB, No Dyspnea on Exertion, No Orthopnea, positive Edema, No Palpitations Respiratory: No Cough, No Sputum, No Wheezing, No Smoke Exposure, No Dyspnea Gastrointestinal: Positive Nausea, Positive Vomiting, positive abdominal distention, positive abdominal Pain, No Hematochezia, No Melena Genitourinary: no irregular bleeding, No Dysuria, No Urinary Frequency, No Hematuria, No Urinary Incontinence, No Urgency, No Flank Pain, No Urinary Flow Changes, No Hesitancy Musculoskeletal: No joint pain, No Myalgias, No Joint Swelling Skin: No Skin Lesions, No rash Neuro: No Weakness, No Numbness, No Paresthesias, No Loss of Consciousness, No Dizziness, No Headache Psych: No Anxiety/Panic, No Depression, No SI/HI/AH/VH, No Social Issues Heme/Lymph: No Bruising, No Bleeding,No Lymphadenopathy Endocrine: No Polyuria, No Polydipsia, No Temperature Intolerance Yes all other systems are reviewed and are negative Physical Exam Vital Signs: Vital Signs: Last Vital Signs Temp 98 F 09/27/20 16:13 Pulse 100 09/28/20 01:16 Resp 19 09/28/20 01:16 BP 104/71 09/28/20 01:16 Pulse Ox 95 09/28/20 01:16 Body Mass Index 26.4 Appearance: Alert. Oriented X3. Moderate distress. Weak, frail, fatigued. Head: Normal external exam. Normocephalic. Atraumatic. No Nunez signs noted. No raccoon eyes noted Eyes: PERRLA. EOMI. Conjunctiva and sclera jaundiced. Eyelids normal. ENT: TM's Normal. Pharynx normal. Uvula midline. Dry mucous membranes. No trismus noted. No drooling noted. No muffled voice noted. Neck: Normal inspection. Neck supple. CVS: Normal heart rate and rhythm. S1-S2 no murmurs gallops rubs. Pulses equal to all extremities. Respiratory: No respiratory distress . Painless inspiration. Breath sounds normal. No wheezes/rales/rhonchi noted. Chest nontender. No accessory muscle usage noted or decreased air movement noted. Abdomen: Soft and diffusely tender and distended. Hyperactive sounds normal in all 4 quadrants. No visible injury noted. Back: No CVA tenderness. Full range of motion noted. Skin: Skin jaundiced, warm and dry. Normal skin turgor. No rashes/lesions/lacerations noted. Extremities: Positive +2 pitting bilateral lower extremity edema. Extremities exhibit normal range of motion. Neuro: cranial nerves 2-12 intact, no focal neural deficits, strength 5/4 to all extremities per baseline, No motor deficit. No sensory deficit. Procedures Paracentesis Time Out Performed: Yes Local Anesthetic: lidocaine 2% Amount of anesthesia used (mL): 5 Fluid: clear Post Procedure Exam: awake, alert, normal BP, normal HR and normal SpO2 Patient Tolerated Procedure: well and no complications Course Course Course Narrative: 8:38 p.m. patient presents to room 18. Labs were drawn per protocol while she was in the waiting room. Patient meets severe sepsis criteria, however she does have new onset of bilateral lower extremity edema, is having some shortness of breath, severe abdominal distension. We will start antibiotics at this time, fluid resuscitation will not begin until we receive COVID 19 and BNP as to not fluid overload for suspected heart failure and known ascites. Bilirubin is 1.5, which is an improvement from prior lab values which have been as high as 5.6 on 07/29/2020, alk-phos is 127 which is an improvement from her prior value which was over 400 with prior value at 500. Albumin is 2.3 which is an improvement from a prior value of greater than 3. BUN 28 which is consistent with prior values, creatinine 1.66 has worsened. 1:00 a.m. paracentesis to the left abdomen completed, right abdomen avoided secondary to enlarged ovarian mass, greater in size than prior CT scans. Please refer to procedure note for full details. Patient tolerated procedure well, prepped and draped in sterile fashion. 400 mL of clear yellow abdominal aspirate. Sterile dressing applied. 1:00 a.m. urinalysis pending. 1:30 a.m. urinalysis is negative. 3:18 a.m., discussion hospitalist regarding admission, there is no source of infection at this point. We will resuscitate with 1 L of fluid, while patient does meet sepsis criteria based on lab values alone, fluid resuscitation will be done with extreme caution, she is afebrile, and has significant history of carcinoma. 400 mL a peritoneal fluid aspirated, clear yellow does not appear to be infected, peritoneal aspirate is Pending cultures. Consultations Consultation #1: amina Time: 03:28 MDM - Abdominal Pain Lab Data Result diagrams: 09/27/20 19:07 09/27/20 19:07 Labs: Lab Results 09/27/20 09/27/20 09/27/20 Range/Units 19:07 19:07 19:07 WBC 21.2 H (4.8-10.8) X10*3/uL RBC 3.92 L (4.20-5.50) X10*6/uL Hgb 12.1 (12.0-16.0) g/dl Hct 34.0 L (37-47) % MCV 86.7 (80-98) fL MCH 30.9 (27.0-33.0) pg MCHC 35.6 H (31.0-35.0) g/dl RDW 14.6 (11.0-16.0) % Plt Count 358 D (160-400) X10*3/uL MPV 9.4 (9.4-12.3) fL Immature Gran % (Auto) 1.4 H (0.0-0.4) % Neut % (Auto) 86.2 H (45-73) % Lymph % (Auto) 4.7 L (20-40) % [place] % (Auto) 7.2 (2-11) % Eos % (Auto) 0.3 (0-4) % Baso % (Auto) 0.2 (0-2) % Lymph # (Auto) 1.0 L (1.2-4.9) X10*3/uL [place] # (Auto) 1.5 H (0.1-1.2) X10*3/uL Eos # (Auto) 0.1 (0.0-0.4) X10*3/uL Baso # (Auto) 0.0 (0.0-0.2) X10*3/uL Abs Immat Gran (auto) 0.29 H (0.00-0.03) X10*3/uL Absolute Neuts (auto) 18.3 H (2.0-8.3) X10*3/uL Absolute Nucleated RBC 0.000 (0.0-0.012) X10*3/uL Nucleated RBC % (auto) 0.0 (0.0-0.2) /100WBC Smear Tech's Comments VERIFIED PT (10.8-13.0) SEC INR (0.9-1.1) APTT (24.1-38.0) SEC Sodium 131 L (135-145) mmol/L Potassium 4.5 (3.3-5.1) mmol/L Chloride 104 (96-108) mmol/L Carbon Dioxide 17 L (22-29) mmol/L Anion Gap 15 (12-20) BUN 28 H (9-16) mg/dL Creatinine 1.66 H (0.5-1.4) mg/dL Estim Creat Clear Calc 25.0 Estimated GFR 30 Random Glucose 107 (60-115) mg/dL Lactic Acid (0.5-2.0) mmol/L Lactic Acid Fup @ 2Hr (0.5-2.0) mmol/L Calcium 7.4 L D (8.4-10.2) mg/dL Magnesium 2.0 (1.6-2.6) mg/dL Total Bilirubin 1.5 H (0.0-1.0) mg/dL Direct Bilirubin 1.0 H (0.0-0.5) mg/dL AST 21 D (5-31) U/L ALT 17 (0-31) U/L Alkaline Phosphatase 127 H D (39-117) U/L Ammonia 25 (13-55) umol/L Troponin I High Sens (<3.5-17.0) ng/L B-Natriuretic Peptide (<100) pg/mL Total Protein 5.1 L (6.5-8.0) g/dL Albumin 2.3 L D (3.5-5.0) g/dL Lipase (8-78) U/L Urine Color Urine Appearance Urine pH (5.0-8.0) Ur Specific [place] (1.005-1.025) Urine Protein (NEG-TRACE) MG/DL Urine Glucose (UA) (NEG) MG/DL Urine Ketones (NEG) MG/DL Urine Blood (NEG) Urine Nitrite (NEG) Ur Leukocyte Esterase (NEG) Peritoneal WBC X10*3/uL Peritoneal RBC X10*6/uL Coronavirus (PCR) (Negative) Influenza Type A (PCR) (Negative) Influenza Type B (PCR) (Negative) RSV RNA Qual (PCR) (Negative) 09/27/20 09/27/20 09/27/20 Range/Units 19:07 19:07 21:25 WBC (4.8-10.8) X10*3/uL RBC (4.20-5.50) X10*6/uL Hgb (12.0-16.0) g/dl Hct (37-47) % MCV (80-98) fL MCH (27.0-33.0) pg MCHC (31.0-35.0) g/dl RDW (11.0-16.0) % Plt Count (160-400) X10*3/uL MPV (9.4-12.3) fL Immature Gran % (Auto) (0.0-0.4) % Neut % (Auto) (45-73) % Lymph % (Auto) (20-40) % [place] % (Auto) (2-11) % Eos % (Auto) (0-4) % Baso % (Auto) (0-2) % Lymph # (Auto) (1.2-4.9) X10*3/uL [place] # (Auto) (0.1-1.2) X10*3/uL Eos # (Auto) (0.0-0.4) X10*3/uL Baso # (Auto) (0.0-0.2) X10*3/uL Abs Immat Gran (auto) (0.00-0.03) X10*3/uL Absolute Neuts (auto) (2.0-8.3) X10*3/uL Absolute Nucleated RBC (0.0-0.012) X10*3/uL Nucleated RBC % (auto) (0.0-0.2) /100WBC Smear Tech's Comments PT 23.4 H D (10.8-13.0) SEC INR 2.0 H (0.9-1.1) APTT 38.9 H (24.1-38.0) SEC Sodium (135-145) mmol/L Potassium (3.3-5.1) mmol/L Chloride (96-108) mmol/L Carbon Dioxide (22-29) mmol/L Anion Gap (12-20) BUN (9-16) mg/dL Creatinine (0.5-1.4) mg/dL Estim Creat Clear Calc Estimated GFR Random Glucose (60-115) mg/dL Lactic Acid (0.5-2.0) mmol/L Lactic Acid Fup @ 2Hr (0.5-2.0) mmol/L Calcium (8.4-10.2) mg/dL Magnesium (1.6-2.6) mg/dL Total Bilirubin (0.0-1.0) mg/dL Direct Bilirubin (0.0-0.5) mg/dL AST (5-31) U/L ALT (0-31) U/L Alkaline Phosphatase (39-117) U/L Ammonia (13-55) umol/L Troponin I High Sens (<3.5-17.0) ng/L B-Natriuretic Peptide (<100) pg/mL Total Protein (6.5-8.0) g/dL Albumin (3.5-5.0) g/dL Lipase 80 H (8-78) U/L Urine Color Urine Appearance Urine pH (5.0-8.0) Ur Specific [place] (1.005-1.025) Urine Protein (NEG-TRACE) MG/DL Urine Glucose (UA) (NEG) MG/DL Urine Ketones (NEG) MG/DL Urine Blood (NEG) Urine Nitrite (NEG) Ur Leukocyte Esterase (NEG) Peritoneal WBC X10*3/uL Peritoneal RBC X10*6/uL Coronavirus (PCR) NEGATIVE (Negative) Influenza Type A (PCR) NEGATIVE (Negative) Influenza Type B (PCR) NEGATIVE (Negative) RSV RNA Qual (PCR) NEGATIVE (Negative) 09/27/20 09/27/20 09/27/20 Range/Units 21:30 21:30 21:30 WBC (4.8-10.8) X10*3/uL RBC (4.20-5.50) X10*6/uL Hgb (12.0-16.0) g/dl Hct (37-47) % MCV (80-98) fL MCH (27.0-33.0) pg MCHC (31.0-35.0) g/dl RDW (11.0-16.0) % Plt Count (160-400) X10*3/uL MPV (9.4-12.3) fL Immature Gran % (Auto) (0.0-0.4) % Neut % (Auto) (45-73) % Lymph % (Auto) (20-40) % [place] % (Auto) (2-11) % Eos % (Auto) (0-4) % Baso % (Auto) (0-2) % Lymph # (Auto) (1.2-4.9) X10*3/uL [place] # (Auto) (0.1-1.2) X10*3/uL Eos # (Auto) (0.0-0.4) X10*3/uL Baso # (Auto) (0.0-0.2) X10*3/uL Abs Immat Gran (auto) (0.00-0.03) X10*3/uL Absolute Neuts (auto) (2.0-8.3) X10*3/uL Absolute Nucleated RBC (0.0-0.012) X10*3/uL Nucleated RBC % (auto) (0.0-0.2) /100WBC Smear Tech's Comments PT (10.8-13.0) SEC INR (0.9-1.1) APTT (24.1-38.0) SEC Sodium (135-145) mmol/L Potassium (3.3-5.1) mmol/L Chloride (96-108) mmol/L Carbon Dioxide (22-29) mmol/L Anion Gap (12-20) BUN (9-16) mg/dL Creatinine (0.5-1.4) mg/dL Estim Creat Clear Calc Estimated GFR Random Glucose (60-115) mg/dL Lactic Acid 2.6 H* (0.5-2.0) mmol/L Lactic Acid Fup @ 2Hr (0.5-2.0) mmol/L Calcium (8.4-10.2) mg/dL Magnesium (1.6-2.6) mg/dL Total Bilirubin (0.0-1.0) mg/dL Direct Bilirubin (0.0-0.5) mg/dL AST (5-31) U/L ALT (0-31) U/L Alkaline Phosphatase (39-117) U/L Ammonia (13-55) umol/L Troponin I High Sens 4.4 (<3.5-17.0) ng/L B-Natriuretic Peptide 81 (<100) pg/mL Total Protein (6.5-8.0) g/dL Albumin (3.5-5.0) g/dL Lipase (8-78) U/L Urine Color Urine Appearance Urine pH (5.0-8.0) Ur Specific [place] (1.005-1.025) Urine Protein (NEG-TRACE) MG/DL Urine Glucose (UA) (NEG) MG/DL Urine Ketones (NEG) MG/DL Urine Blood (NEG) Urine Nitrite (NEG) Ur Leukocyte Esterase (NEG) Peritoneal WBC X10*3/uL Peritoneal RBC X10*6/uL Coronavirus (PCR) (Negative) Influenza Type A (PCR) (Negative) Influenza Type B (PCR) (Negative) RSV RNA Qual (PCR) (Negative) 09/28/20 09/28/20 09/28/20 Range/Units 01:21 01:31 01:31 WBC (4.8-10.8) X10*3/uL RBC (4.20-5.50) X10*6/uL Hgb (12.0-16.0) g/dl Hct (37-47) % MCV (80-98) fL MCH (27.0-33.0) pg MCHC (31.0-35.0) g/dl RDW (11.0-16.0) % Plt Count (160-400) X10*3/uL MPV (9.4-12.3) fL Immature Gran % (Auto) (0.0-0.4) % Neut % (Auto) (45-73) % Lymph % (Auto) (20-40) % [place] % (Auto) (2-11) % Eos % (Auto) (0-4) % Baso % (Auto) (0-2) % Lymph # (Auto) (1.2-4.9) X10*3/uL [place] # (Auto) (0.1-1.2) X10*3/uL Eos # (Auto) (0.0-0.4) X10*3/uL Baso # (Auto) (0.0-0.2) X10*3/uL Abs Immat Gran (auto) (0.00-0.03) X10*3/uL Absolute Neuts (auto) (2.0-8.3) X10*3/uL Absolute Nucleated RBC (0.0-0.012) X10*3/uL Nucleated RBC % (auto) (0.0-0.2) /100WBC Smear Tech's Comments PT (10.8-13.0) SEC INR (0.9-1.1) APTT (24.1-38.0) SEC Sodium (135-145) mmol/L Potassium (3.3-5.1) mmol/L Chloride (96-108) mmol/L Carbon Dioxide (22-29) mmol/L Anion Gap (12-20) BUN (9-16) mg/dL Creatinine (0.5-1.4) mg/dL Estim Creat Clear Calc Estimated GFR Random Glucose (60-115) mg/dL Lactic Acid (0.5-2.0) mmol/L Lactic Acid Fup @ 2Hr 2.6 H* (0.5-2.0) mmol/L Calcium (8.4-10.2) mg/dL Magnesium (1.6-2.6) mg/dL Total Bilirubin (0.0-1.0) mg/dL Direct Bilirubin (0.0-0.5) mg/dL AST (5-31) U/L ALT (0-31) U/L Alkaline Phosphatase (39-117) U/L Ammonia (13-55) umol/L Troponin I High Sens (<3.5-17.0) ng/L B-Natriuretic Peptide (<100) pg/mL Total Protein (6.5-8.0) g/dL Albumin (3.5-5.0) g/dL Lipase (8-78) U/L Urine Color DARK YELLOW Urine Appearance CLEAR Urine pH 5.0 (5.0-8.0) Ur Specific [place] 1.020 (1.005-1.025) Urine Protein NEG (NEG-TRACE) MG/DL Urine Glucose (UA) NEG (NEG) MG/DL Urine Ketones NEG (NEG) MG/DL Urine Blood NEG (NEG) Urine Nitrite NEG (NEG) Ur Leukocyte Esterase NEG (NEG) Peritoneal WBC 3.510 X10*3/uL Peritoneal RBC < 0.002 X10*6/uL Coronavirus (PCR) (Negative) Influenza Type A (PCR) (Negative) Influenza Type B (PCR) (Negative) RSV RNA Qual (PCR) (Negative) Critical Care Time Critical Care Time Critical Care Time: Yes Total Critical Care Time: 65 Attestation: I have personally provided critical care time exclusive of time spent on separately billable procedures. Time includes review of laboratory data, radiology results, discussion with consultants, and monitoring for potential decompensation. Interventions were performed as documented. Discharge Plan Discharge Prescriptions: No Action hydroxyzine HCl 25 mg tablet 25 mg PO BID Qty: 60 RF: 3 spironolactone 25 mg tablet 50 mg PO DAILY Qty: 180 RF: 1 omeprazole 40 mg capsule,delayed release(DR/EC) 1 cap PO QAM RF: 0 diphenhydramine HCl [Benadryl Allergy] 25 mg tablet 50 mg PO TID PRN (Reason: itching) Qty: 20 RF: 0 famotidine [Pepcid] 20 mg tablet 20 mg PO BID Qty: 20 RF: 0 ondansetron HCl [Zofran] 4 mg Tablet 8 mg PO Q8H Qty: 60 RF: 3 lorazepam 0.5 mg Tablet 0.5 mg PO BEDTIME PRN (Reason: Anxiety) Qty: 30 RF: 0 furosemide 40 mg tablet 40 mg PO DAILY Qty: 30 RF: 4 loratadine [Claritin] 10 mg tablet 10 mg PO DAILY Qty: 30 RF: 5 PMFSH Past Medical History Attestation statement: The following information was validated with the patient. Source: old records reviewed Medical History Abdominal pain Biliary obstruction Cholangiocarcinoma HTN (hypertension) Hyperlipidemia Osteoarthritis Ovarian cancer Type 2 diabetes mellitus with hyperglycemia Vitamin D deficiency Surgical History History of laparoscopic cholecystectomy History of surgery Family History Family History Father Diabetes Mother Diabetes Cancer Social History Social History Household Members: Family Housing: Apartment Smoking Status: Never smoker Second Hand Smoke Exposure: No Advance Directives: No Advance Directives Information Provided: Yes service: No Current occupational status: unemployed
[2020-09-27] MEDS: cefTRIAXone sodium 1 GM in 0.9 % Sodium Chloride 50 ML IV (21:54)
[2020-09-27 22:01] LABS: Lactic Acid 2.6 mmol/L (0.5-2.0)
[2020-09-27 22:19] LABS: B Type Natriuretic Peptide 81 pg/mL (<100); Troponin-I High Sensitivity 4.4 ng/L (<3.5-17.0)
[2020-09-27 22:21] LABS: Influenza A PCR NEGATIVE (Negative); Influenza B PCR NEGATIVE (Negative); Resp Syncy Virus RNA Qual PCR NEGATIVE (Negative); SARS COV2 PCR INHOUSE NEGATIVE (Negative)
[2020-09-27] MEDS: Morphine Sulfate 4 MG/ML CARTRIDGE IVPUSH (22:23)
[2020-09-27 23:11] VITALS: BP 119/74; PULSE 97; RESP 16; O2SAT 96
[2020-09-27] MEDS: metroNIDAZOLE/NS 500 MG/100 ML PIGGYBACK 100 MG IV (23:26)
[2020-09-27 23:33] LABS: Reflex Lactate? Lactic Acid Added
[2020-09-28] VITALS (11 sets, daily range): BP systolic 92–126; BP diastolic 44–71; PULSE 64–102; RESP 15–19; TEMP 36.2–37.1; O2SAT 95–99
[2020-09-28] MEDS: Lidocaine HCl 2 % MPF 5 ML VIAL SUBCUT (01:21)
--- NOTE | 2020-09-28 01:22 | PC.NURSE ---
PA IN ROOM FOR PERICENTESIS AND OBTAINED 400ML OF FLUID FROM ABD AREA. PT TOLERATED PROCEDURE WELL. PT RESTING QUIETLY AT THIS TIME. WILL CONTINUE TO MONITOR PT.
[2020-09-28 02:01] LABS: MN% 9.9 %; PMN% 90.1 %
[2020-09-28 02:05] LABS: Glucose Urine UA NEG (NEG); Leukocyte Esterase Urine NEG (NEG); Nitrite Urine NEG (NEG); Urine Blood NEG (NEG); Urine Ketones NEG (NEG); Urine Protein NEG (NEG-TRACE)
[2020-09-28 02:10] LABS: ~Lactic Acid-LAB USE ONLY 2.6 mmol/L (0.5-2.0)
[2020-09-28 02:11] LABS: RBC Peritoneal Fluid < 0.002 X10*6/uL
[2020-09-28 02:12] LABS: Appearance Urine CLEAR; Color Urine DARK YELLOW
[2020-09-28] MEDS: 0.9 % Sodium Chloride 1,000 ML 999 ML IVCONT (03:30)
--- NOTE | 2020-09-28 03:37 | PC.NURSE ---
PT DOES NOT NEED A NG TUBE AT THIS TIME PER MD'S ORDERS. FAMILY REMAINS AT BEDSIDE WITH PT. PT SLEEPING, WAKES TO VERBAL STIMULI, RESPIRATIONS EASY, N/L SKIN W/D. WILL CONTINUE TO MONITOR PT.
[2020-09-28 03:38] LABS: Reflex Lactate? 2 Y
--- NOTE | 2020-09-28 04:40 | PM.IMHP ---
History of Present Illness Date of Service: 09/28/20 Chief Complaint: abd pain and distension Spine speaking only Female with past medical history of cholangiocarcinoma, recently diagnosed endometrial carcinoma who presents to the hospital with abdominal pain, distention for 1 week. Diffuse pain, 10/10, nonradiating, no relieving exacerbating factors. She waited a week with his stubborn according to her daughter, she also experiencing nausea no vomiting, no diarrhea constipation. She reports that her bloating started around a week ago as well. She has had low appetite and low oral intake. No fever but chills, no chest pain, no shortness of breath, no cough. She has no urinary symptoms and no lower extremity edema. No weakness numbness or tingling in her limbs. All other review of system negative except as mentioned On arrival to the ED vitals are significant for temp of 98?, heart rate of 94, respiratory rate of 17, blood pressure 127/76, satting 99% on room air Hematocrit of 34, PT of 23, INR 2.0, sodium of 131, potassium 4.5, BUN of 28, creatinine of 1.66 with a baseline around 1.1 from July, lactic acid of 2.6, total bili of 1.5, alk-phos of 127, BNP of 81, and albumin of 2.3. UA negative. Underwent plastic paracentesis in the ED with peritoneal WBC showing 3.5 with the rest of the results pending. Is now present when compared chief from May of 2020, 2 large complex cystic masses in the pelvis which may be related to the the neck is a which have both now increase in size since prior CT scan. Past medical history as long confirmed with patient and her daughter at bedside Review of Systems Review of Systems: Yes all other systems are reviewed and are negative [facility] Medical History (Updated 09/28/20 @ 05:00 by Bernardo Mendez MD) Abdominal pain Acute liver failure Biliary obstruction Cholangiocarcinoma HTN (hypertension) Hyperlipidemia Osteoarthritis Ovarian cancer Type 2 diabetes mellitus with hyperglycemia Vitamin D deficiency Family History Father Diabetes Mother Diabetes Cancer Surgical History History of laparoscopic cholecystectomy History of surgery Social History Household Members: Family Housing: Apartment Smoking Status: Never smoker Second Hand Smoke Exposure: No Advance Directives: No Advance Directives Information Provided: Yes service: No Current occupational status: unemployed Meds Allergies Allergy/AdvReac Type Severity Reaction Status Date / Time lisinopril [LISINOPRIL] Allergy Severe SWELLING/NAUSEA/ITCHING, Verified 05/17/20 13:44 cough, swellimg, redness sunflower seed Allergy Severe ANAPHYLAXIS Verified 05/17/20 13:44 [SUNFLOWER SEED] wheat [WHEAT] Allergy Severe ANAPHYLAXIS Verified 05/17/20 13:44 Home Medications Medication Instructions Recorded Confirmed Last Taken Type omeprazole 1 cap PO QAM 04/22/20 06/23/20 04/22/20 History Physical Exam Vital Signs and Narrative: Vital Signs: Last Vital Signs Temp 98 F 09/27/20 16:13 Pulse 100 09/28/20 01:16 Resp 19 09/28/20 01:16 BP 104/71 09/28/20 01:16 Pulse Ox 95 09/28/20 01:16 Body Mass Index 26.4 Const: General: cooperative, no acute distress and ill appearing Orientation/consciousness: patient oriented x3 Eyes: General: appearance normal, both eyes and all related structures Resp: Effort & Inspection: normal respiratory effort and able to speak in complete sentences Cardio: Rate: regular rate Rhythm: regular rhythm GI: Other: significantly distended, no rebound, no guarding Skin: General skin exam: no rashes or lesions noted Neuro: General: patient oriented x3 Cognition (Neuro): normal cognition Extrem: General: Yes normal to inspection and Yes no pedal edema Results Labs CBC and Chem 7: 09/27/20 19:07 09/27/20 19:07 Labs: Laboratory Results - last 24 hr 09/27/20 09/27/20 09/27/20 19:07 19:07 19:07 MCV 86.7 MCH 30.9 MCHC 35.6 H RDW 14.6 Plt Count 358 D MPV 9.4 Immature Gran % (Auto) 1.4 H Neut % (Auto) 86.2 H Lymph % (Auto) 4.7 L [place] % (Auto) 7.2 Eos % (Auto) 0.3 Baso % (Auto) 0.2 Lymph # (Auto) 1.0 L [place] # (Auto) 1.5 H Eos # (Auto) 0.1 Baso # (Auto) 0.0 Abs Immat Gran (auto) 0.29 H Absolute Neuts (auto) 18.3 H Absolute Nucleated RBC 0.000 Nucleated RBC % (auto) 0.0 Smear Tech's Comments VERIFIED PT INR APTT Anion Gap 15 Estim Creat Clear Calc 25.0 Estimated GFR 30 Random Glucose 107 Lactic Acid Lactic Acid Fup @ 2Hr Calcium 7.4 L D Magnesium 2.0 Total Bilirubin 1.5 H Direct Bilirubin 1.0 H AST 21 D ALT 17 Alkaline Phosphatase 127 H D Ammonia 25 Troponin I High Sens B-Natriuretic Peptide Total Protein 5.1 L Albumin 2.3 L D Lipase Urine Color Urine Appearance Urine pH Ur Specific [place] Urine Protein Urine Glucose (UA) Urine Ketones Urine Blood Urine Nitrite Ur Leukocyte Esterase Peritoneal WBC Peritoneal RBC Coronavirus (PCR) Influenza Type A (PCR) Influenza Type B (PCR) RSV RNA Qual (PCR) 09/27/20 09/27/20 09/27/20 19:07 19:07 21:25 MCV MCH MCHC RDW Plt Count MPV Immature Gran % (Auto) Neut % (Auto) Lymph % (Auto) [place] % (Auto) Eos % (Auto) Baso % (Auto) Lymph # (Auto) [place] # (Auto) Eos # (Auto) Baso # (Auto) Abs Immat Gran (auto) Absolute Neuts (auto) Absolute Nucleated RBC Nucleated RBC % (auto) Smear Tech's Comments PT 23.4 H D INR 2.0 H APTT 38.9 H Anion Gap Estim Creat Clear Calc Estimated GFR Random Glucose Lactic Acid Lactic Acid Fup @ 2Hr Calcium Magnesium Total Bilirubin Direct Bilirubin AST ALT Alkaline Phosphatase Ammonia Troponin I High Sens B-Natriuretic Peptide Total Protein Albumin Lipase 80 H Urine Color Urine Appearance Urine pH Ur Specific [place] Urine Protein Urine Glucose (UA) Urine Ketones Urine Blood Urine Nitrite Ur Leukocyte Esterase Peritoneal WBC Peritoneal RBC Coronavirus (PCR) NEGATIVE Influenza Type A (PCR) NEGATIVE Influenza Type B (PCR) NEGATIVE RSV RNA Qual (PCR) NEGATIVE 09/27/20 09/27/20 09/27/20 21:30 21:30 21:30 MCV MCH MCHC RDW Plt Count MPV Immature Gran % (Auto) Neut % (Auto) Lymph % (Auto) [place] % (Auto) Eos % (Auto) Baso % (Auto) Lymph # (Auto) [place] # (Auto) Eos # (Auto) Baso # (Auto) Abs Immat Gran (auto) Absolute Neuts (auto) Absolute Nucleated RBC Nucleated RBC % (auto) Smear Tech's Comments PT INR APTT Anion Gap Estim Creat Clear Calc Estimated GFR Random Glucose Lactic Acid 2.6 H* Lactic Acid Fup @ 2Hr Calcium Magnesium Total Bilirubin Direct Bilirubin AST ALT Alkaline Phosphatase Ammonia Troponin I High Sens 4.4 B-Natriuretic Peptide 81 Total Protein Albumin Lipase Urine Color Urine Appearance Urine pH Ur Specific [place] Urine Protein Urine Glucose (UA) Urine Ketones Urine Blood Urine Nitrite Ur Leukocyte Esterase Peritoneal WBC Peritoneal RBC Coronavirus (PCR) Influenza Type A (PCR) Influenza Type B (PCR) RSV RNA Qual (PCR) 09/28/20 09/28/20 09/28/20 01:21 01:31 01:31 MCV MCH MCHC RDW Plt Count MPV Immature Gran % (Auto) Neut % (Auto) Lymph % (Auto) [place] % (Auto) Eos % (Auto) Baso % (Auto) Lymph # (Auto) [place] # (Auto) Eos # (Auto) Baso # (Auto) Abs Immat Gran (auto) Absolute Neuts (auto) Absolute Nucleated RBC Nucleated RBC % (auto) Smear Tech's Comments PT INR APTT Anion Gap Estim Creat Clear Calc Estimated GFR Random Glucose Lactic Acid Lactic Acid Fup @ 2Hr 2.6 H* Calcium Magnesium Total Bilirubin Direct Bilirubin AST ALT Alkaline Phosphatase Ammonia Troponin I High Sens B-Natriuretic Peptide Total Protein Albumin Lipase Urine Color DARK YELLOW Urine Appearance CLEAR Urine pH 5.0 Ur Specific [place] 1.020 Urine Protein NEG Urine Glucose (UA) NEG Urine Ketones NEG Urine Blood NEG Urine Nitrite NEG Ur Leukocyte Esterase NEG Peritoneal WBC 3.510 Peritoneal RBC < 0.002 Coronavirus (PCR) Influenza Type A (PCR) Influenza Type B (PCR) RSV RNA Qual (PCR) Imaging Radiologist's Impressions: Impressions Abdomen/Pelvis CT 09/27/20 20:40 IMPRESSION: CT CHEST: No acute change of chest. No significant lung nodule or chest mass. No evidence of metastatic disease. CT SCAN ABDOMEN AND PELVIS: 1. Interval development of a large volume of abdominal ascites now present since prior CAT scan of 05/20/2020. 2. There are 2 large complex cystic masses in the pelvis which may be related to the adnexa which have both increased in size since prior CAT scan of 05/20/2020. These can be further assessed with pelvic precontrast and postcontrast MRI imaging. Chest CT 09/27/20 20:40 IMPRESSION: CT CHEST: No acute change of chest. No significant lung nodule or chest mass. No evidence of metastatic disease. CT SCAN ABDOMEN AND PELVIS: 1. Interval development of a large volume of abdominal ascites now present since prior CAT scan of 05/20/2020. 2. There are 2 large complex cystic masses in the pelvis which may be related to the adnexa which have both increased in size since prior CAT scan of 05/20/2020. These can be further assessed with pelvic precontrast and postcontrast MRI imaging. Assessment and Plan (1) Endometrial carcinoma: Status: Acute (2) Abdominal distension: Status: Acute (3) Malignant ascites: Status: Acute (4) Hypoalbuminemia: Status: Acute (5) Liver failure: Status: Acute (6) Coagulopathy: Status: Acute 75-year-old female with past medical history of cholangiocarcinoma status post liver failure, endometrial cancer, ovarian cancer? Presents to the hospital complaining of abdominal distension and pain. Found to have increased size of pelvic masses possibly related to her endometrial cancer. # abdominal distension - most likely multifactorial secondary to ascites in the setting of history of liver failure as well as malignant ascites - diagnostic paracentesis cell count not suggestive of SBP - albumin significantly low at 2.3 - patient on baseline Lasix of 40 mg Plan: - IR for possible therapeutic paracentesis - Hematology-Oncology consult - pain control - albumin infusion IV # coagulopathy - most likely secondary to her history of liver failure - INR of 2.0 - no active bleed - PT INR daily # hypoalbuminemia - most secondary to history of liver failure which is most likely also contributing to her ascites - will infuse with albumin IV as well as supplement with Ensure # liver failure - reported history of liver failure, follows up with Dr. Dennis - no acute liver failure at this time - will consult GI # diabetes - low-dose sliding scale insulin - diabetic diet # hypertension - stable - will continue home medications DVT prophylaxis: SCDs
[2020-09-28 05:48] LABS: BF Shift QC OK YES
[2020-09-28 06:03] LABS: INTERNATIONAL NORM RATIO 1.9 (0.9-1.1); Prothrombin Time 22.8 SEC (10.8-13.0)
[2020-09-28 06:29] LABS: ~Lactic Acid-LAB USE ONLY 2.1 mmol/L (0.5-2.0)
[2020-09-28] MEDS: Morphine Sulfate 4 MG/ML CARTRIDGE IVPUSH (06:39)
[2020-09-28] MEDS: Heparin Sodium,Porcine 5,000 UNIT/ML VIAL 5000 UNIT SUBCUT ×2 (06:43→17:08)
[2020-09-28 08:00] LABS: Glucose, Whole Blood 71 mg/dL (60-115)
[2020-09-28] MEDS: 0.9 % Sodium Chloride Flush 3 ML SYRINGE IVFLUSH ×3 (08:07→21:00)
[2020-09-28 08:15] LABS: Prothrombin Time 23.7 SEC (10.8-13.0)
[2020-09-28] MEDS: Albumin Human 25 % 100 ML IV ×2 (08:18→11:00)
--- NOTE | 2020-09-28 08:44 | P.CNHO_ITS ---
Subjective - Subjective Chief complaint: Follow-up for: Metastatic gallbladder Carcinoma. Patient: known to practice within the last 3 years Consult date: 09/28/20 Requesting Physician: Vanessa. Primary Care Provider: Heather Diez MD Medical Summary: DIAGNOSIS: WORSENING MALIGNANT ASCITES. METASTATIC GALLBLADDER CANCER. HPI - Consult Narrative Reason for consult: Consult for: Worsening malignant ascites. 2.Metastatic gallbladder cancer. Narrative: Solange Perez is a pleasant 75 year old lady with a past medical history of cholangiocarcinoma, and diagnosed endometrial carcinoma, presents to the hospital with abdominal pain, and distention for 1 week. She has had diffuse pain in the belly, 10/, nonradiating, no relieving exacerbating factors. She waited a week at home before presenting. She has also had nausea no vomiting, no diarrhea nor constipation. She reports that her bloating started around a week ago as well. She has had low appetite and low oral intake. She denies fever but has had some chills. Denies chest pain, shortness of breath, nor cough. She has no urinary symptoms and no lower extremity edema. No weakness numbness or tingling in her limbs. All other review of system negative. Here her vitals are significant for temp of 98?, heart rate of 94, respiratory rate of 17, blood pressure 127/76, satting 99% on room air Database: Hematocrit of 34, PT of 23, INR 2.0, sodium of 131, potassium 4.5, BUN of 28, creatinine of 1.66 with a baseline around 1.1 from July, lactic acid of 2.6, total bili of 1.5, alk-phos of 127, BNP of 81, and albumin of 2.3. UA negative. She underwent a paracentesis, with peritoneal WBC showing 3.5 with the rest of the results pending. CT scan of the chest abdomen pelvis: 1. Interval development of a large volume of abdominal ascites now present since prior CAT scan of 05/20/2020. 2. There are 2 large complex cystic masses in the pelvis which may be related to the adnexa which have both increased in size since prior CAT scan of 05/20/2020. These can be further assessed with pelvic precontrast and postcontrast MRI imaging. Review of Systems - Constitutional Reports system reviewed and no additional complaints, except as documented, Reports lack of energy, Reports malaise, Reports poor appetite - Eyes Reports system reviewed and no additional complaints, except as documented - ENT Reports system reviewed and no additional complaints, except as documented - Cardiovascular Reports system reviewed and no additional complaints, except as documented - Respiratory Reports no additional respiratory complaints - Gastrointestinal Reports system reviewed and no additional complaints, except as documented, Reports abdominal pain, Reports belching, Reports bloating, Reports nausea, Reports vomiting - Genitourinary Reports no additional female genitourinary complaints - Musculoskeletal Reports system reviewed and no additional complaints, except as documented - Integumentary/Breasts Skin/Breast: Reports no additional skin complaints - Neurologic Reports system reviewed and no additional complaints, except as documented - Psychiatric Reports system reviewed and no additional complaints, except as documented - Endocrine Reports no additional endocrine complaints - Hematologic/Lymphatic Reports system reviewed and no additional complaints, except as documented - Allergic/Immunologic Reports system reviewed and no additional complaints, except as documented Oncology Screenings - ECOG Performance Status ECOG Performance Status: 1 [facility] Medical History: Medical History (Last Updated 09/28/20 @ 04:48 by Bernardo Mendez MD) Abdominal pain Acute liver failure Biliary obstruction Cholangiocarcinoma HTN (hypertension) Hyperlipidemia Osteoarthritis Ovarian cancer Type 2 diabetes mellitus with hyperglycemia Vitamin D deficiency Functional capacity: uses cane/walker Patient : No Family History: Family History (Last Reviewed 09/28/20 @ 04:47 by Bernardo Mendez MD) Father Diabetes Mother Diabetes Cancer Surgical History: Surgical History (Last Reviewed 09/28/20 @ 04:47 by Bernardo Mendez MD) History of laparoscopic cholecystectomy History of surgery Social History: Social History (Last Reviewed 09/28/20 @ 04:47 by Bernardo Mendez MD) Living Situation History: Household Members: Family Housing: Apartment Alcohol History Details: Alcohol intake frequency: does not drink Tobacco History: Second Hand Smoke Exposure: No Occupation Assessmet: service: No Current occupational status: unemployed Home Medications and Allergies Current Medications: Current Medications Generic Name Dose Route Start Last Admin Trade Name Freq PRN Reason Stop Dose Admin Docusate Sodium 100 mg 09/28/20 05:57 Docusate Sodium 100 Mg Capsule PO DAILY PRN Constipation Furosemide 40 mg 09/28/20 09:00 Furosemide 40 Mg/4 Ml Vial IVPUSH DAILY TALAT Protocol Heparin Sodium (Porcine) 5,000 unit 09/28/20 05:57 09/28/20 06:43 Heparin Sodium,Porcine 5,000 Unit/Ml Vial SUBCUT 5,000 unit Q12H TALAT Administration Insulin Human Lispro 0 unit 09/28/20 07:30 09/28/20 07:58 Insulin Lispro 100 Unit/Ml 3 Ml Vial SUBCUT Not Given QIDACHS [facility] Protocol Morphine Sulfate 4 mg 09/28/20 05:57 09/28/20 06:39 Morphine Sulfate 4 Mg/Ml Cartridge IVPUSH 4 mg Q4H PRN Administration Pain, Severe (Pain Scale 7-10) Ondansetron HCl 4 mg 09/28/20 05:57 Ondansetron Hcl 4 Mg/2 Ml Vial IVPUSH Q8H PRN Nausea and Vomiting Sodium Chloride 3 ml 09/28/20 08:00 09/28/20 08:07 0.9 % Sodium Chloride Flush 3 Ml Syringe IVFLUSH 3 ml QSHIFT [facility] Administration Home Medications Medication Instructions Recorded Confirmed Type omeprazole 1 cap PO QAM 04/22/20 09/28/20 History ursodiol 2 tab PO BID 09/28/20 09/28/20 History Allergies Allergy/AdvReac Type Severity Reaction Status Date / Time lisinopril [LISINOPRIL] Allergy Severe SWELLING/NAUSEA/ITCHING, Verified 13:44 cough, swellimg, redness sunflower seed Allergy Severe ANAPHYLAXIS Verified 05/17/20 13:44 [SUNFLOWER SEED] wheat [WHEAT] Allergy Severe ANAPHYLAXIS Verified 05/17/20 13:44 Physical Exam Vital signs: Vital Signs Temp 98.0 F 09/28/20 08:16 Pulse 90 09/28/20 08:16 Resp 16 09/28/20 08:16 BP 112/65 09/28/20 08:16 Pulse Ox 96 09/28/20 08:16 Intake & Output 09/27/20 09/28/20 09/28/20 18:59 06:59 18:59 Intake Total 150 / 150 Balance 150 / 150 Intake: Intake, IV Amount 150 / 150 cefTRIAXone sodium 1 gm In 0.9 50 / 50 % Sodium Chloride 50 ml @ 100 mls/hr IV ONCE ONE Rx#: [id number] metroNIDAZOLE/NS 500 mg In 100 100 / 100 ml @ 100 mls/hr IV ONCE ONE Rx# :[id number] Other: Weight 63.503 kg Weight 63.503 kg - Constitutional Present: moderate distress - Routine HEENT Exam Head: Present: normal inspection ENT: Present: mucous membranes moist - Routine Neck Exam Present: supple - Routine Respiratory Exam Present: CTAB - Routine Cardiovascular Exam Cardiovascular: Present: RRR, S1, S2 - Routine Abdominal Exam Present: distended, firm, hypoactive bowel sounds, tenderness - Routine Rectal Exam Patient deferred: digital exam - Routine Extremities Exam Present: nontender - Routine Back/Spine/Pelvis Exam Back/Spine: Absent: CVA tenderness - Routine Skin Exam Present: intact - Routine Neurological Exam Present: alert, oriented X3 - Detailed Neurological Exam: Coma Scale Eye Opening: Spontaneous (4) Verbal Response: Oriented (5) Motor Response: Obeys commands (6) [place] Coma Scale Total: 15 - Routine Psychiatric Exam Present: depressed Hem/Onc Consult Result - Labs CBC & Chem 7: 09/29/20 06:03 09/29/20 06:03 Labs: Short CBC 09/27/20 Range/Units 19:07 WBC 21.2 H (4.8-10.8) X10*3/uL Hgb 12.1 (12.0-16.0) g/dl Hct 34.0 L (37-47) % Plt Count 358 D (160-400) X10*3/uL BMP 09/27/20 19:07 Sodium 131 L Potassium 4.5 Chloride 104 Carbon Dioxide 17 L BUN 28 H Creatinine 1.66 H Calcium 7.4 L D Liver Function 09/27/20 Range/Units 19:07 Total Bilirubin 1.5 H (0.0-1.0) mg/dL Direct Bilirubin 1.0 H (0.0-0.5) mg/dL AST 21 D (5-31) U/L ALT 17 (0-31) U/L Alkaline Phosphatase 127 H D (39-117) U/L Albumin 2.3 L D (3.5-5.0) g/dL Urine 09/28/20 Range/Units 01:21 Urine Color DARK YELLOW Urine Appearance CLEAR Urine pH 5.0 (5.0-8.0) Ur Specific [place] 1.020 (1.005-1.025) Urine Protein NEG (NEG-TRACE) MG/DL Urine Glucose (UA) NEG (NEG) MG/DL Assessment and Plan (1) 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 Unfortunately she was deemed not a candidate for the chemotherapy, on account of end-stage liver disease. She has been seen at [facility] by Dr. Marquez. She was also evaluated by GI at [facility]. She was then referred to Dr. Marcos for further evaluation. He proceeded with MRI of the liver that was done. She has been under the care of Dr. Marquez. She proceeded with a biopsy of the pelvic mass. this was done on 05/07 and revealed: Adenocarcinoma. Tumor appeared morphologically distinct from the patient's endometrioid adenocarcinoma of the endometrium. [place] 8 and ER negativity also do not support metastatic endometrial carcinoma. Rare malignant cells present compatible with metastatic gallbladder adenocarcinoma, but other primary sites cannot be absolutely excluded especially given the paucity of malignant cells in the specimen. I went over the results of the pathology with her and her grandson. Explained that only option for treatment would be with chemotherapy, however that would be palliative at best. I would be concerned more about, toxicity especially with her underlying liver disease, gemcitabine being hepatotoxic. However according to the NCCN guidelines there are options of targeted therapy, if she has an NNTR mutation or in case of MSI high tumor, Pembrolizumab would be an option. At this point she has had symptoms of ascites and nausea. She had a paracentesis done. Nausea does appear to be under control with antiemetic, Zofran. Her appetite is not good, she has lost weight. Treatment would have more of a potential for toxicity and affect her quality of life, in a negative manner. I am also very concerned about her limited hepatic reserve, and enhanced treatment related toxicity. I had a detailed discussion with her and her grandson about goals of care and limited treatment options. They do agree to focus on symptom control and palliative care. PLAN: For now is to focus on symptomatic measures optimize her condition. She has been maintained on diuretics, under the care of Dr. Marcos. She had a paracentesis done. Results are pending. Will assess need for further paracenteses based upon her symptoms. All there questions were answered. Thank you for the consult, I will follow along with you, Dr. Diez. Dr. Marcos. Dr. Renae Robledo.
[2020-09-28] MEDS: Furosemide 40 MG/4 ML VIAL IVPUSH (09:03)
[2020-09-28 11:29] LABS: pH Peritoneal Fluid 7.29
[2020-09-28 11:31] LABS: Albumin Peritoneal Fluid 0.5; Creatinine Peritoneal Fluid 1.7; LDH Peritoneal Fluid 184; Total Protein Peritoneal Fluid 1.3
[2020-09-28 11:32] LABS: Amylase Peritoneal Fluid 7
[2020-09-28 11:38] LABS: Glucose, Whole Blood 118 mg/dL (60-115)
--- NOTE | 2020-09-28 12:21 | PM.EVENT ---
Event Note Date of Service: 09/28/20 Event Note: Seen/examined recored revewed. Here with abdominal pain with massive ascietes. Diagnotic paracentesis negative for SBP, need therapeutic paracentesis. High WBC of unclear etiology--follow. Awaiting GI, d/c Abx if no culture negative.
--- NOTE | 2020-09-28 13:41 | PC.NURSE ---
pt downstairs in IR having her second Paracentesis. Has a small band aid on the left outer aspect of her abdomen.
--- NOTE | 2020-09-28 15:33 | CONS_ITS ---
DATE OF SERVICE: 09/28/2020 REFERRING PHYSICIAN: Romulo Zapata MD REASON FOR CONSULTATION: Ascites. HISTORY OF PRESENT ILLNESS: The patient is a pleasant 75-year-old woman, seen today in consultation because of ascites. 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 She had no fevers, chills, nausea, or vomiting, but she did have decreased appetite. She was evaluated in the emergency department with CT scanning, which is reviewed. This is interpreted as showing development of a large volume of abdominal ascites since her previous CAT scan of May 20. She also had 2 large cystic complex masses in the pelvis that were increased in size. She does have a known history of endometrial cancer, which has been evaluated at [facility] and through Oncology with Dr. Powell. PAST MEDICAL HISTORY: 1. Metastatic gallbladder cancer. 2. Hypertension. 3. Hyperlipidemia. 4. Osteoarthritis. 5. Endometrial cancer. 6. Diabetes mellitus. 7. Vitamin D deficiency. 8. Hepatic cirrhosis CURRENT MEDICATIONS: Her current medication list is reviewed in the chart. ALLERGIES: MULTIPLE ALLERGIES ARE REVIEWED. FAMILY HISTORY: This is reviewed with the patient and is noncontributory. SOCIAL HISTORY: There is no current tobacco, alcohol, or substance abuse. REVIEW OF SYSTEMS: SKIN: No pruritus. HEENT: Negative. CARDIOPULMONARY: No shortness of breath or chest pain currently. GASTROINTESTINAL: As above. GENITOURINARY: Negative. NEUROPSYCHIATRIC: Negative. PHYSICAL EXAMINATION: GENERAL: Shows a pleasant female, sitting in bed. VITAL SIGNS: Reviewed and are stable. SKIN: Anicteric. HEENT: Shows no scleral icterus. NECK: Without lymphadenopathy or thyromegaly. LUNGS: Clear. HEART: Regular rate and rhythm. S1, S2. No murmur. ABDOMEN: Distended with obvious ascites. Bowel sounds are present. No organomegaly is noted. EXTREMITIES: Compression boots in place. LABORATORY DATA: Remarkable for white blood cell count of 21.2, hematocrit 34, platelet count 358. INR is 2. Chemistries show liver function tests improved from her previous blood work in July with a total bilirubin of 1.5 and normal AST and ALT. IMPRESSION: Ascites. This is likely related to her underlying malignancy. She did have a paracentesis of about 400 mL in the emergency department and is scheduled for repeat paracentesis with Interventional Radiology later today. This can be done as needed for comfort. I would recommend monitoring her intake and output and trying to avoid intravenous fluids. I would recommend adjusting her diuretics to try and the aim for diuresis of 500 mL per 24-hour period. She may have problems with recurrent ascites despite diuretics due to the malignant nature of her ascites. Thanks for asking me to see her. I will follow her in the hospital with you. MD GALE Benson/IMANI / [id number] MTDD
[2020-09-28 16:23] LABS: Glucose, Whole Blood 111 mg/dL (60-115)
[2020-09-28] MEDS: Morphine Sulfate 4 MG/ML CARTRIDGE 2 MG IVPUSH (17:08)
[2020-09-28 19:01] LABS: Hematocrit 30.7 % (37-47); Hemoglobin 10.6 g/dl (12.0-16.0); Mean Corpuscular HGB Conc 34.5 g/dl (31.0-35.0); Mean Corpuscular Hemoglobin 30.5 pg (27.0-33.0); Mean Corpuscular Volume 88.2 fL (80-98); Mean Platelet Volume 9.2 fL (9.4-12.3); Platelet Count 297 X10*3/uL (160-400); Red Blood Count 3.48 X10*6/uL (4.20-5.50); Red Cell Distribution Width 14.7 % (11.0-16.0); White Blood Count 21.3 X10*3/uL (4.8-10.8)
--- NOTE | 2020-09-28 19:34 | PC.NURSE ---
Pt BP at 1600 94/54, Dr. Zapata made aware
[2020-09-28 20:33] LABS: Glucose, Whole Blood 123 mg/dL (60-115)
[2020-09-28] MEDS: Insulin Lispro 100 UNIT/ML 3 ML VIAL SUBCUT (20:58)
[2020-09-29 03:40] VITALS: BP 106/56; PULSE 92; RESP 16; TEMP 37.2; O2SAT 95
[2020-09-29 06:00] VITALS: BMI 28.4
[2020-09-29] MEDS: Morphine Sulfate 4 MG/ML CARTRIDGE 2 MG IVPUSH (06:08)
[2020-09-29] MEDS: Heparin Sodium,Porcine 5,000 UNIT/ML VIAL 5000 UNIT SUBCUT (06:08)
[2020-09-29 06:12] LABS: MANUAL DIFF FLAG NO
[2020-09-29 06:38] LABS: INTERNATIONAL NORM RATIO 1.9 (0.9-1.1); Prothrombin Time 22.8 SEC (10.8-13.0)
[2020-09-29 06:46] LABS: Basophils Percent Auto 0.2 % (0-2); Eosinophils Absolute Auto 0.1 X10*3/uL (0.0-0.4); Eosinophils Percent Auto 0.7 % (0-4); Hematocrit 29.6 % (37-47); Hemoglobin 10.6 g/dl (12.0-16.0); Imm Gran Abs Auto 0.27 X10*3/uL (0.00-0.03); Imm Gran Pct Auto 1.4 % (0.0-0.4); Lymphocytes Absolute Auto 1.3 X10*3/uL (1.2-4.9); Lymphocytes Percent Auto 6.5 % (20-40); Mean Corpuscular HGB Conc 35.8 g/dl (31.0-35.0); Mean Corpuscular Hemoglobin 30.6 pg (27.0-33.0); Mean Corpuscular Volume 85.5 fL (80-98); Mean Platelet Volume 9.3 fL (9.4-12.3); Monocytes Absolute Auto 1.5 X10*3/uL (0.1-1.2); Monocytes Percent Auto 7.4 % (2-11); Neutrophils Absolute Auto 16.6 X10*3/uL (2.0-8.3); Neutrophils Percent Auto 83.8 % (45-73); Platelet Count 282 X10*3/uL (160-400); Red Blood Count 3.46 X10*6/uL (4.20-5.50); Red Cell Distribution Width 14.5 % (11.0-16.0); White Blood Count 19.8 X10*3/uL (4.8-10.8)
[2020-09-29 06:55] LABS: Anion Gap 14 (12-20); Blood Urea Nitrogen 37 mg/dL (9-16); Calcium 7.6 mg/dL (8.4-10.2); Carbon Dioxide 16 mmol/L (22-29); Chloride 105 mmol/L (96-108); Creatinine Clr Calc Pharmacy 25.5; Estimated Glomerular Filt Rate 30; Glucose Random 77 mg/dL (60-115); Potassium 4.8 mmol/L (3.3-5.1); Sodium 130 mmol/L (135-145)
[2020-09-29 07:18] VITALS: BP 90/58; PULSE 92; RESP 17; TEMP 36.4; O2SAT 97
[2020-09-29 07:42] LABS: Glucose, Whole Blood 81 mg/dL (60-115)
[2020-09-29 09:06] VITALS: BP 92/58
[2020-09-29] MEDS: 0.9 % Sodium Chloride Flush 3 ML SYRINGE IVFLUSH (09:06)
[2020-09-29] MEDS: Furosemide 40 MG/4 ML VIAL IVPUSH (09:06)
--- NOTE | 2020-09-29 09:31 | MHC.CM.PN ---
ASSESSMENT PERFORMED WITH ASSIST OF RESERVATIONS CLERK SERVICES. PATIENT LIVES WITH HER DAUGHTER AND GRANDSON. GRANDSON IS HCP AND A COPY IS ON FILE (JENNIE). NO DME OR VNA SERVICES IN THE HOME. SHE IS HOPING TO RETURN HOME WITH NO SERVICES, BUT IS OPEN TO A VNA IF RECOMMENDED. PATIENT [facility] [facility] [place]. SOMETIMES SHE VISITS OFTEN TWICE/WEEK. IMM 09/28/20 IN CHART
[2020-09-29 11:03] VITALS: BP 91/52; PULSE 82; RESP 17; TEMP 36.3; O2SAT 97
--- NOTE | 2020-09-29 11:21 | P.PNIM_ITS ---
Subjective Subjective Date of Service: 09/29/20 Interval History: seen in f/u for malignant ascietes with abdominal pain Review of Systems Gen: no fever Resp: no sob, no cough CV: no chest, no [place], no leg edema GI: No n/v,+ abd pain Neuro: No confusion Physical Exam Vital Signs: Vital Signs: Last Vital Signs Temp 97.4 F 09/29/20 11:03 Pulse 82 09/29/20 11:03 Resp 17 09/29/20 11:03 BP 91/52 L 09/29/20 11:03 Pulse Ox 97 09/29/20 11:03 Body Mass Index 28.4 Const: Other: General: AO X 3, no acute distress Resp: CTA bilateral CVS: S1,S2,RRR GI: distended, mild tenderness, positive ascites Skin: No rash Neuro: motor grossly intact Psych: appropriate affect Objective Data Current Medications Generic Name Dose Route Start Last Admin Trade Name Freq PRN Reason Stop Dose Admin Docusate Sodium 100 mg 09/28/20 05:57 Docusate Sodium 100 Mg Capsule PO DAILY PRN Constipation Furosemide 40 mg 09/28/20 09:00 09/29/20 09:06 Furosemide 40 Mg/4 Ml Vial IVPUSH 40 mg DAILY [facility] Administration Protocol Heparin Sodium (Porcine) 5,000 unit 09/28/20 05:57 09/29/20 06:08 Heparin Sodium,Porcine 5,000 Unit/Ml Vial SUBCUT 5,000 unit Q12H TALAT Administration Insulin Human Lispro 0 unit 09/28/20 07:30 09/29/20 07:50 Insulin Lispro 100 Unit/Ml 3 Ml Vial SUBCUT Not Given QIDACHS [facility] Protocol Morphine Sulfate 2 mg 09/28/20 16:52 09/29/20 06:08 Morphine Sulfate 4 Mg/Ml Cartridge IVPUSH 2 mg Q4H PRN Administration Pain, Severe (Pain Scale 7-10) Ondansetron HCl 4 mg 09/28/20 05:57 Ondansetron Hcl 4 Mg/2 Ml Vial IVPUSH Q8H PRN Nausea and Vomiting Sodium Chloride 3 ml 09/28/20 08:00 09/29/20 09:06 0.9 % Sodium Chloride Flush 3 Ml Syringe IVFLUSH 3 ml QSHIFT [facility] Administration Labs CBC & Chem 7: 09/29/20 06:03 09/29/20 06:03 Microbiology Microbiology Results: Microbiology 09/28/20 13:21 Paracentesis Fluid Gram Stain - Final 09/28/20 13:21 Paracentesis Fluid Routine Culture - Preliminary No growth to date. 09/28/20 13:21 Paracentesis Fluid Anaerobic Culture - Preliminary No growth to date. 09/27/20 21:30 Blood - Venous Blood Culture - Preliminary No growth after 24 hours. 09/27/20 21:30 Blood - Venous Blood Culture - Preliminary No growth after 24 hours. Assessment and Plan (1) Primary cancer of gallbladder with metastasis to other site: Status: Acute Assessment and Plan: 75-year-old female with past medical history of cholangiocarcinoma status post liver failure, endometrial cancer, ovarian cancer? Presents to the hospital complaining of abdominal distension and pain. Found to have increased size of pelvic masses possibly related to her endometrial cancer. # abdominal distension #Malignant ascites #coagulopathy # hypoalbuminemia #hyponatremia --All due to liver failure from cancer -oncology says, she is not candidate for treatment and recommend paliative care -Will discuss hospice with patient with director diversity # diabetes - low-dose sliding scale insulin - diabetic diet # hypOtension - stable - hold BP meds DVT prophylaxis: SCDs
[2020-09-29 11:44] LABS: Glucose, Whole Blood 83 mg/dL (60-115)
--- NOTE | 2020-09-29 15:07 | MHC.CM.PN ---
[facility] REFERRAL PLACED PER HOSPITALIST CONVERSATION WITH HCP, JENNIE PLAN IS FOR PATIENT TO RETURN HOME WITH A CONSULT PENDING. RN AWARE OF PLAN. GRANDSON/HCP [place] [facility] [place]
--- NOTE | 2020-09-29 18:13 | PM.DS ---
DS: Providers Provider Date of Service: 09/29/20 Date of admission: 09/28/20 04:39 Primary care physician: Heather Diez MD Consults: 09/28/20 05:57 Consult to Gastroenterology Routine Consulting Provider: Juliette Cuello Reason for consultation: ascites, hx of liver failure Has provider been notified: No Consult to Hematology / Oncology Routine Consulting Provider: Radha Powell Reason for consultation: maliganat ascites, interval increase in tumor size Has provider been notified: No 09/28/20 11:23 Consult to Gastroenterology Routine Consulting Provider: Roland Marcos Reason for consultation: ascietdara DS: Diagnosis Discharge Diagnosis (1) Primary cancer of gallbladder with metastasis to other site: Status: Acute DS: Medications Discharge Medications Home Medications: Home Medications Medication Instructions Recorded Confirmed omeprazole 1 cap PO QAM 04/22/20 09/28/20 ursodiol 2 tab PO BID 09/28/20 09/28/20 Previous Rx's Medication Instructions Recorded lorazepam 0.5 mg PO BEDTIME PRN #30 tab 06/18/20 ondansetron HCl [Zofran] 8 mg PO Q8H #60 tab 06/18/20 loratadine 10 mg tablet 10 mg PO DAILY #30 tab 06/23/20 hydroxyzine HCl 25 mg tablet 25 mg PO BID #60 tab 07/13/20 diphenhydramine HCl [Benadryl 50 mg PO TID PRN #20 tab 07/29/20 Allergy] famotidine [Pepcid] 20 mg PO BID #20 tab 07/29/20 furosemide 40 mg PO DAILY #30 tab 08/12/20 spironolactone 25 mg tablet 50 mg PO DAILY #180 tab 08/12/20 oxycodone 5 - 10 mg PO Q6H PRN #30 tab 09/29/20 DS: Summary Hospital Course Hospital Course: 75-year-old female with cholangiocarcinoma with for metastases including to liver. Complicated by ER recurring ascites. She has been evaluated by Oncology and no longer deemed to be a a treatment candidate. Patient presented to the hospital with a recurring ascites and indeed has been requiring therapeutic tap from time to time.. She presented on this occasion with abdominal pain she had a paracenteses showing no evidence of SBP she underwent therapeutic tap and felt better she was evaluated by Dr. Powell from Oncology and again and stated that the patient is not a candidate for further treatment and recommended hospice. This was discussed with the patient and the grandson (proxy) and they agreed that titrate hospice is the next best option and patient will have hospice intake at home but for the time being will be discharged home with her pain medication with oxycodone and case management will arrange for the hospice intake at home. Time Spent with Patient Time attestation: Total time spent providing and/or coordinating discharge services: Discharge coordination time: Greater than 30 minutes Physical Exam Vital Signs: Vital Signs: Last Vital Signs Temp 97.4 F 09/29/20 11:03 Pulse 82 09/29/20 11:03 Resp 17 09/29/20 11:03 BP 91/52 L 09/29/20 11:03 Pulse Ox 97 09/29/20 11:03 Body Mass Index 28.4 General: AO X 3, no acute distress Resp: CTA bilateral CVS: S1,S2,RRR GI: distended, mild tenderness, positive ascites Skin: No rash Neuro: motor grossly intact Psych: appropriate affect DS: Data Data Completed and Pending Completed studies during hospitalization [Text1]: Procedures Drainage of Peritoneal Cavity, Percutaneous Approach (04/03/20) Labs on day of discharge: Laboratory Results - last 24 hr 09/28/20 09/28/20 09/29/20 18:47 20:14 06:03 WBC 21.3 H 19.8 H RBC 3.48 L 3.46 L Hgb 10.6 L 10.6 L Hct 30.7 L 29.6 L MCV 88.2 85.5 MCH 30.5 30.6 MCHC 34.5 35.8 H RDW 14.7 14.5 Plt Count 297 282 MPV 9.2 L 9.3 L Immature Gran % (Auto) 1.4 H Neut % (Auto) 83.8 H Lymph % (Auto) 6.5 L [place] % (Auto) 7.4 Eos % (Auto) 0.7 Baso % (Auto) 0.2 Lymph # (Auto) 1.3 [place] # (Auto) 1.5 H Eos # (Auto) 0.1 Baso # (Auto) 0.0 Abs Immat Gran (auto) 0.27 H Absolute Neuts (auto) 16.6 H Absolute Nucleated RBC 0.000 0.000 Nucleated RBC % (auto) 0.0 0.0 PT INR Sodium Potassium Chloride Carbon Dioxide Anion Gap BUN Creatinine Estim Creat Clear Calc Estimated GFR POC Glucose 123 H Random Glucose Calcium 09/29/20 09/29/20 09/29/20 06:03 06:03 07:15 WBC RBC Hgb Hct MCV MCH MCHC RDW Plt Count MPV Immature Gran % (Auto) Neut % (Auto) Lymph % (Auto) [place] % (Auto) Eos % (Auto) Baso % (Auto) Lymph # (Auto) [place] # (Auto) Eos # (Auto) Baso # (Auto) Abs Immat Gran (auto) Absolute Neuts (auto) Absolute Nucleated RBC Nucleated RBC % (auto) PT 22.8 H INR 1.9 H Sodium 130 L Potassium 4.8 Chloride 105 Carbon Dioxide 16 L Anion Gap 14 BUN 37 H Creatinine 1.68 H Estim Creat Clear Calc 25.5 Estimated GFR 30 POC Glucose 81 Random Glucose 77 Calcium 7.6 L 09/29/20 11:31 WBC RBC Hgb Hct MCV MCH MCHC RDW Plt Count MPV Immature Gran % (Auto) Neut % (Auto) Lymph % (Auto) [place] % (Auto) Eos % (Auto) Baso % (Auto) Lymph # (Auto) [place] # (Auto) Eos # (Auto) Baso # (Auto) Abs Immat Gran (auto) Absolute Neuts (auto) Absolute Nucleated RBC Nucleated RBC % (auto) PT INR Sodium Potassium Chloride Carbon Dioxide Anion Gap BUN Creatinine Estim Creat Clear Calc Estimated GFR POC Glucose 83 Random Glucose Calcium Preliminary micro results at discharge 09/28/20 13:21 Routine Culture - Preliminary Paracentesis Fluid No growth to date. Anaerobic Culture - Preliminary No growth to date. 09/27/20 21:30 Blood Culture - Preliminary Blood - Venous No growth after 24 hours. 09/27/20 21:30 Blood Culture - Preliminary Blood - Venous No growth after 24 hours. Discharge Plan Discharge Anticipated Discharge Date/Time: 09/29/20 15:30 Patient Disposition: Home Health Service Discharge Diagnosis: Malignant ascietes Referrals: [facility] [Outside] - 1 Week ([facility] TO OFFER A CONSULT FOR SERVICES IN THE HOME. ) Po,Heather Luke MD [Primary Care Provider] - 1 Week Discharge Medications: New oxycodone 5 mg tablet 5 - 10 mg PO Q6H PRN (Reason: pain (scale score 7-10)) Qty: 30 RF: 0 Continued hydroxyzine HCl 25 mg tablet 25 mg PO BID Qty: 60 RF: 3 spironolactone 25 mg tablet 50 mg PO DAILY Qty: 180 RF: 1 omeprazole 40 mg capsule,delayed release(DR/EC) 1 cap PO QAM RF: 0 diphenhydramine HCl [Benadryl Allergy] 25 mg tablet 50 mg PO TID PRN (Reason: itching) Qty: 20 RF: 0 famotidine [Pepcid] 20 mg tablet 20 mg PO BID Qty: 20 RF: 0 ondansetron HCl [Zofran] 4 mg Tablet 8 mg PO Q8H Qty: 60 RF: 3 lorazepam 0.5 mg Tablet 0.5 mg PO BEDTIME PRN (Reason: Anxiety) Qty: 30 RF: 0 furosemide 40 mg tablet 40 mg PO DAILY Qty: 30 RF: 4 ursodiol 250 mg tablet 2 tab PO BID RF: 0 loratadine [Claritin] 10 mg tablet 10 mg PO DAILY Qty: 30 RF: 5 Discharge Orders: Discharge Order (Routine); Ordered 09/29/20 Ordered By: Romulo Zapata Diet: advance to usual diet Activity on Discharge: As tolerated Stand Alone Forms: Patient Portal Discharge page Care Plan Goals: Comfort Health Concerns: maliganant ascietes, cholangiocarcinoma with multiple sites metastatic spread Plan of Treatment: Home with hospice Assessment: Cholangiocarcinoma with meatassis and malignant ascietes Discharge Date/Time: 09/29/20 16:00
== END 2020-09-29 16:00 | disposition home health service (06) | DRG 436 ==
LOC: HO.ED 20:50 → HO.EDOVER 09-28 05:01 → HO.S3 09-28 08:51
PROVIDERS: Nurse Practitioner Family; Physician Assistant; Radiology Diagnostic Radiology; Admitting Provider Internal Medicine; Emergency Provider Emergency Medicine; PCP Internal Medicine; Visit Provider Internal Medicine
PROC: 0W9G3ZZ Drainage of Peritoneal Cavity, Percutaneous Approach (ICD-10-PCS; principal; 2020-09-28 12:30)
DX: C23 Malignant neoplasm of gallbladder (principal); C78.7 Secondary malignant neoplasm of liver and intrahepatic bile duct; R18.0 Malignant ascites; D68.9 Coagulation defect, unspecified; K72.90 Hepatic failure, unspecified without coma; C54.1 Malignant neoplasm of endometrium; E88.09 Other disorders of plasma-protein metabolism, not elsewhere classified; E11.9 Type 2 diabetes mellitus without complications; I10 Essential (primary) hypertension; E78.5 Hyperlipidemia, unspecified; I95.9 Hypotension, unspecified; M19.90 Unspecified osteoarthritis, unspecified site; Z20.822 Contact with and (suspected) exposure to COVID-19; Z79.891 Long term (current) use of opiate analgesic; Z79.899 Other long term (current) drug therapy
CPT/HCPCS: 0241U; 36415; 49083; 71250; 74176; 80048; 80076; 81003; 82042; 82140; 82150; 82945; 82947; 83605; 83615; 83690; 83735; 83880; 83986; 84157; 84484; 85025; 85027; 85610; 85730; 87040; 87071; 87073; 87077; 87186; 87205; 89051; 93005; 96365; 96368; 96372; 96375; 99285; 99291; J0696; J1940; J2270; P9047

== ENCOUNTER 2020-11-28 22:14 | Emergency (ER) | payer MEDICARE, SELFPAY ==
--- NOTE | ~2020-11-28 | CT_ITS ---
EXAMINATION: CT ABDOMEN AND PELVIS WITHOUT CONTRAST CLINICAL INFORMATION: Worsening abdominal pain. History of cancer COMPARISON: 09/27/2020 c and 05/20/2010 TECHNIQUE: Multidetector volumetric imaging was performed from the superior aspect of the liver through the pubic symphysis. Sagittal and coronal reformatted images were obtained on the technologist's workstation. This CT examination was performed using dose optimization techniques as appropriate, variously including the following: *Automated exposure control *Adjustment of mA and/or kV according to patient size (this includes techniques or standardized protocols for targeted exams where dose is matched to indication/reason for exam; i.e. extremities or head) *Use of iterative reconstruction technique DLP: 373 mGy-cm FINDINGS: LUNG BASES: Clear LIVER, GALLBLADDER, AND BILIARY TREE: Cirrhosis suspected. No focal liver lesions. Small pneumobilia present. No significant intrahepatic biliary duct dilatation. Cholecystectomy. PANCREAS: Unremarkable. SPLEEN: Unremarkable. ADRENAL GLANDS: Unremarkable. KIDNEYS AND URETERS: The kidneys are normal in size, shape, and attenuation. No hydronephrosis, hydroureter, or calculi seen. No perinephric stranding. BLADDER: Unremarkable. GASTROINTESTINAL TRACT: Small to moderate hiatal hernia. No intestinal obstruction. An enteroenteric anastomosis is present within the right midabdomen. Old omental infarct or epiploic appendicitis with calcification present anterior to the descending colon. ABDOMINAL WALL: Complex umbilical/periumbilical hernia redemonstrated containing a nonobstructed loop of small bowel as well as ascitic fluid. There are 2 smaller midline ventral abdominal hernias the epigastrium containing omental fat. LYMPH NODES: Normal. VASCULAR: Unremarkable. PELVIC VISCERA: Interval increase in size of the large solid and cystic masses within the pelvis. The mass within the right hemipelvis now measures up to 18 cm in single longest dimension, previously 13 cm. The mass within the pelvis, previously left of midline measures 11 cm, previously 9 cm. Uterus appears to be sandwiched between the masses. Small volume ascites is present, decreased in quantity from the prior exam. OSSEOUS STRUCTURES: No acute or suspicious osseous abnormalities. CT/CT abdomen pelvis wo con IMPRESSION: * Interval increase in size of the large pelvic mass is now measuring 18 cm and 11 cm, previously 13 cm and 9 cm, respectively. * Interval decrease in the quantity of ascites, now small. * Cirrhosis suspected. * No bowel obstruction.
[2020-11-28 22:27] VITALS: BP 134/69; PULSE 73; RESP 18; TEMP 36.7; O2SAT 100; BMI 21.7
--- NOTE | 2020-11-28 22:47 | ED.GENADULT ---
HPI - General Adult General Chief complaint: General Medical Stated complaint: ABD PAIN Time Seen by Provider: 11/28/20 22:19 Source: patient and family Mode of arrival: EMS Limitations: no limitations History of Present Illness HPI narrative: Patient comes emergency room complaining of diffuse abdominal pain. 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 Patient states that for last 2 days she has been having diffuse abdominal pain, vomiting and diarrhea. Patient is now under hospice care/palliative care. Patient still gets therapeutic paracentesis to relieve the pain and pressure in the abdomen. Patient denies fever chills. Related Data Home Medications Medication Instructions Recorded Confirmed omeprazole 1 cap PO QAM 04/22/20 09/28/20 ursodiol 2 tab PO BID 09/28/20 09/28/20 Previous Rx's Medication Instructions Recorded loratadine 10 mg tablet 10 mg PO DAILY #30 tab 06/23/20 diphenhydramine HCl [Benadryl 50 mg PO TID PRN #20 tab 07/29/20 Allergy] famotidine [Pepcid] 20 mg PO BID #20 tab 07/29/20 furosemide 40 mg PO DAILY #30 tab 08/12/20 spironolactone 25 mg tablet 50 mg PO DAILY #180 tab 08/12/20 oxycodone 5 - 10 mg PO Q6H PRN #30 tab 09/29/20 ondansetron HCl [Zofran] 8 mg PO Q8H #60 tab 09/30/20 hydroxyzine HCl 25 mg tablet 25 mg PO BID 90 Days #180 tab 10/12/20 lorazepam 0.5 mg PO BEDTIME PRN #30 tab 11/11/20 fentanyl 1 patch TRANSDERMAL Q72H #5 ea 11/29/20 morphine 15 mg PO Q12H #14 tab 11/29/20 oxycodone 5 mg PO Q6H PRN #20 tab 11/29/20 prochlorperazine maleate 10 mg PO TID PRN #20 tab 11/29/20 [Compazine] Allergies Allergy/AdvReac Type Severity Reaction Status Date / Time lisinopril [LISINOPRIL] Allergy Severe SWELLING/NAUSEA/ITCHING, Verified 05/17/20 13:44 cough, swellimg, redness sunflower seed Allergy Severe ANAPHYLAXIS Verified 05/17/20 13:44 [SUNFLOWER SEED] wheat [WHEAT] Allergy Severe ANAPHYLAXIS Verified 05/17/20 13:44 Review of Systems Review of Systems: Constitutional : Denies fever or chills ENT/Mouth : No Hearing loss, No Ear Pain, No Nasal Congestion, No Sinus Pain, No Hoarseness, No sore throat, No Rhinorrhea, No Swallowing Difficulty Eyes: No Eye Pain, No Swelling, No Redness, No Foreign Body, No Discharge, No Vision Changes Cardiovascular : No Chest Pain, No SOB, No Dyspnea on Exertion, No Orthopnea, No Edema, No Palpitations Respiratory : No Cough, No Sputum, No Wheezing, No Smoke Exposure, No Dyspnea Gastrointestinal : Complaining of nausea, vomiting and diarrhea., complaining of diffuse abdominal pain Genitourinary : No Dysuria, No Urinary Frequency, No Hematuria, No Urinary Incontinence, No Urgency, No Flank Pain, No Urinary Flow Changes, No Hesitancy Musculoskeletal No Joint Swelling Skin : No Skin Lesions, No rash Neuro : Chronic weakness Psych : No SI or HI Heme/Lymph: No Bruising, No Bleeding Endocrine : No Polyuria, No Polydipsia, No Temperature Intolerance PMFSH Past Medical History Medical History Abdominal pain Acute liver failure Biliary obstruction Cholangiocarcinoma HTN (hypertension) Hyperlipidemia Osteoarthritis Ovarian cancer Type 2 diabetes mellitus with hyperglycemia Vitamin D deficiency Surgical History History of laparoscopic cholecystectomy History of surgery Family History Family History Father Diabetes Mother Diabetes Cancer Social History Social History Household Members: Family Housing: Apartment Do you presently have visiting nurse or other home services: No Second Hand Smoke Exposure: No Advance Directives: No Advance Directives Information Provided: No service: No Current occupational status: unemployed Physical Exam Vital Signs: Vital Signs: Last Vital Signs Temp 98.1 F 11/28/20 22:27 Pulse 70 11/28/20 23:47 Resp 18 11/28/20 23:47 BP 115/63 11/28/20 23:47 Pulse Ox 100 11/28/20 22:27 Body Mass Index 21.7 Appearance: Alert. Oriented X3. No acute distress. Eyes: Pupils equal, round and reactive to light. ENT: Pharynx normal. Neck: Normal inspection. Neck supple. No lymph nodes noted. No crepitus CVS: Normal heart rate and rhythm. Pulses normal. Normal S1 and S2 Respiratory: No respiratory distress. Breath sounds normal. No Wheezing. No rales Abdomen: Soft, mildly distended, negative fluid wave, diffusely tender to palpation, no guarding, no rebound. Abdominal ultrasound at bedside: There are no pockets of fluid that can be drained Skin: Skin warm and dry. Extremities: No lower extremity edema. Neuro: Oriented X 3. No motor deficit. No sensory deficit. Moving all extermities. No slurred speech. Course Course Course Narrative: Patient's labs are at baseline, unfortunately, the pelvic masses grew in size. I discussed the results with the patient and her grandson. I discussed with the patient's grandson if the patient is unable to eat, the option of a G-tube. Patient's grandson states that at this time they are not considering it. Patient was given IV pain medication, states that she feels better. Patient requesting medication for the diarrhea. Patient was given 1 dose of Lomotil. Patient is continuously in pain. I discussed with the patient's grandson that to help her with the pain, we can start her on a fentanyl patch. Patient's grandson agrees diarrhea since the patient was brought to the emergency room for treatment, the hospice services will likely be cancelling the morning. The grandson states that in the morning, a hospice services will take it away most of her medication. Therefore, I discussed with the grandson that I will caregiver assisted living prescription of her morphine, oxycodone, and fentanyl patches. I discussed with the patient's grandson the risk overdose. He understands, patient's grandson is a nurse here in our hospital. Medical Decision Making Lab Data Result diagrams: 11/28/20 23:19 11/28/20 23:19 Labs: Lab Results 11/28/20 11/28/20 Range/Units 23:19 23:19 WBC 14.1 H (4.8-10.8) X10*3/uL RBC 3.25 L (4.20-5.50) X10*6/uL Hgb 8.6 L (12.0-16.0) g/dl Hct 26.0 L (37-47) % MCV 80.0 (80-98) fL MCH 26.5 L (27.0-33.0) pg MCHC 33.1 (31.0-35.0) g/dl RDW 16.4 H (11.0-16.0) % Plt Count 298 (160-400) X10*3/uL MPV 8.8 L (9.4-12.3) fL Immature Gran % (Auto) 0.4 (0.0-0.4) % Neut % (Auto) 86.3 H (45-73) % Lymph % (Auto) 7.4 L (20-40) % Braxton % (Auto) 4.7 (2-11) % Eos % (Auto) 1.1 (0-4) % Baso % (Auto) 0.1 (0-2) % Lymph # (Auto) 1.1 L (1.2-4.9) X10*3/uL Braxton # (Auto) 0.7 (0.1-1.2) X10*3/uL Eos # (Auto) 0.2 (0.0-0.4) X10*3/uL Baso # (Auto) 0.0 (0.0-0.2) X10*3/uL Abs Immat Gran (auto) 0.05 H (0.00-0.03) X10*3/uL Absolute Neuts (auto) 12.2 H (2.0-8.3) X10*3/uL Absolute Nucleated RBC 0.000 (0.0-0.012) X10*3/uL Nucleated RBC % (auto) 0.0 (0.0-0.2) /100WBC Sodium 132 L (135-145) mmol/L Potassium 3.9 (3.3-5.1) mmol/L Chloride 105 (96-108) mmol/L Carbon Dioxide 17 L (22-29) mmol/L Anion Gap 14 (12-20) BUN 12 D (9-16) mg/dL Creatinine 0.79 (0.5-1.4) mg/dL Estim Creat Clear Calc 46.4 Estimated GFR > 60 Random Glucose 107 D (60-115) mg/dL Calcium 7.9 L (8.4-10.2) mg/dL Total Bilirubin 0.6 (0.0-1.0) mg/dL Direct Bilirubin 0.4 (0.0-0.5) mg/dL AST 20 (5-31) U/L ALT 10 (0-31) U/L Alkaline Phosphatase 127 H (39-117) U/L Total Protein 6.7 D (6.5-8.0) g/dL Albumin 2.4 L (3.5-5.0) g/dL Lipase 96 H (8-78) U/L Imaging Data CT scan - abdomen: Radiologist's impression: FINDINGS: LUNG BASES: Clear LIVER, GALLBLADDER, AND BILIARY TREE: Cirrhosis suspected. No focal liver lesions. Small pneumobilia present. No significant intrahepatic biliary duct dilatation. Cholecystectomy. PANCREAS: Unremarkable. SPLEEN: Unremarkable. ADRENAL GLANDS: Unremarkable. KIDNEYS AND URETERS: The kidneys are normal in size, shape, and attenuation. No hydronephrosis, hydroureter, or calculi seen. No perinephric stranding. BLADDER: Unremarkable. GASTROINTESTINAL TRACT: Small to moderate hiatal hernia. No intestinal obstruction. An enteroenteric anastomosis is present within the right midabdomen. Old omental infarct or epiploic appendicitis with calcification present anterior to the descending colon. ABDOMINAL WALL: Complex umbilical/periumbilical hernia redemonstrated containing a nonobstructed loop of small bowel as well as ascitic fluid. There are 2 smaller midline ventral abdominal hernias the epigastrium containing omental fat. LYMPH NODES: Normal. VASCULAR: Unremarkable. PELVIC VISCERA: Interval increase in size of the large solid and cystic masses within the pelvis. The mass within the right hemipelvis now measures up to 18 cm in single longest dimension, previously 13 cm. The mass within the pelvis, previously left of midline measures 11 cm, previously 9 cm. Uterus appears to be sandwiched between the masses. Small volume ascites is present, decreased in quantity from the prior exam. OSSEOUS STRUCTURES: No acute or suspicious osseous abnormalities. CT/CT abdomen pelvis wo con IMPRESSION: * Interval increase in size of the large pelvic mass is now measuring 18 cm and 11 cm, previously 13 cm and 9 cm, respectively. * Interval decrease in the quantity of ascites, now small. * Cirrhosis suspected. * No bowel obstruction. Discharge Plan Discharge Clinical Impression: Abdominal distension, Nausea vomiting and diarrhea Patient Disposition: Home, Self-Care Instructions: Acute Nausea and Vomiting (ED), Acute Diarrhea (ED), Abdominal Pain (ED) Additional Instructions: Please follow-up with your primary care physician tomorrow. If you have any worsening or new symptoms, please return to the emergency room or call 911 Prescriptions: New morphine 15 mg tablet extended release 15 mg PO Q12H Qty: 14 RF: 0 oxycodone 5 mg tablet 5 mg PO Q6H PRN (Reason: pain) Qty: 20 RF: 0 fentanyl 25 mcg/hr patch 72 hour 1 patch transdermal Q72H Qty: 5 RF: 0 prochlorperazine maleate [Compazine] 10 mg tablet 10 mg PO TID PRN (Reason: nausea and vomiting) Qty: 20 RF: 0 No Action spironolactone 25 mg tablet 50 mg PO DAILY Qty: 180 RF: 1 hydroxyzine HCl 25 mg tablet 25 mg PO BID 90 Days Qty: 180 RF: 0 omeprazole 40 mg capsule,delayed release(DR/EC) 1 cap PO QAM RF: 0 diphenhydramine HCl [Benadryl Allergy] 25 mg tablet 50 mg PO TID PRN (Reason: itching) Qty: 20 RF: 0 famotidine [Pepcid] 20 mg tablet 20 mg PO BID Qty: 20 RF: 0 furosemide 40 mg tablet 40 mg PO DAILY Qty: 30 RF: 4 lorazepam 0.5 mg Tablet 0.5 mg PO BEDTIME PRN (Reason: Anxiety) Qty: 30 RF: 0 ursodiol 250 mg tablet 2 tab PO BID RF: 0 oxycodone 5 mg tablet 5 - 10 mg PO Q6H PRN (Reason: pain (scale score 7-10)) Qty: 30 RF: 0 ondansetron HCl [Zofran] 4 mg Tablet 8 mg PO Q8H Qty: 60 RF: 3 loratadine [Claritin] 10 mg tablet 10 mg PO DAILY Qty: 30 RF: 5
[2020-11-28 23:27] LABS: Basophils Percent Auto 0.1 % (0-2); Eosinophils Absolute Auto 0.2 X10*3/uL (0.0-0.4); Eosinophils Percent Auto 1.1 % (0-4); Hemoglobin 8.6 g/dl (12.0-16.0); Imm Gran Abs Auto 0.05 X10*3/uL (0.00-0.03); Imm Gran Pct Auto 0.4 % (0.0-0.4); Lymphocytes Absolute Auto 1.1 X10*3/uL (1.2-4.9); Lymphocytes Percent Auto 7.4 % (20-40); MANUAL DIFF FLAG NO; Mean Corpuscular HGB Conc 33.1 g/dl (31.0-35.0); Mean Corpuscular Hemoglobin 26.5 pg (27.0-33.0); Mean Platelet Volume 8.8 fL (9.4-12.3); Monocytes Absolute Auto 0.7 X10*3/uL (0.1-1.2); Monocytes Percent Auto 4.7 % (2-11); Neutrophils Absolute Auto 12.2 X10*3/uL (2.0-8.3); Neutrophils Percent Auto 86.3 % (45-73); Platelet Count 298 X10*3/uL (160-400); Red Blood Count 3.25 X10*6/uL (4.20-5.50); Red Cell Distribution Width 16.4 % (11.0-16.0); White Blood Count 14.1 X10*3/uL (4.8-10.8)
[2020-11-28 23:47] VITALS: BP 115/63; PULSE 70; RESP 18
[2020-11-28] MEDS: Morphine Sulfate 4 MG/ML CARTRIDGE IVPUSH (23:48)
[2020-11-28] MEDS: Prochlorperazine Edisylate 10 MG/2 ML VIAL IVPUSH (23:49)
[2020-11-28 23:52] LABS: Alanine Aminotransferase 10 U/L (0-31); Albumin Level 2.4 g/dL (3.5-5.0); Alkaline Phosphatase 127 U/L (39-117); Anion Gap 14 (12-20); Aspartate Amino Transferase 20 U/L (5-31); Bilirubin Direct 0.4 mg/dL (0.0-0.5); Bilirubin Total 0.6 mg/dL (0.0-1.0); Blood Urea Nitrogen 12 mg/dL (9-16); Calcium 7.9 mg/dL (8.4-10.2); Carbon Dioxide 17 mmol/L (22-29); Chloride 105 mmol/L (96-108); Creatinine Clr Calc Pharmacy 46.4; Estimated Glomerular Filt Rate > 60; Glucose Random 107 mg/dL (60-115); Lipase 96 U/L (8-78); Potassium 3.9 mmol/L (3.3-5.1); Sodium 132 mmol/L (135-145); Total Protein 6.7 g/dL (6.5-8.0)
[2020-11-29] MEDS: fentaNYL 25 MCG PATCH.TD72 TRANSDERMA (00:41)
[2020-11-29] MEDS: Diphenoxylate/Atrop 2.5/0.025 TABLET 2 TAB PO (00:41)
--- NOTE | 2020-11-29 00:47 | PC.NURSE ---
FENTANYL PATCH PLACED ON UPPER LEFT ARM.
[2020-11-29 00:49] VITALS: BP 114/61; PULSE 77; RESP 18
== END 2020-11-29 01:11 | disposition home or self-care (01) ==
PROVIDERS: Emergency Provider Emergency Medicine
DX: R14.0 Abdominal distension (gaseous) (principal); R11.2 Nausea with vomiting, unspecified; R19.7 Diarrhea, unspecified; K72.90 Hepatic failure, unspecified without coma; K74.60 Unspecified cirrhosis of liver; I10 Essential (primary) hypertension; E11.9 Type 2 diabetes mellitus without complications; C23 Malignant neoplasm of gallbladder; C78.7 Secondary malignant neoplasm of liver and intrahepatic bile duct; C79.82 Secondary malignant neoplasm of genital organs; C79.60 Secondary malignant neoplasm of unspecified ovary; Z51.5 Encounter for palliative care
CPT/HCPCS: 36415; 74176; 80048; 80076; 83690; 85025; 96374; 96375; 99283; 99284; J2270

== ENCOUNTER 2020-12-03 14:35 | Outpatient (RCR) | payer MEDICARE, SELFPAY ==
[2020-05-17 13:37] VITALS: BMI 23.6
[2020-05-17 13:38] VITALS: BP 143/72; PULSE 69; TEMP 35.8
--- NOTE | 2020-05-17 13:47 | P.PNHO_ITS ---
Medical Summary - Medical Summary Date of Service: 05/17/20 Chief complaint: Recurrent Gall Bladder Cancer. Medical Summary: DIAGNOSIS: 1. GALL BLADDER CANCER. 2. METASTATIC OVARIAN CANCER. CURRENT THERAPY: 1. OBSERVATION. 2. CURRENTLY UNDERGOING WORKUP. Interval History Interval history: This is a pleasant 74-year-old lady, here for a follow-up visit. She had the paracentesis about 3 weeks ago. she still feels comfortable. She is currently on diuretics from Dr. Marcos. . She is eating better, is moving around more. Energy level has improved. She denies any fever chills no night sweats. She denies chest pain or trouble breathing. No abdominal pain, however lately she has had nausea but no vomiting. The omeprazole is helping the heartburn and indigestion. Bowels are working without any gross blood in it. She has lost weight. She is in good spirits. Rest of the review of systems is unremarkable. Review of Systems - Constitutional Reports system reviewed and no additional complaints, except as documented, Reports anorexia, Reports fatigue, Denies fever(s) - Eyes Reports system reviewed and no additional complaints, except as documented - ENT Reports system reviewed and no additional complaints, except as documented - Cardiovascular Reports system reviewed and no additional complaints, except as documented, Denies chest pain at rest - Respiratory Reports no additional respiratory complaints, Denies change in phlegm color - Gastrointestinal Reports system reviewed and no additional complaints, except as documented, Reports nausea, Denies abdominal pain, Denies change in bowel habits - Genitourinary Reports no additional female genitourinary complaints, Denies abnormal periods - Musculoskeletal Denies abnormal walking - Integumentary/Breasts Skin/Breast: Reports bleeding lesions, Denies change in breast shape - Neurologic Reports system reviewed and no additional complaints, except as documented - Psychiatric Reports system reviewed and no additional complaints, except as documented, Denies abnormal sleep pattern - Endocrine Reports no additional endocrine complaints, Denies cold intolerance - Hematologic/Lymphatic Reports system reviewed and no additional complaints, except as documented, Denies easy bleeding - Allergic/Immunologic Denies GI upset with certain foods PMFSH Medical History: Medical History (Last Updated 04/06/20 @ 13:06 by Radha Bai MD) Bacteremia Biliary obstruction Gallbladder cancer HTN (hypertension) Hyperlipidemia Osteoarthritis Ovarian cancer Functional capacity: independent ambulation Patient : No Family History: Family History (Last Updated 04/15/20 @ 11:51 by ANEESH Adrian) Father Diabetes Mother Diabetes Cancer Surgical History: Surgical History (Last Updated 04/15/20 @ 11:50 by ANEESH Adrian) History of laparoscopic cholecystectomy History of surgery Home Medications and Allergies Home Medications Medication Instructions Recorded Confirmed Type omeprazole 1 cap PO QAM 04/22/20 05/17/20 History Allergies Allergy/AdvReac Type Severity Reaction Status Date / Time lisinopril [LISINOPRIL] Allergy Severe SWELLING/NAUSEA/ITCHING, Verified 05/17/20 13:44 cough, swellimg, redness sunflower seed Allergy Severe ANAPHYLAXIS Verified 05/17/20 13:44 [SUNFLOWER SEED] wheat [WHEAT] Allergy Severe ANAPHYLAXIS Verified 05/17/20 13:44 Exam Vital signs: Vital Signs Temp 96.5 F L 05/17/20 13:38 Pulse 69 05/17/20 13:38 BP 143/72 H 05/17/20 13:38 Intake & Output 05/16/20 05/17/20 05/17/20 18:59 06:59 18:59 Other: Weight 55 kg Weight 55 kg Body Mass Index 23.6 - Constitutional Present: no acute distress - Routine HEENT Exam Head: Present: normal inspection ENT: Present: mucous membranes moist - Routine Neck Exam Present: full ROM - Routine Respiratory Exam Present: CTAB - Routine Cardiovascular Exam Cardiovascular: Present: RRR, S1, S2 - Routine Abdominal Exam Present: distended - Routine Rectal Exam Patient deferred: digital exam - Routine Extremities Exam Present: nontender - Routine Back/Spine/Pelvis Exam Back/Spine: Present: full ROM - Routine Skin Exam Present: intact - Routine Neurological Exam Present: alert, oriented X3 - Detailed Neurological Exam: Coma Scale Eye Opening: Spontaneous (4) Verbal Response: Oriented (5) Motor Response: Obeys commands (6) Glascow Coma Scale Total: 15 - Routine Psychiatric Exam Present: normal affect Data - Labs CBC & Chem 7: 05/17/20 14:09 05/17/20 14:09 Progress Note: A/P (1) H/O cancer of gall bladder Status: Acute Assessment and plan: 74-year-old unfortunate lady with a H/O Gall bladder Cancer and recent diagnosis of Endometrial Carcinoma. Unfortunately she was deemed not a candidate for the endometrial cancer, on account of end-stage liver disease. She has been seen at [facility] by Dr. Marquez. She was also evaluated by GI at [facility]. She was then referred to Dr. Marcos for further evaluation. He proceeded with MRI of the liver that was done. She has been under the care of Dr. Marquez. She proceeded with a biopsy of the pelvic mass. this was done on 05/07 and revealed: Adenocarcinoma. Tumor appeared morphologically distinct from the patient's endometrioid adenocarcinoma of the endometrium. Packs 8 and ER negativity also do not support metastatic endometrial carcinoma. Rare malignant cells present compatible with metastatic gallbladder adenocarcinoma, but other primary sites cannot be absolutely excluded especially given the paucity of malignant cells in the specimen. I went over the results of the pathology with her and her grandson. Explained that only option for treatment would be with chemotherapy, however that would be palliative at best. I would be concerned more about, toxicity especially with her underlying liver disease, gemcitabine being hepatotoxic. However according to the NCCN guidelines there are options of targeted therapy, if she has an NNTR mutation or in case of MSI high tumor, Pembrolizumab would be an option. At this point the patient has had symptoms of nausea. I would like to get that under control with antiemetic, Zofran. Would like her to have an improved appetite and gain some weight. She, otherwise has good quality of life. Treatment would have more of a potential for toxicity and affect that in a negative manner. PLAN: I have requested testing for these markers at [facility] pathology. For now is to focus on symptomatic measures optimize her condition. She has been started on diuretics. Will assess need for further paracenteses based upon her symptoms. I had a detailed discussion her grandson about goals of care and limited treatment options. He will check with Dr. Marcos about the feasibility of giving systemic therapy with her limited hepatic reserve. All his questions were answered. She will return in a month for a follow-up visit. Thank you, Dr. Diez. Dr. Marcos. Dr. Renae Robledo. - Time Spent With Patient Total time spent is greater than 50% in coordination of care (as documented) at patient's floor/unit and/or counseling patient: 25 - 35 minutes
[2020-05-17 14:11] LABS: MANUAL DIFF FLAG NO
[2020-05-17 14:25] LABS: Basophils Absolute Auto 0.1 X10*3/uL (0.0-0.2); Basophils Percent Auto 0.6 % (0-2); Eosinophils Absolute Auto 0.9 X10*3/uL (0.0-0.4); Eosinophils Percent Auto 10.3 % (0-4); Hematocrit 36.9 % (37-47); Hemoglobin 12.3 g/dl (12.0-16.0); Imm Gran Abs Auto 0.03 X10*3/uL (0.00-0.03); Imm Gran Pct Auto 0.4 % (0.0-0.4); Lymphocytes Absolute Auto 1.5 X10*3/uL (1.2-4.9); Lymphocytes Percent Auto 18.3 % (20-40); Mean Corpuscular HGB Conc 33.3 g/dl (31.0-35.0); Mean Corpuscular Hemoglobin 29.7 pg (27.0-33.0); Mean Corpuscular Volume 89.1 fL (80-98); Mean Platelet Volume 10.2 fL (9.4-12.3); Monocytes Absolute Auto 0.4 X10*3/uL (0.1-1.2); Monocytes Percent Auto 5.1 % (2-11); Neutrophils Absolute Auto 5.4 X10*3/uL (2.0-8.3); Neutrophils Percent Auto 65.3 % (45-73); Platelet Count 232 X10*3/uL (160-400); Red Blood Count 4.14 X10*6/uL (4.20-5.50); Red Cell Distribution Width 14.6 % (11.0-16.0); White Blood Count 8.2 X10*3/uL (4.8-10.8)
[2020-05-17 14:53] LABS: Alanine Aminotransferase 53 U/L (0-31); Albumin Level 3.6 g/dL (3.5-5.0); Alkaline Phosphatase 245 U/L (39-117); Anion Gap 13 (12-20); Aspartate Amino Transferase 99 U/L (5-31); Bilirubin Total 1.3 mg/dL (0.0-1.0); Blood Urea Nitrogen 18 mg/dL (9-16); Calcium 8.7 mg/dL (8.4-10.2); Carbon Dioxide 19 mmol/L (22-29); Chloride 108 mmol/L (96-108); Creatinine Clr Calc Pharmacy 37.2; Estimated Glomerular Filt Rate 52; Glucose Random 88 mg/dL (60-115); Potassium 4.3 mmol/l (3.3-5.1); Sodium 136 mmol/L (135-145); Total Protein 7.8 g/dL (6.5-8.0)
[2020-05-19 11:07] LABS: Carbohydrate Antigen 19-9 44 U/mL (<34)
--- NOTE | 2020-06-09 16:07 | MHC.HEMONC ---
[facility] RECORDS - Pt's grandson and HCProxy,Tenzin, stopped into the office today. He is an RN here at [facility] [place] on [place].. He states that Solange has an upcoming appt at [facility] w a new doctor (The one she was seeing, Dr. Weathers?, is no longer available). I received a verbal telephone consent from Solange to fax her records to [facility], [facility], [place] [address] - ATTN: GI Oncology at fax # [phone] and to also provide a copy to Tenzin. This fax included multiple pages of notes from Dr. Powell, including all pertinent imaging, and any bx/path reports, which also included notes/consults from recent hospitalization. A copy of these same records were provided to her grandson Tenzin, as he will be attending her upcoming appt at [facility].
[2020-06-18 09:37] LABS: MANUAL DIFF FLAG NO
[2020-06-18 09:42] LABS: Basophils Absolute Auto 0.1 X10*3/uL (0.0-0.2); Basophils Percent Auto 0.9 % (0-2); Eosinophils Absolute Auto 0.5 X10*3/uL (0.0-0.4); Eosinophils Percent Auto 6.2 % (0-4); Hematocrit 35.6 % (37-47); Hemoglobin 12.1 g/dl (12.0-16.0); Imm Gran Abs Auto 0.02 X10*3/uL (0.00-0.03); Imm Gran Pct Auto 0.3 % (0.0-0.4); Lymphocytes Absolute Auto 1.6 X10*3/uL (1.2-4.9); Mean Corpuscular Hemoglobin 29.4 pg (27.0-33.0); Mean Corpuscular Volume 86.4 fL (80-98); Mean Platelet Volume 9.9 fL (9.4-12.3); Monocytes Absolute Auto 0.4 X10*3/uL (0.1-1.2); Monocytes Percent Auto 5.1 % (2-11); Neutrophils Absolute Auto 5.2 X10*3/uL (2.0-8.3); Neutrophils Percent Auto 66.5 % (45-73); Platelet Count 209 X10*3/uL (160-400); Red Blood Count 4.12 X10*6/uL (4.20-5.50); Red Cell Distribution Width 13.2 % (11.0-16.0); White Blood Count 7.8 X10*3/uL (4.8-10.8)
[2020-06-18 09:54] VITALS: BP 134/73; PULSE 64; RESP 12; TEMP 36.2; O2SAT 95; BMI 25.0
[2020-06-18 10:19] LABS: Alanine Aminotransferase 59 U/L (0-31); Albumin Level 3.6 g/dL (3.5-5.0); Alkaline Phosphatase 223 U/L (39-117); Anion Gap 15 (12-20); Aspartate Amino Transferase 90 U/L (5-31); Bilirubin Total 0.9 mg/dL (0.0-1.0); Blood Urea Nitrogen 25 mg/dL (9-16); Calcium 8.4 mg/dL (8.4-10.2); Carbon Dioxide 19 mmol/L (22-29); Chloride 109 mmol/L (96-108); Estimated Glomerular Filt Rate 43; Glucose Random 120 mg/dL (60-115); Potassium 4.2 mmol/l (3.3-5.1); Sodium 139 mmol/L (135-145)
--- NOTE | 2020-06-18 10:43 | PM.HEMONCPN ---
Medical Summary - Medical Summary Date of Service: 07/03/20 Chief complaint: F/U for Gall bladder cancer. Medical Summary: DIAGNOSIS: 1. GALL BLADDER CANCER. 2. METASTATIC OVARIAN CANCER. CURRENT THERAPY: 1. OBSERVATION. 2. CURRENTLY UNDERGOING WORKUP. Interval History Interval history: This is a pleasant 74-year-old lady, here for a follow-up visit. Overall, she tells me she has been feeling well. Better than before. She tells me she is eating, however sometimes she feels nauseaous, especially in the morning. She denies abdominal pain. She is on the diuretic. She has not rquired paracentesis for about more than a month. She still feels comfortable. She is eating better, is moving around more. Energy level has improved. She denies any fever chills no night sweats. She denies chest pain or trouble breathing. No abdominal pain, however lately she has had nausea but no vomiting. The omeprazole is helping the heartburn and indigestion. Bowels are working without any gross blood in it. She has lost weight. She is in good spirits. Rest of the review of systems is unremarkable. Review of Systems - Constitutional Reports system reviewed and no additional complaints, except as documented - Eyes Reports system reviewed and no additional complaints, except as documented - ENT Reports system reviewed and no additional complaints, except as documented - Cardiovascular Reports system reviewed and no additional complaints, except as documented - Respiratory Reports no additional respiratory complaints - Gastrointestinal Reports system reviewed and no additional complaints, except as documented - Genitourinary Reports no additional female genitourinary complaints - Musculoskeletal Reports system reviewed and no additional complaints, except as documented - Integumentary/Breasts Skin/Breast: Reports no additional skin complaints - Neurologic Reports system reviewed and no additional complaints, except as documented, Denies abnormal gait - Psychiatric Reports system reviewed and no additional complaints, except as documented - Endocrine Reports no additional endocrine complaints - Hematologic/Lymphatic Reports system reviewed and no additional complaints, except as documented - Allergic/Immunologic Reports system reviewed and no additional complaints, except as documented PMFSH Medical History: Medical History (Last Updated 06/23/20 @ 12:30 by Heather Diez MD) Abdominal pain Biliary obstruction Cholangiocarcinoma HTN (hypertension) Hyperlipidemia Osteoarthritis Ovarian cancer Type 2 diabetes mellitus with hyperglycemia Vitamin D deficiency Functional capacity: independent ambulation Family History: Family History (Last Reviewed 05/20/20 @ 19:33 by Vlad Littlejohn MD) Father Diabetes Mother Diabetes Cancer Surgical History: Surgical History (Last Reviewed 05/20/20 @ 19:33 by Vlad Littlejohn MD) History of laparoscopic cholecystectomy History of surgery Home Medications and Allergies Home Medications Medication Instructions Recorded Confirmed Type omeprazole 1 cap PO QAM 04/22/20 06/23/20 History spironolactone 25 mg tablet 25 mg PO DAILY tab 06/23/20 06/23/20 History Allergies Allergy/AdvReac Type Severity Reaction Status Date / Time lisinopril [LISINOPRIL] Allergy Severe SWELLING/NAUSEA/ITCHING, Verified 05/17/20 13:44 cough, swellimg, redness sunflower seed Allergy Severe ANAPHYLAXIS Verified 05/17/20 13:44 [SUNFLOWER SEED] wheat [WHEAT] Allergy Severe ANAPHYLAXIS Verified 05/17/20 13:44 Exam Vital signs: Vital Signs Temp 97.2 F 06/18/20 09:54 Pulse 64 06/18/20 09:54 Resp 12 06/18/20 09:54 BP 134/73 06/18/20 09:54 Pulse Ox 95 06/18/20 09:54 Intake & Output 06/17/20 06/18/20 06/18/20 18:59 06:59 18:59 Other: Weight 58.1 kg Weight 58.1 kg Body Mass Index 25.0 - Constitutional Present: no acute distress - Routine HEENT Exam Head: Present: normal inspection Eye: Present: normal appearance ENT: Present: mucous membranes moist - Routine Neck Exam Present: full ROM - Routine Respiratory Exam Present: CTAB - Routine Cardiovascular Exam Cardiovascular: Present: RRR, S1, S2 - Routine Abdominal Exam Present: distended - Routine Rectal Exam Patient deferred: digital exam - Routine Extremities Exam Present: nontender - Routine Back/Spine/Pelvis Exam Back/Spine: Present: full ROM - Routine Skin Exam Present: intact - Routine Neurological Exam Present: alert, oriented X3 - Detailed Neurological Exam: Coma Scale Eye Opening: Spontaneous (4) - Routine Psychiatric Exam Present: normal affect Data - Labs CBC & Chem 7: 06/18/20 09:35 06/18/20 09:35 Labs: 05/17/20 14:09 CA 19-9 [Carbohydrate Antigen 19-9] Routine Carcinoembryonic Antigen Routine Complete Blood Count Auto Diff Routine Comprehensive Met. Panel Routine 06/18/20 09:35 Complete Blood Count Auto Diff Routine Comprehensive Met. Panel Routine Laboratory Last Values WBC 7.8 X10*3/uL (4.8-10.8) 06/18/20 09:35 RBC 4.12 X10*6/uL (4.20-5.50) L 06/18/20 09:35 Hgb 12.1 g/dl (12.0-16.0) 06/18/20 09:35 Hct 35.6 % (37-47) L 06/18/20 09:35 MCV 86.4 fL (80-98) 06/18/20 09:35 MCH 29.4 pg (27.0-33.0) 06/18/20 09:35 MCHC 34.0 g/dl (31.0-35.0) 06/18/20 09:35 RDW 13.2 % (11.0-16.0) 06/18/20 09:35 Plt Count 209 X10*3/uL (160-400) 06/18/20 09:35 MPV 9.9 fL (9.4-12.3) 06/18/20 09:35 Immature Gran % (Auto) 0.3 % (0.0-0.4) 06/18/20 09:35 Neut % (Auto) 66.5 % (45-73) 06/18/20 09:35 Lymph % (Auto) 21.0 % (20-40) 06/18/20 09:35 [place] % (Auto) 5.1 % (2-11) 06/18/20 09:35 Eos % (Auto) 6.2 % (0-4) H 06/18/20 09:35 Baso % (Auto) 0.9 % (0-2) 06/18/20 09:35 Lymph # (Auto) 1.6 X10*3/uL (1.2-4.9) 06/18/20 09:35 [place] # (Auto) 0.4 X10*3/uL (0.1-1.2) 06/18/20 09:35 Eos # (Auto) 0.5 X10*3/uL (0.0-0.4) H 06/18/20 09:35 Baso # (Auto) 0.1 X10*3/uL (0.0-0.2) 06/18/20 09:35 Abs Immat Gran (auto) 0.02 X10*3/uL (0.00-0.03) 06/18/20 09:35 Absolute Neuts (auto) 5.2 X10*3/uL (2.0-8.3) 06/18/20 09:35 Absolute Nucleated RBC 0.000 X10*3/uL (0.0-0.012) 06/18/20 09:35 Nucleated RBC % (auto) 0.0 /100WBC (0.0-0.2) 06/18/20 09:35 Sodium 139 mmol/L (135-145) 06/18/20 09:35 Potassium 4.2 mmol/l (3.3-5.1) 06/18/20 09:35 Chloride 109 mmol/L (96-108) H 06/18/20 09:35 Carbon Dioxide 19 mmol/L (22-29) L 06/18/20 09:35 Anion Gap 15 (12-20) 06/18/20 09:35 BUN 25 mg/dL (9-16) H 06/18/20 09:35 Creatinine 1.23 mg/dL (0.5-1.4) 06/18/20 09:35 Estim Creat Clear Calc 32.0 06/18/20 09:35 Estimated GFR 43 06/18/20 09:35 Random Glucose 120 mg/dL (60-115) H 06/18/20 09:35 Calcium 8.4 mg/dL (8.4-10.2) D 06/18/20 09:35 Total Bilirubin 0.9 mg/dL (0.0-1.0) 06/18/20 09:35 AST 90 U/L (5-31) H 06/18/20 09:35 ALT 59 U/L (0-31) H 06/18/20 09:35 Alkaline Phosphatase 223 U/L (39-117) H 06/18/20 09:35 Total Protein 7.0 g/dL (6.5-8.0) 06/18/20 09:35 Albumin 3.6 g/dL (3.5-5.0) 06/18/20 09:35 Carcinoembryonic Ag 5.40 mg/mL 05/17/20 14:09 CA 19-9 Antigen 44 U/mL (<34) H 05/17/20 14:09 Progress Note: A/P (1) H/O cancer of gall bladder Status: Inactive Assessment and plan: 74-year-old unfortunate lady with a H/O Gall bladder Cancer and recent diagnosis of Endometrial Carcinoma. Unfortunately she was deemed not a candidate for the endometrial cancer, on account of end-stage liver disease. She has been seen at [facility] by Dr. Marquez. She was also evaluated by GI at [facility]. She was then referred to Dr. Marcos for further evaluation. He proceeded with MRI of the liver that was done. She has been under the care of Dr. Marquez. She proceeded with a biopsy of the pelvic mass. this was done on 05/07 and revealed: Adenocarcinoma. Tumor appeared morphologically distinct from the patient's endometrioid adenocarcinoma of the endometrium. Packs 8 and ER negativity also do not support metastatic endometrial carcinoma. Rare malignant cells present compatible with metastatic gallbladder adenocarcinoma, but other primary sites cannot be absolutely excluded especially given the paucity of malignant cells in the specimen. I went over the results of the pathology with her and her grandson. Explained that only option for treatment would be with chemotherapy, however that would be palliative at best. I would be concerned more about, toxicity especially with her underlying liver disease, gemcitabine being hepatotoxic. However according to the NCCN guidelines there are options of targeted therapy, if she has an NNTR mutation or in case of MSI high tumor, Pembrolizumab would be an option. At this point the patient has had symptoms of nausea. I would like to get that under control with antiemetic, Zofran. Would like her to have an improved appetite and gain some weight. She, otherwise has good quality of life. Treatment would have more of a potential for toxicity and affect that in a negative manner. I have requested testing for these markers at [facility] pathology. PLAN: For now is to focus on symptomatic measures optimize her condition. She has been started on diuretics. Will assess need for further paracenteses based upon her symptoms. I had a detailed discussion her grandson about goals of care and limited treatment options. He will check with Dr. Marcos about the feasibility of giving systemic therapy with her limited hepatic reserve. All his questions were answered. She will return in a month for a follow-up visit. Thank you, Dr. Diez. Dr. Marcos. Dr. Renae Robledo. - Time Spent With Patient Total time spent is greater than 50% in coordination of care (as documented) at patient's floor/unit and/or counseling patient: 25 - 35 minutes
--- NOTE | 2020-06-18 12:00 | MHC.HEMONCMA ---
Patient came in for a follow up for her gallbladder cancer. She states that she is still in pain and would like an increase of zofran and something to help her sleep. Patient's medications and allergies were reviewed.
[2020-06-21 17:56] LABS: CA-125 161 U/mL (<35)
[2020-07-19 09:20] VITALS: BP 119/63; PULSE 76; RESP 12; TEMP 36.8; O2SAT 100; BMI 25.0
[2020-07-19 09:33] LABS: MANUAL DIFF FLAG NO
--- NOTE | 2020-07-19 09:34 | P.PNHO_ITS ---
Medical Summary - Medical Summary Date of Service: 07/19/20 Medical Summary: DIAGNOSIS: 1. GALL BLADDER CANCER. 2. METASTATIC OVARIAN CANCER. CURRENT THERAPY: 1. OBSERVATION. 2. CURRENTLY UNDERGOING WORKUP. Interval History Interval history: This is a pleasant 74-year-old lady, here for a follow-up visit. Overall, she tells me she has been feeling well. Better than before. She did receive the 1st dose of the vaccine. Her belly is not too distended. She is on the diuretic. She has not rquired paracentesis for a couple of months. She still feels comfortable. She tells me she is eating, however sometimes she feels nauseaous, sometimes, especially in the morning.The omeprazole is helping the heartburn and indigestion. Bowels are working without any gross blood in it. Her weight is stable. She denies abdominal pain. The omeprazole is helping the heartburn and indigestion. Bowels are working without any gross blood in it. She has lost weight. She is eating better, is moving around more. Energy level has improved. She denies any fever chills no night sweats. She denies chest pain or trouble breathing. She is in good spirits. Rest of the review of systems is unremarkable. Review of Systems - Constitutional Reports system reviewed and no additional complaints, except as documented, Denies lack of energy - Eyes Reports system reviewed and no additional complaints, except as documented, Denies blurry vision - ENT Reports system reviewed and no additional complaints, except as documented - Cardiovascular Reports system reviewed and no additional complaints, except as documented, Denies chest pain at rest - Respiratory Reports no additional respiratory complaints, Denies chest congestion - Gastrointestinal Reports system reviewed and no additional complaints, except as documented, Denies abdominal pain, Denies change in bowel habits - Genitourinary Reports no additional female genitourinary complaints - Musculoskeletal Reports system reviewed and no additional complaints, except as documented - Integumentary/Breasts Skin/Breast: Reports no additional skin complaints - Neurologic Reports system reviewed and no additional complaints, except as documented, Denies abnormal gait - Psychiatric Reports system reviewed and no additional complaints, except as documented, Denies anxiety - Endocrine Reports no additional endocrine complaints, Denies excessive sweating - Hematologic/Lymphatic Reports system reviewed and no additional complaints, except as documented, Denies easy bleeding, Denies easy bruising - Allergic/Immunologic Reports system reviewed and no additional complaints, except as documented, Reports GI upset with certain foods PMFSH Medical History: Medical History (Last Updated 06/23/20 @ 12:30 by Heather Diez MD) Abdominal pain Biliary obstruction Cholangiocarcinoma HTN (hypertension) Hyperlipidemia Osteoarthritis Ovarian cancer Type 2 diabetes mellitus with hyperglycemia Vitamin D deficiency Functional capacity: independent ambulation Patient : No Family History: Family History (Last Reviewed 05/20/20 @ 19:33 by Vlad Littlejohn MD) Father Diabetes Mother Diabetes Cancer Surgical History: Surgical History (Last Reviewed 05/20/20 @ 19:33 by Vlad Littlejohn MD) History of laparoscopic cholecystectomy History of surgery Social History: Social History (Last Reviewed 05/20/20 @ 19:33 by Vlad Littlejohn MD) Living Situation History: Household Members: Family Housing: Apartment Tobacco History: Second Hand Smoke Exposure: No Nutrition Assessment: Patient : No Occupation Assessmet: service: No Current occupational status: unemployed Home Medications and Allergies Home Medications Medication Instructions Recorded Confirmed Type omeprazole 1 cap PO QAM 04/22/20 06/23/20 History spironolactone 25 mg tablet 25 mg PO DAILY tab 06/23/20 07/19/20 History Allergies Allergy/AdvReac Type Severity Reaction Status Date / Time lisinopril [LISINOPRIL] Allergy Severe SWELLING/NAUSEA/ITCHING, Verified 05/17/20 13:44 cough, swellimg, redness sunflower seed Allergy Severe ANAPHYLAXIS Verified 05/17/20 13:44 [SUNFLOWER SEED] wheat [WHEAT] Allergy Severe ANAPHYLAXIS Verified 05/17/20 13:44 Exam Vital signs: Vital Signs Temp 98.2 F 07/19/20 09:20 Pulse 76 07/19/20 09:20 Resp 12 07/19/20 09:20 BP 119/63 07/19/20 09:20 Pulse Ox 100 07/19/20 09:20 Intake & Output 07/18/20 07/19/20 07/19/20 18:59 06:59 18:59 Other: Weight 58.1 kg Weight in Grams 22455 Weight 58.1 kg Body Mass Index 25.0 - Constitutional Present: no acute distress - Routine HEENT Exam Head: Present: normal inspection Eye: Present: normal appearance ENT: Present: mucous membranes moist - Routine Neck Exam Present: full ROM - Routine Respiratory Exam Present: CTAB - Routine Cardiovascular Exam Cardiovascular: Present: RRR, S1, S2 - Routine Abdominal Exam Present: distended - Routine Rectal Exam Patient deferred: digital exam - Routine Extremities Exam Present: nontender - Routine Back/Spine/Pelvis Exam Back/Spine: Present: full ROM - Routine Skin Exam Present: intact - Routine Neurological Exam Present: alert, oriented X3 - Detailed Neurological Exam: Coma Scale Eye Opening: Spontaneous (4) - Routine Psychiatric Exam Present: normal affect Data - Labs CBC & Chem 7: 07/19/20 09:17 07/19/20 09:17 Labs: 05/17/20 14:09 CA 19-9 [Carbohydrate Antigen 19-9] Routine Carcinoembryonic Antigen Routine Complete Blood Count Auto Diff Routine Comprehensive Met. Panel Routine 06/18/20 09:35 Complete Blood Count Auto Diff Routine Comprehensive Met. Panel Routine Laboratory Last Values WBC 7.8 X10*3/uL (4.8-10.8) 06/18/20 09:35 RBC 4.12 X10*6/uL (4.20-5.50) L 06/18/20 09:35 Hgb 12.1 g/dl (12.0-16.0) 06/18/20 09:35 Hct 35.6 % (37-47) L 06/18/20 09:35 MCV 86.4 fL (80-98) 06/18/20 09:35 MCH 29.4 pg (27.0-33.0) 06/18/20 09:35 MCHC 34.0 g/dl (31.0-35.0) 06/18/20 09:35 RDW 13.2 % (11.0-16.0) 06/18/20 09:35 Plt Count 209 X10*3/uL (160-400) 06/18/20 09:35 MPV 9.9 fL (9.4-12.3) 06/18/20 09:35 Immature Gran % (Auto) 0.3 % (0.0-0.4) 06/18/20 09:35 Neut % (Auto) 66.5 % (45-73) 06/18/20 09:35 Lymph % (Auto) 21.0 % (20-40) 06/18/20 09:35 [place] % (Auto) 5.1 % (2-11) 06/18/20 09:35 Eos % (Auto) 6.2 % (0-4) H 06/18/20 09:35 Baso % (Auto) 0.9 % (0-2) 06/18/20 09:35 Lymph # (Auto) 1.6 X10*3/uL (1.2-4.9) 06/18/20 09:35 [place] # (Auto) 0.4 X10*3/uL (0.1-1.2) 06/18/20 09:35 Eos # (Auto) 0.5 X10*3/uL (0.0-0.4) H 06/18/20 09:35 Baso # (Auto) 0.1 X10*3/uL (0.0-0.2) 06/18/20 09:35 Abs Immat Gran (auto) 0.02 X10*3/uL (0.00-0.03) 06/18/20 09:35 Absolute Neuts (auto) 5.2 X10*3/uL (2.0-8.3) 06/18/20 09:35 Absolute Nucleated RBC 0.000 X10*3/uL (0.0-0.012) 06/18/20 09:35 Nucleated RBC % (auto) 0.0 /100WBC (0.0-0.2) 06/18/20 09:35 Sodium 139 mmol/L (135-145) 06/18/20 09:35 Potassium 4.2 mmol/l (3.3-5.1) 06/18/20 09:35 Chloride 109 mmol/L (96-108) H 06/18/20 09:35 Carbon Dioxide 19 mmol/L (22-29) L 06/18/20 09:35 Anion Gap 15 (12-20) 06/18/20 09:35 BUN 25 mg/dL (9-16) H 06/18/20 09:35 Creatinine 1.23 mg/dL (0.5-1.4) 06/18/20 09:35 Estim Creat Clear Calc 32.0 06/18/20 09:35 Estimated GFR 43 06/18/20 09:35 Random Glucose 120 mg/dL (60-115) H 06/18/20 09:35 Calcium 8.4 mg/dL (8.4-10.2) D 06/18/20 09:35 Total Bilirubin 0.9 mg/dL (0.0-1.0) 06/18/20 09:35 AST 90 U/L (5-31) H 06/18/20 09:35 ALT 59 U/L (0-31) H 06/18/20 09:35 Alkaline Phosphatase 223 U/L (39-117) H 06/18/20 09:35 Total Protein 7.0 g/dL (6.5-8.0) 06/18/20 09:35 Albumin 3.6 g/dL (3.5-5.0) 06/18/20 09:35 Carcinoembryonic Ag 5.40 mg/mL 05/17/20 14:09 CA 19-9 Antigen 44 U/mL (<34) H 05/17/20 14:09 Progress Note: A/P (1) H/O cancer of gall bladder Status: Inactive Assessment and plan: 74-year-old unfortunate lady with a H/O Gall bladder Cancer and recent diagnosis of Endometrial Carcinoma. Unfortunately she was deemed not a candidate for the endometrial cancer, on account of end-stage liver disease. She has been seen at [facility] by Dr. Marquez. She was also evaluated by GI at [facility]. She was then referred to Dr. Marcos for further evaluation. He proceeded with MRI of the liver that was done. She has been under the care of Dr. Marquez. She proceeded with a biopsy of the pelvic mass. this was done on 05/07 and revealed: Adenocarcinoma. Tumor appeared morphologically distinct from the patient's endometrioid adenocarcinoma of the endometrium. Packs 8 and ER negativity also do not support metastatic endometrial carcinoma. Rare malignant cells present compatible with metastatic gallbladder adenocarcinoma, but other primary sites cannot be absolutely excluded especially given the paucity of malignant cells in the specimen. I went over the results of the pathology with her and her grandson. Explained that only option for treatment would be with chemotherapy, however that would be palliative at best. I would be concerned more about, toxicity especially with her underlying liver disease, gemcitabine being hepatotoxic. However according to the NCCN guidelines there are options of targeted therapy, if she has an NNTR mutation or in case of MSI high tumor, Pembrolizumab would be an option. At this point she has had symptoms of nausea. That does appear to be under control with antiemetic, Zofran. She has had an improved appetite and gained some weight. She, otherwise has good quality of life. Treatment would have more of a potential for toxicity and affect that in a negative manner. I am also concern ed about her limited hepatic reserve. I have requested testing for these markers at [facility]. PLAN: For now is to focus on symptomatic measures optimize her condition. She has been maintained on diuretics. Will send a refill on furosemide. Will assess need for further paracenteses based upon her symptoms. I had a detailed discussion with her and her grandson about goals of care and limited treatment options. We set up an appointment with Dr. Marcos. All there questions were answered. She will return in a month for a follow-up visit. Thank you, Dr. Diez. Dr. Marcos. Dr. Renae Robledo. - Time Spent With Patient Total time spent is greater than 50% in coordination of care (as documented) at patient's floor/unit and/or counseling patient: 25 - 35 minutes
[2020-07-19 09:37] LABS: Basophils Absolute Auto 0.1 X10*3/uL (0.0-0.2); Basophils Percent Auto 0.7 % (0-2); Eosinophils Absolute Auto 0.6 X10*3/uL (0.0-0.4); Eosinophils Percent Auto 8.5 % (0-4); Hematocrit 34.5 % (37-47); Hemoglobin 11.8 g/dl (12.0-16.0); Imm Gran Abs Auto 0.01 X10*3/uL (0.00-0.03); Imm Gran Pct Auto 0.1 % (0.0-0.4); Lymphocytes Absolute Auto 1.7 X10*3/uL (1.2-4.9); Mean Corpuscular HGB Conc 34.2 g/dl (31.0-35.0); Mean Corpuscular Hemoglobin 29.1 pg (27.0-33.0); Mean Corpuscular Volume 85.2 fL (80-98); Mean Platelet Volume 10.9 fL (9.4-12.3); Monocytes Absolute Auto 0.4 X10*3/uL (0.1-1.2); Monocytes Percent Auto 6.2 % (2-11); Neutrophils Absolute Auto 4.2 X10*3/uL (2.0-8.3); Neutrophils Percent Auto 60.5 % (45-73); Platelet Count 229 X10*3/uL (160-400); Red Blood Count 4.05 X10*6/uL (4.20-5.50); Red Cell Distribution Width 16.3 % (11.0-16.0)
--- NOTE | 2020-07-19 09:53 | MHC.HEMONCMA ---
Patient was here for a follow up today with her grandson, states that she is doing ok other than the increase in her itchy and her side pain. Grandson states that she had her first covid dose here on 07/14/2020 and is due for her second one. Patient's allergies and medications were reviewed and updated. She had lab work and will return in 6 months for a follow up. Dr Gallegos would like for her to have a follow up with Dr Marcos, so i called and got her an appt for 09/02/2020 at 3:15pm.
[2020-07-19 10:07] LABS: Alanine Aminotransferase 78 U/L (0-31); Albumin Level 3.3 g/dL (3.5-5.0); Alkaline Phosphatase 564 U/L (39-117); Anion Gap 13 (12-20); Aspartate Amino Transferase 97 U/L (5-31); Bilirubin Total 4.2 mg/dL (0.0-1.0); Blood Urea Nitrogen 21 mg/dL (9-16); Calcium 8.5 mg/dL (8.4-10.2); Carbon Dioxide 18 mmol/L (22-29); Chloride 110 mmol/L (96-108); Creatinine Clr Calc Pharmacy 37.5; Estimated Glomerular Filt Rate 51; Glucose Random 133 mg/dL (60-115); Potassium 4.4 mmol/L (3.3-5.1); Sodium 137 mmol/L (135-145); Total Protein 6.5 g/dL (6.5-8.0)
[2020-07-19 10:21] LABS: Vitamin D 25-OH Total 14.2 ng/mL (>30)
[2020-07-20 09:32] LABS: CA-125 176 U/mL (<35)
[2020-07-20 11:27] LABS: CA 27.29 19 U/mL (<38)
--- NOTE | 2020-12-01 11:53 | HO.HEMONCPA ---
Addendum entered by Edel Dickson 12/01/20 12:52: PA FOR FENTANYL 25mcg/hr WAS DENIED. Reference # [id number]. Document scanned in chart. Dipak (pt's grandson) was notifed of PA decision. Original Note: PA FOR FENTANYL 25mcg/hr WAS DENIED. Reference # [id number]. Document scanned in chart
[2020-12-03 14:41] VITALS: BP 124/62; PULSE 79; RESP 18; TEMP 36.3; O2SAT 99; BMI 22.4
--- NOTE | 2020-12-03 14:58 | MHC.HEMONC ---
Addendum entered by Adela Mcneal RN 12/03/20 15:31: Labs not drawn today-grandson states his grandmother doesn't need lab work today. Original Note: Pt here for ONC follow up with Dr Powell. Grandson with pt providing translation. Clinical summary updated by nurse. Family requesting fentanyl patch for pain. Dr Powell notified and in room to see pt. Labs drawn by run lead-specimen sent to lab. Discharged home.
--- NOTE | 2020-12-03 15:05 | PM.HEMONCPN ---
Medical Summary - Medical Summary Date of Service: 12/03/20 Chief complaint: Follow-up for: Metastatic gallbladder cancer. Medical Summary: DIAGNOSIS: 1. GALL BLADDER CANCER. 2. METASTATIC OVARIAN CANCER. CURRENT THERAPY: 1. OBSERVATION. 2. Has been under hospice care. 3. Would like to switch to palliative care. Interval History Interval history: This is a pleasant 75 year-old lady, here for a follow-up visit. She was seen in the emergency room on 11/28: HPI narrative: Patient comes emergency room complaining of diffuse abdominal pain. 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 Patient states that for last 2 days she has been having diffuse abdominal pain, vomiting and diarrhea. Patient is now under hospice care/palliative care. Patient still gets therapeutic paracentesis to relieve the pain and pressure in the abdomen. Patient denies fever chills. Patient's labs were at baseline. Unfortunately, the pelvic masses grew in size. I discussed with the patient's grandson if the patient is unable to eat, the option of a G-tube. Patient's grandson states that at this time they are not considering it. Patient was given IV pain medication,she stated that she feels better. Patient requested medication for the diarrhea. Patient was given 1 dose of Lomotil. Patient was in quite a bit of pain. She was started on a fentanyl patch. The hospice services will likely be cancelled, since patient was seen in the ER. They have now come to the decision that she would like to be on palliative care services so she can have paracentesis for comfort if and when required. She is here for follow-up visit. She tells me she is feeling better today. Her belly is not too distended. She is on the diuretic. She has not rquired paracentesis for a couple of months. She still feels comfortable. She tells me she is eating, however sometimes she feels nauseaous, sometimes, especially in the morning.The omeprazole is helping the heartburn and indigestion. Bowels are working without any gross blood in it. Her weight is stable. She gets abdominal pain, and dyspepsia. The omeprazole is helping the heartburn and indigestion. Bowels are working without any gross blood in it. She has lost weight. She was eating better, while she was on fentanyl. Energy level is still low She denies any fever chills no night sweats. She denies chest pain or trouble breathing. She is in good spirits. Rest of the review of systems is unremarkable. She did receive the two doses of the vaccine. Review of Systems - Constitutional Reports no additional constitutional complaints, Denies body aches, Denies chills, Reports fatigue, Denies fever(s), Denies frequent falls, Reports lack of energy, Reports weight loss - Eyes Reports no additional eye complaints, Denies blurry vision - ENT Reports no additional ear, nose, mouth, and throat complaints, Reports hearing normal - Cardiovascular Reports no additional cardiovascular complaints - Respiratory Reports no additional respiratory complaints - Gastrointestinal Reports no additional gastrointestinal complaints, Reports abdominal pain, Denies black, tarry stools, Reports bloating, Reports constipation, Reports feeling full early, Denies pain with swallowing - Genitourinary Reports no additional female genitourinary complaints - Musculoskeletal Reports no additional musculoskeletal complaints - Integumentary/Breasts Skin/Breast: Reports no additional skin complaints - Neurologic Reports no additional neurologic complaints, Denies abnormal gait - Psychiatric Reports no additional psychiatric complaints - Endocrine Reports no additional endocrine complaints - Hematologic/Lymphatic Reports no additional hematologic/lymphatic complaints - Allergic/Immunologic Reports no additional allergic/immunologic complaints [facility] Medical History: Medical History (Last Reviewed 11/28/20 @ 22:52 by Padmini Escobedo MD) Abdominal pain Acute liver failure Biliary obstruction Cholangiocarcinoma HTN (hypertension) Hyperlipidemia Osteoarthritis Ovarian cancer Type 2 diabetes mellitus with hyperglycemia Vitamin D deficiency Functional capacity: independent ambulation Patient : No Family History: Family History (Last Reviewed 09/28/20 @ 04:47 by Bernardo Mendez MD) Father Diabetes Mother Diabetes Cancer Surgical History: Surgical History (Last Reviewed 11/28/20 @ 22:52 by Padmini Escobedo MD) History of laparoscopic cholecystectomy History of surgery Social History: Social History (Last Reviewed 09/28/20 @ 04:47 by Bernardo Mendez MD) Living Situation History: Household Members: Family Housing: Apartment Do you presently have visiting nurse or other home services: No Alcohol History Details: Alcohol intake frequency: does not drink Tobacco History: Second Hand Smoke Exposure: No Nutrition Assessment: Patient : No Occupation Assessmet: service: No Current occupational status: unemployed Oncology Screenings - ECOG Performance Status ECOG Performance Status: 1 Home Medications and Allergies Home Medications Medication Instructions Recorded Confirmed Type omeprazole 1 cap PO QAM 04/22/20 12/03/20 History ursodiol 2 tab PO BID 09/28/20 12/03/20 History Allergies Allergy/AdvReac Type Severity Reaction Status Date / Time lisinopril [LISINOPRIL] Allergy Severe SWELLING/NAUSEA/ITCHING, Verified 05/17/20 13:44 cough, swellimg, redness sunflower seed Allergy Severe ANAPHYLAXIS Verified 05/17/20 13:44 [SUNFLOWER SEED] wheat [WHEAT] Allergy Severe ANAPHYLAXIS Verified 05/17/20 13:44 Exam Vital signs: Vital Signs Temp 97.4 F 12/03/20 14:41 Pulse 79 12/03/20 14:41 Resp 18 12/03/20 14:41 BP 124/62 12/03/20 14:41 Pulse Ox 99 12/03/20 14:41 Intake & Output 12/02/20 12/03/20 12/03/20 18:59 06:59 18:59 Other: Weight 52 kg [place] Weight in Grams [id number] Weight 52 kg Body Mass Index 22.4 - Constitutional Present: no acute distress, thin, chronically ill appearing - Routine HEENT Exam Head: Present: normal inspection Eye: Present: normal appearance ENT: Present: mucous membranes moist, normal exam - Routine Neck Exam Present: full ROM - Routine Respiratory Exam Present: CTAB - Routine Cardiovascular Exam Cardiovascular: Present: RRR, S1, S2 - Routine Abdominal Exam Present: distended, firm, hypoactive bowel sounds, organomegaly, tenderness Comments: Peritoneal implants. - Routine Rectal Exam Patient deferred: digital exam - Routine Extremities Exam Present: nontender - Routine Back/Spine/Pelvis Exam Back/Spine: Present: full ROM - Routine Skin Exam Present: intact - Routine Neurological Exam Present: alert, oriented X3 - Detailed Neurological Exam: Coma Scale Eye Opening: Spontaneous (4) - Routine Psychiatric Exam Present: normal affect Data - Labs CBC & Chem 7: 07/19/20 09:17 07/19/20 09:17 Labs: 05/17/20 14:09 CA 19-9 [Carbohydrate Antigen 19-9] Routine Carcinoembryonic Antigen Routine Complete Blood Count Auto Diff Routine Comprehensive Met. Panel Routine 06/18/20 09:35 Complete Blood Count Auto Diff Routine Comprehensive Met. Panel Routine Laboratory Last Values WBC 7.8 X10*3/uL (4.8-10.8) 06/18/20 09:35 RBC 4.12 X10*6/uL (4.20-5.50) L 06/18/20 09:35 Hgb 12.1 g/dl (12.0-16.0) 06/18/20 09:35 Hct 35.6 % (37-47) L 06/18/20 09:35 MCV 86.4 fL (80-98) 06/18/20 09:35 MCH 29.4 pg (27.0-33.0) 06/18/20 09:35 MCHC 34.0 g/dl (31.0-35.0) 06/18/20 09:35 RDW 13.2 % (11.0-16.0) 06/18/20 09:35 Plt Count 209 X10*3/uL (160-400) 06/18/20 09:35 MPV 9.9 fL (9.4-12.3) 06/18/20 09:35 Immature Gran % (Auto) 0.3 % (0.0-0.4) 06/18/20 09:35 Neut % (Auto) 66.5 % (45-73) 06/18/20 09:35 Lymph % (Auto) 21.0 % (20-40) 06/18/20 09:35 [place] % (Auto) 5.1 % (2-11) 06/18/20 09:35 Eos % (Auto) 6.2 % (0-4) H 06/18/20 09:35 Baso % (Auto) 0.9 % (0-2) 06/18/20 09:35 Lymph # (Auto) 1.6 X10*3/uL (1.2-4.9) 06/18/20 09:35 [place] # (Auto) 0.4 X10*3/uL (0.1-1.2) 06/18/20 09:35 Eos # (Auto) 0.5 X10*3/uL (0.0-0.4) H 06/18/20 09:35 Baso # (Auto) 0.1 X10*3/uL (0.0-0.2) 06/18/20 09:35 Abs Immat Gran (auto) 0.02 X10*3/uL (0.00-0.03) 06/18/20 09:35 Absolute Neuts (auto) 5.2 X10*3/uL (2.0-8.3) 06/18/20 09:35 Absolute Nucleated RBC 0.000 X10*3/uL (0.0-0.012) 06/18/20 09:35 Nucleated RBC % (auto) 0.0 /100WBC (0.0-0.2) 06/18/20 09:35 Sodium 139 mmol/L (135-145) 06/18/20 09:35 Potassium 4.2 mmol/l (3.3-5.1) 06/18/20 09:35 Chloride 109 mmol/L (96-108) H 06/18/20 09:35 Carbon Dioxide 19 mmol/L (22-29) L 06/18/20 09:35 Anion Gap 15 (12-20) 06/18/20 09:35 BUN 25 mg/dL (9-16) H 06/18/20 09:35 Creatinine 1.23 mg/dL (0.5-1.4) 06/18/20 09:35 Estim Creat Clear Calc 32.0 06/18/20 09:35 Estimated GFR 43 06/18/20 09:35 Random Glucose 120 mg/dL (60-115) H 06/18/20 09:35 Calcium 8.4 mg/dL (8.4-10.2) D 06/18/20 09:35 Total Bilirubin 0.9 mg/dL (0.0-1.0) 06/18/20 09:35 AST 90 U/L (5-31) H 06/18/20 09:35 ALT 59 U/L (0-31) H 06/18/20 09:35 Alkaline Phosphatase 223 U/L (39-117) H 06/18/20 09:35 Total Protein 7.0 g/dL (6.5-8.0) 06/18/20 09:35 Albumin 3.6 g/dL (3.5-5.0) 06/18/20 09:35 Carcinoembryonic Ag 5.40 mg/mL 05/17/20 14:09 CA 19-9 Antigen 44 U/mL (<34) H 05/17/20 14:09 Progress Note: A/P (1) H/O cancer of gall bladder Status: Inactive Assessment and plan: 75 year-old unfortunate lady with a H/O Gall bladder Cancer and recent diagnosis of Endometrial Carcinoma. Unfortunately she was deemed not a candidate for the endometrial cancer, on account of end-stage liver disease. She has been seen at [facility] by Dr. Marquez. She was also evaluated by GI at [facility]. She was then referred to Dr. Marcos for further evaluation. He proceeded with MRI of the liver that was done. She has been under the care of Dr. Marquez. She proceeded with a biopsy of the pelvic mass. this was done on 05/07 and revealed: Adenocarcinoma. Tumor appeared morphologically distinct from the patient's endometrioid adenocarcinoma of the endometrium. Packs 8 and ER negativity also do not support metastatic endometrial carcinoma. Rare malignant cells present compatible with metastatic gallbladder adenocarcinoma, but other primary sites cannot be absolutely excluded especially given the paucity of malignant cells in the specimen. I went over the results of the pathology with her and her grandson. Explained that only option for treatment would be with chemotherapy, however that would be palliative at best. I would be concerned more about, toxicity especially with her underlying liver disease, gemcitabine being hepatotoxic. However according to the NCCN guidelines there are options of targeted therapy, if she has an NNTR mutation or in case of MSI high tumor, Pembrolizumab would be an option. At this point she has had symptoms of nausea. That does appear to be under control with antiemetic, Zofran. She has had an improved appetite and gained some weight. She, otherwise has good quality of life. Treatment would have more of a potential for toxicity and affect that in a negative manner. I am also concerned about her limited hepatic reserve. I requested testing for these markers at [facility] pathology. Back in July the patient had signed on with hospice. However they have not elected to switch to palliative care. She is here for a follow-up visit. She still has pain issues. She had tried fentanyl patch which was given from the ER. That helped the pain. She did not need breakthrough pain medication. With that she was having the side effects. Was eating better and moving well. PLAN: I will send a prescription of the fentanyl to her pharmacy. 25 mcg Q 72 hours. The grandson will need to notify her insurance, that he they are switching to palliative care, for them to cover it For now she is comfortable so does not need a paracentesis. She has been maintained on diuretics. Will assess need for further paracenteses based upon her symptoms. I had a detailed discussion with her and her grandson about goals of care and limited treatment options. All there questions were answered. She will return on a p.r.n. basis. Thank you, Dr. Diez. Dr. Marcos. Dr. Renae Robledo. - Time Spent With Patient 25 - 35 minutes
--- NOTE | 2021-01-28 16:20 | MHC.HEMONC ---
Pt is booked for paracentesis on Sunday the (SILKE RN, Saleem notified us of increase in pt abdominal girth) but when I called pt grandson, Tenzin to notify him of appt he was unsure if she needs it. She was in ER earlier in week and CT just showed stool. He will let us know on Sunday if it is needed.
== END 2021-04-17 | disposition home or self-care (01) ==
LOC: HO.ONC 14:35
PROVIDERS: PCP Internal Medicine; Visit Provider Internal Medicine Medical Oncology
DX: C23 Malignant neoplasm of gallbladder (principal); C79.82 Secondary malignant neoplasm of genital organs; C78.7 Secondary malignant neoplasm of liver and intrahepatic bile duct; C79.60 Secondary malignant neoplasm of unspecified ovary; K72.90 Hepatic failure, unspecified without coma; K74.60 Unspecified cirrhosis of liver; R18.8 Other ascites; Z51.5 Encounter for palliative care
CPT/HCPCS: 36415; 80053; 82306; 82378; 85025; 86300; 86301; 86304; 99214

== ENCOUNTER 2021-01-24 11:20 | Emergency (ER) | payer MEDICARE, SELFPAY ==
--- NOTE | ~2021-01-24 | XR_ITS ---
EXAMINATION: XR ABDOMEN KUB CLINICAL INDICATION: Constipation. Evaluate for obstruction. COMPARISON: Most recent CT abdomen/pelvis dated 12/28/2020. TECHNIQUE: AP views of the abdomen. FINDINGS: Moderate to severe stool throughout the colon. Nonobstructive bowel gas pattern. Right upper quadrant surgical clips. Redemonstration of multiple phleboliths. No acute osseous abnormality. XR/XR KUB IMPRESSION: Moderate to severe stool burden.
[2021-01-24 12:18] VITALS: BP 122/68; PULSE 79; RESP 18; TEMP 36.8; O2SAT 100; BMI 21.5
--- NOTE | 2021-01-24 12:47 | PC.NURSE ---
patient has multiple complaints that vary in consistency- per pt she has been having diarrhea for 2 weeks and yesterday her son gave her an immodium to help with the diarrhea. patient c/o rectal pain and all over belly pain but denies bloody stool or use of blood thinners. when inquired when the patients last BM was, she states 3 days ago. This RN tried to clarify as the patient stated she was having diarrhea for three weeks and took medication for it yesterday and was confused if she had not had a bowel movement for three days, why she took the immodium. Patient unable to answer the question appropriately, per the son she was having diarrhea yesterday.
[2021-01-24] MEDS: Mineral OiL enema 133 ML ENEMA PR (14:26)
--- NOTE | 2021-01-24 14:41 | ED_ITS ---
HPI - General Adult General Chief complaint: Abdominal Pain Stated complaint: rectal pain Time Seen by Provider: 01/24/21 12:55 Source: patient Mode of arrival: ambulatory Limitations: no limitations History of Present Illness HPI narrative: Patient presents to the ED for rectal pain and constipation. Son states patient was given Imodium and had some diarrhea. Son states patient is on narcotics. Patient herself states she feels bloated. Related Data Home Medications Medication Instructions Recorded Confirmed omeprazole 40 mg capsule,delayed 1 cap PO QAM 04/22/20 12/03/20 release ursodiol 250 mg tablet 2 tab PO BID 09/28/20 12/03/20 Previous Rx's Medication Instructions Recorded diphenhydramine HCl 25 mg tablet 50 mg PO TID PRN #20 tab 07/29/20 (Benadryl Allergy) famotidine 20 mg tablet (Pepcid) 20 mg PO BID #20 tab 07/29/20 spironolactone 25 mg tablet 50 mg PO DAILY #180 tab 08/12/20 oxycodone 5 mg tablet 5 - 10 mg PO Q6H PRN #30 tab 09/29/20 ondansetron HCl 4 mg tablet 8 mg PO Q8H #60 tab 09/30/20 (Zofran) lorazepam 0.5 mg tablet 0.5 mg PO BEDTIME PRN #30 tab 11/11/20 morphine 15 mg tablet,extended 15 mg PO Q12H #14 tab 11/29/20 release oxycodone 5 mg tablet 5 mg PO Q6H PRN #20 tab 11/29/20 fentanyl 25 mcg/hr transdermal 1 patch TRANSDERMAL Q72H #5 ea 12/03/20 patch loratadine 10 mg tablet (Claritin) 10 mg PO DAILY 90 Days #90 tab 12/28/20 furosemide 40 mg tablet 40 mg PO DAILY #30 tab 01/05/21 fentanyl 25 mcg/hr transdermal 1 patch TRANSDERMAL Q72H #10 ea 01/14/21 patch oxycodone 5 mg tablet 5 mg PO Q4H PRN #60 tab 01/14/21 Allergies Allergy/AdvReac Type Severity Reaction Status Date / Time lisinopril [LISINOPRIL] Allergy Severe SWELLING/NAUSEA/ITCHING, Verified 05/17/20 13:44 cough, swellimg, redness sunflower seed Allergy Severe ANAPHYLAXIS Verified 05/17/20 13:44 [SUNFLOWER SEED] wheat [WHEAT] Allergy Severe ANAPHYLAXIS Verified 05/17/20 13:44 Review of Systems Review of Systems: Yes all other systems are reviewed and are negative Constitutional: Constitutional: Reports as per HPI and Reports no additional constitutional complaints Eyes: Eyes: Reports as per HPI and Reports no additional eye complaints ENT: Reports system reviewed and no additional complaints, except as documented and Reports as per HPI Cardiovascular: Cardiovascular: Reports as per HPI and Reports no additional cardiovascular complaints Respiratory: Respiratory: Reports as per HPI and Reports no additional respiratory complaints Gastrointestinal: Gastrointestinal: Reports as per HPI, Reports no additional gastrointestinal complaints and Reports abdominal pain Comments: Constipation Musculoskeletal: Musculoskeletal: Reports no additional musculoskeletal complaints Neurologic: Reports system reviewed and no additional complaints, except as documented and Reports as per HPI Psychiatric: Psychiatric: Reports no additional psychiatric complaints and Reports as per HPI PMF Past Medical History Medical History Abdominal pain Acute liver failure Biliary obstruction Cholangiocarcinoma HTN (hypertension) Hyperlipidemia Osteoarthritis Ovarian cancer Type 2 diabetes mellitus with hyperglycemia Vitamin D deficiency Surgical History History of laparoscopic cholecystectomy History of surgery Family History Family History Father Diabetes Mother Diabetes Cancer Social History Social History Household Members: Family Housing: Apartment Do you presently have visiting nurse or other home services: No Alcohol intake: never Smoked in Last 30 Days: No Second Hand Smoke Exposure: No Use of substances other than those prescribed or required for medical reasons: No Advance Directives: No Advance Directives Information Provided: Yes service: No Current occupational status: unemployed Physical Exam Vital Signs: Vital Signs: Last Vital Signs Temp 98.2 F 01/24/21 12:18 Pulse 79 01/24/21 12:18 Resp 18 01/24/21 12:18 BP 122/68 01/24/21 12:18 Pulse Ox 100 01/24/21 12:18 Body Mass Index 21.5 Const: General: cooperative, healthy appearing, comfortable, no acute distress, well developed, alert and awake Orientation/consciousness: patient oriented x3 HENMT: Head: Yes normal to inspection, Yes No palpable skull fracture present, Yes normocephalic and Yes atraumatic Eyes: General: appearance normal, both eyes and all related structures Neck: Neck: Yes normal visual inspection, Yes full ROM, Yes no lymphadenopathy, Yes no meningeal signs, Yes trachea midline, Yes supple and No tender Chest: Chest palpation & inspection: normal inspection of the chest and normal palpation of entire chest wall Resp: Effort & Inspection: normal respiratory effort and able to speak in complete sentences Auscultation: clear to auscultation bilaterally Cardio: Jugular venous distension: no JVD Heart sounds: S1 normal heart sound present and S2 normal heart sound present GI: Other: Rectal exam negative for any hemorrhoids. Rectal exam positive for stool near the rectal opening. Inspection: Yes normal to inspection and No abdominal wall ecchymosis Palpation (GI): Soft to palpation, not firm, nontender, no guarding and not rigid : General: No CVA tenderness and Yes no CVA tenderness Back/Spine/Pelvis: Back: no CVA tenderness, No CVA tenderness and No back tenderness Skin: General skin exam: no rashes or lesions noted and elasticity normal Neuro: General: patient oriented x3, gait normal, no meningeal signs and CN's II-XI intact bilaterally Cranial nerves: Yes CN's II-XII intact bilaterally Extrem: General: Yes normal to inspection and Yes full ROM Psych: Appearance: grossly normal, well kempt and not disheveled Course Course Course Narrative: Will do x-ray to evaluate for possible fecal impaction versus obstruction. Reevaluation(s) Reevaluation #1: X-ray shows fecal impaction moderate stool. Bedside fecal disimpaction was done and mineral oil Fleet enema was use to remove her stool. Large amount of stool was removed. Patient feels better. Patient given bottle of magnesium citrate and told to take at home. Time: 14:56 Medical Decision Making [facility] Narrative Medical decision making narrative: Fecal impaction Discharge Plan Discharge Clinical Impression: Constipation, Fecal impaction Patient Disposition: Home, Self-Care Instructions: Constipation (ED) Additional Instructions: Hip x-ray showed constipation/fecal impaction. You had successful fecal disimpaction. Return to ED for abdominal pain, nausea, vomiting, fever, chills, rectal bleeding, decreased appetite, or any other concerning symptoms. Take the magnesium citrate at home. FOllow up with PCP Prescriptions: No Action spironolactone 25 mg tablet 50 mg PO DAILY Qty: 180 RF: 1 loratadine [Claritin] 10 mg tablet 10 mg PO DAILY 90 Days Qty: 90 RF: 3 omeprazole 40 mg capsule,delayed release(DR/EC) 1 cap PO QAM RF: 0 diphenhydramine HCl [Benadryl Allergy] 25 mg tablet 50 mg PO TID PRN (Reason: itching) Qty: 20 RF: 0 famotidine [Pepcid] 20 mg tablet 20 mg PO BID Qty: 20 RF: 0 morphine 15 mg tablet extended release 15 mg PO Q12H Qty: 14 RF: 0 oxycodone 5 mg tablet 5 mg PO Q6H PRN (Reason: pain) Qty: 20 RF: 0 lorazepam 0.5 mg Tablet 0.5 mg PO BEDTIME PRN (Reason: Anxiety) Qty: 30 RF: 0 fentanyl 25 mcg/hr Patch 72 Hour 1 patch TRANSDERMAL Q72H Qty: 5 RF: 0 furosemide 40 mg tablet 40 mg PO DAILY Qty: 30 RF: 1 fentanyl 25 mcg/hr Patch 72 Hour 1 patch TRANSDERMAL Q72H Qty: 10 RF: 0 oxycodone 5 mg Tablet 5 mg PO Q4H PRN (Reason: Breakthrough Pain, Moderate) Qty: 60 RF: 0 ursodiol 250 mg tablet 2 tab PO BID RF: 0 oxycodone 5 mg tablet 5 - 10 mg PO Q6H PRN (Reason: pain (scale score 7-10)) Qty: 30 RF: 0 ondansetron HCl [Zofran] 4 mg Tablet 8 mg PO Q8H Qty: 60 RF: 3 Interventions: ED Discharge Assessment Last Done: 01/24/21 15:28 Discharge Date/Time: 01/24/21 15:28 Print Language: Bengali
[2021-01-24] MEDS: Magnesium Citrate 300 ML SOLUTION PO (14:46)
== END 2021-01-24 15:28 | disposition home or self-care (01) ==
PROVIDERS: Emergency Provider Internal Medicine; PCP Internal Medicine
DX: K56.41 Fecal impaction (principal)
CPT/HCPCS: 74018; 99284

== ENCOUNTER 2021-02-01 11:03 | Day surgery (SDC) | payer MEDICARE, SELFPAY ==
--- NOTE | ~2021-02-01 | US_ITS ---
EXAMINATION: US ABDOMEN LIMITED CLINICAL INFORMATION: Ascites check. COMPARISON: None TECHNIQUE: Real-time limited imaging of the abdominal quadrants. US/US abdomen limited FINDINGS/IMPRESSION: No significant peritoneal ascites was visualized.
[2021-02-01 11:30] VITALS: BP 118/73; PULSE 74; RESP 18; TEMP 36.1; O2SAT 98
[2021-02-01 11:46] VITALS: BMI 21.5
[2021-02-01 12:04] LABS: Basophils Absolute Auto 0.1 X10*3/uL (0.0-0.2); Basophils Percent Auto 0.2 % (0-2); Hematocrit 23.7 % (37-47); Hemoglobin 8.3 g/dl (12.0-16.0); Imm Gran Abs Auto 0.31 X10*3/uL (0.00-0.03); Imm Gran Pct Auto 1.1 % (0.0-0.4); Lymphocytes Absolute Auto 0.7 X10*3/uL (1.2-4.9); Lymphocytes Percent Auto 2.6 % (20-40); MANUAL DIFF FLAG SCAN; Mean Corpuscular Hemoglobin 28.2 pg (27.0-33.0); Mean Corpuscular Volume 80.6 fL (80-98); Mean Platelet Volume 9.5 fL (9.4-12.3); Monocytes Absolute Auto 1.4 X10*3/uL (0.1-1.2); Monocytes Percent Auto 4.7 % (2-11); Neutrophils Absolute Auto 26.1 X10*3/uL (2.0-8.3); Neutrophils Percent Auto 91.4 % (45-73); Platelet Count 225 X10*3/uL (160-400); Red Blood Count 2.94 X10*6/uL (4.20-5.50); Red Cell Distribution Width 17.8 % (11.0-16.0); SCAN SMEAR FLAG 1; White Blood Count 28.5 X10*3/uL (4.8-10.8)
[2021-02-01 12:09] LABS: INTERNATIONAL NORM RATIO 1.7 (0.9-1.1); Prothrombin Time 19.9 SEC (9.9-13.0)
[2021-02-01 12:12] LABS: Partial Thromboplastin Time 33.5 SEC (24.1-38.0)
[2021-02-01 12:21] LABS: SLIDE REVIEW VERIFIED
[2021-02-01 12:22] LABS: Glucose, Whole Blood 114 mg/dL (60-115)
[2021-02-01 13:42] VITALS: BP 122/67; PULSE 74; RESP 18; TEMP 37.2; O2SAT 99
== END 2021-02-01 14:18 | disposition home or self-care (01) ==
PROVIDERS: Radiology Diagnostic Radiology; PCP Internal Medicine; Visit Provider Internal Medicine
DX: R18.8 Other ascites (principal); Z53.8 Procedure and treatment not carried out for other reasons
CPT/HCPCS: 36415; 76705; 82947; 85025; 85610; 85730

== ENCOUNTER 2021-02-13 08:53 | Inpatient (IN) | payer MEDICARE, SELFPAY ==
[2021-02-13] VITALS (18 sets, daily range): BP systolic 82–101; BP diastolic 44–60; PULSE 61–100; RESP 11–22; TEMP 35.9–37.9; O2SAT 98–100; BMI 24.0; BMI 23.8
--- NOTE | ~2021-02-13 | US_ITS ---
EXAMINATION: US VENOUS ULTRASOUND WITH DOPPLER LOWER EXTREMITY, LEFT CLINICAL INFORMATION: Left leg swelling COMPARISON: None TECHNIQUE: Ultrasound of the deep veins is performed from the hip to the calf with compression sonography and color and pulse Doppler assessment. Spectral analysis with color-flow imaging is performed. FINDINGS: There is nonocclusive thrombus seen in the left common femoral vein. The superficial femoral, popliteal and posterior tibial and peroneal veins in the calf are patent. There is edema of the left leg. US/US venous duplex LE LT IMPRESSION: Left common femoral vein DVT.
--- NOTE | ~2021-02-13 | CT_ITS ---
EXAMINATION: CT ABDOMEN AND PELVIS WITHOUT CONTRAST CLINICAL INFORMATION: Abdominal pain. History of metastatic gallbladder cancer. COMPARISON: Previous CT scans of the abdomen and pelvis most recent November 2020 TECHNIQUE: Multidetector volumetric imaging was performed from the superior aspect of the liver through the pubic symphysis. Sagittal and coronal reformatted images were obtained on the technologist's workstation. This CT examination was performed using dose optimization techniques as appropriate, variously including the following: *Automated exposure control *Adjustment of mA and/or kV according to patient size (this includes techniques or standardized protocols for targeted exams where dose is matched to indication/reason for exam; i.e. extremities or head) *Use of iterative reconstruction technique DLP: 382 mGy-cm FINDINGS: LUNG BASES: There is a small left pleural effusion. LIVER, GALLBLADDER, AND BILIARY TREE: The gallbladder has been removed. No focal liver lesion or biliary duct dilatation. PANCREAS: Unremarkable. SPLEEN: Unremarkable. ADRENAL GLANDS: Unremarkable. KIDNEYS AND URETERS: There is new bilateral hydronephrosis, left greater than right. BLADDER: Displaced anteriorly by the enlarged fibroid uterus GASTROINTESTINAL TRACT: There is diverticulosis of the colon. Small and large bowel is otherwise unremarkable. The appendix is unremarkable. There is question of wall thickening of the stomach. There is a small amount of ascites. There the peritoneum appears hazy and nodular questionable for peritoneal carcinomatosis. There is a upper midline ventral hernia containing ascitic fluid. ABDOMINAL WALL: There is enlargement of the right rectus muscle compared to the left. Appears high in attenuation. Appearance is questionable for possible hematoma or metastasis. There is an upper midline line are subxiphoid ventral hernia containing ascitic fluid. There are there are small hernias or diffuse abdominal wall bulge containing fluid and small bowel. There is no evidence of obstruction. There is a small left inguinal hernia containing fat. LYMPH NODES: Normal. VASCULAR: Unremarkable. PELVIC VISCERA: There is an enlarged fibroid uterus. Uterus extends out of the pelvis and above the umbilicus and measures 12 x 12 x 22 cm in dimension. This appears unchanged. OSSEOUS STRUCTURES: There are degenerative changes of the spine. There are degenerative changes at the hip joints. CT/CT abdomen pelvis wo con IMPRESSION: New small amount of ascites. There is haziness and nodularity of the peritoneum questionable for peritoneal disease/carcinomatosis. High attenuation right rectus muscle questionable for metastatic implant versus hematoma. New bilateral hydronephrosis, left greater than right. Diverticulosis of the colon. Very enlarged fibroid uterus.
--- NOTE | ~2021-02-13 | XR_ITS ---
EXAMINATION: XR CHEST CLINICAL INFORMATION: Fever. Rule out pneumonia. COMPARISON: Previous chest x-ray February 2019 TECHNIQUE: Frontal view of the chest was obtained. FINDINGS: The cardiac and mediastinal contours are stable. The lungs are clear. There is no pleural effusion. There are degenerative changes of the spine. XR/XR chest 1V IMPRESSION: Unremarkable examination.
--- NOTE | 2021-02-13 09:25 | ECG_ITS ---
Test Reason : WEAKNESS Blood Pressure : / mmHG Vent. Rate : 093 BPM Atrial Rate : 093 BPM P-R Int : 120 ms QRS Dur : 066 ms QT Int : 266 ms P-R-T Axes : 041 011 -57 degrees QTc Int : 330 ms Normal sinus rhythm Nonspecific ST and T wave abnormality Abnormal ECG When compared with ECG of 27-SEP-2020 23:07, Criteria for Septal infarct are no longer Present Nonspecific T wave abnormality now evident in Inferior leads Nonspecific T wave abnormality now evident in Anterior leads QT has shortened Referred By: Mode Casas Electronically Signed By:ORVILLE KEITH
[2021-02-13 09:55] LABS: Hemoglobin 7.4 g/dl (12.0-16.0); Mean Corpuscular HGB Conc 35.9 g/dl (31.0-35.0); Mean Corpuscular Hemoglobin 28.9 pg (27.0-33.0); Mean Corpuscular Volume 80.5 fL (80-98); Mean Platelet Volume 9.3 fL (9.4-12.3); Platelet Count 132 X10*3/uL (160-400); Red Blood Count 2.56 X10*6/uL (4.20-5.50); Red Cell Distribution Width 20.3 % (11.0-16.0)
[2021-02-13] MEDS: 0.9 % Sodium Chloride 1,000 ML 999 ML IV ×2 (09:56→11:09)
[2021-02-13 09:58] LABS: Hematocrit 20.6 % (37-47); White Blood Count 43.7 X10*3/uL (4.8-10.8)
[2021-02-13 10:03] LABS: INTERNATIONAL NORM RATIO 1.8 (0.9-1.1); Prothrombin Time 21.1 SEC (9.9-13.0)
[2021-02-13 10:06] LABS: Partial Thromboplastin Time 33.5 SEC (24.1-38.0)
[2021-02-13 10:10] LABS: Lactic Acid 6.4 mmol/L (0.5-2.0); Lipase 30 U/L (8-78)
[2021-02-13 10:14] LABS: Alanine Aminotransferase 24 U/L (0-31); Alkaline Phosphatase 305 U/L (39-117); Anion Gap 17 (12-20); Aspartate Amino Transferase 28 U/L (5-31); Bilirubin Total 1.5 mg/dL (0.0-1.0); Blood Urea Nitrogen 26 mg/dL (9-16); Carbon Dioxide 12 mmol/L (22-29); Chloride 104 mmol/L (96-108); Creatinine Clr Calc Pharmacy 26.4; Estimated Glomerular Filt Rate 35; Glucose Random 58 mg/dL (60-115); Potassium 4.3 mmol/L (3.3-5.1); Sodium 129 mmol/L (135-145); Total Protein 5.3 g/dL (6.5-8.0)
[2021-02-13 10:18] LABS: Albumin Level 1.6 g/dL (3.5-5.0); Calcium 7.1 mg/dL (8.4-10.2)
--- NOTE | 2021-02-13 10:19 | ED.GENADULT ---
HPI - General Adult General Chief complaint: Nausea/Vomiting/Diarrhea Stated complaint: weakness, diarrhea Time Seen by Provider: 02/13/21 09:11 Source: patient and family (Daughter, Maddy) Mode of arrival: EMS Limitations: no limitations History of Present Illness HPI narrative: 75-year-old female who was brought to the emergency department for evaluation weakness diarrhea and possible fever at home. According to the daughter, the patient felt warm today, she was complaining of weakness x1 week and increased abdominal pain. The daughter felt that the patient had a fever at home but did not take the patient's temperature. The daughter did give the patient her morning medications which she states included oxycodone for the patient's pain. 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 The daughter states the patient has pain daily and does receive oxycodone for this pain. At the time of evaluation, the patient had no abdominal pain. The daughter states the patient does eat small amounts of food, drinks and sugar and does drink liquids. The patient does have chronic diarrhea, she has had 2 loose bowel movements per day, there is no blood in the bowel movement. The patient denied chest pain, shortness of breath, cough, vomiting. She denied frequency, urgency or dysuria. On presentation, the patient had a rectal temperature of 100.3? F and a blood pressure of 85/54. Related Data Home Medications Medication Instructions Recorded Confirmed omeprazole 40 mg capsule,delayed 1 cap PO QAM 04/22/20 12/03/20 release ursodiol 250 mg tablet 2 tab PO BID 09/28/20 12/03/20 Previous Rx's Medication Instructions Recorded diphenhydramine HCl 25 mg tablet 50 mg PO TID PRN #20 tab 07/29/20 (Benadryl Allergy) famotidine 20 mg tablet (Pepcid) 20 mg PO BID #20 tab 07/29/20 spironolactone 25 mg tablet 50 mg PO DAILY #180 tab 08/12/20 oxycodone 5 mg tablet 5 - 10 mg PO Q6H PRN #30 tab 09/29/20 ondansetron HCl 4 mg tablet 8 mg PO Q8H #60 tab 09/30/20 (Zofran) lorazepam 0.5 mg tablet 0.5 mg PO BEDTIME PRN #30 tab 06/03/21 morphine 15 mg tablet,extended 15 mg PO Q12H #14 tab 11/29/20 release oxycodone 5 mg tablet 5 mg PO Q6H PRN #20 tab 11/29/20 fentanyl 25 mcg/hr transdermal 1 patch TRANSDERMAL Q72H #5 ea 12/03/20 patch loratadine 10 mg tablet (Claritin) 10 mg PO DAILY 90 Days #90 tab 12/28/20 furosemide 40 mg tablet 40 mg PO DAILY #30 tab 01/05/21 fentanyl 25 mcg/hr transdermal 1 patch TRANSDERMAL Q72H #10 ea 01/14/21 patch oxycodone 5 mg tablet 5 mg PO Q4H PRN #60 tab 01/14/21 Allergies Allergy/AdvReac Type Severity Reaction Status Date / Time lisinopril [LISINOPRIL] Allergy Severe SWELLING/NAUSEA/ITCHING, Verified 02/01/21 11:46 cough, swellimg, redness sunflower seed Allergy Severe ANAPHYLAXIS Verified 02/01/21 11:46 [SUNFLOWER SEED] wheat [WHEAT] Allergy Severe ANAPHYLAXIS Verified 02/01/21 11:46 Review of Systems Review of Systems: Yes all other systems are reviewed and are negative [facility] Past Medical History Medical History Abdominal pain Acute liver failure Biliary obstruction Cholangiocarcinoma HTN (hypertension) Hyperlipidemia Osteoarthritis Ovarian cancer Type 2 diabetes mellitus with hyperglycemia Vitamin D deficiency Surgical History History of laparoscopic cholecystectomy History of surgery Family History Family History Father Diabetes Mother Diabetes Cancer Social History Social History Household Members: Family Housing: Apartment Do you presently have visiting nurse or other home services: No Alcohol intake: never Patient Tobacco Use Status: Never used Tobacco Second Hand Smoke Exposure: No Use of substances other than those prescribed or required for medical reasons: No Advance Directives: No Advance Directives Information Provided: No service: No Current occupational status: unemployed Physical Exam Vital Signs: Vital Signs: Last Vital Signs Temp 96.6 F L 02/13/21 11:37 Pulse 88 02/13/21 11:37 Resp 15 02/13/21 11:37 BP 83/44 L 02/13/21 11:37 Pulse Ox 100 02/13/21 09:09 Body Mass Index 24.0 Const: Other: Chronically ill-appearing, elderly female, pleasant and cooperative, answers questions appropriately. Does not appear to be in distress. HENMT: Head: Yes normal to inspection, Yes normocephalic and Yes atraumatic Ears: external ears normal General nose exam: Normal external nose present Face and sinus: Yes normal facial exam Mouth: Normal oral and palatal mucosa present Throat: Yes posterior oropharynx normal Eyes: Alignment and Position: alignment normal Periorbital: periorbital findings normal Eyelids: Yes eyelids normal Conjunctivae: conjunctivae normal Sclerae: scleral abnormal bilateral (Icteric) Pupils: Equal, round and reactive pupils present Neck: Neck: Yes normal visual inspection, Yes no lymphadenopathy, Yes trachea midline and Yes supple Chest: Chest palpation & inspection: normal inspection of the chest and normal palpation of entire chest wall Resp: Effort & Inspection: normal respiratory effort and able to speak in complete sentences Auscultation: clear to auscultation bilaterally Cardio: Rate: regular rate Rhythm: regular rhythm Heart sounds: S1 normal heart sound present, S2 normal heart sound present and no murmurs GI: Inspection: Yes distended Palpation (GI): Soft to palpation, Tenderness to palpation present (GI) (Diffuse, moderate) and no guarding Auscultation: normal bowel sounds : General: Yes no CVA tenderness Back/Spine/Pelvis: Back: no CVA tenderness Skin: General skin exam: no rashes or lesions noted Neuro: Cranial nerves: Yes CN's II-XII intact bilaterally and Yes Equal, round and reactive pupils present Cognition (Neuro): normal cognition Motor exam (neuro): 5/5 motor strength present throughout Extrem: General: Yes normal to inspection Psych: Appearance: grossly normal Speech and movement: Normal speech and movement present Affect: normal affect Attitude: cooperative Thought process: Normal thought process present Thought content: Normal thought content present Course Course Course Narrative: 75-year-old female with metastatic gallbladder cancer with ascites and liver failure who presents to the emergency department for evaluation of weakness x1 week, abdominal pain, diarrhea and subjective fever at home. Patient did have a low-grade fever of 100.3? F rectally and was hypotensive with a blood pressure of 85/54. Laboratory evaluation was ordered. She was ordered to get 2 L of IV fluid wide open. The daughter states the patient is a full code despite having metastatic cancer. 1042: Patient's white blood count elevated above her baseline at 43,700. [place] [address] on 02/01/2021. Patient is anemic with an H&H of 7.4 and 20.6, this is lower than her baseline of 8.3 and 27.7. I will order a type and screen and will discuss transfusion of 1 or 2 units with the admitting physician. INR was elevated at 1.8. BUN creatinine were elevated at 26 and 1.44. Glucose was low at 58. Lactic acid was elevated at 6.4. Alk-phos was elevated at 305. I did discuss code status with the patient's daughter and grandson who is a psychiatric nurse here at this facility. The patient is a full code. I will discuss the patient's presentation with the covering sheep herder. 1110: I did discuss the patient's presentation with Dr. Lester and he accepts the patient into the intensive care unit. He did agree with transfusing 1 unit of packed red blood cells to support the patient's volume and hypotension. Therefore I ordered 1 unit of packed red blood cells to be transfused as soon as that is available. Patient will also get a CT scan of the abdomen pelvis with IV contrast. That patient was transferred to the intensive care unit for further evaluation. Prior to transfer, the patient's blood pressure did improve and the systolic blood pressure was above 90. Repeat lactic acid is pending completion of fluid bolus. Sepsis focused exam was completed. Procedures Paracentesis Local Anesthetic: lidocaine 1% Amount of anesthesia used (mL): 10 Fluid: other (No fluid obtained) Post Procedure Exam: awake, alert Patient Tolerated Procedure: well Complications: none and other Medical Decision Making Lab Data Result diagrams: 02/13/21 09:45 02/13/21 09:45 Labs: Lab Results 02/13/21 02/13/21 02/13/21 Range/Units 09:45 09:45 09:45 WBC 43.7 H* (4.8-10.8) X10*3/uL RBC 2.56 L (4.20-5.50) X10*6/uL Hgb 7.4 L (12.0-16.0) g/dl Hct 20.6 L* (37-47) % MCV 80.5 (80-98) fL MCH 28.9 (27.0-33.0) pg MCHC 35.9 H (31.0-35.0) g/dl RDW 20.3 H (11.0-16.0) % Plt Count 132 L D (160-400) X10*3/uL MPV 9.3 L (9.4-12.3) fL Immature Gran % (Auto) Cancelled Neut % (Auto) Cancelled Lymph % (Auto) Cancelled [place] % (Auto) Cancelled Eos % (Auto) Cancelled Baso % (Auto) Cancelled Lymph # (Auto) Cancelled [place] # (Auto) Cancelled Eos # (Auto) Cancelled Baso # (Auto) Cancelled Abs Immat Gran (auto) Cancelled Absolute Neuts (auto) Cancelled Absolute Nucleated RBC 0.000 (0.0-0.012) X10*3/uL Nucleated RBC % (auto) 0.0 (0.0-0.2) /100WBC Neutrophils % (Manual) 77 H (45-73) % Band Neutrophils % 17 H (3-5) % Lymphocytes % (Manual) 1 L (20-40) % Monocytes % (Manual) 5 (2-11) % Abs Neuts (Manual) 41.1 H (2.2-7.9) X10*3/uL Lymphocytes # (Manual) 0.4 L (0.6-4.8) X10*3/uL Monocytes # (Manual) 2.2 H (0.0-1.2) X10*3/uL Toxic Vacuolation PRESENT Platelet Estimate DECREASED (NORMAL) Plt Morphology Comment NORMAL RBC Morphology NOTED Hypochromasia 2+ (15-30) /OIF [place] Cells 1+ (0-2) /OIF [place] Cells 2+ (3-5) /OIF Acanthocytes ([place]) 1+ (0-2) /OIF PT 21.1 H (9.9-13.0) SEC INR 1.8 H (0.9-1.1) APTT 33.5 (24.1-38.0) SEC Sodium 129 L (135-145) mmol/L Potassium 4.3 (3.3-5.1) mmol/L Chloride 104 (96-108) mmol/L Carbon Dioxide 12 L (22-29) mmol/L Anion Gap 17 (12-20) BUN 26 H D (9-16) mg/dL Creatinine 1.44 H (0.5-1.4) mg/dL Estim Creat Clear Calc 26.4 Estimated GFR 35 Random Glucose 58 L* (60-115) mg/dL Lactic Acid (0.5-2.0) mmol/L Calcium 7.1 L D (8.4-10.2) mg/dL Total Bilirubin 1.5 H (0.0-1.0) mg/dL AST 28 (5-31) U/L ALT 24 (0-31) U/L Alkaline Phosphatase 305 H D (39-117) U/L Total Protein 5.3 L D (6.5-8.0) g/dL Albumin 1.6 L D (3.5-5.0) g/dL Lipase (8-78) U/L Urine Color Urine Appearance Urine pH (5.0-8.0) Ur Specific [place] (1.005-1.025) Urine Protein (NEG-TRACE) MG/DL Urine Glucose (UA) (NEG) MG/DL Urine Ketones (NEG) MG/DL Urine Blood (NEG) Urine Nitrite (NEG) Ur Leukocyte Esterase (NEG) COVID-19 (JARED) (Negative) COVID-19 Clin Com Blood Type Antibody Screen Crossmatch 02/13/21 02/13/21 02/13/21 Range/Units 09:45 09:45 10:46 WBC (4.8-10.8) X10*3/uL RBC (4.20-5.50) X10*6/uL Hgb (12.0-16.0) g/dl Hct (37-47) % MCV (80-98) fL MCH (27.0-33.0) pg MCHC (31.0-35.0) g/dl RDW (11.0-16.0) % Plt Count (160-400) X10*3/uL MPV (9.4-12.3) fL Immature Gran % (Auto) Neut % (Auto) Lymph % (Auto) [place] % (Auto) Eos % (Auto) Baso % (Auto) Lymph # (Auto) [place] # (Auto) Eos # (Auto) Baso # (Auto) Abs Immat Gran (auto) Absolute Neuts (auto) Absolute Nucleated RBC (0.0-0.012) X10*3/uL Nucleated RBC % (auto) (0.0-0.2) /100WBC Neutrophils % (Manual) (45-73) % Band Neutrophils % (3-5) % Lymphocytes % (Manual) (20-40) % Monocytes % (Manual) (2-11) % Abs Neuts (Manual) (2.2-7.9) X10*3/uL Lymphocytes # (Manual) (0.6-4.8) X10*3/uL Monocytes # (Manual) (0.0-1.2) X10*3/uL Toxic Vacuolation Platelet Estimate (NORMAL) Plt Morphology Comment RBC Morphology Hypochromasia /OIF Tear Drop Cells /OIF [place] Cells /OIF Acanthocytes ([place]) /OIF PT (9.9-13.0) SEC INR (0.9-1.1) APTT (24.1-38.0) SEC Sodium (135-145) mmol/L Potassium (3.3-5.1) mmol/L Chloride (96-108) mmol/L Carbon Dioxide (22-29) mmol/L Anion Gap (12-20) BUN (9-16) mg/dL Creatinine (0.5-1.4) mg/dL Estim Creat Clear Calc Estimated GFR Random Glucose (60-115) mg/dL Lactic Acid 6.4 H* (0.5-2.0) mmol/L Calcium (8.4-10.2) mg/dL Total Bilirubin (0.0-1.0) mg/dL AST (5-31) U/L ALT (0-31) U/L Alkaline Phosphatase (39-117) U/L Total Protein (6.5-8.0) g/dL Albumin (3.5-5.0) g/dL Lipase 30 (8-78) U/L Urine Color YELLOW Urine Appearance CLEAR Urine pH 6.0 (5.0-8.0) Ur Specific [place] <= 1.005 (1.005-1.025) Urine Protein NEG (NEG-TRACE) MG/DL Urine Glucose (UA) NEG (NEG) MG/DL Urine Ketones NEG (NEG) MG/DL Urine Blood NEG (NEG) Urine Nitrite NEG (NEG) Ur Leukocyte Esterase NEG (NEG) COVID-19 (JARED) (Negative) COVID-19 Clin Com Blood Type Antibody Screen Crossmatch 02/13/21 02/13/21 Range/Units 11:07 11:07 WBC (4.8-10.8) X10*3/uL RBC (4.20-5.50) X10*6/uL Hgb (12.0-16.0) g/dl Hct (37-47) % MCV (80-98) fL MCH (27.0-33.0) pg MCHC (31.0-35.0) g/dl RDW (11.0-16.0) % Plt Count (160-400) X10*3/uL MPV (9.4-12.3) fL Immature Gran % (Auto) Neut % (Auto) Lymph % (Auto) [place] % (Auto) Eos % (Auto) Baso % (Auto) Lymph # (Auto) [place] # (Auto) Eos # (Auto) Baso # (Auto) Abs Immat Gran (auto) Absolute Neuts (auto) Absolute Nucleated RBC (0.0-0.012) X10*3/uL Nucleated RBC % (auto) (0.0-0.2) /100WBC Neutrophils % (Manual) (45-73) % Band Neutrophils % (3-5) % Lymphocytes % (Manual) (20-40) % Monocytes % (Manual) (2-11) % Abs Neuts (Manual) (2.2-7.9) X10*3/uL Lymphocytes # (Manual) (0.6-4.8) X10*3/uL Monocytes # (Manual) (0.0-1.2) X10*3/uL Toxic Vacuolation Platelet Estimate (NORMAL) Plt Morphology Comment RBC Morphology Hypochromasia /OIF [place] Cells /OIF [place] Cells /OIF Acanthocytes ([place]) /OIF PT (9.9-13.0) SEC INR (0.9-1.1) APTT (24.1-38.0) SEC Sodium (135-145) mmol/L Potassium (3.3-5.1) mmol/L Chloride (96-108) mmol/L Carbon Dioxide (22-29) mmol/L Anion Gap (12-20) BUN (9-16) mg/dL Creatinine (0.5-1.4) mg/dL Estim Creat Clear Calc Estimated GFR Random Glucose (60-115) mg/dL Lactic Acid (0.5-2.0) mmol/L Calcium (8.4-10.2) mg/dL Total Bilirubin (0.0-1.0) mg/dL AST (5-31) U/L ALT (0-31) U/L Alkaline Phosphatase (39-117) U/L Total Protein (6.5-8.0) g/dL Albumin (3.5-5.0) g/dL Lipase (8-78) U/L Urine Color Urine Appearance Urine pH (5.0-8.0) Ur Specific [place] (1.005-1.025) Urine Protein (NEG-TRACE) MG/DL Urine Glucose (UA) (NEG) MG/DL Urine Ketones (NEG) MG/DL Urine Blood (NEG) Urine Nitrite (NEG) Ur Leukocyte Esterase (NEG) COVID-19 (JARED) Negative (Negative) COVID-19 Clin Com See Note Blood Type O Positive Antibody Screen NEGATIVE Crossmatch See Detail Critical Care Time Critical Care Time Critical Care Time: Yes Total Critical Care Time: 60 Attestation: Critical Care: The patient was critically ill with a high probability of imminent or life threatening deterioration. I spent greater than 30 minutes of discontinuous time evaluating the patient,delivering critical care at the bedside, discussing and evaluating pertinent data with consultants. Critical care time does not include time spent performing separately billable procedures or teaching. Total time spent performing critical care was 60 minutes. Discharge Plan Discharge Clinical Impression: History of cancer of gallbladder Fever Qualifiers: Fever type: unspecified Qualified Code(s): R50.9 - Fever, unspecified Leukocytosis Qualifiers: Leukocytosis type: unspecified Qualified Code(s): D72.829 - Elevated white blood cell count, unspecified Sepsis Qualifiers: Sepsis type: sepsis due to unspecified organism Patient Disposition: Admitted As Inpatient
[2021-02-13 10:25] LABS: Band Neutrophils Percent 17 % (3-5); Lymphocytes Absolute Manual 0.4 X10*3/uL (0.6-4.8); Lymphocytes Percent Manual 1 % (20-40); Monocytes Absolute Manual 2.2 X10*3/uL (0.0-1.2); Monocytes Percent Manual 5 % (2-11); Neutrophils Absolute Manual 41.1 X10*3/uL (2.2-7.9); Neutrophils Percent Manual 77 % (45-73)
[2021-02-13 10:27] LABS: Acanthocytes 1+ (0-2) /OIF; Burr Cells 2+ (3-5) /OIF; RBC Morphology NOTED; Tear Drop Cells 1+ (0-2) /OIF; Toxic Vacuolation PRESENT
[2021-02-13 10:28] LABS: Hypochromasia 2+ (15-30) /OIF; Platelet Estimate DECREASED (NORMAL); Platelet Morphology Comment NORMAL
[2021-02-13] MEDS: Piperacillin Sodium/Tazobactam 4.5 GM in 0.9 % Sodium Chloride 100 ML IV (11:08)
[2021-02-13 11:18] LABS: Glucose Urine UA NEG (NEG); Leukocyte Esterase Urine NEG (NEG); Nitrite Urine NEG (NEG); Specific Gravity - Urine <= 1.005 (1.005-1.025); Urine Blood NEG (NEG); Urine Ketones NEG (NEG); Urine Protein NEG (NEG-TRACE)
[2021-02-13 11:21] LABS: Appearance Urine CLEAR; Color Urine YELLOW
[2021-02-13 11:45] LABS: COVID-19 Test Negative (Negative)
[2021-02-13 11:53] LABS: Reflex Lactate? Lactic Acid Added
[2021-02-13 12:12] LABS: Glucose, Whole Blood 74 mg/dL (60-115)
[2021-02-13] MEDS: Lidocaine HCl 1 % MPF 5 ML VIAL INFILTRATI ×2 (12:38)
[2021-02-13 12:56] LABS: ~Lactic Acid-LAB USE ONLY 5.5 mmol/L (0.5-2.0)
[2021-02-13 14:37] LABS: Reflex Lactate? 2 Y
--- NOTE | 2021-02-13 15:25 | P.HPCC_ITS ---
History of Present Illness Date of Service: 02/13/21 Ms. Perez is admitted to the ICU this morning with sepsis and hypotension. The patient is a 75 yo lady with primary diagnoses of metastatic cholangiocarcinoma, with liver failure and ascites secondary to cirrhosis, and chronic abdominal pain for which she is on opiates.? She was on hospice care some months ago but withdrew and changed to palliative care so that she could have paracenteses for comfort if and when required.? She also has a history of hypertension, hyperlipidemia, diabetes, and was recently diagnosed with endometrial carcinoma.? In addition, in April, she had a biopsy of a pelvic mass which revealed adenocarcinoma that was morphologically distinct from the patient's endometrial carcinoma; could be a metastatic lesion from her chola ngiocarcinoma. Last paracentesis was in September.? Last CT scan was November 28, which showed ?Interval increase in size of the large solid and cystic masses within the pelvis, now measuring 18 and 11 cm, previously 13 and 9cm; ?Interval decrease in the quantity of ascites, now small; Cirrhosis suspected?. She was last seen by Dr. Powell on 12/03/2020.? According to Dr. Powell note, she was eating, but sometimes had nausea.? She was on omeprazole for heartburn and indigestion.? Her weight was stable.? She was on a fentanyl patch.? She was given Lomotil for chronic diarrhea. On 01/24, she was seen in the ED for rectal pain and required stool disimpaction.? On 02/01 she presented for elective paracentesis, but US showed so significant ascites. Review of her [facility] lab records show her white count has been elevated between 14 and 28 since September.? Her hemoglobin has been declining from a baseline of about 11 in September to 8 over the last couple of months.? INR has been 1.4-2.0 through this year.? Sodium has been running about 131. Bicarb has been running 16-17.? BUN/creatinine baseline is about 30/1.2, although the last numbers on 11/28/2020 were 12/0.79.? Glucose levels have been running 80s.? Total bilirubin levels have been 1.5-5.6. ?Lactic acid levels running 2.6-3.4.? Albumin levels have been declining through this year, from 3.3 to 2.4. HISTORY OF PRESENT ILLNESS:? The patient was BIBA this morning bec of weakness possible fever since this morning.? There was some question about whether the patient was having abdominal pain, but the daughter told me specifically that the patient was in her usual state of health all day yesterday.? The family told the ED staff that the patient had ?full code? status In the ED, the patient had no abdominal pain.? The patient denied chest pain, shortness of breath, cough, vomiting, frequency, urgency or dysuria.? On presentation, the patient was oriented and appropriate, talking easily, and in no distress.? She was breathing easy with a sat of 100% on room air.? Heart rate was 88, blood pressure 83/44, and rectal temperature was 100.3 degrees.? The general physical exam was remarkable for abdominal distension and diffuse moderate tenderness without guarding. Laboratory evaluation in the ED was notable for white count of 43.7 (was 28 on 02/01), hemoglobin 7.4 (was 8.3), platelet count [id number] (was 225 K), INR 1.8 (was 1.7), sodium 129, BUN/creatinine 26/1.4 (last was 12/0.79 on 11/28/2020), potassium 4.3, bicarb 12 (was 17), glucose 58, total bilirubin 1.5 (was 0.6), normal transaminases, alk-phos 305 (was 127), albumin 1.6 (was 2.4), Lactic acid 6.4 (was 2.6 on 09/27/2020).? Urine was clear yellow and screening U/A was negative. The patient was given 2 L of normal saline with transient improvement in her blood pressures of 101/52 range.? She was given Zosyn, and a unit of blood was ordered.? No imaging study of the abdomen/pelvis was done. ?A left lower quadrant paracentesis was attempted, but no fluid was obtained. ?She was admitted to the ICU. On my exam, she?s fully alert and appropriate.? She?s chronically but not acutely ill appearing, thoroughly nontoxic.? Breathing easy w Sat 100% on room a ir.? Heart rate is 77, blood pressure 90/52.? Temperature is 97.5 degrees.? Sclera are not icteric.? She has no jugular venous distention with the head of the bed at about 20 degrees.? Chest is clear, with normal expiratory phase.? The abdomen is markedly distended and somewhat firm.? The patient's daughters said she thinks that the belly might be a little bit bigger than it was last week. ?There is no clear fluid wave.? I am unable to palpate the liver.? There is a vague suggestion of a right lower quadrant mass.? She has 1+ pretibial edema on the right, 2+ on the left; the daughter said that the left side has been bigger than the right for a few months. IMPRESSION: 1. Metastatic cholangiocarcinoma. 2. Endometrial cancer. 3. Possible 3rd cancer in the pelvis, vs pelvic metastases from the cholangiocarcinoma. 4. Leukocytosis with fever.? Likely sepsis.? Etiology as yet undetermined.? Not in her lung or urine.? Could have SBP, could have bacteremia (e.g. bacterial translocation, magali if she?s obstipated).? Continuing the Zosyn.? Needs an abdom/pelvic CT.? Don?t think she needs anti-Staph coverage.? She?s had 2 liters of IV fluids, plus one unit RBCs.? That?s enough fluid for now.? She fulfilled formal criteria for septic shock bec of the elevated lactic acid, but clinically, she doesn?t have it (normal breathing and mental status, SBP not < 90, Quick SOFA score 0).? The lactic acid is, at least in part, type B due to her liver disease. 5. Hypotension.? 2? sepsis, anemia, hypoalbuminemia.? She got 1 unit RBCs, and we?ll give her 25% albumin. 5. Acute kidney injury.? Likely secondary to sepsis +/- hypovolemia. 6. Acute on chronic metabolic acidosis.? Likely 2? ROSALIA +/- hepatic failure.? I?ll start her on oral bicarb. 7. Anemia.? No history of GI bleeding. ?Most likely hematopoietic failure.? Check stool guiac. 8. Hypoglycemia.? Undoubtedly 2? hepatic failure.? Rx [id number]. 9. Rule out DVT left leg.? Would not be surprised, given that she has cancer.? She may also have pelvic venous compression on the left from a pelvic mass. 10.Nutrition.? She can have whatever she wants to eat, I would not put her on a diabetic diet. Spoke to the family great length, in particular the grandson Tenzin, who is a psychiatric nurse here at [facility] [place].? He?s very practically oriented.? He agreed completely that the main focus should be on comfort.? Both he and his mother agreed on DNR status.? I helped him fill out the MOLST form, and I have written for DNR/DNI status. Critical care time (including extended chart review, multiple visits to the bedside, and mult extended d/w family, including regarding code status): 150+ min [facility] Past Medical History Medical History Abdominal pain Acute liver failure Biliary obstruction Cholangiocarcinoma HTN (hypertension) Hyperlipidemia Osteoarthritis Ovarian cancer Type 2 diabetes mellitus with hyperglycemia Vitamin D deficiency Family History Family History Father Diabetes Mother Diabetes Cancer Surgical History Surgical History History of laparoscopic cholecystectomy History of surgery Social History Social History Household Members: Family Housing: House Do you presently have visiting nurse or other home services: Yes Alcohol intake: never Patient Tobacco Use Status: Never used Tobacco Second Hand Smoke Exposure: No Use of substances other than those prescribed or required for medical reasons: No Currently Displaying Signs/Symptoms of Drug Intoxication Withdrawal: No Have you been hit, kicked, punched, or otherwise hurt by someone within the past year? If so, by whom?: No Do you feel safe in your current relationship?: No Current Relationship Is there a partner from a previous relationship who is making you feel unsafe now?: No Are you made to feel afraid or neglected: No Advance Directives: No Advance Directives Information Provided: No Do you have thoughts of harming others: None Do you have a plan to hurt others: No Plan Recently lost weight without trying: No Nutrition Risks: No Nutritional Risk Patient : No : No Poor oral hygiene: Yes service: No Current occupational status: unemployed Meds Allergies Allergy/AdvReac Type Severity Reaction Status Date / Time lisinopril [LISINOPRIL] Allergy Severe SWELLING/NAUSEA/ITCHING, Verified 02/01/21 11:46 cough, swellimg, redness sunflower seed Allergy Severe ANAPHYLAXIS Verified 02/01/21 11:46 [SUNFLOWER SEED] wheat [WHEAT] Allergy Severe ANAPHYLAXIS Verified 02/01/21 11:46 Home Medications Medication Instructions Recorded Confirmed Last Taken Type omeprazole 40 mg capsule,delayed 1 cap PO QAM 04/22/20 02/13/21 02/13/21 08:00 History release oxycodone 5 mg tablet 5 mg PO Q3-4H PRN 02/13/21 02/13/21 02/13/21 08:00 History Physical Exam Vital Signs: Vital Signs: Last Vital Signs Temp 97.5 F 02/13/21 14:04 Pulse 81 02/13/21 14:04 Resp 14 02/13/21 14:04 BP 93/55 L 02/13/21 14:04 Pulse Ox 100 02/13/21 14:00 Body Mass Index 23.8 Results Labs CBC and Chem 7: 02/13/21 09:45 02/13/21 09:45 Labs: Laboratory Results - last 24 hr 02/13/21 02/13/21 02/13/21 09:45 09:45 09:45 MCV 80.5 MCH 28.9 MCHC 35.9 H RDW 20.3 H Plt Count 132 L D MPV 9.3 L Immature Gran % (Auto) Cancelled Neut % (Auto) Cancelled Lymph % (Auto) Cancelled Walton % (Auto) Cancelled Eos % (Auto) Cancelled Baso % (Auto) Cancelled Lymph # (Auto) Cancelled [place] # (Auto) Cancelled Eos # (Auto) Cancelled Baso # (Auto) Cancelled Abs Immat Gran (auto) Cancelled Absolute Neuts (auto) Cancelled Absolute Nucleated RBC 0.000 Nucleated RBC % (auto) 0.0 Neutrophils % (Manual) 77 H Band Neutrophils % 17 H Lymphocytes % (Manual) 1 L Monocytes % (Manual) 5 Abs Neuts (Manual) 41.1 H Lymphocytes # (Manual) 0.4 L Monocytes # (Manual) 2.2 H Toxic Vacuolation PRESENT Platelet Estimate DECREASED Plt Morphology Comment NORMAL RBC Morphology NOTED Hypochromasia 2+ (15-30) Tear Drop Cells 1+ (0-2) [place] Cells 2+ (3-5) Acanthocytes (Spur) 1+ (0-2) PT 21.1 H INR 1.8 H APTT 33.5 Anion Gap 17 Estim Creat Clear Calc 26.4 Estimated GFR 35 POC Glucose Random Glucose 58 L* Lactic Acid Lactic Acid Fup @ 2Hr Calcium 7.1 L D Total Bilirubin 1.5 H AST 28 ALT 24 Alkaline Phosphatase 305 H D Total Protein 5.3 L D Albumin 1.6 L D Lipase Urine Color Urine Appearance Urine pH Ur Specific [place] Urine Protein Urine Glucose (UA) Urine Ketones Urine Blood Urine Nitrite Ur Leukocyte Esterase COVID-19 (JARED) COVID-19 [employer] Com Blood Type Antibody Screen Crossmatch 02/13/21 02/13/21 02/13/21 09:45 09:45 10:46 MCV MCH MCHC RDW Plt Count MPV Immature Gran % (Auto) Neut % (Auto) Lymph % (Auto) [place] % (Auto) Eos % (Auto) Baso % (Auto) Lymph # (Auto) [place] # (Auto) Eos # (Auto) Baso # (Auto) Abs Immat Gran (auto) Absolute Neuts (auto) Absolute Nucleated RBC Nucleated RBC % (auto) Neutrophils % (Manual) Band Neutrophils % Lymphocytes % (Manual) Monocytes % (Manual) Abs Neuts (Manual) Lymphocytes # (Manual) Monocytes # (Manual) Toxic Vacuolation Platelet Estimate Plt Morphology Comment RBC Morphology Hypochromasia Tear Drop Cells [place] Cells Acanthocytes (Spur) PT INR APTT Anion Gap Estim Creat Clear Calc Estimated GFR POC Glucose Random Glucose Lactic Acid 6.4 H* Lactic Acid Fup @ 2Hr Calcium Total Bilirubin AST ALT Alkaline Phosphatase Total Protein Albumin Lipase 30 Urine Color YELLOW Urine Appearance CLEAR Urine pH 6.0 Ur Specific [place] <= 1.005 Urine Protein NEG Urine Glucose (UA) NEG Urine Ketones NEG Urine Blood NEG Urine Nitrite NEG Ur Leukocyte Esterase NEG COVID-19 (JARED) COVID-19 [employer] Com Blood Type Antibody Screen Crossmatch 02/13/21 02/13/21 02/13/21 11:07 11:07 12:09 MCV MCH MCHC RDW Plt Count MPV Immature Gran % (Auto) Neut % (Auto) Lymph % (Auto) [place] % (Auto) Eos % (Auto) Baso % (Auto) Lymph # (Auto) [place] # (Auto) Eos # (Auto) Baso # (Auto) Abs Immat Gran (auto) Absolute Neuts (auto) Absolute Nucleated RBC Nucleated RBC % (auto) Neutrophils % (Manual) Band Neutrophils % Lymphocytes % (Manual) Monocytes % (Manual) Abs Neuts (Manual) Lymphocytes # (Manual) Monocytes # (Manual) Toxic Vacuolation Platelet Estimate Plt Morphology Comment RBC Morphology Hypochromasia Tear Drop Cells [place] Cells Acanthocytes (Spur) PT INR APTT Anion Gap Estim Creat Clear Calc Estimated GFR POC Glucose 74 Random Glucose Lactic Acid Lactic Acid Fup @ 2Hr Calcium Total Bilirubin AST ALT Alkaline Phosphatase Total Protein Albumin Lipase Urine Color Urine Appearance Urine pH Ur Specific [place] Urine Protein Urine Glucose (UA) Urine Ketones Urine Blood Urine Nitrite Ur Leukocyte Esterase COVID-19 (JARED) Negative COVID-19 Clin Com See Note Blood Type O Positive Antibody Screen NEGATIVE Crossmatch See Detail 02/13/21 12:35 MCV MCH MCHC RDW Plt Count MPV Immature Gran % (Auto) Neut % (Auto) Lymph % (Auto) [place] % (Auto) Eos % (Auto) Baso % (Auto) Lymph # (Auto) [place] # (Auto) Eos # (Auto) Baso # (Auto) Abs Immat Gran (auto) Absolute Neuts (auto) Absolute Nucleated RBC Nucleated RBC % (auto) Neutrophils % (Manual) Band Neutrophils % Lymphocytes % (Manual) Monocytes % (Manual) Abs Neuts (Manual) Lymphocytes # (Manual) Monocytes # (Manual) Toxic Vacuolation Platelet Estimate Plt Morphology Comment RBC Morphology Hypochromasia Tear Drop Cells [place] Cells Acanthocytes (Spur) PT INR APTT Anion Gap Estim Creat Clear Calc Estimated GFR POC Glucose Random Glucose Lactic Acid Lactic Acid Fup @ 2Hr 5.5 H* Calcium Total Bilirubin AST ALT Alkaline Phosphatase Total Protein Albumin Lipase Urine Color Urine Appearance Urine pH Ur Specific [place] Urine Protein Urine Glucose (UA) Urine Ketones Urine Blood Urine Nitrite Ur Leukocyte Esterase COVID-19 (JARED) COVID-19 Clin Com Blood Type Antibody Screen Crossmatch Imaging Radiologist's Impressions: Impressions Chest X-Ray 02/13/21 09:26 IMPRESSION: Unremarkable examination.
[2021-02-13] MEDS: Dextrose 5 % and Lactated Ring 1,000 ML 80 ML IVCONT (16:26)
[2021-02-13] MEDS: Albumin Human 25 % 100 ML IV (16:26)
[2021-02-13] MEDS: Piperacillin Sodium/Tazobactam 3.375 GM in 0.9 % Sodium Chloride 50 ML IV ×2 (16:33→22:40)
[2021-02-13] MEDS: Sodium Bicarbonate 650 MG TABLET PO ×2 (16:34→21:04)
[2021-02-13] MEDS: Omeprazole 40 MG CAPSULE.DR PO (17:37)
[2021-02-13] MEDS: Ondansetron ODT 8 MG TAB.RAPDIS TRANSLINGU (17:37)
--- NOTE | 2021-02-13 18:12 | PC.NURSE ---
1 UNIT RBC ADMINISTER AND TOLERATED WELL. FENTANYL PATCH TO LEFT SHOULDER FROM HOME. TO BE CHANGED ON Sunday02/14/21. MOLST FORM COMPLETED BY MD AND FAMILY. CODE STATUS CHANGED TO DNR/DNI. COPY OF FORM IN CHART.
--- NOTE | 2021-02-13 18:58 | P.PNCC_ITS ---
Critical Care Event Note Summary Date of Service: 02/13/21 Code activated: No Narrative: The patient underwent Duplex scan of her left LE, and abd/pelvic CT. I discussed the results of both at great length with Dr. Resendiz by telephone. Duplex scan of the LLE shows a DVT. Abd/pelvic CT shows a huge pelvic mass measuring [id number], with solid and cystic properties, which is probably a combination of the two pelvic masses seen on the November 28 CT, along with the uterus and adnexa. Furthermore, there is new mild bilat hydronephrosis -- undoubtedly 2? extrinsic ureteral compression by the mass -- along with an area of high attenuation in the right rectus m uscle, that could be hematoma vs mass. There are also some small bubbles in the left pelvis, that probably represent air from an attempted paracentesis earlier today in the ED. I spoke to the patient's grandson Tenzin (the patient's HCP) about all the above and went over the CT with him. The two issues raised by the studies above are: 1. Should we anticoagulate the patient bec of the DVT, and 2. The hydronephrosis indicates that bilat ureteral stents will be needed. As far as the DVT goes, it's probably been there for a month or two, given the hx of the leg swelling. And there's the possiblity that she has a rectus hematoma, in which case anticoagulation poses a significant problem. As far as the bilat ureteral obstruction goes, the hydronephrosis is only mild at this point. Ureteral stents are not immediately necessary. I discussed all the above with Tenzin at great length. I told him that I'm not an oncologist or an expert in those matters, but in my opinion, Solange's longevity is measured in a few weeks or a few months at most. I'm very doubtful that she'll see Matias this year. Given that, I would focus on practical, noninterventional care that prioritizes her comfort and minimizes opportunities for complications. He understands that completely and is in full agreement. Therefore, no anticoagulation tonight and no stents for now. Plan is to discuss all the above with Dr. Powell tomorrow and get her opinion. Time: 45 min. ([id number]) Critical Care Time (minutes): 0
[2021-02-13] MEDS: Famotidine 20 MG TABLET PO (21:04)
[2021-02-13] MEDS: Melatonin 3 MG TABLET 6 MG PO (21:05)
[2021-02-14] VITALS (12 sets, daily range): BP systolic 84–104; BP diastolic 49–62; PULSE 60–86; RESP 12–23; TEMP 36.2–37; O2SAT 98–100; BMI 26.8
--- NOTE | 2021-02-14 03:39 | PC.NURSE ---
CARE ASSUMED 23:15...NAPPING...EASILY AROUSED..ALERT..ORIENTED X3..SPEECH CLEAR...DIAZ...LEFT LEG REMAINS EDEMATOUS...NSR..NO ECTOPY..SBP 80'S-90'S..ASYMPTOMATIC...OOB WITH ASSIST TO BEDSIDE COMMODE..VOIDED YELLOW URINE..BACK TO BED..ICU PA AWARE OF BP..NO ESCALATION OF CARE PER PA..NO CENTRAL LINE/PRESSORS/FURTHER IV BOLUSES..PATIENT'S SON JENNIE VISITED AT HS..CONFIRMS DNR/DNR STATUS AND NO VASOPRESSORS OR CENTRAL LINE...PLAN FOR ONCOLOGY CONSULT IN AM AND ? RETURN TO HOSPICE STATUS AND/OR SERVICE ADVISOR STATUS..PATIENT RESTFUL OVERNIGHT
[2021-02-14] MEDS: Dextrose 5 % and Lactated Ring 1,000 ML 80 ML IVCONT ×2 (03:55→17:40)
[2021-02-14] MEDS: Piperacillin Sodium/Tazobactam 3.375 GM in 0.9 % Sodium Chloride 50 ML IV (04:00)
[2021-02-14 05:15] LABS: MANUAL DIFF FLAG NO
[2021-02-14 05:24] LABS: Basophils Percent Auto 0.2 % (0-2); Eosinophils Absolute Auto 0.3 X10*3/uL (0.0-0.4); Eosinophils Percent Auto 1.4 % (0-4); Hemoglobin 7.7 g/dl (12.0-16.0); Imm Gran Abs Auto 0.13 X10*3/uL (0.00-0.03); Imm Gran Pct Auto 0.6 % (0.0-0.4); Lymphocytes Absolute Auto 1.1 X10*3/uL (1.2-4.9); Lymphocytes Percent Auto 5.1 % (20-40); Mean Corpuscular Hemoglobin 28.3 pg (27.0-33.0); Mean Corpuscular Volume 80.9 fL (80-98); Mean Platelet Volume 10.2 fL (9.4-12.3); Monocytes Percent Auto 4.6 % (2-11); Neutrophils Absolute Auto 19.2 X10*3/uL (2.0-8.3); Neutrophils Percent Auto 88.1 % (45-73); Platelet Count 102 X10*3/uL (160-400); Red Blood Count 2.72 X10*6/uL (4.20-5.50); Red Cell Distribution Width 19.2 % (11.0-16.0); White Blood Count 21.8 X10*3/uL (4.8-10.8)
[2021-02-14 05:36] LABS: Lactic Acid 2.8 mmol/L (0.5-2.0)
[2021-02-14 05:40] LABS: D Dimer 4907 NG/ML
[2021-02-14 05:44] LABS: Alanine Aminotransferase 24 U/L (0-31); Albumin Level 1.7 g/dL (3.5-5.0); Alkaline Phosphatase 236 U/L (39-117); Anion Gap 13 (12-20); Aspartate Amino Transferase 33 U/L (5-31); Bilirubin Total 1.5 mg/dL (0.0-1.0); Blood Urea Nitrogen 24 mg/dL (9-16); Calcium 7.2 mg/dL (8.4-10.2); Carbon Dioxide 16 mmol/L (22-29); Chloride 108 mmol/L (96-108); Creatinine Clr Calc Pharmacy 30.1; Estimated Glomerular Filt Rate 39; Glucose Random 72 mg/dL (60-115); Magnesium 2.1 mg/dL (1.6-2.6); Potassium 4.1 mmol/L (3.3-5.1); Sodium 133 mmol/L (135-145)
[2021-02-14 05:57] LABS: Procalcitonin 10.95 ng/mL
[2021-02-14 07:13] LABS: Reflex Lactate? Lactic Acid Added
[2021-02-14 08:58] LABS: ~Lactic Acid-LAB USE ONLY 2.9 mmol/L (0.5-2.0)
[2021-02-14] MEDS: fentaNYL 25 MCG PATCH.TD72 TRANSDERMA (09:01)
[2021-02-14] MEDS: levoFLOXacin/D5W 500 MG/100 ML PIGGYBACK 100 MG IV (09:02)
[2021-02-14] MEDS: Omeprazole 40 MG CAPSULE.DR PO (09:02)
[2021-02-14] MEDS: Famotidine 20 MG TABLET PO ×2 (09:02→20:26)
[2021-02-14] MEDS: Ondansetron ODT 8 MG TAB.RAPDIS TRANSLINGU ×2 (09:02→17:39)
[2021-02-14] MEDS: Sodium Bicarbonate 650 MG TABLET PO ×4 (09:02→20:22)
[2021-02-14 09:36] LABS: Reflex Lactate? 2 Y
[2021-02-14 10:18] LABS: Cancel Lactic Acid Canceled
--- NOTE | 2021-02-14 12:12 | PM.CCPN ---
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 with a growing mass noted in the pelvis displacing the bladder and causing bilateral hydronephrosis as well as a mass on the rectus muscle on the right side and she presents with a mild septic picture with relative hypotension at 85 systolic responding to IV fluids currently at 95 systolic with a mean pressure of 70 and a distended abdomen but no evidence of mechanical obstruction of the bowel and there was no evidence of ileus She grew enterobacter in September and she has now got 1/2 blood culture bottles positive for Gram-negative peter so currently on IV Levaquin previously on IV Zosyn Critical Care Time (minutes): 35 Physical Exam Vital Signs: Vital Signs: Last Vital Signs Temp 97.1 F 02/14/21 07:43 Pulse 67 02/14/21 07:43 Resp 15 02/14/21 07:43 BP 92/55 L 02/14/21 07:43 Pulse Ox 99 02/14/21 07:43 Body Mass Index 26.8 Stable vital signs in normal sinus rhythm with diminishing lactic acid from 6.5 down to 2.9 and awake and oriented Nonfocal neurologically Cardiac exam with no neck vein distension and good bilateral carotid upstrokes no gallops Chest clear no adventitious sounds Abdomen distended with positive bowel sounds and no again a megaly Skin intact no livedo no acrocyanosis Objective Data Labs CBC & Chem 7: 02/14/21 05:06 02/14/21 05:06 Labs: Laboratory Results - last 24 hr 02/13/21 02/13/21 02/13/21 11:07 12:09 12:35 WBC RBC Hgb Hct MCV MCH MCHC RDW Plt Count MPV Immature Gran % (Auto) Neut % (Auto) Lymph % (Auto) [place] % (Auto) Eos % (Auto) Baso % (Auto) Lymph # (Auto) [place] # (Auto) Eos # (Auto) Baso # (Auto) Abs Immat Gran (auto) Absolute Neuts (auto) Absolute Nucleated RBC Nucleated RBC % (auto) D-Dimer Sodium Potassium Chloride Carbon Dioxide Anion Gap BUN Creatinine Estim Creat Clear Calc Estimated GFR POC Glucose 74 Random Glucose Lactic Acid Lactic Acid Fup @ 2Hr 5.5 H* Calcium Phosphorus Magnesium Total Bilirubin AST ALT Alkaline Phosphatase Total Protein Albumin Procalcitonin Blood Type O Positive Antibody Screen NEGATIVE Crossmatch See Detail 02/14/21 02/14/21 02/14/21 05:06 05:06 05:06 WBC 21.8 H RBC 2.72 L Hgb 7.7 L Hct 22.0 L MCV 80.9 MCH 28.3 MCHC 35.0 RDW 19.2 H Plt Count 102 L MPV 10.2 Immature Gran % (Auto) 0.6 H Neut % (Auto) 88.1 H Lymph % (Auto) 5.1 L [place] % (Auto) 4.6 Eos % (Auto) 1.4 Baso % (Auto) 0.2 Lymph # (Auto) 1.1 L [place] # (Auto) 1.0 Eos # (Auto) 0.3 Baso # (Auto) 0.0 Abs Immat Gran (auto) 0.13 H Absolute Neuts (auto) 19.2 H Absolute Nucleated RBC 0.000 Nucleated RBC % (auto) 0.0 D-Dimer 4907 Sodium 133 L Potassium 4.1 Chloride 108 Carbon Dioxide 16 L Anion Gap 13 BUN 24 H Creatinine 1.33 Estim Creat Clear Calc 30.1 Estimated GFR 39 POC Glucose Random Glucose 72 Lactic Acid Lactic Acid Fup @ 2Hr Calcium 7.2 L Phosphorus 5.0 H Magnesium 2.1 Total Bilirubin 1.5 H AST 33 H ALT 24 Alkaline Phosphatase 236 H D Total Protein 5.0 L Albumin 1.7 L Procalcitonin Blood Type Antibody Screen Crossmatch 02/14/21 02/14/21 02/14/21 05:06 05:06 07:29 WBC RBC Hgb Hct MCV MCH MCHC RDW Plt Count MPV Immature Gran % (Auto) Neut % (Auto) Lymph % (Auto) [place] % (Auto) Eos % (Auto) Baso % (Auto) Lymph # (Auto) [place] # (Auto) Eos # (Auto) Baso # (Auto) Abs Immat Gran (auto) Absolute Neuts (auto) Absolute Nucleated RBC Nucleated RBC % (auto) D-Dimer Sodium Potassium Chloride Carbon Dioxide Anion Gap BUN Creatinine Estim Creat Clear Calc Estimated GFR POC Glucose Random Glucose Lactic Acid 2.8 H* Lactic Acid Fup @ 2Hr 2.9 H* Calcium Phosphorus Magnesium Total Bilirubin AST ALT Alkaline Phosphatase Total Protein Albumin Procalcitonin 10.95 Blood Type Antibody Screen Crossmatch Microbiology Microbiology Results: Microbiology 02/13/21 09:48 Blood - Venous Blood Culture - Preliminary No growth after 24 hours. 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: Status: Acute (2) Fever: Status: Acute (3) Leukocytosis: Status: Acute (4) Sepsis: Status: Acute (5) History of cancer of gallbladder: Status: Acute (6) Coagulopathy: Status: Acute (7) Liver failure: Status: Acute (8) Hypoalbuminemia: Status: Acute (9) Abdominal distension: Status: Acute (10) Endometrial carcinoma: Status: Acute (11) Cholangiocarcinoma: Status: Acute (12) Type 2 diabetes mellitus with hyperglycemia: Status: Acute (13) GERD (gastroesophageal reflux disease): Status: Acute (14) HTN (hypertension): Status: Acute (15) Gram-negative bacteremia: Status: Acute Assessment and Plan: Changing drug to Levaquin because of previous sensitivities of the Enterobacter from September Discussed with Oncology who said prognosis at this point grave almost to the point where she is at outlived the diagnosis So there is no plan for pressors and clearly no resuscitative effort should the need arise
[2021-02-14] MEDS: oxyCODONE HCl Immed Release 5 MG TABLET PO (14:46)
--- NOTE | 2021-02-14 20:14 | PM.HEMONCCN ---
Subjective - Subjective Chief complaint: Consult For: Advanced Gall bladder Cancer. Gm negative bacteremia. Consult date: 02/14/21 Requesting Physician: Dr. Lu. Primary Care Provider: Heather Diez MD Medical Summary: DIAGNOSIS: HPI - Consult Narrative Reason for consult: Consult for Gall bladder Cancer. Narrative: Solange Perez is a pleasant 75 year old lady, who presented on 02/13 with: weakness and a fever.?The patient was also having abdominal pain. She denied chest pain, shortness of breath, cough, vomiting, frequency, urgency or dysuria.? On exam she was oriented and appropriate, in no distress.? She was breathing easy with a sat of 100% on room air.? Heart rate was 88, blood pressure 83/44, and rectal temperature was 100.3 degrees.? Physical exam was remarkable for abdominal distension and diffuse moderate tenderness without guarding. Laboratory evaluation: white count of 43.7 (was 28 on 02/01), hemoglobin 7.4 (was 8.3), platelet count 278264 (was 225 K), INR 1.8 (was 1.7), sodium 129, BUN/creatinine 26/1.4 (last was 12/0.79 on 11/28/2020), potassium 4.3, bicarb 12 (was 17), glucose 58, total bilirubin 1.5 (was 0.6), normal transaminases, alk-phos 305 (was 127), albumin 1.6 (was 2.4), Lactic acid 6.4 (was 2.6 on 09/27/2020).? Urine was clear yellow and screening U/A was negative. She was given 2 L of normal saline with transient improvement in her blood pressures of 101/52 range.? She was given Zosyn, and a unit of blood was ordered.? No imaging study of the abdomen/pelvis was done. ? A left lower quadrant paracentesis was attempted, but no fluid was obtained. ?She was admitted to the ICU. PMH: 1. Primary diagnoses of metastatic cholangiocarcinoma. 2. Liver failure and ascites secondary to cirrhosis. 3. Chronic abdominal pain for which she is on opiates.? 4. She was on hospice care some months ago but withdrew and changed to palliative care so that she could have paracenteses for comfort if and when required.? 5. She also has a history of hypertension, hyperlipidemia, diabetes. 6. Diagnosed with endometrial carcinoma.? 7. In addition, in April, she had a biopsy of a pelvic mass which revealed adenocarcinoma that was morphologically distinct from the patient's endometrial carcinoma; could be a metastatic lesion from her cholangiocarcinoma. 8. Last paracentesis was in September.? 9. Last CT scan was November 28, which showed ?Interval increase in size of the large solid and cystic masses within the pelvis, now measuring 18 and 11 cm, previously 13 and 9cm; ?Interval decrease in the quantity of ascites, now small; Cirrhosis suspected?. Review of Systems - Constitutional Reports system reviewed and no additional complaints, except as documented, Reports fatigue, Reports fever(s), Reports lack of energy, Reports malaise, Reports weakness, Reports weight loss - Eyes Reports system reviewed and no additional complaints, except as documented, Denies blurry vision - ENT Reports system reviewed and no additional complaints, except as documented - Cardiovascular Reports system reviewed and no additional complaints, except as documented - Respiratory Reports no additional respiratory complaints - Gastrointestinal Reports system reviewed and no additional complaints, except as documented - Genitourinary Reports no additional female genitourinary complaints - Musculoskeletal Reports system reviewed and no additional complaints, except as documented - Integumentary/Breasts Skin/Breast: Reports no additional skin complaints - Neurologic Reports system reviewed and no additional complaints, except as documented - Psychiatric Reports system reviewed and no additional complaints, except as documented - Endocrine Reports no additional endocrine complaints - Hematologic/Lymphatic Reports system reviewed and no additional complaints, except as documented - Allergic/Immunologic Reports system reviewed and no additional complaints, except as documented Oncology Screenings - ECOG Performance Status ECOG Performance Status: 2 [facility] Medical History: Medical History (Last Reviewed 02/13/21 @ 12:18 by Ashley Su RN) Abdominal pain Acute liver failure Biliary obstruction Cholangiocarcinoma HTN (hypertension) Hyperlipidemia Osteoarthritis Ovarian cancer Type 2 diabetes mellitus with hyperglycemia Vitamin D deficiency Functional capacity: wheelchair bound Patient : No Family History: Family History (Last Reviewed 02/13/21 @ 10:24 by Mode Casas MD) Father Diabetes Mother Diabetes Cancer Surgical History: Surgical History (Last Reviewed 02/13/21 @ 12:18 by Ashley Su RN) History of laparoscopic cholecystectomy History of surgery Social History: Social History (Last Reviewed 09/05/21 @ 10:24 by Mode Casas MD) Living Situation History: Household Members: Family Housing: House Do you presently have visiting nurse or other home services: Yes Alcohol History: Alcohol intake: never Alcohol History Details: Alcohol intake frequency: does not drink Tobacco History: Patient Tobacco Use Status: Never used Tobacco Second Hand Smoke Exposure: No Substance Use History: Use of substances other than those prescribed or required for medical reasons: No Currently Displaying Signs/Symptoms of Drug Intoxication Withdrawal: No Domestic Abuse History: Have you been hit, kicked, punched, or otherwise hurt by someone within the past year? If so, by whom?: No Do you feel safe in your current relationship?: No Current Relationship Is there a partner from a previous relationship who is making you feel unsafe now?: No Are you made to feel afraid or neglected: No Advance Directives: Advance Directives: No Advance Directives Information Provided: No Homicidal Assessment: Do you have thoughts of harming others: None Do you have a plan to hurt others: No Plan Nutrition Assessment: Recently lost weight without trying: No Nutrition Risks: No Nutritional Risk Patient : No : No Poor oral hygiene: Yes Occupation Assessmet: service: No Current occupational status: unemployed Home Medications and Allergies Current Medications: Current Medications Generic Name Dose Route Start Last Admin Trade Name Freq PRN Reason Stop Dose Admin Diphenhydramine HCl 50 mg 02/13/21 17:00 Diphenhydramine Hcl 25 Mg Tablet PO TID PRN itching Famotidine 20 mg 02/13/21 21:00 02/14/21 09:02 Famotidine 20 Mg Tablet PO 20 mg BID TALAT Administration Fentanyl 25 mcg 02/14/21 09:00 02/14/21 09:01 Fentanyl 25 Mcg Patch.Td72 TRANSDERMA 25 mcg Q72H TALAT Administration Dextrose/Lactated Ringer's 1,000 mls @ 80 mls/hr 02/13/21 16:15 02/14/21 17:40 D5lr IVCONT 80 mls/hr .[id number] TALAT Administration Lorazepam 0.5 mg 02/13/21 17:00 Lorazepam 0.5 Mg Tablet PO BEDTIME PRN Anxiety Melatonin 6 mg 02/13/21 21:00 02/13/21 21:05 Melatonin 3 Mg Tablet PO 6 mg BEDTIME TALAT Administration Omeprazole 40 mg 02/13/21 17:00 02/14/21 09:02 Omeprazole 40 Mg Capsule. PO 40 mg DAILY TALAT Administration Ondansetron HCl 8 mg 02/13/21 17:15 02/14/21 17:39 Ondansetron Odt 8 Mg Tab.Rapdis TRANSLINGU 8 mg Q8H TALAT Administration Oxycodone HCl 5 mg 02/13/21 17:00 02/14/21 14:46 Oxycodone Hcl Immed Release 5 Mg Tablet PO 5 mg Q3H PRN Administration pain Sodium Bicarbonate 650 mg 02/13/21 17:00 02/14/21 17:40 Sodium Bicarbonate 650 Mg Tablet PO 650 mg QID TALAT Administration Home Medications Medication Instructions Recorded Confirmed Type omeprazole 40 mg capsule,delayed 1 cap PO QAM 04/22/20 02/13/21 History release Allergies Allergy/AdvReac Type Severity Reaction Status Date / Time lisinopril [LISINOPRIL] Allergy Severe SWELLING/NAUSEA/ITCHING, Verified 02/01/21 11:46 cough, swellimg, redness sunflower seed Allergy Severe ANAPHYLAXIS Verified 02/01/21 11:46 [SUNFLOWER SEED] wheat [WHEAT] Allergy Severe ANAPHYLAXIS Verified 02/01/21 11:46 Physical Exam Vital signs: Vital Signs Temp 98.3 F 02/14/21 19:54 Pulse 80 02/14/21 19:54 Resp 12 02/14/21 19:54 BP 104/62 02/14/21 19:54 Pulse Ox 100 02/14/21 19:54 Intake & Output 02/14/21 02/14/21 02/15/21 06:59 18:59 06:59 Intake Total 1258.667 / 4098.667 1350 / 1350 Output Total 250 / 450 550 / 550 Balance 1008.667 / 3648.667 800 / 800 Urine Output (Average ml/kg/hr) 0.33 0.74 0.74 Intake: Intake, Oral Amount 240 / 480 250 / 250 Intake, IV Amount 1018.667 / 3268.667 1100 / 1100 Piperacillin Sodium/Tazobactam 100 / 150 3.375 gm In 0.9 % Sodium Chloride 50 ml @ 100 mls/hr IV Q6H [facility] Rx#:[id number] levoFLOXacin/D5W 500 mg In 100 100 / 100 ml @ 100 mls/hr IV ONCE ONE Rx# :[id number] Dextrose 5 % and Lactated Ring 918.667 / 586.633 1105 / 1000 1,000 ml @ 80 mls/hr IVCONT . [id number] TALAT Rx#:[id number] Output: Output, Urine Amount 250 / 450 550 / 550 Other: Meal Refused Yes Breakfast % Eaten 0% Lunch % Eaten 0% Last Bowel Movement 02/14/21 Stool Bedside Commode Stool Amount Large Stool Color Brown Stool Consistency Liquid Weight 62.3 kg Weight in Grams 70329 Weight 62.3 kg Hem/Onc Consult Result - Labs CBC & Chem 7: 02/17/21 05:46 02/17/21 05:46 Labs: Short CBC 02/14/21 Range/Units 05:06 WBC 21.8 H (4.8-10.8) X10*3/uL Hgb 7.7 L (12.0-16.0) g/dl Hct 22.0 L (37-47) % Plt Count 102 L (160-400) X10*3/uL BMP 02/14/21 05:06 Sodium 133 L Potassium 4.1 Chloride 108 Carbon Dioxide 16 L BUN 24 H Creatinine 1.33 Calcium 7.2 L Liver Function 02/14/21 Range/Units 05:06 Total Bilirubin 1.5 H (0.0-1.0) mg/dL AST 33 H (5-31) U/L ALT 24 (0-31) U/L Alkaline Phosphatase 236 H D (39-117) U/L Albumin 1.7 L (3.5-5.0) g/dL Assessment and Plan Patient Active problem list reviewed?: Yes (1) 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 Unfortunately she was deemed not a candidate for the endometrial cancer, on account of end-stage liver disease. She has been seen at [facility] by Dr. Marquez. She was also evaluated by GI at [facility]. She was then referred to Dr. Marcos for further evaluation. He proceeded with MRI of the liver that was done. She had been under the care of Dr. Marquez. She proceeded with a biopsy of the pelvic mass. this was done on 05/07/20 and revealed: Adenocarcinoma. Tumor appeared morphologically distinct from the patient's endometrioid adenocarcinoma of the endometrium. Packs 8 and ER negativity also do not support metastatic endometrial carcinoma. Rare malignant cells present compatible with metastatic gallbladder adenocarcinoma, but other primary sites cannot be absolutely excluded especially given the paucity of malignant cells in the specimen. I went over the results of the pathology with her and her grandson. Explained that only option for treatment would be with chemotherapy, however that would be palliative at best. I would be concerned more about, toxicity especially with her underlying liver disease, gemcitabine being hepatotoxic. However according to the NCCN guidelines there are options of targeted therapy, if she has an NNTR mutation or in case of MSI high tumor, Pembrolizumab would be an option. She, otherwise had good quality of life. Treatment would have more of a potential for toxicity and affect that in a negative manner. I was also concerned about her limited hepatic reserve. Back in July the patient had signed on with hospice. However she wanted to continue paracenteses for comfort and so was switched to palliative care. CT scan of the abdomen from 02/13: New small amount of ascites. There is haziness and nodularity of the peritoneum questionable for peritoneal disease/carcinomatosis. High attenuation right rectus muscle questionable for metastatic implant versus hematoma. New bilateral hydronephrosis, left greater than right. Diverticulosis of the colon. Very enlarged fibroid uterus. She has now been admitted with Gram-negative bacteremia. Most likely of bowel origin. Even though she has bilateral hydronephrosis. Urine culture is negative. She is being treated with Levaquin for suspected Enterobacter. She does appeared rather frail. PLAN: To continue her on the current regimen. Unfortunately there is large peritoneal met. This is not much ascites there to tap. She has been made DNR/DNI. Would continue on the palliative care mode. Thank you, - Time Spent With Patient Time Spent with Patient (in minutes): 35
[2021-02-14] MEDS: Melatonin 3 MG TABLET 6 MG PO (20:23)
[2021-02-15] VITALS (7 sets, daily range): BP systolic 96–117; BP diastolic 50–72; PULSE 64–89; RESP 12–20; TEMP 36.4–36.9; O2SAT 97–100; BMI 26.6
[2021-02-15] MEDS: oxyCODONE HCl Immed Release 5 MG TABLET PO ×3 (00:05→13:49)
[2021-02-15] MEDS: Ondansetron ODT 8 MG TAB.RAPDIS TRANSLINGU ×3 (00:05→17:27)
[2021-02-15 05:29] LABS: Basophils Percent Auto 0.2 % (0-2); Eosinophils Absolute Auto 0.3 X10*3/uL (0.0-0.4); Eosinophils Percent Auto 1.5 % (0-4); Hematocrit 23.5 % (37-47); Imm Gran Abs Auto 0.19 X10*3/uL (0.00-0.03); Imm Gran Pct Auto 0.8 % (0.0-0.4); Lymphocytes Percent Auto 4.3 % (20-40); MANUAL DIFF FLAG SCAN; Mean Corpuscular Hemoglobin 27.7 pg (27.0-33.0); Mean Corpuscular Volume 81.3 fL (80-98); Mean Platelet Volume 10.3 fL (9.4-12.3); Monocytes Absolute Auto 0.8 X10*3/uL (0.1-1.2); Monocytes Percent Auto 3.5 % (2-11); Neutrophils Absolute Auto 20.5 X10*3/uL (2.0-8.3); Neutrophils Percent Auto 89.7 % (45-73); Red Blood Count 2.89 X10*6/uL (4.20-5.50); Red Cell Distribution Width 19.7 % (11.0-16.0); SCAN SMEAR FLAG 1; White Blood Count 22.8 X10*3/uL (4.8-10.8)
[2021-02-15 05:40] LABS: Platelet Count 87 X10*3/uL (160-400)
[2021-02-15 05:49] LABS: Partial Thromboplastin Time 36.7 SEC (24.1-38.0)
[2021-02-15 05:54] LABS: Alanine Aminotransferase 30 U/L (0-31); Albumin Level 1.7 g/dL (3.5-5.0); Alkaline Phosphatase 275 U/L (39-117); Anion Gap 14 (12-20); Aspartate Amino Transferase 42 U/L (5-31); Bilirubin Total 1.3 mg/dL (0.0-1.0); Blood Urea Nitrogen 23 mg/dL (9-16); Calcium 7.4 mg/dL (8.4-10.2); Carbon Dioxide 17 mmol/L (22-29); Chloride 109 mmol/L (96-108); Creatinine Clr Calc Pharmacy 27.9; Estimated Glomerular Filt Rate 36; Glucose Random 81 mg/dL (60-115); Phosphorus 4.1 mg/dL (2.7-4.5); Potassium 4.1 mmol/L (3.3-5.1); Sodium 136 mmol/L (135-145); Total Protein 5.1 g/dL (6.5-8.0)
[2021-02-15 07:54] LABS: SLIDE REVIEW VERIFIED
[2021-02-15] MEDS: Omeprazole 40 MG CAPSULE.DR PO (08:08)
[2021-02-15] MEDS: Sodium Bicarbonate 650 MG TABLET PO ×4 (08:08→19:45)
[2021-02-15] MEDS: Famotidine 20 MG TABLET PO ×2 (08:08→19:45)
[2021-02-15] MEDS: LORazepam 0.5 MG TABLET PO (08:31)
--- NOTE | 2021-02-15 12:51 | PC.NURSE ---
pt to rom via bed, camera in place. Pt denies pain, has been transferred to recliner per pt request.
--- NOTE | 2021-02-15 14:42 | MHC.CM.PN ---
Attempted to meet with pt in ICU: pt not able to focus on answering assessment questions and thus, unable to participate in assessment. Call placed to pt's dtr Maddy who states pt has [facility] services as well as 24/7 care provided by family and neighbors. She is never alone Pt has a cane but per dtr, is quite independent with most all care needs. MOLST form on file. Grandharsha Dave is HCP - copy requested: Maddy requests continued [facility] visits and can transport pt to home when medically ready. Referral made: pt to transfer to [facility] today.
[2021-02-15] MEDS: Dextrose 5 % and Lactated Ring 1,000 ML 80 ML IVCONT (15:26)
[2021-02-15] MEDS: Melatonin 3 MG TABLET 6 MG PO (19:45)
[2021-02-16 03:19] VITALS: BP 114/60; PULSE 81; RESP 20; TEMP 37; O2SAT 96
[2021-02-16] MEDS: Dextrose 5 % and Lactated Ring 1,000 ML 80 ML IVCONT (05:19)
[2021-02-16 05:54] VITALS: BMI 26.3
[2021-02-16 07:38] VITALS: BP 114/78; PULSE 87; RESP 18; TEMP 36.5; O2SAT 100
[2021-02-16] MEDS: Famotidine 20 MG TABLET PO ×2 (08:21→20:16)
[2021-02-16] MEDS: oxyCODONE HCl Immed Release 5 MG TABLET PO ×2 (08:21→20:16)
[2021-02-16] MEDS: Ondansetron ODT 8 MG TAB.RAPDIS TRANSLINGU ×3 (08:21→23:58)
[2021-02-16] MEDS: Omeprazole 40 MG CAPSULE.DR PO (08:21)
[2021-02-16 09:17] LABS: Basophils Absolute Auto 0.1 X10*3/uL (0.0-0.2); Basophils Percent Auto 0.2 % (0-2); Eosinophils Absolute Auto 0.4 X10*3/uL (0.0-0.4); Eosinophils Percent Auto 1.7 % (0-4); Hemoglobin 8.8 g/dl (12.0-16.0); Imm Gran Abs Auto 0.13 X10*3/uL (0.00-0.03); Imm Gran Pct Auto 0.6 % (0.0-0.4); Lymphocytes Absolute Auto 0.8 X10*3/uL (1.2-4.9); Lymphocytes Percent Auto 3.5 % (20-40); MANUAL DIFF FLAG SCAN; Mean Corpuscular HGB Conc 33.8 g/dl (31.0-35.0); Mean Corpuscular Hemoglobin 28.1 pg (27.0-33.0); Mean Corpuscular Volume 83.1 fL (80-98); Monocytes Absolute Auto 0.7 X10*3/uL (0.1-1.2); Monocytes Percent Auto 3.1 % (2-11); Neutrophils Absolute Auto 21.3 X10*3/uL (2.0-8.3); Neutrophils Percent Auto 90.9 % (45-73); Platelet Count 73 X10*3/uL (160-400); Red Blood Count 3.13 X10*6/uL (4.20-5.50); Red Cell Distribution Width 20.2 % (11.0-16.0); SCAN SMEAR FLAG 1; White Blood Count 23.5 X10*3/uL (4.8-10.8)
[2021-02-16 09:40] LABS: SLIDE REVIEW VERIFIED
[2021-02-16 10:21] LABS: Anion Gap 12 (12-20); Blood Urea Nitrogen 23 mg/dL (9-16); Calcium 7.3 mg/dL (8.4-10.2); Carbon Dioxide 17 mmol/L (22-29); Chloride 105 mmol/L (96-108); Creatinine Clr Calc Pharmacy 26.1; Estimated Glomerular Filt Rate 33; Glucose Random 151 mg/dL (60-115); Potassium 3.7 mmol/L (3.3-5.1); Sodium 130 mmol/L (135-145)
[2021-02-16 10:52] VITALS: BP 121/69; PULSE 91; RESP 20; TEMP 36.5; O2SAT 99
[2021-02-16] MEDS: Sodium Bicarbonate 650 MG TABLET PO ×4 (10:57→20:16)
[2021-02-16 12:04] VITALS: BP 121/69; PULSE 91; O2SAT 99
[2021-02-16] MEDS: levoFLOXacin 500 MG TABLET PO (14:09)
--- NOTE | 2021-02-16 14:55 | HO.PM.IMPN ---
Subjective Subjective Date of Service: 02/16/21 Interval History: The patient was seen and evaluated this morning Laying in bed, feels ok overall Feeling tired and lethargic with no much energy No reported other overnight events. Systemic review: No fever, chills but reports feeling of weakness No chest pain, palpitation No shortness of breath or coughing No abdominal pain, nausea or vomiting No urinary symptoms No any rash or wounds Physical Exam Vital Signs: Vital Signs: Last Vital Signs Temp 97.7 F 02/16/21 10:52 Pulse 91 02/16/21 12:04 Resp 20 02/16/21 10:52 BP 121/69 02/16/21 12:04 Pulse Ox 99 02/16/21 12:04 Body Mass Index 26.3 Const: Other: Constitutional : Chronically ill-looking, Alert, oriented, not in distress Neck : Normal inspection, Supple Cardiovascular : RRR, S1 S2, no lower extremity edema Respiratory : Fair bilateral air entry, no crackles, wheezes or rhonchi Gastrointestinal: soft, lax, Normal bowel sounds, distended, no ascites, Non tender Skin : Warm, Dry Neurological : Alert & oriented x3, No focal deficit Objective Data Active Medications Diphenhydramine HCl (Diphenhydramine Hcl 25 Mg Tablet) 50 mg PO TID PRN PRN Reason: itching Famotidine (Famotidine 20 Mg Tablet) 20 mg PO BID [facility] Last Admin: 02/16/21 08:21 Dose: 20 mg Documented by: RINA Fentanyl (Fentanyl 25 Mcg Patch.Td72) 25 mcg TRANSDERMA Q72H [facility] Last Admin: 02/14/21 09:01 Dose: 25 mcg Documented by: KAREN Levofloxacin (Levofloxacin 500 Mg Tablet) 500 mg PO Q24H [facility] Last Admin: 02/16/21 14:09 Dose: 500 mg Documented by: KAREN Lorazepam (Lorazepam 0.5 Mg Tablet) 0.5 mg PO BEDTIME PRN PRN Reason: Anxiety Last Admin: 02/15/21 08:31 Dose: 0.5 mg Documented by: KAREN Melatonin (Melatonin 3 Mg Tablet) 6 mg PO BEDTIME [facility] Last Admin: 02/15/21 19:45 Dose: 6 mg Documented by: ANTOIC Omeprazole (Omeprazole 40 Mg Capsule.) 40 mg PO DAILY [facility] Last Admin: 02/16/21 08:21 Dose: 40 mg Documented by: RINA Ondansetron HCl (Ondansetron Odt 8 Mg Tab.Rapdis) 8 mg TRANSLINGU Q8H [facility] Last Admin: 02/16/21 08:21 Dose: 8 mg Documented by: RINA Oxycodone HCl (Oxycodone Hcl Immed Release 5 Mg Tablet) 5 mg PO Q3H PRN PRN Reason: pain Last Admin: 02/16/21 08:21 Dose: 5 mg Documented by: RINA Sodium Bicarbonate (Sodium Bicarbonate 650 Mg Tablet) 650 mg PO QID [facility] Last Admin: 02/16/21 14:09 Dose: 650 mg Documented by: KAREN Labs CBC & Chem 7: 02/16/21 09:03 02/16/21 09:03 Labs: Laboratory Results - last 24 hr 02/16/21 02/16/21 09:03 09:03 MCV 83.1 MCH 28.1 MCHC 33.8 RDW 20.2 H Plt Count 73 L MPV 10.0 Immature Gran % (Auto) 0.6 H Neut % (Auto) 90.9 H Lymph % (Auto) 3.5 L [place] % (Auto) 3.1 Eos % (Auto) 1.7 Baso % (Auto) 0.2 Lymph # (Auto) 0.8 L [place] # (Auto) 0.7 Eos # (Auto) 0.4 Baso # (Auto) 0.1 Abs Immat Gran (auto) 0.13 H Absolute Neuts (auto) 21.3 H Absolute Nucleated RBC 0.000 Nucleated RBC % (auto) 0.0 Smear Tech's Comments VERIFIED Anion Gap 12 Estim Creat Clear Calc 26.1 Estimated GFR 33 Random Glucose 151 H D Calcium 7.3 L Microbiology Microbiology Results: Microbiology 02/13/21 09:45 Blood Culture - Preliminary Blood - Venous Enterobacter cloacae complex 02/13/21 09:48 Blood Culture - Preliminary Blood - Venous No growth after 48 hours. 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 Improving with IV antibiotics. Enterobactor bacteremia No clear source identified but likely intra-abdominal One bottle of blood culture positive Improving with IV antibiotic of Levaquin Urine culture growing Enterobacter Previous culture showed sensitivity to Levaquin ? Physical deconditioning, frail. Secondary to advanced cancer Plan for palliative care at home Metastatic intra-abdominal cancer there is large peritoneal met. This is not much ascites there to tap. She has been made DNR/DNI. continue on the palliative care Quality Stroke Does the patient have a stroke diagnosis?: No VTE Prior VTE?: No VTE Risk Level:: Medical - moderate - high VTE Device Contraindication: N/A - Device Ordered VTE Drug Contraindication: Treatment Not Indicated
[2021-02-16 15:20] VITALS: BP 110/67; PULSE 81; RESP 18; TEMP 36.4; O2SAT 92
--- NOTE | 2021-02-16 16:05 | MHC.CM.PN ---
Female 75 DX Sepsis. PT eval ordered to assist with Dispo. Cultures are pending. DP resume [facility] and family will transport. CM will follow.
[2021-02-16 19:54] VITALS: BP 113/70; PULSE 86; RESP 19; TEMP 37.2; O2SAT 99
[2021-02-16] MEDS: Melatonin 3 MG TABLET 6 MG PO (20:16)
[2021-02-17] VITALS: BP 94/50; PULSE 83; RESP 18; TEMP 36.9; O2SAT 96
[2021-02-17 04:00] VITALS: BP 98/64; PULSE 68; RESP 20; TEMP 37.1; O2SAT 99
[2021-02-17 05:54] VITALS: BMI 26.2
[2021-02-17 06:58] LABS: Hematocrit 24.1 % (37-47); Hemoglobin 8.3 g/dl (12.0-16.0); Mean Corpuscular HGB Conc 34.4 g/dl (31.0-35.0); Mean Corpuscular Hemoglobin 28.3 pg (27.0-33.0); Mean Corpuscular Volume 82.3 fL (80-98); Mean Platelet Volume 10.3 fL (9.4-12.3); Red Blood Count 2.93 X10*6/uL (4.20-5.50); White Blood Count 18.4 X10*3/uL (4.8-10.8)
[2021-02-17 06:59] LABS: Platelet Count 56 X10*3/uL (160-400)
[2021-02-17 07:28] VITALS: BP 102/58; PULSE 74; RESP 20; TEMP 36.6; O2SAT 99
[2021-02-17 07:30] LABS: Anion Gap 12 (12-20); Blood Urea Nitrogen 25 mg/dL (9-16); Calcium 7.1 mg/dL (8.4-10.2); Carbon Dioxide 17 mmol/L (22-29); Chloride 106 mmol/L (96-108); Creatinine Clr Calc Pharmacy 28.7; Estimated Glomerular Filt Rate 37; Glucose Random 74 mg/dL (60-115); Sodium 131 mmol/L (135-145)
[2021-02-17] MEDS: Sodium Bicarbonate 650 MG TABLET PO ×2 (09:21→12:52)
[2021-02-17] MEDS: Ondansetron ODT 8 MG TAB.RAPDIS TRANSLINGU (09:21)
[2021-02-17] MEDS: Omeprazole 40 MG CAPSULE.DR PO (09:21)
[2021-02-17] MEDS: fentaNYL 25 MCG PATCH.TD72 TRANSDERMA (09:21)
[2021-02-17] MEDS: Famotidine 20 MG TABLET PO (09:21)
[2021-02-17] MEDS: oxyCODONE HCl Immed Release 5 MG TABLET PO ×2 (09:23→15:24)
--- NOTE | 2021-02-17 10:33 | P.DS_ITS ---
DS: Providers Provider Date of Service: 02/17/21 Date of admission: 02/13/21 11:15 Primary care physician: Heather Diez MD DS: Diagnosis Discharge Diagnosis (1) Gram-negative bacteremia: Status: Acute (2) Fever: Status: Acute (3) Leukocytosis: Status: Acute (4) Sepsis: Status: Acute DS: Summary Hospital Course Hospital Course: Admission note HPI by Dr. Lester from ICU The patient is a 75 yo lady with primary diagnoses of metastatic cholangiocarcinoma, with liver failure and ascites secondary to cirrhosis, and chronic abdominal pain for which she is on opiates.? She was on hospice care some months ago but withdrew and changed to palliative care so that she could have paracenteses for comfort if and when required.? She also has a history of hypertension, hyperlipidemia, diabetes, and was recently diagnosed with endometrial carcinoma.? In addition, in April, she had a biopsy of a pelvic mass which revealed adenocarcinoma that was morphologically distinct from the patient's endometrial carcinoma; could be a metastatic lesion from her cholangiocarcinoma. Last paracentesis was in September.? Last CT scan was November 28, which showed ?Interval increase in size of the large solid and cystic masses within the pelvis, now measuring 18 and 11 cm, previously 13 and 9cm; ?Interval decrease in the quantity of ascites, now small; Cirrhosis suspected?. She was last seen by Dr. Powell on 12/03/2020.? According to Dr. Powell note, she was eating, but sometimes had nausea.? She was on omeprazole for heartburn and indigestion.? Her weight was stable.? She was on a fentanyl patch.? She was given Lomotil for chronic diarrhea. On 01/24, she was seen in the ED for rectal pain and required stool disimpaction.? On 02/01 she presented for elective paracentesis, but US showed so significant ascites. Review of her [facility] lab records show her white count has been elevated between 14 and 28 since September.? Her hemoglobin has been declining from a baseline of about 11 in September to 8 over the last couple of months.? INR has been 1.4-2.0 through this year.? Sodium has been running about 131. Bicarb has been running 16-17.? BUN/creatinine baseline is about 30/1.2, although the last numbers on 11/28/2020 were 12/0.79.? Glucose levels have been running 80s.? Total bilirubin levels have been 1.5-5.6. ?Lactic acid levels running 2.6-3.4.? Albumin levels have been declining through this year, from 3.3 to 2.4. ? The patient was BIBA this morning bec of weakness possible fever since this morning.? There was some question about whether the patient was having abdominal pain, but the daughter told me specifically that the patient was in her usual state of health all day yesterday.? The family told the ED staff that the patient had ?full code? status In the ED, the patient had no abdominal pain.? The patient denied chest pain, shortness of breath, cough, vomiting, frequency, urgency or dysuria.? On presentation, the patient was oriented and appropriate, talking easily, and in no distress.? She was breathing easy with a sat of 100% on room air.? Heart rate was 88, blood pressure 83/44, and rectal temperature was 100.3 degrees.? The general physical exam was remarkable for abdominal distension and diffuse moderate tenderness without guarding. Laboratory evaluation in the ED was notable for white count of 43.7 (was 28 on 02/01), hemoglobin 7.4 (was 8.3), platelet count [id number] (was 225 K), INR 1.8 (was 1.7), sodium 129, BUN/creatinine 26/1.4 (last was 12/0.79 on 11/28/2020), potassium 4.3, bicarb 12 (was 17), glucose 58, total bilirubin 1.5 (was 0.6), normal transaminases, alk-phos 305 (was 127), albumin 1.6 (was 2.4), Lactic acid 6.4 (was 2.6 on 09/27/2020).? Urine was clear yellow and screening U/A was negative. The patient was given 2 L of normal saline with transient improvement in her blood pressures of 101/52 range.? She was given Zosyn, and a unit of blood was ordered.? No imaging study of the abdomen/pelvis was done. ?A left lower quadrant paracentesis was attempted, but no fluid was obtained. ?She was admitted to the ICU. Hospital course The patient was admitted to ICU with picture of sepsis. Undetermined etiology that point suspicious for intra-abdominal or urine. Started on IV antibiotics of Zosyn then changed to Levaquin based on a previous urine sensitivity. Received a unit of blood. Her blood pressure improved after IV fluid and albumin usage. Found to have acute Kidney injury which did recover back to normal with hydratio n and IV fluids. One bottle of the blood culture grew Enterobacter Cloacae complex which was seen before in her urine sensitive to Levaquin. [facility]] and the patient continue to improve physically and mentally. She was able to participate with PT the who recommended home with services. Seen by Oncology team who recommended no active treatment at this point and advised for comfort measures. Most form was signed and patient's status changed to DNR DNI. She will be discharged home to finish total of 14 days of antibiotics. Time Spent with Patient Time attestation: Total time spent providing and/or coordinating discharge services: Discharge coordination time: Greater than 30 minutes Quality: Stroke Does the patient have a stroke diagnosis?: No Physical Exam Vital Signs: Vital Signs: Last Vital Signs Temp 97.9 F 02/17/21 07:28 Pulse 74 02/17/21 07:28 Resp 20 02/17/21 07:28 BP 102/58 L 02/17/21 07:28 Pulse Ox 99 02/17/21 07:28 Body Mass Index 26.2 Const: Other: Constitutional : Chronically ill-looking, Alert, oriented, not in distress Neck : Normal inspection, Supple Cardiovascular : RRR, S1 S2, no lower extremity edema Respiratory : Fair bilateral air entry, no crackles, wheezes or rhonchi Gastrointestinal: soft, lax, Normal bowel sounds, distended, no ascites, Non tender Skin : Warm, Dry Neurological : Alert & oriented x3, No focal deficit DS: Data Data Completed and Pending Completed studies during hospitalization [Text1]: Procedures Drainage of Peritoneal Cavity, Percutaneous Approach (09/28/20) Labs on day of discharge: Laboratory Results - last 24 hr 02/17/21 02/17/21 05:46 05:46 WBC 18.4 H RBC 2.93 L Hgb 8.3 L Hct 24.1 L MCV 82.3 MCH 28.3 MCHC 34.4 RDW 20.0 H Plt Count 56 L MPV 10.3 Absolute Nucleated RBC 0.000 Nucleated RBC % (auto) 0.0 Sodium 131 L Potassium 4.0 Chloride 106 Carbon Dioxide 17 L Anion Gap 12 BUN 25 H Creatinine 1.38 Estim Creat Clear Calc 28.7 Estimated GFR 37 Random Glucose 74 D Calcium 7.1 L Preliminary micro results at discharge 02/13/21 09:48 Blood Culture - Preliminary Blood - Venous No growth after 48 hours. Discharge Plan Discharge Patient Disposition: Home Health Service Discharge Diagnosis: Gram-negative bacteremia Referrals: Po,Heather Luke MD [Primary Care Provider] - 1 Week Discharge Medications: New levofloxacin 500 mg Tablet 500 mg PO Q24H 9 Days Qty: 9 RF: 0 Continued spironolactone 25 mg tablet 50 mg PO DAILY Qty: 180 RF: 1 loratadine [Claritin] 10 mg tablet 10 mg PO DAILY 90 Days Qty: 90 RF: 3 omeprazole 40 mg capsule,delayed release(DR/EC) 1 cap PO QAM RF: 0 diphenhydramine HCl [Benadryl Allergy] 25 mg tablet 50 mg PO TID PRN (Reason: itching) Qty: 20 RF: 0 famotidine [Pepcid] 20 mg tablet 20 mg PO BID Qty: 20 RF: 0 lorazepam 0.5 mg Tablet 0.5 mg PO BEDTIME PRN (Reason: Anxiety) Qty: 30 RF: 0 furosemide 40 mg tablet 40 mg PO DAILY Qty: 30 RF: 1 oxycodone 5 mg tablet 5 mg PO Q3-4H PRN (Reason: pain) Qty: 60 RF: 0 fentanyl 25 mcg/hr Patch 72 Hour 1 patch TRANSDERMAL Q72H Qty: 5 RF: 0 ondansetron HCl [Zofran] 4 mg Tablet 8 mg PO Q8H Qty: 60 RF: 3 Discharge Orders: Discharge Order (Routine); Ordered 02/17/21 Ordered By: Jacob Victor Diet: advance to usual diet Activity on Discharge: As tolerated Stand Alone Forms: Patient Portal Discharge page Care Plan Goals: Read below Health Concerns: Read below Plan of Treatment: You were admitted to the hospital with picture of sepsis. Found to Gram- negative bacteremia with enterobacter. Treated with IV antibiotics with good response as you improved significantly during the hospital stay. Assessment: Continue Levaquin for 9 more days
--- NOTE | 2021-02-17 11:03 | MHC.CM.PN ---
IMM 02/15/21 Female 75 DX Sepsis. She is discharged today. NA will resume services. Family will provide transportation.
[2021-02-17 11:32] VITALS: BP 110/64; PULSE 89; RESP 19; TEMP 36.5; O2SAT 97
[2021-02-17] MEDS: levoFLOXacin 500 MG TABLET PO (12:52)
== END 2021-02-17 18:20 | disposition home health service (06) | DRG 872 ==
LOC: HO.ED 11:18 → HO.ICU 11:22 → HO.IMC 02-15 11:37
PROVIDERS: Internal Medicine Cardiovascular Disease; Physician Assistant; Admitting Provider Anesthesiology; Emergency Provider Emergency Medicine Emergency Medical Services; PCP Internal Medicine; Visit Provider Student in an Organized Health Care Education/Training Program
DX: A41.50 Gram-negative sepsis, unspecified (principal); C23 Malignant neoplasm of gallbladder; N17.9 Acute kidney failure, unspecified; I82.412 Acute embolism and thrombosis of left femoral vein; D68.9 Coagulation defect, unspecified; C78.6 Secondary malignant neoplasm of retroperitoneum and peritoneum; I95.9 Hypotension, unspecified; C54.1 Malignant neoplasm of endometrium; K21.9 Gastro-esophageal reflux disease without esophagitis; K72.90 Hepatic failure, unspecified without coma; K74.60 Unspecified cirrhosis of liver; E11.65 Type 2 diabetes mellitus with hyperglycemia; Z20.822 Contact with and (suspected) exposure to COVID-19; Z79.891 Long term (current) use of opiate analgesic; Z79.899 Other long term (current) drug therapy; Z66 Do not resuscitate
CPT/HCPCS: 36415; 36430; 71045; 74176; 80048; 80053; 81003; 82947; 83605; 83690; 83735; 84100; 84145; 85007; 85025; 85027; 85379; 85610; 85730; 86850; 86900; 86901; 86923; 87040; 87077; 87186; 87205; 87635; 93005; 93971; 96361; 96374; 97162; 99285; 99291; J1956; J2543; P9016; P9047

== ENCOUNTER 2021-03-02 10:25 | Outpatient (REF) | payer MEDICARE, SELFPAY ==
[2021-03-02 14:48] LABS: Hematocrit 24.1 % (37-47); Mean Corpuscular HGB Conc 33.2 g/dl (31.0-35.0); Mean Corpuscular Hemoglobin 29.5 pg (27.0-33.0); Mean Corpuscular Volume 88.9 fL (80-98); Mean Platelet Volume 11.3 fL (9.4-12.3); Platelet Count 121 X10*3/uL (160-400); Red Blood Count 2.71 X10*6/uL (4.20-5.50); Red Cell Distribution Width 19.7 % (11.0-16.0)
[2021-03-02 15:10] LABS: Alanine Aminotransferase 14 U/L (0-31); Albumin Level 1.7 g/dL (3.5-5.0); Alkaline Phosphatase 192 U/L (39-117); Anion Gap 11 (12-20); Aspartate Amino Transferase 24 U/L (5-31); Bilirubin Direct 0.6 mg/dL (0.0-0.5); Bilirubin Total 0.7 mg/dL (0.0-1.0); Blood Urea Nitrogen 15 mg/dL (9-16); Calcium 6.9 mg/dL (8.4-10.2); Carbon Dioxide 18 mmol/L (22-29); Chloride 106 mmol/L (96-108); Estimated Glomerular Filt Rate 53; Glucose Random 94 mg/dL (60-115); Potassium 4.1 mmol/L (3.3-5.1); Sodium 131 mmol/L (135-145); Total Protein 5.5 g/dL (6.5-8.0)
== END 2021-03-02 10:26 | disposition home or self-care (01) ==
LOC: HO.10HDL 10:25
PROVIDERS: Visit Provider Internal Medicine Gastroenterology
DX: C22.1 Intrahepatic bile duct carcinoma (principal)
CPT/HCPCS: 36415; 80053; 82248; 85027

== ENCOUNTER 2021-03-11 14:53 | Outpatient (REF) | payer MEDICARE, SELFPAY | END 2021-03-11 14:54 | disposition home or self-care (01) | LOC: HO.LNP 14:53 | PROVIDERS: Visit Provider Nurse Practitioner Family | DX: R30.0 Dysuria (principal) | CPT/HCPCS: 87086 ==

== ENCOUNTER 2021-03-13 22:07 | Emergency (ER) | payer MEDICARE, SELFPAY ==
--- NOTE | ~2021-03-13 | XR_ITS ---
EXAMINATION: XR CHEST CLINICAL INFORMATION: Shortness of breath COMPARISON: 02/13/2021 TECHNIQUE: Frontal view of the chest was obtained. FINDINGS: Cardiac leads overlie the chest. Lung volumes are low. No consolidation, edema, or effusion. No pneumothorax. The cardiomediastinal silhouette is unchanged with a tortuous aorta. No acute osseous abnormality. XR/XR chest 1V IMPRESSION: Hypoexpanded, clear lungs.
--- NOTE | 2021-03-13 22:21 | ECG_ITS ---
Test Reason : DSYPNEA Blood Pressure : / mmHG Vent. Rate : 104 BPM Atrial Rate : 104 BPM P-R Int : 122 ms QRS Dur : 060 ms QT Int : 304 ms P-R-T Axes : 023 000 104 degrees QTc Int : 399 ms Sinus tachycardia Low voltage QRS Cannot rule out Anterior infarct , age undetermined Nonspecific T wave abnormality Abnormal ECG When compared with ECG of 13-FEB-2021 09:37, QT has lengthened Referred By: Darby Valdes Electronically Signed By:ORVILLE KEITH
[2021-03-13 22:26] VITALS: BP 116/59; PULSE 110; O2SAT 94; BMI 26.5
[2021-03-13 22:28] VITALS: BP 110/70; PULSE 108; RESP 26; TEMP 36.9; O2SAT 97
--- NOTE | 2021-03-13 22:50 | ED.SOB ---
HPI - SOB/Dyspnea General Chief Complaint: Dyspnea Stated Complaint: sob Time Seen by Provider: 03/13/21 22:21 Source: patient and family (Daughter and grandson) Mode of arrival: EMS History of Present Illness HPI Narrative: 75-year-old female with metastatic ovarian CA is brought in by family members with complaints 5 days of shortness of breath but no fever, chills, nausea, vomiting, but states urinary frequency. However family endorses that they were informed that the patient does not have a UTI. In addition, the grandson who is the healthcare proxy states that patient has a known DVT that they decided not to treat at this time because there was some question regarding a possible hematoma. In addition, the grandson states that patient is in palliative care and they have recently reduced patient's Lasix. Related Data Home Medications Medication Instructions Recorded Confirmed omeprazole 40 mg capsule,delayed 1 cap PO QAM 04/22/20 03/11/21 release Previous Rx's Medication Instructions Recorded diphenhydramine HCl 25 mg tablet 50 mg PO TID PRN #20 tab 07/29/20 (Benadryl Allergy) famotidine 20 mg tablet (Pepcid) 20 mg PO BID #20 tab 07/29/20 spironolactone 25 mg tablet 50 mg PO DAILY #180 tab 08/12/20 lorazepam 0.5 mg tablet 0.5 mg PO BEDTIME PRN #30 tab 11/11/20 loratadine 10 mg tablet (Claritin) 10 mg PO DAILY 90 Days #90 tab 12/28/20 fentanyl 25 mcg/hr transdermal 1 patch TRANSDERMAL Q72H #5 ea 02/15/21 patch oxycodone 5 mg tablet 5 mg PO Q3-4H PRN #60 tab 02/15/21 levofloxacin 500 mg tablet 500 mg PO Q24H 9 Days #9 tab 02/17/21 albuterol sulfate 90 mcg/actuation 2 inh INHALATION Q6H PRN #6.7 g 03/11/21 aerosol inhaler carbamide peroxide 6.5 % ear drops 5 drp OTIC (EARS) BID 4 Days #15 ml 03/11/21 (Debrox) furosemide 20 mg tablet (Lasix) 20 mg PO DAILY PRN #10 tab 03/11/21 ondansetron HCl 4 mg tablet 8 mg PO Q8H #60 tab 10/01/21 (Zofran) furosemide 20 mg tablet (Lasix) 20 mg PO DAILY #14 tab 03/14/21 Allergies Allergy/AdvReac Type Severity Reaction Status Date / Time lisinopril [LISINOPRIL] Allergy Severe SWELLING/NAUSEA/ITCHING, Verified 03/11/21 08:58 cough, swellimg, redness sunflower seed Allergy Severe ANAPHYLAXIS Verified 03/11/21 08:58 [SUNFLOWER SEED] wheat [WHEAT] Allergy Severe ANAPHYLAXIS Verified 03/11/21 08:58 Review of Systems Review of Systems: Pertinent positives and negatives as stated in HPI 10 point review of systems is otherwise negative. 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 Shortness of breath Type 2 diabetes mellitus with hyperglycemia Vitamin D deficiency Surgical History History of laparoscopic cholecystectomy History of surgery Family History Family History Father Diabetes Mother Diabetes Cancer Social History Social History Household Members: Family Housing: Apartment Do you presently have visiting nurse or other home services: Yes Alcohol intake: never Patient Tobacco Use Status: Never used Tobacco Second Hand Smoke Exposure: No Advance Directives: No Advance Directives Information Provided: No service: No Current occupational status: unemployed and disabled Physical Exam Vital Signs: Vital Signs: Last Vital Signs Temp 98.5 F 03/13/21 22:28 Pulse 96 03/14/21 00:00 Resp 18 03/14/21 00:00 BP 140/75 H 03/14/21 00:00 Pulse Ox 100 03/14/21 00:00 Body Mass Index 26.5 VITAL SIGNS: Reviewed. GENERAL: Chronically ill, cachectic, mild distress. HEAD: Normocephalic/atraumatic EYES: PERRLA, EOMI OROPHARYNX: no oral lesions noted, posterior pharynx clear NECK: Supple, no adenopathy LUNGS: Good inspiratory effort, no rhonchi/wheeze noted but mild tachypnea. SpO2<100>RA CARDIOVASCULAR: Regular rate and rhythm without noted murmurs, no JVD but bilateral lower extremity edema ABDOMEN: Soft, diffuse tenderness on palpation, palpation masses within the abdomen (this is not new) non-distended with bowel sounds. SKIN: Inspection of the skin reveals no rashes NEUROLOGIC: Alert and oriented x 4. Strength and sensation to light touch were grossly intact x 4. Course Course Course Narrative: 75-year-old female with history and clinical presentation suggestive are failure, pneumonia, PE the latter of which is highly likely given patient's known DVT status. Labs, chest x-ray, UA were obtained and a discussion was held with patient's healthcare proxy, the grandson, who states that the decision was previously made not to treat the DVT due to concerns for patient's hematuria as well as a questionable hematoma. On review of all lab work patient's H&H is stable and there is an elevated BNP mildly suggestive of fluid overload. Extensive discussion was held with the grandson, Tenzin as well as patient's daughter and the decision is made at this time that although it is possible that patient has a PE which may be contributing to her feelings of shortness of breath and tachycardia the family does not wish to proceed with blood thinners at this time due to the risks of bleeding and they will try an increase of Lasix and will follow-up with palliative care team and initiate hospice services. At that time they will request supplemental oxygen for symptom relief and patient is discharged otherwise in stable condition. MDM - SOB/Dyspnea Lab Data Result diagrams: 03/13/21 22:54 03/13/21 22:54 Labs: Lab Results 03/13/21 03/13/21 03/13/21 Range/Units 22:46 22:54 22:54 WBC 17.2 H (4.8-10.8) X10*3/uL RBC 3.05 L (4.20-5.50) X10*6/uL Hgb 8.9 L (12.0-16.0) g/dl Hct 26.1 L (37-47) % MCV 85.6 (80-98) fL MCH 29.2 (27.0-33.0) pg MCHC 34.1 (31.0-35.0) g/dl RDW 17.6 H (11.0-16.0) % Plt Count 148 L (160-400) X10*3/uL MPV 9.2 L (9.4-12.3) fL Immature Gran % (Auto) 0.5 H (0.0-0.4) % Neut % (Auto) 91.3 H (45-73) % Lymph % (Auto) 4.5 L (20-40) % [place] % (Auto) 2.6 (2-11) % Eos % (Auto) 0.9 (0-4) % Baso % (Auto) 0.2 (0-2) % Lymph # (Auto) 0.8 L (1.2-4.9) X10*3/uL [place] # (Auto) 0.4 (0.1-1.2) X10*3/uL Eos # (Auto) 0.2 (0.0-0.4) X10*3/uL Baso # (Auto) 0.0 (0.0-0.2) X10*3/uL Abs Immat Gran (auto) 0.08 H (0.00-0.03) X10*3/uL Absolute Neuts (auto) 15.7 H (2.0-8.3) X10*3/uL Absolute Nucleated RBC 0.000 (0.0-0.012) X10*3/uL Nucleated RBC % (auto) 0.0 (0.0-0.2) /100WBC Smear Tech's Comments VERIFIED Sodium (135-145) mmol/L Potassium (3.3-5.1) mmol/L Chloride (96-108) mmol/L Carbon Dioxide (22-29) mmol/L Anion Gap (12-20) BUN (9-16) mg/dL Creatinine (0.5-1.4) mg/dL Estim Creat Clear Calc Estimated GFR Random Glucose (60-115) mg/dL Calcium (8.4-10.2) mg/dL Total Bilirubin (0.0-1.0) mg/dL AST (5-31) U/L ALT (0-31) U/L Alkaline Phosphatase (39-117) U/L B-Natriuretic Peptide 405 H (<100) pg/mL Total Protein (6.5-8.0) g/dL Albumin (3.5-5.0) g/dL Urine Color Urine Appearance Urine pH (5.0-8.0) Ur Specific [place] (1.005-1.025) Urine Protein (NEG-TRACE) MG/DL Urine Glucose (UA) (NEG) MG/DL Urine Ketones (NEG) MG/DL Urine Blood (NEG) Urine Nitrite (NEG) Ur Leukocyte Esterase (NEG) Urine RBC (0) /HPF Urine WBC (0-4) /HPF Ur Squamous Epith Cells /LPF Urine Bacteria /LPF COVID-19 (JARED) Negative (Negative) COVID-19 Clin Com See Note 03/13/21 03/14/21 Range/Units 22:54 00:46 WBC (4.8-10.8) X10*3/uL RBC (4.20-5.50) X10*6/uL Hgb (12.0-16.0) g/dl Hct (37-47) % MCV (80-98) fL MCH (27.0-33.0) pg MCHC (31.0-35.0) g/dl RDW (11.0-16.0) % Plt Count (160-400) X10*3/uL MPV (9.4-12.3) fL Immature Gran % (Auto) (0.0-0.4) % Neut % (Auto) (45-73) % Lymph % (Auto) (20-40) % [place] % (Auto) (2-11) % Eos % (Auto) (0-4) % Baso % (Auto) (0-2) % Lymph # (Auto) (1.2-4.9) X10*3/uL [place] # (Auto) (0.1-1.2) X10*3/uL Eos # (Auto) (0.0-0.4) X10*3/uL Baso # (Auto) (0.0-0.2) X10*3/uL Abs Immat Gran (auto) (0.00-0.03) X10*3/uL Absolute Neuts (auto) (2.0-8.3) X10*3/uL Absolute Nucleated RBC (0.0-0.012) X10*3/uL Nucleated RBC % (auto) (0.0-0.2) /100WBC Smear Tech's Comments Sodium 130 L (135-145) mmol/L Potassium 4.7 (3.3-5.1) mmol/L Chloride 107 (96-108) mmol/L Carbon Dioxide 15 L (22-29) mmol/L Anion Gap 13 (12-20) BUN 11 (9-16) mg/dL Creatinine 0.88 (0.5-1.4) mg/dL Estim Creat Clear Calc 49.1 Estimated GFR > 60 Random Glucose 103 (60-115) mg/dL Calcium 7.2 L (8.4-10.2) mg/dL Total Bilirubin 0.9 (0.0-1.0) mg/dL AST 33 H (5-31) U/L ALT 21 (0-31) U/L Alkaline Phosphatase 276 H D (39-117) U/L B-Natriuretic Peptide (<100) pg/mL Total Protein 6.6 (6.5-8.0) g/dL Albumin 2.0 L (3.5-5.0) g/dL Urine Color YELLOW Urine Appearance HAZY Urine pH 7.0 (5.0-8.0) Ur Specific [place] 1.010 (1.005-1.025) Urine Protein NEG (NEG-TRACE) MG/DL Urine Glucose (UA) NEG (NEG) MG/DL Urine Ketones NEG (NEG) MG/DL Urine Blood NEG (NEG) Urine Nitrite NEG (NEG) Ur Leukocyte Esterase 1+ H (NEG) Urine RBC 1-4 (0) /HPF Urine WBC 10-14 H (0-4) /HPF Ur Squamous Epith Cells 3+ /LPF Urine Bacteria TRACE /LPF COVID-19 (JARED) (Negative) COVID-19 Clin Com ECG Data Attestation: I personally reviewed and interpreted this ECG as follows: Prior ECG tracings: available for review (02/13/2021) Interpretation: Sinus tachycardia, HR-104, no STEMI, AK/QRS/QTC are within normal limits. Discharge Plan Discharge Clinical Impression: Dyspnea, Elevated brain natriuretic peptide (BNP) level Patient Disposition: Home, Self-Care Instructions: Heart Failure (ED), Dyspnea (ED) Additional Instructions: 1. Resume all home medications as prescribed. 2. Recommend doubling dose of Lasix at this time and follow-up with outpatient provider for re-evaluation and repeat basic metabolic panel to evaluate for electrolyte changes. Do not hesitate to return to the emergency room. Prescriptions: New furosemide [Lasix] 20 mg tablet 20 mg PO DAILY Qty: 14 RF: 0 No Action spironolactone 25 mg tablet 50 mg PO DAILY Qty: 180 RF: 1 loratadine [Claritin] 10 mg tablet 10 mg PO DAILY 90 Days Qty: 90 RF: 3 omeprazole 40 mg capsule,delayed release(DR/EC) 1 cap PO QAM RF: 0 diphenhydramine HCl [Benadryl Allergy] 25 mg tablet 50 mg PO TID PRN (Reason: itching) Qty: 20 RF: 0 famotidine [Pepcid] 20 mg tablet 20 mg PO BID Qty: 20 RF: 0 lorazepam 0.5 mg Tablet 0.5 mg PO BEDTIME PRN (Reason: Anxiety) Qty: 30 RF: 0 oxycodone 5 mg tablet 5 mg PO Q3-4H PRN (Reason: pain) Qty: 60 RF: 0 fentanyl 25 mcg/hr Patch 72 Hour 1 patch TRANSDERMAL Q72H Qty: 5 RF: 0 levofloxacin 500 mg Tablet 500 mg PO Q24H 9 Days Qty: 9 RF: 0 carbamide peroxide [Debrox] 6.5 % drops 5 drp otic (ears) BID 4 Days Qty: 15 RF: 0 furosemide [Lasix] 20 mg tablet 20 mg PO DAILY PRN (Reason: edema) Qty: 10 RF: 0 ondansetron HCl [Zofran] 4 mg tablet 8 mg PO Q8H Qty: 60 RF: 0 albuterol sulfate 90 mcg/actuation HFA aerosol inhaler 2 inh inhalation Q6H PRN (Reason: shortness of breath or wheezing) Qty: 6.7 RF: 0 Referrals: Po,Heather Luke MD [Primary Care Provider] - 2 days
[2021-03-13 23:00] LABS: Basophils Percent Auto 0.2 % (0-2); Eosinophils Absolute Auto 0.2 X10*3/uL (0.0-0.4); Eosinophils Percent Auto 0.9 % (0-4); Hematocrit 26.1 % (37-47); Hemoglobin 8.9 g/dl (12.0-16.0); Imm Gran Abs Auto 0.08 X10*3/uL (0.00-0.03); Imm Gran Pct Auto 0.5 % (0.0-0.4); Lymphocytes Absolute Auto 0.8 X10*3/uL (1.2-4.9); Lymphocytes Percent Auto 4.5 % (20-40); MANUAL DIFF FLAG SCAN; Mean Corpuscular HGB Conc 34.1 g/dl (31.0-35.0); Mean Corpuscular Hemoglobin 29.2 pg (27.0-33.0); Mean Corpuscular Volume 85.6 fL (80-98); Mean Platelet Volume 9.2 fL (9.4-12.3); Monocytes Absolute Auto 0.4 X10*3/uL (0.1-1.2); Monocytes Percent Auto 2.6 % (2-11); Neutrophils Absolute Auto 15.7 X10*3/uL (2.0-8.3); Neutrophils Percent Auto 91.3 % (45-73); Platelet Count 148 X10*3/uL (160-400); Red Blood Count 3.05 X10*6/uL (4.20-5.50); Red Cell Distribution Width 17.6 % (11.0-16.0); SCAN SMEAR FLAG 1; White Blood Count 17.2 X10*3/uL (4.8-10.8)
[2021-03-13 23:06] LABS: COVID-19 Test Negative (Negative)
[2021-03-13 23:17] LABS: SLIDE REVIEW VERIFIED
[2021-03-13 23:19] LABS: B Type Natriuretic Peptide 405 pg/mL (<100)
[2021-03-13 23:22] LABS: Alanine Aminotransferase 21 U/L (0-31); Alkaline Phosphatase 276 U/L (39-117); Anion Gap 13 (12-20); Aspartate Amino Transferase 33 U/L (5-31); Bilirubin Total 0.9 mg/dL (0.0-1.0); Blood Urea Nitrogen 11 mg/dL (9-16); Calcium 7.2 mg/dL (8.4-10.2); Carbon Dioxide 15 mmol/L (22-29); Chloride 107 mmol/L (96-108); Creatinine Clr Calc Pharmacy 49.1; Estimated Glomerular Filt Rate > 60; Glucose Random 103 mg/dL (60-115); Potassium 4.7 mmol/L (3.3-5.1); Sodium 130 mmol/L (135-145); Total Protein 6.6 g/dL (6.5-8.0)
[2021-03-14] VITALS: BP 140/75; PULSE 96; RESP 18; O2SAT 100
--- NOTE | 2021-03-14 00:31 | PC.NURSE ---
pt ambulated with walker with the attempt to make it to the bathroom, pt was slow but steady, increase in rr noted and on return to bed pt sat where 98% - 99% on room air.
[2021-03-14 00:50] LABS: Appearance Urine HAZY; Color Urine YELLOW; Glucose Urine UA NEG (NEG); Leukocyte Esterase Urine 1+ (NEG); Nitrite Urine NEG (NEG); UACC Culture Trigger YES; Urine Blood NEG (NEG); Urine Ketones NEG (NEG); Urine Protein NEG (NEG-TRACE)
[2021-03-14 01:02] LABS: Bacteria Urine TRACE /LPF; Squamous Epithelial Cell Urine 3+ /LPF
[2021-03-14] MEDS: oxyCODONE HCl Immed Release 5 MG TABLET PO (01:17)
== END 2021-03-14 02:00 | disposition home or self-care (01) ==
PROVIDERS: Emergency Provider Student in an Organized Health Care Education/Training Program; PCP Internal Medicine
DX: R06.02 Shortness of breath (principal); R79.89 Other specified abnormal findings of blood chemistry; Z20.822 Contact with and (suspected) exposure to COVID-19; Z79.899 Other long term (current) drug therapy
CPT/HCPCS: 36415; 71045; 80053; 81001; 83880; 85025; 87086; 87635; 93005; 99284